=== PATIENT | female | born 1985 | race Caucasian/White ===

== ENCOUNTER 2021-06-07 08:01 | Emergency (ER) | payer OTHER, SELFPAY ==
[2021-06-07 08:07] VITALS: BP 126/89; PULSE 88; RESP 19; TEMP 36.6; O2SAT 97; BMI 28.1
--- NOTE | 2021-06-07 08:24 | ED.GENADULT ---
HPI - General Adult General Chief complaint: Upper Respiratory Symptoms Stated complaint: flu like symptoms Time Seen by Provider: 06/07/21 08:24 Source: patient Mode of arrival: ambulatory Limitations: no limitations History of Present Illness HPI narrative: 36-year-old female is here today for complaints of body aches and upper respiratory symptoms for the last 2 days. Patient reports that the symptoms started 2 days ago with body aches chills and subjective fever. Yesterday patient started coughing, complains of headache, no nausea, no vomiting, no diarrhea. Patient denies any abdominal discomfort or cramps. Mild sore throat and postnasal drip. Patient has not been vaccinated for COVID and denies any ill contacts. Nobody else is sick in the house. Patient reports that the headache it in her frontal area and the right cheek area. Denies any sinus infections in the past. Denies any earaches. Onset (ago): day(s) Location: head Radiation: non-radiation Severity: mild Quality: aching Pain Consistency: intermittent Relieving factors: none Related Data Previous Rx's Medication Instructions Recorded promethazine 25 mg tablet 25 mg PO TID PRN #14 tab 05/04/21 cetirizine 10 mg tablet (All Day 10 mg PO DAILY PRN #20 tab 06/07/21 Allergy (cetirizine)) fluticasone propionate 50 1 spray INTRANASAL BID #16 g 06/07/21 mcg/actuation nasal spray,suspension (Flonase Allergy Relief) ibuprofen 600 mg tablet 600 mg PO Q8H PRN #20 tab 06/07/21 Allergies Allergy/AdvReac Type Severity Reaction Status Date / Time No Known Allergies Allergy Unverified 02/15/21 12:43 Review of Systems Review of Systems: Constitutional : No Weight loss, Fever, Chills, No Night Sweats, No Fatigue, No Malaise ENT/Mouth : No Hearing loss, No Ear Pain, No Nasal Congestion, Sinus Pain, No Hoarseness, Nosore throat, No Rhinorrhea, No Swallowing Difficulty Eyes: No Eye Pain, No Swelling, No Redness, No Foreign Body, No Discharge, No Vision Changes Cardiovascular : No Chest Pain, No SOB, No Dyspnea on Exertion, No Orthopnea, No Edema, No Palpitations Respiratory : Cough, No Sputum, No Wheezing, No Smoke Exposure, No Dyspnea Gastrointestinal : No Nausea, No Vomiting, No Diarrhea, No Constipation, No abdominal Pain, No Hematochezia, No Melena Genitourinary : no irregular bleeding, No Dysuria, No Urinary Frequency, No Hematuria, No Urinary Incontinence, No Urgency, No Flank Pain, No Urinary Flow Changes, No Hesitancy Musculoskeletal : No joint pain, No Myalgias, No Joint Swelling Skin : No Skin Lesions, No rash Neuro : No Weakness, No Numbness, No Paresthesias, No Loss of Consciousness, No Dizziness, No Headache Psych : No Anxiety/Panic, No Depression, No SI/HI/AH/VH, No Social Issues, Yes all other systems are reviewed and are negative PMFSH Social History Social History Advance Directives: No Patient : No Physical Exam Vital Signs: Vital Signs: Last Vital Signs Temp 99.9 F 06/07/21 09:23 Pulse 107 H 06/07/21 09:23 Resp 15 06/07/21 09:23 BP 117/74 06/07/21 09:23 Pulse Ox 97 06/07/21 09:23 Body Mass Index 28.1 Const: General: healthy appearing, no acute distress and well developed Nutritional Appearance: well nourished Orientation/consciousness: patient oriented x3 HENMT: Head: Yes normal to inspection, Yes normocephalic and Yes atraumatic General nose exam: Normal external nose present and Normal nares present Face and sinus: Yes normal facial exam Mouth: Normal oral and palatal mucosa present and lip normal Throat: Yes tonsils normal, Yes uvula midline and Yes postnasal drainage Eyes: General: appearance normal, both eyes and all related structures Neck: Neck: Yes normal visual inspection, Yes full ROM and Yes trachea midline Thyroid: other (Goiter) Carotids: normal carotid upstroke Lymphatic: no lymphadenopathy noted Resp: Effort & Inspection: normal respiratory effort and able to speak in complete sentences Auscultation: clear to auscultation bilaterally Cardio: Rate: regular rate Rhythm: regular rhythm Heart sounds: S1 normal heart sound present and S2 normal heart sound present GI: Inspection: Yes normal to inspection and No distended Palpation (GI): No hepatosplenomegaly present Auscultation: normal bowel sounds Skin: General skin exam: elasticity normal, turgor normal and dry skin Neuro: General: patient oriented x3 Course Course Course Narrative: 36-year-old female is here today for body aches, headache, cough, congestion in the last two days. Patient reports that yesterday she felt like she had a fever had body aches chills. Nobody else in the house have been sick. Patient has not been vaccinated against COVID or flu. She denies any ill contacts. Patient reports that she took Mucinex this morning for cough. Patient reports she has a dry cough and does not bring anything up. Some congestion and postnasal drip. Patient denies any shortness of breath, abdominal pain, discomfort, nausea, vomiting, diarrhea. Will order COVID/flu/RSV test, will give her Claritin and ibuprofen. Will hold off on getting an x-ray. Patient has no cough, no shortness of breath her lung sounds are clear. Reevaluation(s) Reevaluation #1: Swab came back negative for flu and RSV and positive for COVID. Patient will go home. She does not have any comorbidities. I will send her home on Tessalon Perles, Zyrtec, Flonase. Patient will quarantine for 10 days herself and her children. Watch for any worsening symptoms. She was encouraged to come back if her symptoms will get worse or if she will experience any additional concerning symptoms. Medical Decision Making Lab Data Labs: Lab Results 06/07/21 Range/Units 09:20 Coronavirus (PCR) POSITIVE A (Negative) Influenza Type A (PCR) NEGATIVE (Negative) Influenza Type B (PCR) NEGATIVE (Negative) RSV RNA Qual (PCR) NEGATIVE (Negative) Discharge Plan Discharge Clinical Impression: COVID-19 Patient Disposition: Home, Self-Care Instructions: COVID-19 (Coronavirus Disease 2019) (ED) Additional Instructions: You were seen here today for upper respiratory symptoms. Your swab showed that you have no flu or RSV, however came back positive for COVID-19. Please make sure that you drink plenty fluids and rest. Make sure you quarantine yourself any or children for the next 10 days. You may treat her symptoms with medication given to you. You may take Tessalon Perles for cough as ordered, Zyrtec for congestion and Flonase for congestion. Please return to emergency department if your symptoms will get worse or if you experience any additional concerning symptoms. Prescriptions: New cetirizine [All Day Allergy (cetirizine)] 10 mg tablet 10 mg PO DAILY PRN (Reason: allergy symptoms) Qty: 20 RF: 0 ibuprofen 600 mg tablet 600 mg PO Q8H PRN (Reason: pain) Qty: 20 RF: 0 fluticasone propionate [Flonase Allergy Relief] 50 mcg/actuation spray,suspension 1 spray intranasal BID Qty: 16 RF: 0 No Action promethazine 25 mg tablet 25 mg PO TID PRN (Reason: nausea and vomiting) Qty: 14 RF: 0 Referrals: Po,Gabriela Ibarra MD [Primary Care Provider] - 2 weeks Stand Alone Forms: Work/School Release Interventions: ED Discharge Assessment Last Done: 06/07/21 11:27 Discharge Date/Time: 06/07/21 11:27
[2021-06-07] MEDS: Ibuprofen 600 MG TABLET PO (09:06)
[2021-06-07] MEDS: Loratadine 10 MG TABLET PO (09:06)
[2021-06-07 09:23] VITALS: BP 117/74; PULSE 107; RESP 15; TEMP 37.7; O2SAT 97
[2021-06-07 10:16] LABS: Influenza A PCR NEGATIVE (Negative); Influenza B PCR NEGATIVE (Negative); Resp Syncy Virus RNA Qual PCR NEGATIVE (Negative); SARS COV2 PCR INHOUSE POSITIVE (Negative)
== END 2021-06-07 11:27 | disposition home or self-care (01) ==
PROVIDERS: Nurse Practitioner Family; Emergency Provider Emergency Medicine; PCP Internal Medicine
DX: U07.1 COVID-19 (principal)
CPT/HCPCS: 0241U; 36415; 99283; 99284

== ENCOUNTER 2021-06-09 02:29 | Emergency (ER) | payer OTHER, SELFPAY ==
[2021-06-09 02:47] VITALS: BP 104/74; PULSE 100; RESP 16; TEMP 36.3; O2SAT 97; BMI 37.2
[2021-06-09 04:12] LABS: IDNOW Serial# 9DD0AD1C; Strep A Nucleic Acid Negative (Negative)
[2021-06-09 05:42] VITALS: BP 107/68; PULSE 116; RESP 18; TEMP 37.9; O2SAT 100
--- NOTE | 2021-06-09 05:59 | ED.URI ---
HPI - URI/Sore Throat General Chief Complaint: Upper Respiratory Symptoms Stated Complaint: COVID +, possible strep as well Time Seen by Provider: 06/09/21 03:38 Source: patient Mode of arrival: ambulatory History of Present Illness HPI Narrative: 36-year-old female with known COVID-19 positivity states that her throat feels like it is on fire but denies any noted pus on the tonsils and denies any cough but states that she has left ear pain as well. Related Data Previous Rx's Medication Instructions Recorded promethazine 25 mg tablet 25 mg PO TID PRN #14 tab 05/04/21 cetirizine 10 mg tablet (All Day 10 mg PO DAILY PRN #20 tab 06/07/21 Allergy (cetirizine)) fluticasone propionate 50 1 spray INTRANASAL BID #16 g 06/07/21 mcg/actuation nasal spray,suspension (Flonase Allergy Relief) ibuprofen 600 mg tablet 600 mg PO Q8H PRN #20 tab 06/07/21 benzonatate 100 mg capsule 100 mg PO TID PRN #20 cap 06/08/21 (Tessalon Azam) Allergies Allergy/AdvReac Type Severity Reaction Status Date / Time No Known Allergies Allergy Verified 06/09/21 02:46 Review of Systems Review of Systems: Pertinent positives and negatives as stated in HPI 10 point review of systems is otherwise negative. PMFSH Past Medical History Source: nursing notes reviewed Social History Social History Alcohol intake: never Patient Tobacco Use Status: Never used Tobacco Use of substances other than those prescribed or required for medical reasons: No Advance Directives: No Advance Directives Information Provided: Yes Patient : No Physical Exam Vital Signs: Vital Signs: Last Vital Signs Temp 100.2 F 06/09/21 05:42 Pulse 116 H 06/09/21 05:42 Resp 18 06/09/21 05:42 BP 107/68 06/09/21 05:42 Pulse Ox 100 06/09/21 05:42 Body Mass Index 37.2 VITAL SIGNS: Reviewed. GENERAL: Well developed, well nourished, in no acute distress. HEAD: Normocephalic/atraumatic EYES: PERRLA, EOMI EARS: Ext canals without abnormality, TMs non-bulging and non-erythematous NOSE: Nares patent bilateral OROPHARYNX: no oral lesions noted, posterior pharynx clear with erythema but without noted tonsillar enlargement/erythema/exudates, there is midline uvula with symmetry NECK: Supple, no adenopathy LUNGS: Normal breath sounds. No adventitious sounds or accessory muscle use. SpO2<100> CARDIOVASCULAR: Regular rate and rhythm without noted murmurs ABDOMEN: Soft, non-tender, non-distended with bowel sounds. NEUROLOGIC: Alert and oriented x 4. Course Course Course Narrative: 36-year-old female with history and clinical presentation consistent with pharyngitis and review strep results negative for bacterial infection. Patient was informed of all results and otherwise discharged home in stable condition. She was provided with combination analgesics as well as Cepacol prior to discharge. MDM - URI/Sore Throat Lab Data Labs: Lab Results 06/09/21 Range/Units 03:57 S. pyogenes GrpA XENIA Negative (Negative) Discharge Plan Discharge Clinical Impression: COVID-19, Pharyngitis Patient Disposition: Home, Self-Care Instructions: COVID-19 (Coronavirus Disease 2019) (ED), Pharyngitis (ED) Additional Instructions: 1. You must continue to self quarantine as per Federal and State guidelines. 2. Recommend saline gargles (mix warm tap water with table salt) for 5-10 minutes, 3 to 4 times a day. 3. Continue to use [id number] Tylenol/ibuprofen as needed for temperature control, body aches, throat pain. 4. Recommend [id number] Cepacol/Sudafed for throat relief. May consider using ice to unexposed skin for additional symptom relief. 5. Schedule telemedicine follow-up appointment with your primary care provider on Friday for re-evaluation. Return to the ER for acute worsening of symptoms. Prescriptions: No Action promethazine 25 mg tablet 25 mg PO TID PRN (Reason: nausea and vomiting) Qty: 14 RF: 0 cetirizine [All Day Allergy (cetirizine)] 10 mg tablet 10 mg PO DAILY PRN (Reason: allergy symptoms) Qty: 20 RF: 0 ibuprofen 600 mg tablet 600 mg PO Q8H PRN (Reason: pain) Qty: 20 RF: 0 fluticasone propionate [Flonase Allergy Relief] 50 mcg/actuation spray,suspension 1 spray intranasal BID Qty: 16 RF: 0 benzonatate [Tessalon Perles] 100 mg capsule 100 mg PO TID PRN (Reason: cough) Qty: 20 RF: 0 Referrals: Po,Gabriela Ibarra MD [Primary Care Provider] - 2 days
[2021-06-09] MEDS: Ketorolac Tromethamine 15 MG/ML VIAL IM (06:18)
[2021-06-09] MEDS: Throat Lozenge, Medicated LOZENGE 1 LOZENGE MUCOUS MEM (06:19)
[2021-06-09] MEDS: Acetaminophen 325 MG TABLET 975 MG PO (06:19)
== END 2021-06-09 06:24 | disposition home or self-care (01) ==
PROVIDERS: Emergency Provider Student in an Organized Health Care Education/Training Program; PCP Internal Medicine
DX: U07.1 COVID-19 (principal); J02.9 Acute pharyngitis, unspecified; Z79.899 Other long term (current) drug therapy
CPT/HCPCS: 36415; 87651; 96372; 99284; J1885

== ENCOUNTER 2021-06-15 15:52 | Inpatient (IN) | payer OTHER, SELFPAY ==
--- NOTE | ~2021-06-15 | XR_ITS ---
EXAMINATION: XR CHEST CLINICAL INFORMATION: Dyspnea. Covid positive. COMPARISON: 06/24/2019 TECHNIQUE: Frontal view of the chest was obtained. FINDINGS: The lungs are well expanded. No consolidation. Mild bronchial wall thickening. No edema or effusion. No pneumothorax. The cardiomediastinal silhouette is within normal limits. XR/XR chest 1V IMPRESSION: No consolidation. Bronchial wall thickening can be seen with a small airways process such as asthma or atypical/viral infection.
[2021-06-15 16:05] VITALS: BP 99/61; PULSE 82; RESP 20; TEMP 36.6; O2SAT 84; O2SAT 99; BMI 36.6
--- NOTE | 2021-06-15 16:16 | ECG_ITS ---
Test Reason : SOB Blood Pressure : / mmHG Vent. Rate : 089 BPM Atrial Rate : 089 BPM P-R Int : 132 ms QRS Dur : 086 ms QT Int : 348 ms P-R-T Axes : 038 030 002 degrees QTc Int : 423 ms Normal sinus rhythm Nonspecific T wave abnormality Abnormal ECG T wave amplitude has decreased in Anterolateral leads Inferior leads Referred By: Generic ED Physician Electronically Signed By:AMARJIT MARTE MD
--- NOTE | 2021-06-15 16:38 | ED_ITS ---
HPI - General Adult General Chief complaint: Dyspnea Stated complaint: covid +, sob Time Seen by Provider: 06/15/21 16:37 Source: patient and EMS Mode of arrival: EMS Limitations: no limitations History of Present Illness HPI narrative: 36-year-old female came in for evaluation of shortness of breath. Patient recently diagnosed with COVID infection, patient been having shortness of breath and wheezing, patient is known asthmatic and known history of smoker. Patient was seen at 2 other different hospital last week for shortness of breath, patient was given albuterol was sent home. There is recent exposure to sick contacts with COVID 19. Related Data Previous Rx's Medication Instructions Recorded promethazine 25 mg tablet 25 mg PO TID PRN #14 tab 05/04/21 cetirizine 10 mg tablet (All Day 10 mg PO DAILY PRN #20 tab 06/07/21 Allergy (cetirizine)) fluticasone propionate 50 1 spray INTRANASAL BID #16 g 06/07/21 mcg/actuation nasal spray,suspension (Flonase Allergy Relief) ibuprofen 600 mg tablet 600 mg PO Q8H PRN #20 tab 06/07/21 benzonatate 100 mg capsule 100 mg PO TID PRN #20 cap 06/08/21 (Tessalon Perles) Allergies Allergy/AdvReac Type Severity Reaction Status Date / Time No Known Allergies Allergy Verified 06/15/21 16:12 Review of Systems Review of Systems: All other systems are reviewed and are negative Constitutional: Reports as per HPI and Reports no additional constitutional complaints Eyes: Reports as per HPI and Reports no additional eye complaints Reports system reviewed and no additional complaints, except as documented Cardiovascular: Reports as per HPI and Reports no additional cardiovascular complaints Respiratory: Reports as per HPI and Reports no additional respiratory complaints Gastrointestinal: Reports as per HPI and Reports no additional gastrointestinal complaints Genitourinary: Reports no additional female genitourinary complaints Musculoskeletal: Reports no additional musculoskeletal complaints Skin/Breast: Reports system reviewed and no additional complaints, except as docu Psychiatric: Reports no additional psychiatric complaints Endocrine: Reports no additional endocrine complaints Hematologic/Lymphatic: Reports no additional hematologic/lymphatic complaints Allergic/Immunologic: Reports no additional allergic/immunologic complaints Reports system reviewed and no additional complaints, except as documented and Reports Abnormal speech present [facility] Past Medical History Medical History Asthma COVID-19 Migraine Social History Social History Alcohol intake: never Patient Tobacco Use Status: Never used Tobacco Advance Directives: No Advance Directives Information Provided: No Patient : No Physical Exam Vital Signs: Vital Signs: Last Vital Signs Temp 98 F 06/15/21 16:05 Pulse 87 06/15/21 18:16 Resp 20 06/15/21 16:05 BP 99/61 06/15/21 16:05 Pulse Ox 99 06/15/21 16:05 Oxygen Flow Rate 2 06/15/21 16:05 Body Mass Index 36.6 Vital signs have been reviewed as appeared to be correct. Blood pressure normal. Heart rate normal. Respiration rate normal. Temperature normal. Oxygen saturation normal. Appearance: Alert. Oriented X3. No acute distress. Head: Normal external exam. Normocephalic. Atraumatic. No Whitaker signs noted. No raccoon eyes noted Eyes: PERRLA. EOMI. Conjunctiva and sclera normal. Eyelids normal. ENT: TM's Normal. Pharynx normal. Uvula midline. Moist mucous membranes. No trismus noted. No drooling noted. No muffled voice noted. Neck: Normal inspection. Neck supple. FROM. No adenopathy. Thyroid Normal. No meningeal signs. No neck mass noted. CVS: Normal heart rate and rhythm. Heart sound normal. No murmurs noted. Pulses normal throughout. Respiratory: No respiratory distress. Painless inspiration. Breath sounds normal. Diffuse mild expiratory wheezing with prolonged expiration. Chest nontender. No accessory muscle usage noted or decreased air movement noted. Abdomen: Soft and nontender. Bowel sounds normal in all 4 quadrants. No distention noted. No organomegaly noted. No visible injury noted. Back: No CVA tenderness. Full range of motion noted. Skin: Skin warm and dry. Normal skin color. Normal skin turgor. No rashes/lesions/lacerations noted. Extremities: No lower extremity edema. Extremities exhibit normal range of motion. Extremities nontender. Neuro: Oriented X 3. Cranial nerve exam: II-XII are grossly intact No motor deficit. No sensory deficit. Reflexes normal. Course Course Course Narrative: Assessment and plan. 36-year-old female recently diagnosed with COVID-19 a, patient had multiple ED visits for difficulty breathing, patient is known to history of asthma. Is reportedly patient had hypoxia of 84% on the room air. Will admit the patient for supplemental oxygen if needed and continue with the bronchodilator. Medical Decision Making Lab Data Lab results reviewed: Yes I reviewed the patient's lab results. Result diagrams: 06/15/21 17:04 06/15/21 17:04 Labs: Lab Results 06/15/21 06/15/21 06/15/21 Range/Units 17:04 17:04 17:04 WBC 3.8 L (4.8-10.8) X10*3/uL RBC 4.25 (4.20-5.50) X10*6/uL Hgb 11.9 L (12.0-16.0) g/dl Hct 36.1 L (37.0-47.0) % MCV 84.9 (80.0-98.0) fL MCH 28.0 (27.0-33.0) pg MCHC 33.0 (31.0-35.0) g/dl RDW 12.9 (11.0-16.0) % Plt Count 159 L (160-400) X10*3/uL MPV 11.0 (9.4-12.3) fL Immature Gran % (Auto) 0.0 (0.0-0.4) % Neut % (Auto) 50.2 (45-73) % Lymph % (Auto) 37.5 (20-40) % [place] % (Auto) 12.0 H (2-11) % Eos % (Auto) 0.0 (0-4) % Baso % (Auto) 0.3 (0-2) % Lymph # (Auto) 1.4 (1.2-4.9) X10*3/uL [place] # (Auto) 0.5 (0.1-1.2) X10*3/uL Eos # (Auto) 0.0 (0.0-0.4) X10*3/uL Baso # (Auto) 0.0 (0.0-0.2) X10*3/uL Abs Immat Gran (auto) 0.00 (0.00-0.03) X10*3/uL Absolute Neuts (auto) 1.9 L (2.0-8.3) x10*3/uL Absolute Nucleated RBC 0.000 (0.0-0.012) X10*3/uL Nucleated RBC % (auto) 0.0 (0.0-0.2) /100WBC Sodium 141 (135-145) mmol/L Potassium 3.6 (3.3-5.1) mmol/L Chloride 106 (96-108) mmol/L Carbon Dioxide 28 (22-29) mmol/L Anion Gap 11 L (12-20) BUN 13 (9-16) mg/dL Creatinine 0.77 (0.5-1.4) mg/dL Estim Creat Clear Calc 124.2 Estimated GFR > 60 Random Glucose 88 (60-115) mg/dL Calcium 8.1 L (8.4-10.2) mg/dL Troponin I High Sens < 3.5 (<3.5-17.0) ng/L B-Natriuretic Peptide < 10 (<100) pg/mL Imaging Data Chest x-ray: Radiologist's impression: No consolidation. Bronchial wall thickening can be seen with a small airways process such as asthma or atypical/viral infection. ? Discharge Plan Discharge Patient Disposition: Admitted As Inpatient Prescriptions: No Action promethazine 25 mg tablet 25 mg PO TID PRN (Reason: nausea and vomiting) Qty: 14 RF: 0 cetirizine [All Day Allergy (cetirizine)] 10 mg tablet 10 mg PO DAILY PRN (Reason: allergy symptoms) Qty: 20 RF: 0 ibuprofen 600 mg tablet 600 mg PO Q8H PRN (Reason: pain) Qty: 20 RF: 0 fluticasone propionate [Flonase Allergy Relief] 50 mcg/actuation spray,suspension 1 spray intranasal BID Qty: 16 RF: 0 benzonatate [Tessalon Perles] 100 mg capsule 100 mg PO TID PRN (Reason: cough) Qty: 20 RF: 0
[2021-06-15 17:09] LABS: MANUAL DIFF FLAG NO
[2021-06-15 17:16] LABS: Basophils Percent Auto 0.3 % (0-2); Hematocrit 36.1 % (37.0-47.0); Hemoglobin 11.9 g/dl (12.0-16.0); Lymphocytes Absolute Auto 1.4 X10*3/uL (1.2-4.9); Lymphocytes Percent Auto 37.5 % (20-40); Mean Corpuscular Volume 84.9 fL (80.0-98.0); Monocytes Absolute Auto 0.5 X10*3/uL (0.1-1.2); Neutrophils Absolute Auto 1.9 x10*3/uL (2.0-8.3); Neutrophils Percent Auto 50.2 % (45-73); Platelet Count 159 X10*3/uL (160-400); Red Blood Count 4.25 X10*6/uL (4.20-5.50); Red Cell Distribution Width 12.9 % (11.0-16.0); White Blood Count 3.8 X10*3/uL (4.8-10.8)
[2021-06-15 17:24] LABS: Anion Gap 11 (12-20); Blood Urea Nitrogen 13 mg/dL (9-16); Calcium 8.1 mg/dL (8.4-10.2); Carbon Dioxide 28 mmol/L (22-29); Chloride 106 mmol/L (96-108); Creatinine Clr Calc Pharmacy 124.2; Estimated Glomerular Filt Rate > 60; Glucose Random 88 mg/dL (60-115); Potassium 3.6 mmol/L (3.3-5.1); Sodium 141 mmol/L (135-145)
[2021-06-15 17:31] LABS: B Type Natriuretic Peptide < 10 pg/mL (<100); Troponin-I High Sensitivity < 3.5 ng/L (<3.5-17.0)
[2021-06-15] MEDS: Albuterol/Iprat 2.5/0.5MG 3 ML AMPUL.NEB INHALE (18:14)
[2021-06-15] MEDS: Albuterol Sulfate (0.083%) 2.5 MG/3 ML VIAL.NEB 5 MG INHALE (18:14)
[2021-06-15 18:16] VITALS: PULSE 87; O2SAT 96
--- NOTE | 2021-06-15 18:21 | P.HPHOSP_ITS ---
History of Present Illness Date of Service: 06/15/21 36-year-old female recently swab positive for COVID 8 days ago presents with worsening shortness of breath over the last several days. Was seen at local hospital last week but was not admitted; she states over the course of last several days she has spike fevers to 106 and her breathing is not responding to her usual inhalers. Currently she is lying lateral recumbent satting 96% 2 L of O2. She will be admitted for the further treatment of same Review of Systems Review of Systems: Denies chest pain Admits to shortness of breath at rest worse with exertion Denies nausea vomiting diarrhea PMFSH Medical History Asthma COVID-19 Migraine Social History Alcohol intake: never Patient Tobacco Use Status: Never used Tobacco Advance Directives: No Advance Directives Information Provided: No Patient : No Meds Allergies Allergy/AdvReac Type Severity Reaction Status Date / Time No Known Allergies Allergy Verified 06/15/21 16:12 Active Medications: Current Medications Acetaminophen (Acetaminophen 325 Mg Tablet) 650 mg PO Q6H MANAN Dexamethasone Sodium Phosphate (Dexamethasone Sod Phosphate 4 Mg/Ml Vial) 6 mg IVPUSH BID@1000,2200 MANAN Enoxaparin Sodium (Enoxaparin Sodium 40 Mg/0.4 Ml Syringe) 40 mg SUBCUT Q24H MANAN Famotidine (Famotidine/Pf 20 Mg/2 Ml Vial) 20 mg IVPUSH BID@1000,2200 MANAN Sodium Chloride (Ns) 1,000 mls @ 100 mls/hr IVCONT .Q10H MANAN Ondansetron HCl (Ondansetron Hcl 4 Mg/2 Ml Vial) 4 mg IVPUSH RQ6H PRN PRN Reason: Nausea and Vomiting Sodium Chloride (0.9 % Sodium Chloride Flush 3 Ml Syringe) 3 ml IVFLUSH QSHIFT MANAN Physical Exam Vital Signs and Narrative: Vital Signs: Last Vital Signs Temp 98 F 06/15/21 16:05 Pulse 87 06/15/21 18:16 Resp 20 06/15/21 16:05 BP 99/61 06/15/21 16:05 Pulse Ox 99 06/15/21 16:05 Oxygen Flow Rate 2 06/15/21 16:05 Body Mass Index 36.6 Const: Other: Somnolent but arousable; able to speak in full sentences lying 30 degrees lateral recumbent position HENMT: Other: Mucous membranes dry oropharynx clear Resp: Other: Diminished at bases with scant crackles bilaterally; there is diffuse mild expiratory wheezes Cardio: Other: No S4; positive S1-S2; no S3s murmurs rubs or gallops GI: Other: Soft nontender nondistended. Normoactive bowel sounds. No appreciable hepatosplenomegaly Neuro: Other: Cranial nerves 2-12 grossly intact as tested. Motor 5/5 all extremities sensation intact Extrem: Other: No edema bilaterally Results Labs CBC and Chem 7: 06/15/21 17:04 06/15/21 17:04 Labs: Laboratory Results - last 24 hr 06/15/21 06/15/21 06/15/21 17:04 17:04 17:04 MCV 84.9 MCH 28.0 MCHC 33.0 RDW 12.9 Plt Count 159 L MPV 11.0 Immature Gran % (Auto) 0.0 Neut % (Auto) 50.2 Lymph % (Auto) 37.5 [place] % (Auto) 12.0 H Eos % (Auto) 0.0 Baso % (Auto) 0.3 Lymph # (Auto) 1.4 [place] # (Auto) 0.5 Eos # (Auto) 0.0 Baso # (Auto) 0.0 Abs Immat Gran (auto) 0.00 Absolute Neuts (auto) 1.9 L Absolute Nucleated RBC 0.000 Nucleated RBC % (auto) 0.0 Anion Gap 11 L Estim Creat Clear Calc 124.2 Estimated GFR > 60 Random Glucose 88 Calcium 8.1 L Troponin I High Sens < 3.5 B-Natriuretic Peptide < 10 Imaging Radiologist's Impressions: Impressions Chest X-Ray 06/15/21 16:16 IMPRESSION: No consolidation. Bronchial wall thickening can be seen with a small airways process such as asthma or atypical/viral infection. Assessment and Plan (1) COVID-19: Status: Acute A 36-year-old female with a history of asthma presents 8 days after diagnosis with COVID-19 virus with shortness of breath and fever. She is unvaccinated. States her inhalers were not working; she was seen earlier in the week at a local ER and discharge. 1. COVID-19 Cover with IV antibiotics as patient is asthmatic and is making sputum; x- ray consistent with bronchial wall thickening question patchy infiltrates Will give dexamethasone 6 mg IV q.12 hours for the next several days along with Pepcid IV Q 12 Supplemental oxygen to maintain saturations greater thanor equal to 92% Will order DuoNebs q.6 hours with albuterol Q 4 p.r.n. Admitted to isolation unit/telemetry 2. DVT: Lovenox Full code Quality Stroke Does the patient have a stroke diagnosis?: No VTE Prior VTE?: No VTE Risk Level:: Medical - moderate - high VTE Device Contraindication: Treatment Not Indicated VTE Drug Contraindication: N/A - Med Ordered
--- NOTE | 2021-06-15 19:04 | PHA.MEDREC ---
Pharmacy Consult ? Medication Reconciliation Pharmacy has completed the medication reconciliation. Patient had difficult speaking was able to answer yes or no. Radha Khan, KaylaD
[2021-06-15 19:28] VITALS: BP 117/70; PULSE 136; RESP 21; TEMP 36.8; O2SAT 97
--- NOTE | 2021-06-15 19:44 | PC.NURSE ---
Blood Cultures x2 being drawn prior to antibiotic administration.
[2021-06-15] MEDS: 0.9 % Sodium Chloride 1,000 ML 100 ML IVCONT (20:30)
[2021-06-15] MEDS: Acetaminophen 325 MG TABLET 650 MG PO (20:31)
[2021-06-15] MEDS: cefTRIAXone sodium 1 GM in 0.9 % Sodium Chloride 50 ML IV (20:32)
[2021-06-15] MEDS: Enoxaparin Sodium 40 MG/0.4 ML SYRINGE SUBCUT (20:32)
[2021-06-15] MEDS: Azithromycin 500 MG in 0.9 % Sodium Chloride 250 ML 125 MG IV (22:43)
[2021-06-15] MEDS: Ketorolac Tromethamine 15 MG/ML VIAL 30 MG IVPUSH (22:43)
[2021-06-15] MEDS: dexAMETHasone sod phosphate 4 MG/ML VIAL 6 MG IVPUSH (22:43)
[2021-06-15] MEDS: Famotidine/PF 20 MG/2 ML VIAL IVPUSH (22:43)
--- NOTE | 2021-06-15 23:04 | PC.NURSE ---
ATTEMPTED TO CALL AND GIVE REPORT TO RN ON IMC. STATING SHE WAS NOT AWARE SHE WAS GETTING A PATIENT. INFORMED THAT ANOTHER NURSE WILL BE CALLING ME BACK IN ORDER TO GIVE REPORT.
[2021-06-16] VITALS (8 sets, daily range): BP systolic 105–121; BP diastolic 56–77; PULSE 75–93; RESP 18–25; TEMP 36.1–37; O2SAT 93–97; BMI 36.6
[2021-06-16] MEDS: 0.9 % Sodium Chloride Flush 3 ML SYRINGE IVFLUSH ×3 (00:13→20:13)
[2021-06-16] MEDS: Acetaminophen 325 MG TABLET 650 MG PO ×4 (00:23→18:12)
[2021-06-16] MEDS: 0.9 % Sodium Chloride 1,000 ML 100 ML IVCONT ×2 (01:37→10:50)
[2021-06-16 06:29] LABS: Hematocrit 35.1 % (37.0-47.0); Hemoglobin 11.5 g/dl (12.0-16.0); Imm Gran Abs Auto 0.01 X10*3/uL (0.00-0.03); Imm Gran Pct Auto 0.5 % (0.0-0.4); Lymphocytes Absolute Auto 0.6 X10*3/uL (1.2-4.9); Lymphocytes Percent Auto 26.7 % (20-40); MANUAL DIFF FLAG SCAN; Mean Corpuscular HGB Conc 32.8 g/dl (31.0-35.0); Mean Corpuscular Hemoglobin 27.9 pg (27.0-33.0); Mean Corpuscular Volume 85.2 fL (80.0-98.0); Mean Platelet Volume 10.3 fL (9.4-12.3); Monocytes Absolute Auto 0.1 X10*3/uL (0.1-1.2); Neutrophils Absolute Auto 1.5 x10*3/uL (2.0-8.3); Neutrophils Percent Auto 67.8 % (45-73); Platelet Count 167 X10*3/uL (160-400); Red Blood Count 4.12 X10*6/uL (4.20-5.50); Red Cell Distribution Width 12.8 % (11.0-16.0); SCAN SMEAR FLAG 1
[2021-06-16 06:32] LABS: White Blood Count 2.2 X10*3/uL (4.8-10.8)
[2021-06-16 06:54] LABS: Alanine Aminotransferase 45 U/L (0-31); Albumin Level 3.9 g/dL (3.5-5.0); Alkaline Phosphatase 83 U/L (39-117); Anion Gap 13 (12-20); Aspartate Amino Transferase 36 U/L (5-31); Bilirubin Total 0.6 mg/dL (0.0-1.0); Blood Urea Nitrogen 11 mg/dL (9-16); Carbon Dioxide 21 mmol/L (22-29); Chloride 110 mmol/L (96-108); Creatinine Clr Calc Pharmacy 138.4; Estimated Glomerular Filt Rate > 60; Glucose Fasting 143 mg/dL (60-99); Potassium 4.2 mmol/L (3.3-5.1); Sodium 140 mmol/L (135-145); Total Protein 6.8 g/dL (6.5-8.0)
[2021-06-16 06:57] LABS: SLIDE REVIEW VERIFIED
[2021-06-16] MEDS: dexAMETHasone sod phosphate 4 MG/ML VIAL 6 MG IVPUSH ×2 (09:18→21:38)
[2021-06-16] MEDS: Famotidine/PF 20 MG/2 ML VIAL IVPUSH ×2 (09:18→20:13)
--- NOTE | 2021-06-16 11:16 | MHC.CM.PN ---
CM ATTEMPTED TO CONTACT PT USING THE CELL NUMBER LISTED ([phone]). A VM MESSAGE WAS LEFT WITH CM CONTACT INFORMATION. 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 PER EMR: PT LIVES WITH FAMILY, IS INDEPENDENT WITH CARE AND EMPLOYED. PT HAS NO HOME SERVICES. PCP IS PACO MCGARRY AND PT HAS NO HCP ON FILE. CURRENT DC PLAN IS HOME WITH NO SERVICES PT TO SELF ARRANGE TRANSPORT
--- NOTE | 2021-06-16 14:55 | P.PNIM_ITS ---
Subjective Subjective Date of Service: 06/16/21 Interval History: Breathing better since admission however cough remains the main issue. Sats fluctuate Review of Systems Denies chest pain Denies shortness of breath Denies nausea vomiting diarrhea Physical Exam Vital Signs: Vital Signs: Last Vital Signs Temp 98.3 F 06/16/21 12:00 Pulse 82 06/16/21 12:00 Resp 18 06/16/21 12:00 BP 110/63 06/16/21 12:00 Pulse Ox 93 06/16/21 12:00 Oxygen Flow Rate 2 06/15/21 16:05 Body Mass Index 36.6 Const: Other: No acute distress other than continuous cough HENMT: Other: Membranes moist Resp: Other: Diminished at bases with scattered expiratory wheezes throughout Cardio: Other: No S4; positive S1-S2; no S3 murmurs or gallops GI: Other: Soft nontender nondistended with normoactive bowel sounds. Neuro: Other: Cranial nerves 2-12 grossly intact as tested. Motor is 5/5 all extremities. Sensation is intact. Cognition is appropriate Extrem: Other: No edema bilaterally Objective Data Active Medications Acetaminophen (Acetaminophen 325 Mg Tablet) 650 mg PO Q6H [facility] Last Admin: 06/16/21 12:23 Dose: 650 mg Documented by: JOHANNY Albuterol/Ipratropium (Albuterol/Iprat 2.5/0.5mg 3 Ml Ampul.Neb) 3 ml INHALE RQ4H WHILE AWAKE [facility] Last Admin: 06/16/21 11:34 Dose: Not Given Documented by: OFELIA Non-Admin Reason: covid pos Dexamethasone Sodium Phosphate (Dexamethasone Sod Phosphate 4 Mg/Ml Vial) 6 mg IVPUSH BID@1000,2200 [facility] Last Admin: 06/16/21 09:18 Dose: 6 mg Documented by: JOHANNY Enoxaparin Sodium (Enoxaparin Sodium 40 Mg/0.4 Ml Syringe) 40 mg SUBCUT Q24H [facility] Last Admin: 06/15/21 20:32 Dose: 40 mg Documented by: PHILLIP Famotidine (Famotidine/Pf 20 Mg/2 Ml Vial) 20 mg IVPUSH BID@1000,2200 [facility] Last Admin: 06/16/21 09:18 Dose: 20 mg Documented by: JOHANNY Sodium Chloride (Ns) 1,000 mls @ 100 mls/hr IVCONT .Q10H [facility] Last Admin: 06/16/21 10:50 Dose: 100 mls/hr Documented by: JOHANNY Ceftriaxone Sodium 1 gm/ (Sodium Chloride) 50 mls @ 100 mls/hr IV Q24H [facility] Last Infusion: 06/15/21 21:20 Dose: 0 mls/hr Documented by: PHILLIP Azithromycin 500 mg/ Sodium (Chloride) 250 mls @ 125 mls/hr IV Q24H [facility] Last Infusion: 06/16/21 00:43 Dose: 0 mls/hr Documented by: FABIENNE Ondansetron HCl (Ondansetron Hcl 4 Mg/2 Ml Vial) 4 mg IVPUSH RQ6H PRN PRN Reason: Nausea and Vomiting Pharmacy Consult (Consult Rx Perform Med Rec) 1 each MISCELLANE ONCE PRN PRN Reason: Consult order Sodium Chloride (0.9 % Sodium Chloride Flush 3 Ml Syringe) 3 ml IVFLUSH QSHIFT [facility] Last Admin: 06/16/21 09:18 Dose: 3 ml Documented by: JOHANNY Labs CBC & Chem 7: 06/16/21 06:16 06/16/21 06:16 Labs: Laboratory Results - last 24 hr 06/15/21 06/15/21 06/15/21 17:04 17:04 17:04 MCV 84.9 MCH 28.0 MCHC 33.0 RDW 12.9 Plt Count 159 L MPV 11.0 Immature Gran % (Auto) 0.0 Neut % (Auto) 50.2 Lymph % (Auto) 37.5 [place] % (Auto) 12.0 H Eos % (Auto) 0.0 Baso % (Auto) 0.3 Lymph # (Auto) 1.4 [place] # (Auto) 0.5 Eos # (Auto) 0.0 Baso # (Auto) 0.0 Abs Immat Gran (auto) 0.00 Absolute Neuts (auto) 1.9 L Absolute Nucleated RBC 0.000 Nucleated RBC % (auto) 0.0 Smear Tech's Comments Anion Gap 11 L Estim Creat Clear Calc 124.2 Estimated GFR > 60 Random Glucose 88 Fasting Glucose Calcium 8.1 L Total Bilirubin AST ALT Alkaline Phosphatase Troponin I High Sens < 3.5 B-Natriuretic Peptide < 10 Total Protein Albumin 06/16/21 06/16/21 06:16 06:16 MCV 85.2 MCH 27.9 MCHC 32.8 RDW 12.8 Plt Count 167 MPV 10.3 Immature Gran % (Auto) 0.5 H Neut % (Auto) 67.8 Lymph % (Auto) 26.7 [place] % (Auto) 5.0 Eos % (Auto) 0.0 Baso % (Auto) 0.0 Lymph # (Auto) 0.6 L [place] # (Auto) 0.1 Eos # (Auto) 0.0 Baso # (Auto) 0.0 Abs Immat Gran (auto) 0.01 Absolute Neuts (auto) 1.5 L Absolute Nucleated RBC 0.000 Nucleated RBC % (auto) 0.0 Smear Tech's Comments VERIFIED Anion Gap 13 Estim Creat Clear Calc 138.4 Estimated GFR > 60 Random Glucose Fasting Glucose 143 H Calcium 8.0 L Total Bilirubin 0.6 AST 36 H ALT 45 H Alkaline Phosphatase 83 Troponin I High Sens B-Natriuretic Peptide Total Protein 6.8 Albumin 3.9 Assessment and Plan (1) COVID-19: Status: Acute Assessment and Plan: A 36-year-old female with a history of asthma presents 8 days after diagnosis with COVID-19 virus with shortness of breath and fever. She is unvaccinated. States her inhalers were not working; she was seen earlier in the week at a local ER and discharge. 1. COVID-19 Cover with IV antibiotics as patient is asthmatic and is making sputum; x- ray consistent with bronchial wall thickening question patchy infiltrates Will give dexamethasone 6 mg IV q.12 hours for the next several days along with Pepcid IV Q 12 Supplemental oxygen to maintain saturations greater thanor equal to 92% Will order DuoNebs q.6 hours with albuterol Q 4 p.r.n. Cough bothersome... Will order Robitussin with codeine. If sats remain well controlled the next 24 hours for possible discharge home on oral therapies 2. DVT: Lovenox Full code Quality Stroke Does the patient have a stroke diagnosis?: No VTE Prior VTE?: No VTE Risk Level:: Medical - moderate - high VTE Device Contraindication: Treatment Not Indicated VTE Drug Contraindication: N/A - Med Ordered
--- NOTE | 2021-06-16 17:10 | PC.NURSE ---
Patient ambulated to bathroom and back without oxygen; no distress. Upon returning to bed, O2 94%. Patient remained off of oxygen for rest of shift. Patient denies shortness of breath; patient instructed to call nurse if this changes. Patient verbalizes understanding. Patient refuses to sit in recliner. No complications, no complaints.
[2021-06-16] MEDS: Enoxaparin Sodium 40 MG/0.4 ML SYRINGE SUBCUT (18:12)
[2021-06-16] MEDS: cefTRIAXone sodium 1 GM in 0.9 % Sodium Chloride 50 ML IV (18:12)
[2021-06-16] MEDS: Azithromycin 500 MG in 0.9 % Sodium Chloride 250 ML 125 MG IV (20:12)
[2021-06-16] MEDS: Albuterol/Iprat 2.5/0.5MG 3 ML AMPUL.NEB INHALE (20:16)
[2021-06-17] MEDS: guaiFEN/Codeine SF 200/20/10ML 10 ML LIQUID PO (00:12)
[2021-06-17 03:10] VITALS: BP 120/56; PULSE 74; RESP 20; TEMP 37; O2SAT 95
[2021-06-17 06:54] LABS: Hematocrit 33.9 % (37.0-47.0); Hemoglobin 11.4 g/dl (12.0-16.0); Imm Gran Abs Auto 0.01 X10*3/uL (0.00-0.03); Imm Gran Pct Auto 0.2 % (0.0-0.4); Lymphocytes Absolute Auto 0.9 X10*3/uL (1.2-4.9); Lymphocytes Percent Auto 15.5 % (20-40); MANUAL DIFF FLAG NO; Mean Corpuscular HGB Conc 33.6 g/dl (31.0-35.0); Mean Corpuscular Hemoglobin 28.1 pg (27.0-33.0); Mean Corpuscular Volume 83.7 fL (80.0-98.0); Mean Platelet Volume 10.3 fL (9.4-12.3); Monocytes Absolute Auto 0.5 X10*3/uL (0.1-1.2); Neutrophils Absolute Auto 4.3 x10*3/uL (2.0-8.3); Neutrophils Percent Auto 76.3 % (45-73); Platelet Count 191 X10*3/uL (160-400); Red Blood Count 4.05 X10*6/uL (4.20-5.50); Red Cell Distribution Width 12.6 % (11.0-16.0); White Blood Count 5.6 X10*3/uL (4.8-10.8)
[2021-06-17 07:20] LABS: Alanine Aminotransferase 34 U/L (0-31); Albumin Level 3.9 g/dL (3.5-5.0); Alkaline Phosphatase 76 U/L (39-117); Anion Gap 14 (12-20); Aspartate Amino Transferase 17 U/L (5-31); Bilirubin Total 0.6 mg/dL (0.0-1.0); Blood Urea Nitrogen 9 mg/dL (9-16); Calcium 8.7 mg/dL (8.4-10.2); Carbon Dioxide 23 mmol/L (22-29); Chloride 109 mmol/L (96-108); Creatinine Clr Calc Pharmacy 146.9; Estimated Glomerular Filt Rate > 60; Glucose Fasting 133 mg/dL (60-99); Potassium 3.9 mmol/L (3.3-5.1); Sodium 142 mmol/L (135-145); Total Protein 6.7 g/dL (6.5-8.0)
[2021-06-17 08:00] VITALS: BP 114/63; PULSE 88; RESP 20; TEMP 36.8; O2SAT 96
[2021-06-17] MEDS: Albuterol/Iprat 2.5/0.5MG 3 ML AMPUL.NEB INHALE ×2 (08:10→11:32)
[2021-06-17 08:20] VITALS: PULSE 64; O2SAT 93
[2021-06-17] MEDS: Famotidine/PF 20 MG/2 ML VIAL IVPUSH (09:09)
[2021-06-17] MEDS: dexAMETHasone sod phosphate 4 MG/ML VIAL 6 MG IVPUSH (09:09)
[2021-06-17] MEDS: 0.9 % Sodium Chloride Flush 3 ML SYRINGE IVFLUSH (09:09)
--- NOTE | 2021-06-17 10:24 | P.DS_ITS ---
DS: Providers Provider Date of Service: 06/17/21 Date of admission: 06/15/21 18:14 Date of discharge: 06/17/21 Primary care physician: Gabriela Arce MD DS: Diagnosis Discharge Diagnosis (1) COVID-19: Status: Acute DS: Summary Hospital Course Hospital Course: 36-year-old female recently swab positive for COVID 8 days ago presents with worsening shortness of breath over the last several days.? Was seen at local hospital last week but was not admitted; she states over the course of last several days she has spike fevers to 106 and her breathing is not responding to her usual inhalers.? Currently she is lying lateral recumbent satting 96% 2 L of O2.? She will be admitted for the further treatment of same Hospital course Patient admitted to the isolation unit, given Decadron 6 mg q.12 hours IV along with Pepcid 20 mg q.12 IV. Over the course the next 24 hours patient was able to titrate to room air is feeling better. Her cough remains a big issue during her hospitalization but responded to Robitussin with codeine . At this point ti me she will be discharged to home on a Decadron taper and complete a 5 day course of oral azithromycin. She is encouraged to take turmeric for her cough and utilize Robitussin with codeine Time Spent with Patient Time attestation: Total time spent providing and/or coordinating discharge services: Discharge coordination time: Greater than 30 minutes Quality: Stroke Does the patient have a stroke diagnosis?: No Physical Exam Vital Signs: Vital Signs: Last Vital Signs Temp 98.2 F 06/17/21 08:00 Pulse 64 06/17/21 08:20 Resp 20 06/17/21 08:00 BP 114/63 06/17/21 08:00 Pulse Ox 96 06/17/21 08:00 Oxygen Flow Rate 2 06/15/21 16:05 Body Mass Index 36.6 Const: Other: No acute distress other than continuous cough HENMT: Other: Membranes moist Resp: Other: Good aeration to bases. Scant expiratory wheezes improved since admission Cardio: Other: No S4; positive S1-S2; no S3 murmurs or gallops GI: Other: Soft nontender nondistended with normoactive bowel sounds. Neuro: Other: Cranial nerves 2-12 grossly intact as tested. Motor is 5/5 all extremities. Sensation is intact. Cognition is appropriate Extrem: Other: No edema bilaterally DS: Data Data Completed and Pending Labs on day of discharge: Laboratory Results - last 24 hr 06/17/21 06/17/21 06:41 06:41 WBC 5.6 RBC 4.05 L Hgb 11.4 L Hct 33.9 L MCV 83.7 MCH 28.1 MCHC 33.6 RDW 12.6 Plt Count 191 MPV 10.3 Immature Gran % (Auto) 0.2 Neut % (Auto) 76.3 H Lymph % (Auto) 15.5 L [place] % (Auto) 8.0 Eos % (Auto) 0.0 Baso % (Auto) 0.0 Lymph # (Auto) 0.9 L [place] # (Auto) 0.5 Eos # (Auto) 0.0 Baso # (Auto) 0.0 Abs Immat Gran (auto) 0.01 Absolute Neuts (auto) 4.3 Absolute Nucleated RBC 0.000 Nucleated RBC % (auto) 0.0 Sodium 142 Potassium 3.9 Chloride 109 H Carbon Dioxide 23 Anion Gap 14 BUN 9 Creatinine 0.65 Estim Creat Clear Calc 146.9 Estimated GFR > 60 Fasting Glucose 133 H Calcium 8.7 D Total Bilirubin 0.6 AST 17 D ALT 34 H Alkaline Phosphatase 76 Total Protein 6.7 Albumin 3.9 Preliminary micro results at discharge 06/15/21 20:04 Blood Culture - Preliminary Blood - Venous No growth after 24 hours. 06/15/21 19:43 Blood Culture - Preliminary Blood - Venous No growth after 24 hours. Discharge Plan Discharge Patient Disposition: Home, Self-Care Discharge Diagnosis: covid-19 Referrals: Po,Gabriela Ibarra MD [Primary Care Provider] - 1 Week Discharge Medications: New codeine-guaifenesin 10-100 mg/5 mL Liquid 10 ml PO Q4H PRN (Reason: Cough) Qty: 237 RF: 0 albuterol sulfate [ProAir HFA] 90 mcg/actuation HFA aerosol inhaler 2 puff inhalation QID PRN (Reason: shortness of breath or wheezing) Qty: 8.5 RF: 1 dexamethasone [Decadron] 4 mg tablet See Rx Instructions .Route .COMPLEX Qty: 18 RF: 0 azithromycin 500 mg tablet 500 mg PO DAILY 5 Days Qty: 5 RF: 0 Continued multivitamin Tablet 1 tab PO DAILY RF: 0 acetaminophen 325 mg Tablet 650 mg PO Q6H PRN (Reason: Pain) RF: 0 benzonatate 100 mg capsule 100 mg PO TID PRN (Reason: Cough) RF: 0 cetirizine [All Day Allergy (cetirizine)] 10 mg tablet 10 mg PO DAILY PRN (Reason: allergy symptoms) Qty: 20 RF: 0 ibuprofen 600 mg tablet 600 mg PO Q8H PRN (Reason: pain) Qty: 20 RF: 0 fluticasone propionate [Flonase Allergy Relief] 50 mcg/actuation spray,suspension 1 spray intranasal BID Qty: 16 RF: 0 Discharge Orders: Discharge Order (Routine); Ordered 06/17/21 Ordered By: Dimas Almonte Diet: advance to usual diet Activity on Discharge: As tolerated Care Plan Goals: Complete antibiotic and prednisone taper Health Concerns: Follow with PCP 1 week Plan of Treatment: Oral Decadron taper; azithromycin p.o. x4 days next number Ventolin inhaler as needed; add turmeric for cough Assessment: Improved
--- NOTE | 2021-06-17 10:47 | MHC.CM.PN ---
order for home, self care. CM acknowledge.
[2021-06-17 11:33] VITALS: PULSE 65; O2SAT 94
[2021-06-17 12:00] VITALS: BP 114/62; PULSE 84; RESP 20; TEMP 36.6; O2SAT 95
[2021-06-17] MEDS: Acetaminophen 325 MG TABLET 650 MG PO (12:12)
[2021-06-27 10:17] LABS: Dexamethasone <20 ng/dL
== END 2021-06-17 13:47 | disposition home or self-care (01) | DRG 137 ==
LOC: HO.ED 16:33 → HO.EDOVER 18:22 → HO.IMC 21:45
PROVIDERS: Admitting Provider Hospitalist; Emergency Provider Emergency Medicine; PCP Internal Medicine; Visit Provider Hospitalist
DX: U07.1 COVID-19 (principal); Z79.1 Long term (current) use of non-steroidal anti-inflammatories (NSAID); Z79.51 Long term (current) use of inhaled steroids; Z79.899 Other long term (current) drug therapy
CPT/HCPCS: 36415; 71045; 80048; 80053; 80299; 83880; 84484; 85025; 87040; 93005; 94640; 94644; 96374; 99285; J0456; J0696; J1100; J1650; J1885

== ENCOUNTER 2021-08-08 10:17 | Outpatient (REF) | payer OTHER, SELFPAY ==
[2021-08-08 12:15] LABS: Alanine Aminotransferase 24 U/L (0-31); Albumin Level 4.4 g/dL (3.5-5.0); Alkaline Phosphatase 79 U/L (39-117); Anion Gap 9 (12-20); Aspartate Amino Transferase 21 U/L (5-31); Bilirubin Total 0.9 mg/dL (0.0-1.0); Blood Urea Nitrogen 9 mg/dL (9-16); Calcium 9.4 mg/dL (8.4-10.2); Carbon Dioxide 26 mmol/L (22-29); Chloride 106 mmol/L (96-108); Cholesterol 219 mg/dL; Estimated Glomerular Filt Rate > 60; Glucose Fasting 90 mg/dL (60-99); HDL Cholesterol 54 mg/dL; LDL Cholesterol Calculated 131 mg/dl; Potassium 3.9 mmol/L (3.3-5.1); Sodium 137 mmol/L (135-145); Total Protein 7.5 g/dL (6.5-8.0); Triglycerides 172 mg/dL
[2021-08-08 12:28] LABS: Thyroid Stimulating Hormone 0.99 uIU/mL (0.32-4.0)
== END 2021-08-08 10:18 | disposition home or self-care (01) ==
LOC: HO.HMGCLDS 10:17
PROVIDERS: PCP Internal Medicine; Visit Provider Nurse Practitioner Family
DX: Z13.29 Encounter for screening for other suspected endocrine disorder (principal); Z13.220 Encounter for screening for lipoid disorders
CPT/HCPCS: 36415; 80053; 80061; 84443

== ENCOUNTER 2021-09-12 07:56 | Outpatient (REF) | payer OTHER, SELFPAY ==
--- NOTE | ~2021-09-12 | US_ITS ---
EXAMINATION: US THYROID CLINICAL INFORMATION: Nontoxic single thyroid nodule. COMPARISON: None. TECHNIQUE: Linear transducer grayscale and color Doppler examination with attention to the region of the thyroid. FINDINGS: SIZE: Measurements of the thyroid lobes and nodules are given in sagittal, anteroposterior and transverse dimensions respectively. Right Thyroid Lobe: 5.8 x 2.0 x 2.0 cm, volume 12.2 mL. Previously measured 5.3 x 2.4 x 2.2 cm and volume 14.6 mL Parenchyma: The gland echotexture is homogeneous. Thyroid vascularity is normal. Left Thyroid Lobe: 5.8 x 1.6 x 2.1 cm, volume 10.2 mL. Parenchyma: The gland echotexture is homogeneous. Thyroid vascularity is normal. Isthmus: 0.2 cm in maximum AP dimension. Previously measured 0.3 cm Estimated total number of nodules greater than or equal to 1 cm: 0. Stoker Erector nodules are described as follows: 1. Location: Right Lower pole. Size: 0.4 x 0.3 x 0.4 cm, volume 0.03 mL. Previously measured 0.2 x 0.2 x 0.2 cm and volume 0.004 mL Nodule characteristics: Composition: Cystic(0). Echogenicity: Anechoic (0). Shape: Wider Margins: Smooth (0). Echogenic Foci: None ACR TI-RADS total points: 0 ACR TI-RADS category: 1 2. Location: Midpole. Size: 0.4 x 0.2 x 0.2 cm, volume 0.01 mL. Nodule characteristics: Composition: Cystic(0). Echogenicity: None Shape: Wider Margins: Smooth (0). Echogenic Foci: None (0). ACR TI-RADS total points: 0 ACR TI-RADS category: 1 3. Location: Medial mid to left lower pole. Size: 0.4 x 0.4 x 0.8 cm, volume 0.10 mL. Previously measured 0.4 x 0.2 x 0.4 cm and volume 0.02 mL. Nodule characteristics: Composition: Cystic(0). Echogenicity: None Shape: Wider Margins: Smooth (0). Echogenic Foci: None (0) ACR TI-RADS total points: 0 ACR TI-RADS category: 1 4. Location: Lower pole. Size: 0.3 x 0.2 x 0.3 cm, volume 0.01 mL. Nodule characteristics: Composition: Cystic(0). Echogenicity: Anechoic (0). Shape: Wider Margins: Smooth (0). Echogenic Foci: None (0). ACR TI-RADS total points: 0 ACR TI-RADS category: 1 NODES: No lymphadenopathy is seen in the tissue surrounding the thyroid gland. US/US thyroid IMPRESSION: Subcentimeter bilateral thyroid nodules, nonsuspicious. Enlarged left thyroid lobe. Recommend continued ultrasound follow-up. ACR TI-RADS RECOMMENDATION REFERENCE: Ultrasound-guided fine-needle aspiration, followup ultrasound, no further follow up. * TR1 (0 point) and TR 2 (2 points): No FNA or follow up * TR3 (3 points): FNA if more than or equal to 2.5 cm in maximum dimension, followup ultrasound in 1, 3 and 5 years if 1.5 to 2.4 cm in maximum dimension. * TR4 (4-6 points): FNA if more than or equal to 1.5 cm in maximum dimension, followup ultrasound in 1, 2, 3 and 5 years if 1 to 1.4 cm in maximum dimension. * TR5 (more than or equal to 7 points): FNA if more than or equal to 1 cm in maximum dimension, followup ultrasound every year for 5 years if 0.5 to 0.9 cm in maximum dimension. * TR3, TR4 or TR5 nodules that are below the size threshold for follow up receive no follow up.
== END 2021-09-12 07:57 | disposition home or self-care (01) ==
LOC: HO.US 07:56
PROVIDERS: PCP Internal Medicine; Visit Provider Internal Medicine
DX: E04.1 Nontoxic single thyroid nodule (principal)
CPT/HCPCS: 76536

== ENCOUNTER → 2021-10-10 09:47 | Outpatient (BNVA) | payer OTHER, SELFPAY | PROVIDERS: PCP Internal Medicine; Referring Provider Internal Medicine; Visit Provider Surgery | DX: K64.5 Perianal venous thrombosis (principal) | CPT/HCPCS: 46600; 99212 ==

== ENCOUNTER 2021-11-20 09:26 | Outpatient (REF) | payer OTHER, SELFPAY ==
[2021-11-20 11:25] LABS: MANUAL DIFF FLAG NO
[2021-11-20 11:35] LABS: Basophils Percent Auto 0.5 % (0-2); Eosinophils Absolute Auto 0.1 X10*3/uL (0.0-0.4); Eosinophils Percent Auto 1.5 % (0-4); Hematocrit 39.9 % (37.0-47.0); Imm Gran Abs Auto 0.01 X10*3/uL (0.00-0.03); Imm Gran Pct Auto 0.2 % (0.0-0.4); Immature Retic Fraction 5.6 % (3.0-15.9); Lymphocytes Absolute Auto 1.4 X10*3/uL (1.2-4.9); Lymphocytes Percent Auto 33.9 % (20-40); Mean Corpuscular HGB Conc 32.6 g/dl (31.0-35.0); Mean Corpuscular Hemoglobin 27.5 pg (27.0-33.0); Mean Corpuscular Volume 84.4 fL (80.0-98.0); Mean Platelet Volume 11.4 fL (9.4-12.3); Monocytes Absolute Auto 0.3 X10*3/uL (0.1-1.2); Monocytes Percent Auto 7.1 % (2-11); Neutrophils Absolute Auto 2.3 x10*3/uL (2.0-8.3); Neutrophils Percent Auto 56.8 % (45-73); Platelet Count 176 X10*3/uL (160-400); Red Blood Count 4.73 X10*6/uL (4.20-5.50); Retic HGB Equivalent 30.7 pg (30.0-35.0); Reticulocyte Percent 0.9 % (0.5-1.8); Reticulocytes Absolute 0.042 X10*6/uL (0.026-0.095); White Blood Count 4.1 X10*3/uL (4.8-10.8)
[2021-11-20 11:42] LABS: Estimated Average Glucose 111 mg/dL; Hemoglobin A1c % 5.5 %
[2021-11-20 11:54] LABS: Alanine Aminotransferase 21 U/L (0-31); Albumin Level 4.5 g/dL (3.5-5.0); Alkaline Phosphatase 86 U/L (39-117); Anion Gap 12 (12-20); Aspartate Amino Transferase 16 U/L (5-31); Bilirubin Total 0.7 mg/dL (0.0-1.0); Blood Urea Nitrogen 12 mg/dL (9-16); Calcium 9.3 mg/dL (8.4-10.2); Carbon Dioxide 24 mmol/L (22-29); Chloride 107 mmol/L (96-108); Cholesterol 192 mg/dL; Estimated Glomerular Filt Rate > 60; Glucose Random 95 mg/dL (60-115); HDL Cholesterol 48 mg/dL; Iron 72 mcg/dL (30-160); LDL Cholesterol Calculated 114 mg/dl; Percent Iron Saturation 18 % (15-50); Potassium 4.3 mmol/L (3.3-5.1); Sodium 139 mmol/L (135-145); Total Iron Binding Capacity 395 mcg/dL (228-428); Total Protein 7.7 g/dL (6.5-8.0); Triglycerides 151 mg/dL; Unsaturated Iron Binding 323 ug/dL
[2021-11-20 12:18] LABS: Ferritin 46 ng/mL (10-122); Folate 14.1 ng/mL (> or = 4.0); Free T4 (Free Thyroxine) 1.11 ng/dL (0.71-1.85); Vitamin B12 494 pg/mL (200-900)
== END 2021-11-20 09:27 | disposition home or self-care (01) ==
LOC: HO.HMGCLDS 09:26
PROVIDERS: PCP Internal Medicine; Visit Provider Internal Medicine
DX: D64.9 Anemia, unspecified (principal); E04.1 Nontoxic single thyroid nodule; E78.00 Pure hypercholesterolemia, unspecified
CPT/HCPCS: 36415; 80053; 80061; 82607; 82728; 82746; 83036; 83540; 84439; 84443; 84550; 85025; 85045

== ENCOUNTER 2021-12-11 09:47 | Outpatient (REF) | payer OTHER, SELFPAY ==
--- NOTE | ~2021-12-11 | US_ITS ---
EXAMINATION: US PELVIS CLINICAL INFORMATION: Excessive and frequent menstruation. COMPARISON: None TECHNIQUE: Ultrasound of the pelvis is performed using both transabdominal and transvaginal transducers along with Doppler. Transvaginal imaging is performed due to inadequate visualization transabdominally. FINDINGS: Uterus: The uterus is anteverted and measures 10.7 x 7.8 x 9.0 cm The double wall endometrial thickness is 1.54 cm. The uterus is smooth in contour and has normal myometrial echogenicity. There is a large heterogeneous lesion in the right body of uterus extending to the fundus measuring 6.2 x 5.2 x 5.7 cm with no additional lesions seen. Adnexa: Both ovaries are visualized. There is normal color flow to the adnexa. There is no ovarian torsion. There is no pelvic ascites or fluid collection. Right ovary is not visualized. Previously right ovary measured 3.2 x 2.7 x 2.7 cm. Left ovary measures 3.7 x 1.9 x 2.3 cm and volume 8.3 mL. Previously left ovary measured 2.7 x 2.6 x 2.5 cm. There is no free fluid in cul-de-sac. US/US pelvic and transvaginal IMPRESSION: Large uterine fibroid measuring 6.2 cm. Left ovary is unremarkable. Right ovary is not seen.
== END 2021-12-11 09:48 | disposition home or self-care (01) ==
LOC: HO.HMGCX 09:47
PROVIDERS: Visit Provider Internal Medicine
DX: N92.0 Excessive and frequent menstruation with regular cycle (principal)
CPT/HCPCS: 76830; 76856

== ENCOUNTER → 2021-12-20 09:48 | Outpatient (REF) | payer OTHER, SELFPAY | LOC: HO.SL 09:48 | PROVIDERS: PCP Internal Medicine; Visit Provider Internal Medicine | DX: G47.10 Hypersomnia, unspecified (principal); R06.83 Snoring; R40.0 Somnolence | CPT/HCPCS: 95806 ==

== ENCOUNTER 2022-02-02 09:55 | Emergency (ER) | payer OTHER, SELFPAY ==
--- NOTE | ~2022-02-02 | US_ITS ---
EXAMINATION: US ABDOMEN LIMITED CLINICAL INFORMATION: Right upper quadrant abdominal pain and vomiting.. COMPARISON: HIDA scan done on 06/02/2019. TECHNIQUE: Real-time imaging of the right upper quadrant abdominal viscera. FINDINGS: PANCREAS: Normal. LIVER: The liver is normal in size. The liver contour is normal. There is diffuse increased liver parenchymal echogenicity, consistent with hepatic steatosis or hepatocellular disease or combination thereof. No focal hepatic lesion. There is no intrahepatic biliary duct dilatation seen. GALLBLADDER: Normal. The gallbladder is physiologically distended without evidence of stones, sludge, polyps, wall thickening or pericholecystic fluid. COMMON BILE DUCT: Normal in caliber measuring 0.3 cm in diameter. RIGHT KIDNEY: Normal. No hydronephrosis. No renal calculi or focal parenchymal lesions. The kidney measures 11.5 cm in maximum dimension. FREE FLUID: None. US/US abdomen limited IMPRESSION: 1. The liver shows mild diffuse increased echotexture consistent with diffuse liver disease likely secondary to hepatic steatosis or hepatocellular disease or combination thereof. 2. Otherwise unremarkable sonographic appearance of the right upper quadrant of the abdomen. Specifically, no sonographic evidence of any cholelithiasis, acute cholecystitis or biliary obstruction is seen.
--- NOTE | ~2022-02-02 | CT_ITS ---
EXAMINATION: CT ABDOMEN AND PELVIS WITHOUT CONTRAST CLINICAL INFORMATION: Right-sided abdominal pain. COMPARISON: None TECHNIQUE: Multidetector volumetric imaging was performed from the superior aspect of the liver through the pubic symphysis. Sagittal and coronal reformatted images were obtained on the technologist's workstation. This CT examination was performed using dose optimization techniques as appropriate, variously including the following: *Automated exposure control *Adjustment of mA and/or kV according to patient size (this includes techniques or standardized protocols for targeted exams where dose is matched to indication/reason for exam; i.e. extremities or head) *Use of iterative reconstruction technique DLP: 882.0 mGy-cm FINDINGS: LUNG BASES: The visualized lung bases are unremarkable. LIVER, GALLBLADDER, AND BILIARY TREE: The liver is normal in size, shape, and attenuation. No focal hepatic lesion or biliary ductal dilatation is present. The gallbladder is unremarkable with no evidence of radiopaque gallstones, gallbladder wall thickening, or obvious pericholecystic inflammatory changes. PANCREAS: Unremarkable. SPLEEN: Unremarkable. Possible accessory splenic tissue along the anterior inferior aspect of the splenic bed (158:4). ADRENAL GLANDS: Unremarkable. KIDNEYS AND URETERS: The kidneys are normal in size, shape, and attenuation. No hydronephrosis, hydroureter, or calculi seen. No perinephric stranding. BLADDER: Unremarkable. GASTROINTESTINAL TRACT: The small and large bowel are unremarkable. The appendix is unremarkable (39:7 and 475:4). ABDOMINAL WALL: No significant hernia is appreciated. LYMPH NODES: Normal. VASCULAR: Unremarkable. PELVIC VISCERA: Unremarkable. OSSEOUS STRUCTURES: Unremarkable. CT/CT abdomen pelvis wo con IMPRESSION: No significant abnormality.
[2022-02-02 09:59] VITALS: BP 111/78; PULSE 89; RESP 18; TEMP 37.1; O2SAT 95; BMI 37.5
[2022-02-02 10:12] LABS: MANUAL DIFF FLAG NO
[2022-02-02 10:13] LABS: Basophils Percent Auto 0.4 % (0-2); Eosinophils Absolute Auto 0.1 X10*3/uL (0.0-0.4); Eosinophils Percent Auto 1.7 % (0-4); Hematocrit 37.4 % (37.0-47.0); Hemoglobin 12.3 g/dl (12.0-16.0); Imm Gran Abs Auto 0.01 X10*3/uL (0.00-0.03); Imm Gran Pct Auto 0.2 % (0.0-0.4); Lymphocytes Absolute Auto 1.3 X10*3/uL (1.2-4.9); Lymphocytes Percent Auto 23.7 % (20-40); Mean Corpuscular HGB Conc 32.9 g/dl (31.0-35.0); Mean Corpuscular Hemoglobin 27.7 pg (27.0-33.0); Mean Corpuscular Volume 84.2 fL (80.0-98.0); Mean Platelet Volume 10.6 fL (9.4-12.3); Monocytes Absolute Auto 0.7 X10*3/uL (0.1-1.2); Monocytes Percent Auto 12.3 % (2-11); Neutrophils Absolute Auto 3.3 x10*3/uL (2.0-8.3); Neutrophils Percent Auto 61.7 % (45-73); Platelet Count 176 X10*3/uL (160-400); Red Blood Count 4.44 X10*6/uL (4.20-5.50); Red Cell Distribution Width 13.4 % (11.0-16.0); White Blood Count 5.4 X10*3/uL (4.8-10.8)
[2022-02-02 10:31] LABS: Anion Gap 13 (12-20); Blood Urea Nitrogen 14 mg/dL (9-16); Calcium 9.3 mg/dL (8.4-10.2); Carbon Dioxide 24 mmol/L (22-29); Chloride 107 mmol/L (96-108); Creatinine Clr Calc Pharmacy 122.7; Estimated Glomerular Filt Rate > 60; Glucose Random 94 mg/dL (60-115); Potassium 4.5 mmol/L (3.3-5.1); Sodium 139 mmol/L (135-145)
--- NOTE | 2022-02-02 10:31 | ED.ABDPAIN ---
HPI - Abdominal Pain General Chief Complaint: Abdominal Pain Stated Complaint: RUQ pain/Vomiting Time Seen by Provider: 02/02/22 10:14 Source: patient Mode of arrival: ambulatory Limitations: no limitations History of Present Illness HPI narrative: 36-year-old female here with reports of right upper quadrant abdominal pain with vomiting after eating some fried chicken last night. Patient denies any diarrhea, constipation, urinary symptoms. She has had URI symptoms of sore throat and cough since Friday. She has had negative strep and COVID testing. She did complete a course of azithromycin today. Related Data Home Medications Medication Instructions Recorded Confirmed acetaminophen 325 mg tablet 650 mg PO Q6H PRN Pain 06/15/21 11/22/21 multivitamin 1 tab PO DAILY 06/15/21 11/22/21 topiramate 50 mg tablet 50 mg PO BEDTIME 01/24/22 Previous Rx's Medication Instructions Recorded cetirizine 10 mg tablet (All Day 10 mg PO DAILY PRN allergy 06/07/21 Allergy (cetirizine)) symptoms #20 tabs ibuprofen 600 mg tablet 600 mg PO Q8H PRN pain #20 tabs 06/07/21 albuterol sulfate 90 mcg/actuation 2 puff inhalation QID PRN 06/17/21 aerosol inhaler (ProAir HFA) shortness of breath or wheezing #8.5 grams sennosides 8.6 mg-docusate sodium 2 tab-cap PO BEDTIME PRN 08/15/21 50 mg capsule (Senna Plus) constipation #60 caps docusate sodium 100 mg capsule 100 mg PO BID #60 caps 10/10/21 (Colace) amoxicillin 875 mg tablet 875 mg PO BID #14 tabs 11/22/21 azithromycin 250 mg tablet See Rx Instructions PO .COMPLEX #6 01/28/22 tabs omeprazole 40 mg capsule,delayed 40 mg PO DAILY #30 caps 02/02/22 release ondansetron 4 mg disintegrating 4 mg PO Q6H PRN nausea and 02/02/22 tablet vomiting #14 tabs prednisone 20 mg tablet 40 mg PO DAILY #10 tabs 02/02/22 Allergies Allergy/AdvReac Type Severity Reaction Status Date / Time No Known Allergies Allergy Verified 01/28/22 08:49 Review of Systems Review of Systems Yes all other systems are reviewed and are negative Constitutional: Reports no additional constitutional complaints, Denies body ache(s), Denies chills, Denies fever(s), Denies headache(s) and Denies weakness Eyes: Reports no additional eye complaints and Denies change in vision Reports system reviewed and no additional complaints, except as documented, Denies dizziness, Denies headache(s), Denies nasal congestion, Denies nasal discharge, Denies neck pain and Reports sore throat Cardiovascular: Reports no additional cardiovascular complaints, Denies chest pain, Denies leg edema and Denies dyspnea Respiratory: Reports no additional respiratory complaints, Reports cough and Denies dyspnea Gastrointestinal: Reports no additional gastrointestinal complaints, Reports abdominal pain, Denies diarrhea, Reports nausea and Reports vomiting Genitourinary: Reports no additional female genitourinary complaints and Denies urinary incontinence Musculoskeletal: Reports no additional musculoskeletal complaints, Denies back pain, Denies arthralgias, Denies joint swelling, Denies neck pain, Denies numbness and Denies tingling Skin/Breast: Reports system reviewed and no additional complaints, except as docu and Denies rash Reports system reviewed and no additional complaints, except as documented, Denies dizziness, Denies headache(s), Denies numbness, Denies tingling and Denies weakness PMFSH Past Medical History Medical History Allergic rhinitis Asthma COVID-19 Migraine Nephrolithiasis Vitamin D deficiency Surgical History H/O LEEP History of 2 sections Family History Family History Maternal Grandmother Myocardial infarct Social History Social History Household Members: Family Housing: Apartment Do you presently have visiting nurse or other home services: No Alcohol intake: current Patient Tobacco Use Status: Never used Tobacco e-Cigarette/Vaping Use: Never Used Second Hand Smoke Exposure: No Advance Directives: No Advance Directives Information Provided: No service: No Current occupational status: employed Cognitive needs: No Hearing needs: No Vision needs: Yes (Glasses) Physical Exam ED Vital Signs: Vital Signs - 24 hr 02/02/22 09:59 02/02/22 13:44 02/02/22 15:37 Temperature 98.8 F 97.8 F Pulse Rate 89 77 84 Respiratory Rate 18 16 16 Blood Pressure 111/78 105/65 115/81 Pulse Oximetry 95 100 97 Oxygen Delivery Method Room Air Room Air Room Air BMI result Body Mass Index 37.5 Const General: cooperative, healthy appearing and comfortable Orientation/consciousness: patient oriented x3 Limitations: no limitations HENMT Head: Yes normal to inspection Ears: hearing grossly normal bilaterally and TM's normal bilaterally Throat: Yes posterior oropharynx normal, Yes tonsils normal and Yes uvula midline Eyes General: appearance normal, both eyes and all related structures Pupils: Equal, round and reactive pupils present Neck Neck: Yes normal visual inspection, Yes full ROM and Yes no lymphadenopathy Chest Chest palpation & inspection: normal inspection of the chest Resp Effort & Inspection: normal respiratory effort Auscultation: clear to auscultation bilaterally Cardio Rate: regular rate Rhythm: regular rhythm Peripheral pulses: Peripheral pulses 2+ throughout GI Inspection: Yes normal to inspection Palpation (GI): Soft to palpation and Tenderness to palpation present (GI) (Right upper quadrant with guarding and rebound) General: Yes no CVA tenderness Back/Spine/Pelvis Back: no CVA tenderness Thoracic/Lumbar Spine: thoracic and lumbar spine normal to inspection Skin General skin exam: no rashes or lesions noted Neuro General: patient oriented x3 and moves all extremities Cranial nerves: Yes Equal, round and reactive pupils present Cognition (Neuro): normal cognition Extrem General: Yes normal to inspection Course Course Course Narrative: Ultrasound shows normal gallbladder. Labs show no acute finding. UA is negative. Patient reports continued pain. Will check CT Reevaluation(s) Reevaluation #1: 1500-CT shows no acute finding. ? Esophagitis versus gastritis secondary to recent antibiotic use. Will give GI cocktail and reassess. Patient overall nontoxic appearing Reevaluation #2: 1530-patient feels improved. Her pain is resolved. She is tolerating p.o.. Will discharge home with PPI, sublingual Zofran. Patient also having some asthma symptoms of wheezing and cough. Will give low-dose of prednisone for home for a few days. Reviewed worrisome signs and symptoms of when to return to the emergency department. Comfortable discharge home. MDM - Abdominal Pain MDM Narrative Medical decision making narrative: 36-year-old female with URI symptoms for 5 days now with vomiting and right upper quadrant abdominal pain after eating some fried chicken last night. On exam has tenderness there in for quadrant with some rebound or guarding. Will need labs, UA, ultrasound. Consider acute cholecystitis Medical Records Attestation: I reviewed the patient's medical records. Lab Data Attestation: I reviewed the patient's lab results. Result diagrams: 02/02/22 10:07 02/02/22 10:07 Labs: Lab Results 02/02/22 02/02/22 02/02/22 Range/Units 10:07 10:07 12:07 WBC 5.4 (4.8-10.8) X10*3/uL RBC 4.44 (4.20-5.50) X10*6/uL Hgb 12.3 (12.0-16.0) g/dl Hct 37.4 (37.0-47.0) % MCV 84.2 (80.0-98.0) fL MCH 27.7 (27.0-33.0) pg MCHC 32.9 (31.0-35.0) g/dl RDW 13.4 (11.0-16.0) % Plt Count 176 (160-400) X10*3/uL MPV 10.6 (9.4-12.3) fL Immature Gran % (Auto) 0.2 (0.0-0.4) % Neut % (Auto) 61.7 (45-73) % Lymph % (Auto) 23.7 (20-40) % [place] % (Auto) 12.3 H (2-11) % Eos % (Auto) 1.7 (0-4) % Baso % (Auto) 0.4 (0-2) % Lymph # (Auto) 1.3 (1.2-4.9) X10*3/uL [place] # (Auto) 0.7 (0.1-1.2) X10*3/uL Eos # (Auto) 0.1 (0.0-0.4) X10*3/uL Baso # (Auto) 0.0 (0.0-0.2) X10*3/uL Abs Immat Gran (auto) 0.01 (0.00-0.03) X10*3/uL Absolute Neuts (auto) 3.3 (2.0-8.3) x10*3/uL Absolute Nucleated RBC 0.000 (0.0-0.012) X10*3/uL Nucleated RBC % (auto) 0.0 (0.0-0.2) /100WBC Sodium 139 (135-145) mmol/L Potassium 4.5 (3.3-5.1) mmol/L Chloride 107 (96-108) mmol/L Carbon Dioxide 24 (22-29) mmol/L Anion Gap 13 (12-20) BUN 14 (9-16) mg/dL Creatinine 0.79 (0.5-1.4) mg/dL Estim Creat Clear Calc 122.7 Estimated GFR > 60 Random Glucose 94 (60-115) mg/dL Calcium 9.3 (8.4-10.2) mg/dL Total Bilirubin 0.7 (0.0-1.0) mg/dL Direct Bilirubin 0.2 (0.0-0.5) mg/dL AST 18 (5-31) U/L ALT 16 (0-31) U/L Alkaline Phosphatase 84 (39-117) U/L Total Protein 7.4 (6.5-8.0) g/dL Albumin 4.4 (3.5-5.0) g/dL Urine Color YELLOW Urine Appearance CLEAR Urine pH 6.5 (5.0-8.0) Ur Specific [place] 1.010 (1.005-1.025) Urine Protein NEG (NEG-TRACE) MG/DL Urine Glucose (UA) NEG (NEG) MG/DL Urine Ketones NEG (NEG) MG/DL Urine Blood NEG (NEG) Urine Nitrite NEG (NEG) Ur Leukocyte Esterase NEG (NEG) Urine Test (NEGATIVE) 02/02/22 Range/Units 12:07 WBC (4.8-10.8) X10*3/uL RBC (4.20-5.50) X10*6/uL Hgb (12.0-16.0) g/dl Hct (37.0-47.0) % MCV (80.0-98.0) fL MCH (27.0-33.0) pg MCHC (31.0-35.0) g/dl RDW (11.0-16.0) % Plt Count (160-400) X10*3/uL MPV (9.4-12.3) fL Immature Gran % (Auto) (0.0-0.4) % Neut % (Auto) (45-73) % Lymph % (Auto) (20-40) % [place] % (Auto) (2-11) % Eos % (Auto) (0-4) % Baso % (Auto) (0-2) % Lymph # (Auto) (1.2-4.9) X10*3/uL [place] # (Auto) (0.1-1.2) X10*3/uL Eos # (Auto) (0.0-0.4) X10*3/uL Baso # (Auto) (0.0-0.2) X10*3/uL Abs Immat Gran (auto) (0.00-0.03) X10*3/uL Absolute Neuts (auto) (2.0-8.3) x10*3/uL Absolute Nucleated RBC (0.0-0.012) X10*3/uL Nucleated RBC % (auto) (0.0-0.2) /100WBC Sodium (135-145) mmol/L Potassium (3.3-5.1) mmol/L Chloride (96-108) mmol/L Carbon Dioxide (22-29) mmol/L Anion Gap (12-20) BUN (9-16) mg/dL Creatinine (0.5-1.4) mg/dL Estim Creat Clear Calc Estimated GFR Random Glucose (60-115) mg/dL Calcium (8.4-10.2) mg/dL Total Bilirubin (0.0-1.0) mg/dL Direct Bilirubin (0.0-0.5) mg/dL AST (5-31) U/L ALT (0-31) U/L Alkaline Phosphatase (39-117) U/L Total Protein (6.5-8.0) g/dL Albumin (3.5-5.0) g/dL Urine Color Urine Appearance Urine pH (5.0-8.0) Ur Specific [place] (1.005-1.025) Urine Protein (NEG-TRACE) MG/DL Urine Glucose (UA) (NEG) MG/DL Urine Ketones (NEG) MG/DL Urine Blood (NEG) Urine Nitrite (NEG) Ur Leukocyte Esterase (NEG) Urine Test NEGATIVE (NEGATIVE) Imaging Data US - abdomen: Attestation: I personally reviewed and interpreted this imaging study as follows: Radiologist's impression: [address] [address] Ultrasound Report Signed Patient: Marylu Bauer MR#: [id number] : 1985 Acct:[id number] Age/Sex: 36 / F ADM Date: 02/02/22 Loc: HO.ED Attending Dr: Ordering Physician: Stephanie Solorzano NP Date of Service: 02/02/22 Procedure(s): US abdomen limited Accession Number(s): [id number] cc: Stephanie Solorzano NP~ EXAMINATION: US ABDOMEN LIMITED CLINICAL INFORMATION: Right upper quadrant abdominal pain and vomiting.. COMPARISON: HIDA scan done on 06/02/2019. TECHNIQUE: Real-time imaging of the right upper quadrant abdominal viscera. FINDINGS: PANCREAS: Normal. LIVER: The liver is normal in size. The liver contour is normal. There is diffuse increased liver parenchymal echogenicity, consistent with hepatic steatosis or hepatocellular disease or combination thereof.? No focal hepatic lesion. There is no intrahepatic biliary duct dilatation seen. GALLBLADDER: Normal. The gallbladder is physiologically distended without evidence of stones, sludge, polyps, wall thickening or pericholecystic fluid. COMMON BILE DUCT: Normal in caliber measuring 0.3 cm in diameter. RIGHT KIDNEY: Normal. No hydronephrosis. No renal calculi or focal parenchymal lesions. The kidney measures 11.5 cm in maximum dimension. FREE FLUID: None. US/US abdomen limited IMPRESSION: ? 1. The liver shows mild diffuse increased echotexture consistent with diffuse liver disease likely secondary to hepatic steatosis or hepatocellular disease or combination thereof. 2. Otherwise unremarkable sonographic appearance of the right upper quadrant of the abdomen. Specifically, no sonographic evidence of any cholelithiasis, acute cholecystitis or biliary obstruction is seen. CT scan - abdomen: Attestation: I personally reviewed and interpreted this imaging study as follows: Radiologist's impression: FINDINGS: LUNG BASES: The visualized lung bases are unremarkable.? LIVER, GALLBLADDER, AND BILIARY TREE: The liver is normal in size, shape, and attenuation. No focal hepatic lesion or biliary ductal dilatation is present. The gallbladder is unremarkable with no evidence of radiopaque gallstones, gallbladder wall thickening, or obvious pericholecystic inflammatory changes.? PANCREAS: Unremarkable.? SPLEEN: Unremarkable. Possible accessory splenic tissue along the anterior inferior aspect of the splenic bed (158:4). ADRENAL GLANDS: Unremarkable.? KIDNEYS AND URETERS: The kidneys are normal in size, shape, and attenuation. No hydronephrosis, hydroureter, or calculi seen. No perinephric stranding. ? BLADDER: Unremarkable.? GASTROINTESTINAL TRACT: The small and large bowel are unremarkable. The appendix is unremarkable (39:7 and 475:4).? ABDOMINAL WALL: No significant hernia is appreciated.? LYMPH NODES: Normal. VASCULAR: Unremarkable. PELVIC VISCERA: Unremarkable.? OSSEOUS STRUCTURES: Unremarkable.? CT/CT abdomen pelvis wo con IMPRESSION: No significant abnormality.? ? Discharge Plan Discharge Clinical Impression: Abdominal pain, URI (upper respiratory infection), Asthma exacerbation Patient Disposition: Home, Self-Care Instructions: Asthma (ED), Upper Respiratory Infection (ED), Abdominal Pain (ED) Additional Instructions: Images, lab work and urine testing are all reassuring Eat a very bland diet Take the prednisone with food Prescriptions: New omeprazole 40 mg capsule,delayed release(DR/EC) 40 mg PO DAILY Qty: 30 0RF ondansetron 4 mg tablet,disintegrating 4 mg PO Q6H PRN (Reason: nausea and vomiting) Qty: 14 0RF prednisone 20 mg tablet 40 mg PO DAILY Qty: 10 0RF No Action multivitamin Tablet 1 tab PO DAILY acetaminophen 325 mg Tablet 650 mg PO Q6H PRN (Reason: Pain) albuterol sulfate [ProAir HFA] 90 mcg/actuation HFA aerosol inhaler 2 puff inhalation QID PRN (Reason: shortness of breath or wheezing) Qty: 8.5 1RF cetirizine [All Day Allergy (cetirizine)] 10 mg tablet 10 mg PO DAILY PRN (Reason: allergy symptoms) Qty: 20 0RF ibuprofen 600 mg tablet 600 mg PO Q8H PRN (Reason: pain) Qty: 20 0RF Senna Plus 8.6-50 mg capsule 2 tab-cap PO BEDTIME PRN (Reason: constipation) Qty: 60 3RF amoxicillin 875 mg tablet 875 mg PO BID Qty: 14 0RF azithromycin 250 mg tablet See Rx Instructions PO .COMPLEX Qty: 6 0RF Rx Instructions: take 500 mg today (day 1), then 250 mg for 4 days (days 2-5) PO docusate sodium [Colace] 100 mg capsule 100 mg PO BID Qty: 60 3RF topiramate 50 mg tablet 50 mg PO BEDTIME Referrals: Po,Gabriela Ibarra MD [Primary Care Provider] - Interventions: ED Discharge Assessment Last Done: 02/02/22 15:47 Discharge Date/Time: 02/02/22 15:47
[2022-02-02 11:14] LABS: Alanine Aminotransferase 16 U/L (0-31); Albumin Level 4.4 g/dL (3.5-5.0); Alkaline Phosphatase 84 U/L (39-117); Aspartate Amino Transferase 18 U/L (5-31); Bilirubin Direct 0.2 mg/dL (0.0-0.5); Bilirubin Total 0.7 mg/dL (0.0-1.0); Total Protein 7.4 g/dL (6.5-8.0)
[2022-02-02] MEDS: Ketorolac Tromethamine 30 MG/ML VIAL IVPUSH (11:33)
[2022-02-02] MEDS: ondansetron HCL 4 MG/2 ML VIAL IVPUSH (11:33)
[2022-02-02 12:16] LABS: Appearance Urine CLEAR; Color Urine YELLOW; Glucose Urine UA NEG (NEG); Leukocyte Esterase Urine NEG (NEG); Nitrite Urine NEG (NEG); PH 6.5 (5.0-8.0); Urine Blood NEG (NEG); Urine Ketones NEG (NEG); Urine Protein NEG (NEG-TRACE)
[2022-02-02 12:18] LABS: UPreg QC Valid YES; Urine Pregnancy NEGATIVE (NEGATIVE)
[2022-02-02] MEDS: Famotidine/PF 20 MG/2 ML VIAL IVPUSH (13:20)
[2022-02-02 13:44] VITALS: BP 105/65; PULSE 77; RESP 16; O2SAT 100
[2022-02-02] MEDS: Magnesium Hydrox/Alum Hydrox 30 ML ORAL.SUSP PO (15:05)
[2022-02-02] MEDS: Lidocaine HCl Viscous 2 % 15 ML SOLUTION MUCOUS MEM (15:05)
[2022-02-02 15:37] VITALS: BP 115/81; PULSE 84; RESP 16; TEMP 36.6; O2SAT 97
== END 2022-02-02 15:47 | disposition home or self-care (01) ==
PROVIDERS: Nurse Practitioner Family; Emergency Provider Emergency Medicine Emergency Medical Services; PCP Internal Medicine
DX: R10.11 Right upper quadrant pain (principal); J06.9 Acute upper respiratory infection, unspecified; J45.901 Unspecified asthma with (acute) exacerbation; R11.10 Vomiting, unspecified; Z79.899 Other long term (current) drug therapy
CPT/HCPCS: 36415; 74176; 76705; 80048; 80076; 81003; 81025; 85025; 96374; 96375; 99283; 99284; J1885; J2405

== ENCOUNTER 2022-03-22 12:17 | Outpatient (REF) | payer OTHER, SELFPAY ==
--- NOTE | ~2022-03-22 | XR_ITS ---
EXAMINATION: XR KNEE, RIGHT CLINICAL INFORMATION: Pain right knee for 2 months COMPARISON: None TECHNIQUE: Three views of the right knee. FINDINGS: There is loss of patellofemoral compartment joint space without bony erosive changes. There are no loose bodies. No acute fracture or dislocation. No abnormal joint effusion. XR/XR knee RT 3V IMPRESSION: Mild degenerative changes patellofemoral compartment with superior patellar spurring. No visible acute fracture or dislocation.
--- NOTE | 2022-03-22 12:22 | ECG_ITS ---
Test Reason : chest pain Blood Pressure : / mmHG Vent. Rate : 075 BPM Atrial Rate : 075 BPM P-R Int : 130 ms QRS Dur : 082 ms QT Int : 354 ms P-R-T Axes : 022 055 004 degrees QTc Int : 395 ms Normal sinus rhythm Normal ECG When compared with ECG of 15-JUN-2021 16:32, Nonspecific T wave abnormality no longer evident in Anterolateral leads Referred By: Anastasia Gonzalez Electronically Signed By:DENNY LINK
== END 2022-03-22 12:18 | disposition home or self-care (01) ==
LOC: HO.XRAY 12:17
PROVIDERS: PCP Internal Medicine; Visit Provider Nurse Practitioner Family
DX: R07.9 Chest pain, unspecified (principal); M25.561 Pain in right knee
CPT/HCPCS: 73562; 93005

== ENCOUNTER → 2022-04-01 10:30 | Outpatient (REF) | payer OTHER, SELFPAY ==
--- NOTE | 2022-04-01 10:32 | CA_ITS ---
Acquisition Time: 2022-04-01 10:51:07 Total Exercise Time: 00:06:00 Test Indications: RO7.9 CHEST PAIN Medications: SEE H Protocol: PAUL Max HR: 166 BPM 91% of Pred: 181 BPM Max BP: 122/070 mmHG Max Work Load: 7.0 METS Exercise stress test with exercise 6 min of Paul protocol, with 3/10 left upper chest tightness at baseline which increased to 7/10 with exercise, with moderate sob, without arrythmia, with normotensive response to exercise, with EKG findings that are equivocal for ischemia. In recovery her chest tightness returned to 3/10 and breathing normalized. Test reviewed with Dr Oakes. Message sent to ordering provider with results and recommendation for nuclear stress test for further evaluation. Referred By: Anastasia Gonzalez Overread By: JESSE BERRY
== END ==
LOC: HO.CARD 10:30
PROVIDERS: Visit Provider Nurse Practitioner Family
DX: R07.9 Chest pain, unspecified (principal)
CPT/HCPCS: 93017

== ENCOUNTER → 2022-05-29 13:43 | Outpatient (BNVA) | payer OTHER, SELFPAY | PROVIDERS: PCP Internal Medicine; Visit Provider Physician Assistant | DX: M17.11 Unilateral primary osteoarthritis, right knee (principal); M54.50 Low back pain, unspecified | CPT/HCPCS: 99202 ==

== ENCOUNTER → 2022-06-27 11:10 | Outpatient (BNVA) | payer BC, OTHER, SELFPAY | PROVIDERS: PCP Internal Medicine; Visit Provider Surgery | DX: K64.8 Other hemorrhoids (principal) | CPT/HCPCS: 46600; 99212 ==

== ENCOUNTER 2022-07-16 08:57 | Outpatient (REF) | payer BC, OTHER, SELFPAY ==
--- NOTE | ~2022-07-16 | MR_ITS ---
EXAMINATION: MR KNEE WITHOUT CONTRAST, RIGHT CLINICAL INFORMATION: Right knee pain and swelling. Osteoarthritis. COMPARISON: Right knee radiographs dated 03/22/2022. TECHNIQUE: MRI of the knee without contrast was performed using routine sequences on a high-field scanner. FINDINGS: MENISCI: Medial Meniscus: Intact Lateral Meniscus: Intact LIGAMENTS: Cruciate: Intact Collateral: Intact EXTENSOR MECHANISM: Intact quadriceps and patellar tendons. Normal patellofemoral alignment. ARTICULAR CARTILAGE/BONE: Patellofemoral Compartment: Patellar median ridge and medial patellar facet articular cartilage thinning with near full-thickness loss measuring up to 1.0 cm in ML dimension. Tiny marginal osteophytes. Medial Compartment: Weightbearing articular cartilage signal heterogeneity and surface irregularity with tiny marginal osteophytes. Lateral Compartment: Intact articular cartilage. JOINT FLUID AND BURSAE: Trace joint effusion and trace Kowalski's cyst. Synovial recess versus ganglion cyst adjacent to the semimembranosus tendon measuring up to 1.9 cm in craniocaudal dimension. MR/MR knee RT wo con IMPRESSION: 1. No acute meniscal or ligamentous injury. 2. Mild patellofemoral and medial compartment osteoarthritis. Trace joint effusion and trace Kowalski's cyst. Synovial recess versus ganglion cyst adjacent to the semimembranosus tendon measuring up to 1.9 cm.
== END 2022-07-16 08:58 | disposition home or self-care (01) ==
LOC: HO.MRI 08:57
PROVIDERS: Visit Provider Physician Assistant
DX: M17.11 Unilateral primary osteoarthritis, right knee (principal)
CPT/HCPCS: 73721

== ENCOUNTER → 2022-07-23 08:41 | Outpatient (REF) | payer BC, OTHER, SELFPAY ==
--- NOTE | ~2022-07-23 | NM_ITS ---
Myocardial perfusion study Indication: Chest pain to evaluate for myocardial ischemia Technique: The patient was brought in for a Lexiscan perfusion study on 07/23/2022. Patient performed low-level exercise and was injected 0.4 mg of Lexiscan intravenously. Within a minute of injection, 28 mCi of sestamibi was given intravenously. Images were obtained using the SPECT gamma camera interlaced with the gating device. Images were obtained in supine position. Resting perfusion study was performed on 07/24/2022. Patient was administered 28 mCi of sestamibi intravenously at rest. Images were then obtained in supine position. Images obtained with and without CT attenuation. Total DLP 115 mGy-cm. Images were processed with the software and compared side to side in short axis, horizontal long axis and vertical long axis views. Findings: Both stress and rest images are suboptimal due to intense subdiaphragmatic uptake interfering with inferior wall uptake The stress perfusion study showed non attenuated images show diffusely reduced uptake in septum, anterior, lateral wall of the LV myocardium. Inferior wall uptake cannot be determined performed due to A. fib. Attenuation corrected images also shows diffuse reduced uptake in all segments of LV myocardium. The gated study shows reduced LV systolic function with calculated LVEF of 42%. LV cavity is mildly dilated size. The gated study shows normal wall thickening and contraction of segments. Resting study shows no change in perfusion pattern compared to stress perfusion study. Gating at rest reveals normal systolic wall motion with ejection fraction at 45%. The findings are consistent with nondiagnostic study due to subdiaphragmatic uptake. NM/NM cardiolite stress test Impression: 1. Myocardial perfusion imaging study shows nondiagnostic study, consider alternative imaging modalities 2. Gated LVEF is 42% 3. Transient ischemic dilatation not present but LV cavity is dilated EKG Nondiagnostic for ischemia
--- NOTE | 2022-07-23 08:43 | CA_ITS ---
Acquisition Time: 2022-07-23 08:49:15 Total Exercise Time: 00:02:00 Test Indications: CP Medications: Protocol: LEXISCAN Max HR: 155 BPM 85% of Pred: 181 BPM Max BP: 110/070 mmHG Max Work Load: 1.6 METS Pharmacological stress test with Lexiscan injection, while walking slow on treadmill, with moderate shortness of breath, and report severe chest tightness, without arrythmia, with normotensive response to injection, with nondiagnostic EKG for ischemia. In recovery she was treated with Aminophylline 75mg IVP to reverse Lexiscan with gradual resolution of symptoms. Nuclear images pending. Test reviewed with Dr Oakes Referred By: Anastasia Gonzalez Overread By: JESSE BERRY
== END ==
LOC: HO.CARD 08:41
PROVIDERS: Visit Provider Nurse Practitioner Family
DX: R07.9 Chest pain, unspecified (principal)
CPT/HCPCS: 78452; 93017; A9500; J0280; J2785

== ENCOUNTER → 2022-07-30 13:57 | Outpatient (BNVA) | payer BC, OTHER, SELFPAY | PROVIDERS: PCP Internal Medicine; Referring Provider Internal Medicine; Visit Provider Internal Medicine | DX: R07.9 Chest pain, unspecified (principal); R06.02 Shortness of breath; R94.39 Abnormal result of other cardiovascular function study | CPT/HCPCS: 99202 ==

== ENCOUNTER → 2022-07-31 15:25 | Outpatient (BNVA) | payer OTHER, SELFPAY | PROVIDERS: PCP Internal Medicine; Visit Provider Physician Assistant | DX: Z13.89 Encounter for screening for other disorder (principal) ==

== ENCOUNTER → 2022-08-01 08:37 | Outpatient (BNVA) | payer BC, OTHER, SELFPAY | PROVIDERS: PCP Internal Medicine; Visit Provider Physician Assistant | DX: M17.11 Unilateral primary osteoarthritis, right knee (principal) | CPT/HCPCS: 20610; 99212; J1040 ==

== ENCOUNTER → 2022-08-06 14:57 | Outpatient (REF) | payer BC, OTHER, SELFPAY ==
--- NOTE | 2022-08-06 15:00 | CA_ITS ---
Transthoracic Echocardiogram Patient (Last, First, Middle): Marylu Bauer L Gender: Female Date of : 1985 Age: 37 Procedure Date: 08/06/2022 Procedure Type: Transthoracic Echocardiogram Location: OP Height: 170.18 cm Weight: 92.08 kg BSA: 2.03 m2 Heart Rate: bpm BP: 98 / 65 mmHg Roving Carrier: TO Referring MD: Damaso Oakes MD Judicial Assistant: Shane Byers MD Symptoms: R06.02 - Shortness of breath Study Quality: Adequate ECG Rhythm: Sinus Conclusions: - 1. Low normal LV systolic function with LVEF of 50-55% 2. Normal cardiac valvular Doppler 3. Normal RV systolic pressure 4. No pericardial effusion Findings Left Ventricle Normal left ventricular cavity size. There is normal left ventricular wall thickness. The left ventricular systolic function is low normal. The visually estimated ejection fraction is between 50-55%. Spectral Doppler is indicative of a normal filling pattern. Peak GLS is -17.6%, which is within normal limits. Right Ventricle Normal right ventricular cavity size and systolic function. Atria The left atrium is normal in size. Interatrial shunt cannot be excluded. The right atrium is normal in size. Aortic Valve Normal aortic valve structure and function. There is no aortic valve stenosis. There is no aortic valve regurgitation. Mitral Valve Normal mitral valve structure and function. There is trace mitral valve regurgitation. There is no mitral valve stenosis. Pulmonic Valve The pulmonic valve was not well visualized. Tricuspid Valve Likely normal tricuspid valve structure and function. There is trace tricuspid valve regurgitation. The right ventricular systolic pressure is normal. The right ventricular systolic pressure is 25 mmHg. Normal right atrial pressure. There is no evidence of pulmonary hypertension. Great Vessels All visible segments of the aorta are normal in size. The pulmonary artery was not well visualized. Venous The inferior vena cava is normal in size and collapses greater than 50% with inspiration. Pericardium/Pleural There is no evidence of pericardial effusion. Prior Study Comparison No prior study available for comparison. Measurements 2D Linear Measurements IVSd: 0.85 0.6-0.9/0.6-1.0 cm LVIDd: 5.05 3.9-5.3/4.2-5.9 cm LVIDd Index: 2.49 2.4-3.2/2.2-3.1 cm/m2 LVIDs: 3.49 2.0-3.6 cm LVPWd: 0.85 0.7-1.1 cm LA Diam: 3.30 2.7-3.8/3.0-4.0 cm LAIDs Index: 1.63 1.5-2.3 cm/m2 LV Mass: 186.76 67-162/88-224 g LV Mass Index: 92.00 43-95/49-115 g/m2 LVOT Diam: 2.20 3.0+(-)1.3 cm 2D Systolic Function EF 4C: 53.50 >55% EF 2C: 53.40 >55% EF BiP: 52.60 >55% Mitral Valve MV Pk E: 0.50 MV PK A: 0.46 MV Decel Time: 264.00 E/A: 1.10 E'Lateral: 12.00 E'Medial: 8.49 E/E' Med: 5.90 E/E' Lat: 4.10 PHT: 77.00 MVA PHT: 2.86 Decel [place]: 1.88 Aortic Valve AoV Pk Gurwinder: 1.38 AoV Mn Gurwinder: 0.86 AoV VTI: 0.22 AoV Pk Grad: 8.00 Aov Mn Grad: 3.00 SEAN Cont.VTI: 2.50 LVOT LVOT Pk Gurwinder: 0.76 LVOT Mn Gurwinder: 0.54 LVOT VTI: 0.14 LVOT Pk Grad: 2.00 LVOT Mn Grad: 1.00 LVOT Diam: 2.20 LVOT Area: 3.80 Diastolic Function MV Pk E: 0.50 MV Pk A: 0.46 E/A: 1.10 E'Medial: 8.49 E/E' Med: 5.90 E' Laterial: 12.00 E/E' Lat: 4.10 Right Ventricle TAPSE (mm): 17.80 TVS' Gurwinder: 11.60 Tricuspid Valve TR Pk Gurwinder: 2.32 TR Pk Grad: 22.00 RA Press: 3.00 RVSP: 25.00 Great Vessels Aorta Sinus of Valsalva: 3.19 2.0-3.5 cm Ao Asc: 3.10 2.1-3.4 cm Updated in Other Vendor System with Status of Final Shane Byers MD electronically signed on 08/07/2022 3:38:49 PM with status of Final
== END ==
LOC: HO.CARD 14:57
PROVIDERS: PCP Internal Medicine; Visit Provider Internal Medicine
DX: R06.02 Shortness of breath (principal)
CPT/HCPCS: 93306; 93356

== ENCOUNTER 2022-08-16 07:16 | Emergency (ER) | payer BC, OTHER, SELFPAY ==
--- NOTE | ~2022-08-16 | CT_ITS ---
EXAMINATION: CT ABDOMEN AND PELVIS WITH CONTRAST CLINICAL INFORMATION: RLQ Pain. COMPARISON: 02/02/22 TECHNIQUE: Multidetector volumetric images were obtained from the superior aspect of the liver through the pubic symphysis following administration 85 mL of Omnipaque 350 intravenous contrast. Sagittal and coronal reformatted images were obtained on the technologist's workstation. Oral contrast: No This CT examination was performed using dose optimization techniques as appropriate, variously including the following: *Automated exposure control *Adjustment of mA and/or kV according to patient size (this includes techniques or standardized protocols for targeted exams where dose is matched to indication/reason for exam; i.e. extremities or head) *Use of iterative reconstruction technique DLP: 723 mGy-cm FINDINGS: LUNG BASES: The visualized lung bases are unremarkable. LIVER, GALLBLADDER, AND BILIARY TREE: The liver is normal in size, shape, and attenuation. No focal hepatic lesion or biliary ductal dilatation is present. The gallbladder is unremarkable with no evidence of radiopaque gallstones, gallbladder wall thickening, or obvious pericholecystic inflammatory changes. PANCREAS: Unremarkable. SPLEEN: Unremarkable. ADRENAL GLANDS: Unremarkable. KIDNEYS AND URETERS: The kidneys are normal in size, shape, and attenuation. No hydronephrosis, hydroureter, or calculi seen. No perinephric stranding. BLADDER: Unremarkable. GASTROINTESTINAL TRACT: The stomach is unremarkable. Normal caliber of the small bowel. There is no obstruction. Normal appendix. No colonic wall thickening or acute inflammatory change. No free air or free fluid. ABDOMINAL WALL: No significant hernia is appreciated. LYMPH NODES: Normal. VASCULAR: Unremarkable. PELVIC VISCERA: Anteverted uterus. There is a right uterine body anterior myometrial fibroid measuring 6.4 x 6.1 x 6.5 cm. This distorts the endometrium. This corresponds to the appearance on prior imaging. No adnexal mass. OSSEOUS STRUCTURES: No acute or suspicious osseous abnormality. CT/CT abdomen pelvis w IV con IMPRESSION: 1. No acute findings in the abdomen or pelvis. Normal appendix. 2. Prominent uterine fibroid, as seen on previous imaging. Fleischner guidelines were followed.
[2022-08-16 07:20] VITALS: BP 99/65; PULSE 97; RESP 20; TEMP 36.4; O2SAT 99; BMI 31.0
--- NOTE | 2022-08-16 07:48 | ED_ITS ---
HPI - Abdominal Pain General Chief Complaint: Abdominal Pain Stated Complaint: pain in r side, V/D Time Seen by Provider: 08/16/22 07:42 Source: patient Mode of arrival: ambulatory Limitations: no limitations History of Present Illness HPI narrative: This is a 37 years old of female presented to the emergency department with chief complaint of nausea vomiting diarrhea x3 days she is also complaining of right-sided abdominal pain. Denies any fever chills. She is overall healthy prior surgery at 2 only MD elicited complaint: abdominal pain Onset (ago): day(s) (3) Pain Consistency: constant Location: RLQ Severity: mild Quality: cramping Radiation: none Exacerbating factors: vomiting Related Data Home Medications Medication Instructions Recorded Confirmed acetaminophen 325 mg tablet 650 mg PO Q6H PRN Pain 06/15/21 07/30/22 tirzepatide 10 mg/0.5 mL 10 mg subcut QWEEK 07/29/22 07/30/22 subcutaneous pen injector (Mounjaro) Previous Rx's Medication Instructions Recorded cetirizine 10 mg tablet (All Day 10 mg PO DAILY PRN allergy 06/07/21 Allergy (cetirizine)) symptoms #20 tabs albuterol sulfate 90 mcg/actuation 2 puff inhalation QID PRN 06/17/21 aerosol inhaler (ProAir HFA) shortness of breath or wheezing #8.5 grams docusate sodium 100 mg capsule 100 mg PO BID #60 caps 10/10/21 (Colace) fluticasone propionate 50 2 spray intranasal DAILY #16 grams 04/22/22 mcg/actuation nasal spray,suspension (Flonase Allergy Relief) Allergies Allergy/AdvReac Type Severity Reaction Status Date / Time No Known Allergies Allergy Verified 08/01/22 08:51 Review of Systems Constitutional: Reports no additional constitutional complaints Reports system reviewed and no additional complaints, except as documented Gastrointestinal: Reports diarrhea and Reports vomiting PMFSH Past Medical History Medical History Allergic rhinitis Asthma COVID-19 Generalized anxiety disorder GERD (gastroesophageal reflux disease) Hearing difficulty of right ear Migraine Nephrolithiasis Obesity (BMI 30-39.9) Prolapsed hemorrhoids Thrombosed external hemorrhoid Thyroid nodule Vitamin D deficiency Surgical History H/O LEEP History of 2 sections Family History Family History Maternal Grandmother Myocardial infarct Social History Social History Household Members: Family Housing: Apartment Do you presently have visiting nurse or other home services: No Alcohol intake: current Alcohol intake frequency: holidays/special occasions only Patient Tobacco Use Status: Never used Tobacco e-Cigarette/Vaping Use: Never Used Second Hand Smoke Exposure: No Advance Directives: No service: No Current occupational status: employed 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 Cognitive needs: No Hearing needs: No Vision needs: Yes (Glasses) Physical Exam ED Vital Signs: Vital Signs - 24 hr 08/16/22 07:20 08/16/22 07:52 08/16/22 10:19 Temperature 97.5 F 97.6 F 97.6 F Pulse Rate 97 81 77 Respiratory Rate 20 14 14 Blood Pressure 99/65 99/58 L 97/65 Pulse Oximetry 99 99 99 Oxygen Delivery Method Room Air Room Air Room Air BMI result Body Mass Index 31.0 She looks well she has no toxic-appearing afebrile Const General: cooperative, comfortable, no acute distress, well developed, alert and awake Nutritional Appearance: well nourished Orientation/consciousness: patient oriented x3 Limitations: no limitations HENMT Head: Yes normal to inspection General nose exam: Normal external nose present Face and sinus: Yes normal facial exam Mouth: Normal oral and palatal mucosa present Neck Neck: Yes normal visual inspection and Yes full ROM Chest Chest palpation & inspection: normal inspection of the chest Resp Effort & Inspection: normal respiratory effort Auscultation: clear to auscultation bilaterally Cardio Jugular venous distension: no JVD Rate: regular rate Rhythm: regular rhythm GI Inspection: Yes normal to inspection Palpation (GI): Soft to palpation, not firm, nontender, no guarding and not rigid Skin General skin exam: no rashes or lesions noted, elasticity normal and turgor normal Lesions: no lesions Rashes: no rashes Neuro General: patient oriented x3 Course Reevaluation(s) Reevaluation #1: still c/o pain will get ct scan abdomen and pelvis.refused narcotic meds for pain Reevaluation #2: feeling better ct scan abdomen and pelvis OK will d./c home Medical Decision Making Differential Diagnosis Patient presented with nausea vomiting and diarrhea for about 3 days she has some abdominal pain in the right lower quadrant however no tenderness and no guarding on physical examination. Will get basic labs will hydrate with fluids antiemetic will reassess, I will consider CT scan if elevated white count though persistent right lower quadrant abdominal pain. Lab Data MDM Lab Attestation statement: I reviewed the patient's lab results. 08/16/22 07:47 08/16/22 07:46 Labs: Lab Results 08/16/22 08/16/22 08/16/22 Range/Units 07:46 07:47 07:47 WBC 5.1 (4.8-10.8) X10*3/uL RBC 4.08 L (4.20-5.50) X10*6/uL Hgb 11.7 L (12.0-16.0) g/dl Hct 34.5 L (37.0-47.0) % MCV 84.6 (80.0-98.0) fL MCH 28.7 (27.0-33.0) pg MCHC 33.9 (31.0-35.0) g/dl RDW 12.9 (11.0-16.0) % Plt Count 152 L (160-400) X10*3/uL MPV 11.6 (9.4-12.3) fL Immature Gran % (Auto) 0.2 (0.0-0.4) % Neut % (Auto) 63.8 (45-73) % Lymph % (Auto) 25.9 (20-40) % [place] % (Auto) 8.9 (2-11) % Eos % (Auto) 0.6 (0-4) % Baso % (Auto) 0.6 (0-2) % Lymph # (Auto) 1.3 (1.2-4.9) X10*3/uL [place] # (Auto) 0.5 (0.1-1.2) X10*3/uL Eos # (Auto) 0.0 (0.0-0.4) X10*3/uL Baso # (Auto) 0.0 (0.0-0.2) X10*3/uL Abs Immat Gran (auto) 0.01 (0.00-0.03) X10*3/uL Absolute Neuts (auto) 3.2 (2.0-8.3) x10*3/uL Absolute Nucleated RBC 0.000 (0.0-0.012) X10*3/uL Nucleated RBC % (auto) 0.0 (0.0-0.2) /100WBC Sodium 141 (135-145) mmol/L Potassium 3.8 (3.3-5.1) mmol/L Chloride 110 H (96-108) mmol/L Carbon Dioxide 22 (22-29) mmol/L Anion Gap 13 (12-20) BUN 9 (9-16) mg/dL Creatinine 0.73 (0.5-1.4) mg/dL Estim Creat Clear Calc 119.0 Estimated GFR > 60 Random Glucose 91 (60-115) mg/dL Calcium 9.0 (8.4-10.2) mg/dL Total Bilirubin (0.0-1.0) mg/dL Direct Bilirubin (0.0-0.5) mg/dL AST (5-31) U/L ALT (0-31) U/L Alkaline Phosphatase (39-117) U/L Total Protein (6.5-8.0) g/dL Albumin (3.5-5.0) g/dL Lipase (8-78) U/L Beta HCG, Quant mIU/mL COVID-19 (TIFFANIE) (Negative) COVID-19 Clin Com Influenza Type A ([place]) Negative (Negative) Influenza Type B ([place]) Negative (Negative) Influenza A & B Note See Note 08/16/22 08/16/22 Range/Units 07:47 08:14 WBC (4.8-10.8) X10*3/uL RBC (4.20-5.50) X10*6/uL Hgb (12.0-16.0) g/dl Hct (37.0-47.0) % MCV (80.0-98.0) fL MCH (27.0-33.0) pg MCHC (31.0-35.0) g/dl RDW (11.0-16.0) % Plt Count (160-400) X10*3/uL MPV (9.4-12.3) fL Immature Gran % (Auto) (0.0-0.4) % Neut % (Auto) (45-73) % Lymph % (Auto) (20-40) % [place] % (Auto) (2-11) % Eos % (Auto) (0-4) % Baso % (Auto) (0-2) % Lymph # (Auto) (1.2-4.9) X10*3/uL [place] # (Auto) (0.1-1.2) X10*3/uL Eos # (Auto) (0.0-0.4) X10*3/uL Baso # (Auto) (0.0-0.2) X10*3/uL Abs Immat Gran (auto) (0.00-0.03) X10*3/uL Absolute Neuts (auto) (2.0-8.3) x10*3/uL Absolute Nucleated RBC (0.0-0.012) X10*3/uL Nucleated RBC % (auto) (0.0-0.2) /100WBC Sodium (135-145) mmol/L Potassium (3.3-5.1) mmol/L Chloride (96-108) mmol/L Carbon Dioxide (22-29) mmol/L Anion Gap (12-20) BUN (9-16) mg/dL Creatinine (0.5-1.4) mg/dL Estim Creat Clear Calc Estimated GFR Random Glucose (60-115) mg/dL Calcium (8.4-10.2) mg/dL Total Bilirubin 1.0 (0.0-1.0) mg/dL Direct Bilirubin 0.3 (0.0-0.5) mg/dL AST 13 (5-31) U/L ALT 10 (0-31) U/L Alkaline Phosphatase 67 (39-117) U/L Total Protein 6.3 L (6.5-8.0) g/dL Albumin 4.1 (3.5-5.0) g/dL Lipase 20 (8-78) U/L Beta HCG, Quant < 2 mIU/mL COVID-19 (TIFFANIE) Negative (Negative) COVID-19 Clin Com See Note Influenza Type A ([place]) (Negative) Influenza Type B ([place]) (Negative) Influenza A & B Note Radiology Impression Radiologist Impression: KIDNEYS AND URETERS: The kidneys are normal in size, shape, and attenuation. No hydronephrosis, hydroureter, or calculi seen. No perinephric stranding. ? BLADDER: Unremarkable.? GASTROINTESTINAL TRACT: The stomach is unremarkable. Normal caliber of the small bowel. There is no obstruction. Normal appendix. No colonic wall thickening or acute inflammatory change. No free air or free fluid.? ABDOMINAL WALL: No significant hernia is appreciated.? LYMPH NODES: Normal. VASCULAR: Unremarkable. PELVIC VISCERA: Anteverted uterus. There is a right uterine body anterior myometrial fibroid measuring 6.4 x 6.1 x 6.5 cm. This distorts the endometrium. This corresponds to the appearance on prior imaging. No adnexal mass. OSSEOUS STRUCTURES: No acute or suspicious osseous abnormality.? CT/CT abdomen pelvis w IV con IMPRESSION: 1.? No acute findings in the abdomen or pelvis. Normal appendix. 2.? Prominent uterine fibroid, as seen on previous imaging. ? Fleischner guidelines were followed. Medications Administered Generic Name Dose Route Start Last Admin Trade Name Freq PRN Reason Stop Dose Admin Sodium Chloride 1,000 mls @ 999 mls/hr 08/16/22 10:00 08/16/22 09:54 Ns IVCONT 08/16/22 11:00 999 mls/hr .Q1H1M MANAN Administration Discontinued Medications Generic Name Dose Route Start Last Admin Trade Name Freq PRN Reason Stop Dose Admin Sodium Chloride 1,000 mls @ 999 mls/hr 08/16/22 08:00 08/16/22 09:00 Ns IVCONT 08/16/22 09:00 Infused .Q1H1M MANAN Infusion Acetaminophen 1,000 mg in 100 mls @ 400 mls/hr 08/16/22 09:46 08/16/22 10:14 Ofirmev IV 08/16/22 10:00 Infused ONCE ONE Infusion Iohexol 85 ml 08/16/22 09:07 08/16/22 09:07 Iohexol 350 Mg/Ml 100 Ml Infus..Btl IV 08/16/22 09:08 85 ml ONCE ONE Administration Ketorolac Tromethamine 15 mg 08/16/22 07:47 08/16/22 07:59 Ketorolac Tromethamine 15 Mg/Ml Vial IVPUSH 08/16/22 07:48 15 mg ONCE ONE Administration Ondansetron HCl 4 mg 08/16/22 07:47 08/16/22 07:59 Ondansetron Hcl 4 Mg/2 Ml Vial IVPUSH 08/16/22 07:48 4 mg ONCE ONE Administration Discharge Plan Discharge Clinical Impression: Abdominal pain Prescriptions: No Action fluticasone propionate [Flonase Allergy Relief] 50 mcg/actuation spray,megan pension 2 spray intranasal DAILY Qty: 16 0RF Rx Instructions: administer into each nostril acetaminophen 325 mg Tablet 650 mg PO Q6H PRN (Reason: Pain) albuterol sulfate [ProAir HFA] 90 mcg/actuation HFA aerosol inhaler 2 puff inhalation QID PRN (Reason: shortness of breath or wheezing) Qty: 8.5 1RF cetirizine [All Day Allergy (cetirizine)] 10 mg tablet 10 mg PO DAILY PRN (Reason: allergy symptoms) Qty: 20 0RF Mounjaro 10 mg/0.5 mL pen injector 10 mg subcut QWEEK docusate sodium [Colace] 100 mg capsule 100 mg PO BID Qty: 60 3RF
[2022-08-16 07:52] VITALS: BP 99/58; PULSE 81; RESP 14; TEMP 36.4; O2SAT 99
[2022-08-16 07:52] LABS: MANUAL DIFF FLAG NO
[2022-08-16 07:53] LABS: Basophils Percent Auto 0.6 % (0-2); Eosinophils Percent Auto 0.6 % (0-4); Hematocrit 34.5 % (37.0-47.0); Hemoglobin 11.7 g/dl (12.0-16.0); Imm Gran Abs Auto 0.01 X10*3/uL (0.00-0.03); Imm Gran Pct Auto 0.2 % (0.0-0.4); Lymphocytes Absolute Auto 1.3 X10*3/uL (1.2-4.9); Lymphocytes Percent Auto 25.9 % (20-40); Mean Corpuscular HGB Conc 33.9 g/dl (31.0-35.0); Mean Corpuscular Hemoglobin 28.7 pg (27.0-33.0); Mean Corpuscular Volume 84.6 fL (80.0-98.0); Mean Platelet Volume 11.6 fL (9.4-12.3); Monocytes Absolute Auto 0.5 X10*3/uL (0.1-1.2); Monocytes Percent Auto 8.9 % (2-11); Neutrophils Absolute Auto 3.2 x10*3/uL (2.0-8.3); Neutrophils Percent Auto 63.8 % (45-73); Platelet Count 152 X10*3/uL (160-400); Red Blood Count 4.08 X10*6/uL (4.20-5.50); Red Cell Distribution Width 12.9 % (11.0-16.0); White Blood Count 5.1 X10*3/uL (4.8-10.8)
[2022-08-16] MEDS: ondansetron HCL 4 MG/2 ML VIAL IVPUSH (07:59)
[2022-08-16] MEDS: 0.9 % Sodium Chloride 1,000 ML 999 ML IVCONT ×2 (07:59→09:54)
[2022-08-16] MEDS: Ketorolac Tromethamine 15 MG/ML VIAL IVPUSH (07:59)
[2022-08-16 08:07] LABS: Anion Gap 13 (12-20); Blood Urea Nitrogen 9 mg/dL (9-16); Carbon Dioxide 22 mmol/L (22-29); Chloride 110 mmol/L (96-108); Estimated Glomerular Filt Rate > 60; Glucose Random 91 mg/dL (60-115); Potassium 3.8 mmol/L (3.3-5.1); Sodium 141 mmol/L (135-145)
[2022-08-16 08:15] LABS: COVID-19 Test Negative (Negative); IDNOW Serial# 16C4AD1C
[2022-08-16 08:16] LABS: IDNOW Serial# BCCEAD1C; Influenza A Negative (Negative); Influenza B2 Negative (Negative)
[2022-08-16 08:47] LABS: Alanine Aminotransferase 10 U/L (0-31); Albumin Level 4.1 g/dL (3.5-5.0); Alkaline Phosphatase 67 U/L (39-117); Aspartate Amino Transferase 13 U/L (5-31); Bilirubin Direct 0.3 mg/dL (0.0-0.5); Lipase 20 U/L (8-78); Total Protein 6.3 g/dL (6.5-8.0)
[2022-08-16 08:50] LABS: HCG Quantitative < 2 mIU/mL
[2022-08-16] MEDS: iohexoL 350 MG/ML 100 ML INFUS..BTL 85 ML IV (09:07)
[2022-08-16] MEDS: Acetaminophen 1,000 MG/100 ML PIGGYBACK 400 MG IV (09:54)
[2022-08-16 10:19] VITALS: BP 97/65; PULSE 77; RESP 14; TEMP 36.4; O2SAT 99
[2022-08-16 10:56] VITALS: BP 94/55; PULSE 85; RESP 16; TEMP 36.5; O2SAT 100
== END 2022-08-16 11:03 | disposition home or self-care (01) ==
PROVIDERS: Emergency Provider Emergency Medicine; PCP Internal Medicine
DX: R10.31 Right lower quadrant pain (principal); Z20.822 Contact with and (suspected) exposure to COVID-19; Z79.899 Other long term (current) drug therapy
CPT/HCPCS: 36415; 74177; 80048; 80076; 83690; 84702; 85025; 87502; 87635; 96361; 96365; 96375; 99284; J0131; J1885; J2405; Q9967

== ENCOUNTER 2022-10-07 11:51 | Outpatient (REF) | payer MEDICARE, BC, MEDICAID, SELFPAY ==
[2022-10-07 12:42] LABS: Influenza A PCR NEGATIVE (Negative); Influenza B PCR NEGATIVE (Negative); Resp Syncy Virus RNA Qual PCR NEGATIVE (Negative); SARS COV2 PCR INHOUSE NEGATIVE (Negative)
== END 2022-10-07 11:52 | disposition home or self-care (01) ==
LOC: HO.LNP 11:51
PROVIDERS: Visit Provider Nurse Practitioner Family
DX: Z20.822 Contact with and (suspected) exposure to COVID-19 (principal); R09.89 Other specified symptoms and signs involving the circulatory and respiratory systems
CPT/HCPCS: 0241U

== ENCOUNTER 2022-10-08 12:07 | Outpatient (REF) | payer MEDICARE, MEDICAID, SELFPAY | END 2022-10-08 12:08 | disposition home or self-care (01) | LOC: HO.SH 12:07 | PROVIDERS: Visit Provider Nurse Practitioner Family | DX: Z01.118 Encounter for examination of ears and hearing with other abnormal findings (principal); H93.293 Other abnormal auditory perceptions, bilateral | CPT/HCPCS: 92557; 92567 ==

== ENCOUNTER 2022-11-22 07:57 | Day surgery (SDC) | payer MEDICARE, BC, MEDICAID, SELFPAY ==
[2022-11-19 15:05] VITALS: BMI 30.8
--- NOTE | 2022-11-21 11:48 | HO.ANESPROP2 ---
Documented by User: Christine Gooden NP 11/21/22 11:51 HPI - Anesthesia Eval Consult details Narrative: 37yo F for EUA,Hemorrhoidectomy Cardiac cleared PMFSH Active Problems Active Problems: All Active Problems (Updated 11/19/22 @ 14:54 by Jennifer Maloney, RN) Confusion (Acute) COVID-19 (Acute) Annual physical exam (Acute) Constipation (Acute) Anemia (Acute) Hypercholesterolemia (Acute) Hemorrhoid (Acute) Breast cancer screening by mammogram (Acute) Breast asymmetry (Acute) Hypersomnia (Acute) Menorrhagia (Acute) Infected abrasion (Acute) Fibroid (Acute) Upper respiratory tract infection (Acute) Hoarseness (Acute) RUQ abdominal pain (Acute) Intermittent chest pain (Acute) Right knee pain (Acute) Osteoarthritis of right knee (Acute) Low back pain (Acute) Ejection fraction < 50% (Acute) SOB (shortness of breath) (Acute) Abnormal stress test (Acute) Patellofemoral arthritis of right knee (Acute) Annual physical exam (Acute) Frequency of micturition (Acute) Abdominal pain (Acute) Hearing difficulty of right ear (Acute) Prolapsed hemorrhoids (Acute) GERD (gastroesophageal reflux disease) (Acute) Generalized anxiety disorder (Acute) Obesity (BMI 30-39.9) (Acute) Thyroid nodule (Acute) Thrombosed external hemorrhoid (Acute) Past Medical History Medical History (Updated 11/19/22 @ 14:54 by Jennifer Maloney, KATLYN) Allergic rhinitis Asthma COVID-19 Generalized anxiety disorder GERD (gastroesophageal reflux disease) Hearing difficulty of right ear Hx of chest pain Migraine Nephrolithiasis Obesity (BMI 30-39.9) Prolapsed hemorrhoids Thrombosed external hemorrhoid Thyroid nodule Vitamin D deficiency Family History Family History Maternal Grandmother Myocardial infarct Surgical History Surgical History (Updated 11/22/22 @ 08:07 by Flavia Guillermo) H/O LEEP History of 2 sections History of colonoscopy Social History Social History Household Members: Family Housing: Apartment Are you a primary occasional caregiver to a significant other at home: No Do you presently have visiting nurse or other home services: No Alcohol intake: never Patient Tobacco Use Status: Never used Tobacco e-Cigarette/Vaping Use: Never Used Second Hand Smoke Exposure: No Use of substances other than those prescribed or required for medical reasons: No Have you been hit, kicked, punched, or otherwise hurt by someone within the past year? If so, by whom?: No Are you DNR?: No Advance Directives: No Advance Directives Information Provided: Yes Advance Directives on File: No Recently lost weight without trying: No Nutrition Risks: No Nutritional Risk service: No Current occupational status: employed Current occupation: [employer] Cognitive needs: No Hearing needs: No Vision needs: Yes (Glasses) Meds Allergies Allergy/AdvReac Type Severity Reaction Status Date / Time No Known Allergies Allergy Verified 11/22/22 08:07 Home Medications Medication Instructions Recorded Confirmed Last Taken Type acetaminophen 325 mg tablet 650 mg PO Q6H PRN Pain 06/15/21 11/22/22 Unknown History tirzepatide 10 mg/0.5 mL 10 mg subcut QWEEK 07/29/22 11/22/22 Unknown History subcutaneous pen injector (Mounjaro) thyroid (pork) 15 mg tablet (THERAPIST PHYSICAL 15 mg PO QAM 11/19/22 11/22/22 Unknown History Thyroid) cefuroxime axetil 500 mg tablet 500 mg PO BID 11/22/22 11/22/22 Unknown History tinidazole 500 mg tablet mg PO 11/22/22 Unknown History Exam Exam Date and Time: November 21, 2022 1148 Height,Weight and Vital Signs: Height 5 ft 7 in Weight 89.358 kg Pertinent Lab Results Pertinent Lab Results: Laboratory Tests 08/16/22 08/16/22 07:46 07:47 WBC 5.1 Hgb 11.7 L Hct 34.5 L Plt Count 152 L Sodium 141 Potassium 3.8 Chloride 110 H Carbon Dioxide 22 BUN 9 Creatinine 0.73 Narrative Narrative: ECHO 07/2022 Conclusions: - 1. Low normal LV systolic function with LVEF of 50-55% ? 2. Normal cardiac valvular Doppler ? 3. Normal RV systolic pressure ? 4. No pericardial effusion ? ?? NM cardiolite stress test 07/2022 Impression: ? 1.? Myocardial perfusion imaging study shows nondiagnostic study, consider alternative imaging modalities 2.? Gated LVEF is 42% 3. Transient ischemic dilatation not present but LV cavity is dilated ? ?EKG Nondiagnostic for ischemia Coronary CTA 07/2022 with normal coronaries EKG 03/2022 Vent. Rate : 075 BPM ? ? Atrial Rate : 075 BPM ?? P-R Int : 130 ms? QRS Dur : 082 ms ? ? QT Int : 354 ms ? ? ? P-R-T Axes : 022 055 004 degrees ?? QTc Int : 395 ms ? Normal sinus rhythm Normal ECG When compared with ECG of 15-JUN-2021 16:32, Nonspecific T wave abnormality no longer evident in Anterolateral leads Documented by User: Arun Valentine MD 11/22/22 10:11 [facility] Past Medical History Medical History (Updated 11/19/22 @ 14:54 by Jennifer Maloney RN) Allergic rhinitis Asthma COVID-19 Generalized anxiety disorder GERD (gastroesophageal reflux disease) Hearing difficulty of right ear Hx of chest pain Migraine Nephrolithiasis Obesity (BMI 30-39.9) Prolapsed hemorrhoids Thrombosed external hemorrhoid Thyroid nodule Vitamin D deficiency Family History Family History Maternal Grandmother Myocardial infarct Family history of problems with anesthesia: No Surgical History Surgical History (Updated 11/22/22 @ 08:07 by Flavia Guillermo) H/O LEEP History of 2 sections History of colonoscopy History of Problems with Anesthesia: No Social History Social History Household Members: Family Housing: Apartment Are you a primary occasional caregiver to a significant other at home: No Do you presently have visiting nurse or other home services: No Alcohol intake: never Patient Tobacco Use Status: Never used Tobacco e-Cigarette/Vaping Use: Never Used Second Hand Smoke Exposure: No Use of substances other than those prescribed or required for medical reasons: No Have you been hit, kicked, punched, or otherwise hurt by someone within the past year? 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: No Hearing needs: No Vision needs: Yes (Glasses) Meds Allergies Allergy/AdvReac Type Severity Reaction Status Date / Time No Known Allergies Allergy Verified 11/22/22 08:07 Home Medications Medication Instructions Recorded Confirmed Last Taken Type acetaminophen 325 mg tablet 650 mg PO Q6H PRN Pain 06/15/21 11/22/22 Unknown History tirzepatide 10 mg/0.5 mL 10 mg subcut QWEEK 07/29/22 11/22/22 Unknown History subcutaneous pen injector (Mounjaro) thyroid (pork) 15 mg tablet (THERAPIST PHYSICAL 15 mg PO QAM 11/19/22 11/22/22 Unknown History Thyroid) cefuroxime axetil 500 mg tablet 500 mg PO BID 11/22/22 11/22/22 Unknown History tinidazole 500 mg tablet mg PO 11/22/22 Unknown History Exam Airway Mallampati Class: II TM Dist: >3cm Neck ROM: Full Heart: rrre Lungs: cta Assessment and Plan Assessment Anesthesia Assessment: Anesthesia Plan Discussed and Chart Reviewed Final Anesthetic Review Family History of Problems with Anesthesia: No History of Problems with Anesthesia: No NPO: Yes ASA Class: II Final Preanesthetic Review: No Changes in Pt Med Stat, Meds/Allgs Chart Reviewed, Consent Obtained/Reviewed and Anes Risks/Benef Reviewed Patient Risk: Low Procedure Risk: Intermediate Anesthetic Plan Anesthetic Plan: GA Disposition: Standard PACU
[2022-11-22] VITALS (22 sets, daily range): BP systolic 96–126; BP diastolic 44–74; PULSE 68–95; RESP 16–20; TEMP 36.1–36.6; O2SAT 100; BMI 26.9
[2022-11-22 08:25] LABS: UPreg QC Valid YES; Urine Pregnancy NEGATIVE (NEGATIVE)
[2022-11-22] MEDS: Lactated Ringers 1,000 ML 100 ML IVCONT (08:38)
--- NOTE | 2022-11-22 10:25 | W.PM.OPN ---
Operative Note Operative Note Date of Service: 11/22/22 Narrative: Preop diagnosis: Prolapsing hemorrhoids Postop diagnosis: The same Procedure: Exam under anesthesia, hemorrhoidectomy x2 columns Surgeon: Huy Shields MD The patient is a 37 year female who has had a long history of discomfort mostly as prolapse of her hemorrhoids. She wanted to proceed with hemorrhoidectomy. She understood the technique of the planned procedure and was aware of the risks, benefits, and alternatives. She was brought to the operating room. She was placed in prone luis angel-knife position under general anesthesia via endotracheal tube. The buttocks were retracted with wide tape laterally. The perianal area was prepped and draped in the usual sterile fashion. Surgical time-out was done. The patient received Cefotan 2 g IV preoperatively Examination of the anal orifice revealed external hemorrhoids which were actually non bulky. This appeared to be on the right posterior and left anterolateral. I applied lidocaine 1% to the perianal area.I inserted the Evelyne Vaca retractor and examined the anal canal circumferentially. Again, these hemorrhoidal columns were noted above. These were mostly external although there appeared to be some mix of internal component I applied a Brunner grasper at the hemorrhoidal column on the left anterior to retract this. I made a [id number] stitch at the pedicle the dentate line. This was made using a chromic 3-0 stitch. I made an incision around this hemorrhoidal column to the perianal skin using blade 15. I excised this hemorrhoidal column above the plane of sphincters using Metzenbaum scissors. I then closed this incision with a running chromic 3-0 stitch with additional hemostatic sutures being placed The same procedure was duplicated on the hemorrhoidal column on the right posterior. Again this was retracted using a Brunner clamp. I applied a Figure of 8 stitch proximal to this hemorrhoidal column with a chromic 3-0. I made an incision around this hemorrhoidal column to the perianal skin using a blade 15. I excised this hemorrhoidal column above the plane of sphincters using scissors. I closed this incision with a running chromic 3-0 stitch. Additional hemostatic sutures were placed . Once hemostasis was confirmed, I infiltrated the perianal area with Marcaine 0.5% for postop analgesia. The procedure was then completed. The patient tolerated procedure well. There were no immediate complications. Initial and final counts of sponges and instruments were correct. Estimated blood loss was about 10 cc. The patient was extubated without difficulty and transferred to the recovery room with stable vital signs.
[2022-11-22] MEDS: fentaNYL citrate/PF 100 MCG/2 ML VIAL 25 MCG IVPUSH ×8 (10:55→12:40)
[2022-11-22] MEDS: oxyCODONE HCl Immed Release 5 MG TABLET PO (11:10)
== END 2022-11-22 13:40 | disposition home or self-care (01) ==
PROVIDERS: Nurse Practitioner; PCP Internal Medicine; Visit Provider Surgery
PROC: (CPT 46250; principal; 2022-11-22 09:30)
DX: K64.8 Other hemorrhoids (principal); K64.5 Perianal venous thrombosis; J45.909 Unspecified asthma, uncomplicated; E66.9 Obesity, unspecified; Z68.33 Body mass index [BMI] 33.0-33.9, adult; Z79.899 Other long term (current) drug therapy; Z79.51 Long term (current) use of inhaled steroids
CPT/HCPCS: 46250; 81025; 88304; J0131; J1100; J1885; J2405; J3010

== ENCOUNTER 2022-11-26 14:58 | Emergency (ER) | payer MEDICARE, BC, MEDICAID, SELFPAY ==
--- NOTE | ~2022-11-26 | CT_ITS ---
EXAMINATION: CT ABDOMEN AND PELVIS WITHOUT CONTRAST CLINICAL INFORMATION: Left flank pain. COMPARISON: Previous CT most recent August 2022 and pelvic ultrasound December 2021 TECHNIQUE: Multidetector volumetric imaging was performed from the superior aspect of the liver through the pubic symphysis. Sagittal and coronal reformatted images were obtained on the technologist's workstation. This CT examination was performed using dose optimization techniques as appropriate, variously including the following: *Automated exposure control *Adjustment of mA and/or kV according to patient size (this includes techniques or standardized protocols for targeted exams where dose is matched to indication/reason for exam; i.e. extremities or head) *Use of iterative reconstruction technique DLP: 613 mGy-cm FINDINGS: LUNG BASES: The visualized lung bases are unremarkable. LIVER, GALLBLADDER, AND BILIARY TREE: The liver is normal in size, shape, and attenuation. No focal hepatic lesion or biliary ductal dilatation is present. The gallbladder is unremarkable with no evidence of radiopaque gallstones, gallbladder wall thickening, or obvious pericholecystic inflammatory changes. PANCREAS: Unremarkable. SPLEEN: Unremarkable. ADRENAL GLANDS: Unremarkable. KIDNEYS AND URETERS: The kidneys are normal in size, shape, and attenuation. No hydronephrosis, hydroureter, or calculi seen. No perinephric stranding. BLADDER: Unremarkable. GASTROINTESTINAL TRACT: There is stool throughout the colon suggestive of constipation. The small and large bowel are otherwise unremarkable. The appendix is unremarkable. The stomach is filled with food. ABDOMINAL WALL: No significant hernia is appreciated. LYMPH NODES: Normal. VASCULAR: Unremarkable. PELVIC VISCERA: Large uterine fibroid. Uterus and adnexa are otherwise unremarkable. OSSEOUS STRUCTURES: Unremarkable. CT/CT abdomen pelvis wo IV con IMPRESSION: Normal kidneys. No cause of left flank pain seen. Constipation. The stomach is also filled with food. Largest uterine fibroid similar to previous exams. Fleischner guidelines were followed.
--- NOTE | 2022-11-26 15:30 | ED_ITS ---
HPI - General Adult General Chief complaint: Abdominal Pain <ANGIE Ibrahim - Last Filed: 11/26/22 15:33> Stated complaint: L sided spasm post op <ANGIE Ibrahim - Last Filed: 11/26/22 15:33> Time Seen by Provider: 11/26/22 18:46 <ANGIE Ibrahim - Last Filed: 11/26/22 15:33> Source: patient, RN notes reviewed and old records reviewed <Casper Heard - Last Filed: 11/26/22 21:26> Mode of arrival: ambulatory <Casper Heard - Last Filed: 11/26/22 21:26> Limitations: no limitations <Casper Heard - Last Filed: 11/26/22 21:26> History of Present Illness HPI narrative: 37-year-old female with recent hemorrhoidectomy surgery on 11/22/2022 presents for evaluation of left flank pain. Patient had a hemorrhoidectomy under general anesthesia with Dr. Shields She complains of mild rectal discomfort which she was told to expect. She felt constipated for the 1st 2 days but has been taking her laxative and has been having bowel movements over the last 2 days Denies any blood in the stool She reports some difficulty urinating as she feels that she has to push to be able to go Denies any fevers, chills She reports intermittent stabbing, severe pains to the left flank that do not seem to radiate At worst the pain is 10/10 She has associated nausea without vomiting <Casper Heard - Last Filed: 11/26/22 21:26> Related Data Home medications: Home Medications Medication Instructions Recorded Confirmed acetaminophen 325 mg tablet 650 mg PO Q6H PRN Pain 06/15/21 11/22/22 tirzepatide 10 mg/0.5 mL 10 mg subcut QWEEK 07/29/22 11/22/22 subcutaneous pen injector (Magdy) thyroid (pork) 15 mg tablet (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 11/19/22 11/22/22 Thyroid) cefuroxime axetil 500 mg tablet 500 mg PO BID 11/22/22 11/22/22 tinidazole 500 mg tablet mg PO 11/22/22 Previous Rx's Medication Instructions Recorded cetirizine 10 mg tablet (All Day 10 mg PO DAILY PRN allergy 06/07/21 Allergy (cetirizine)) symptoms #20 tabs albuterol sulfate 90 mcg/actuation 2 puff inhalation QID PRN 06/17/21 aerosol inhaler (ProAir HFA) shortness of breath or wheezing #8.5 grams ondansetron 4 mg disintegrating 4 mg PO Q8H 4 days #12 tabs 08/16/22 tablet docusate sodium 100 mg capsule 100 mg PO BID #60 caps 11/22/22 (Colace) ibuprofen 600 mg tablet 600 mg PO Q6H PRN pain #30 tabs 11/22/22 oxycodone 5 mg tablet 5 mg PO Q4H PRN pain #30 tabs 11/22/22 <ANGIE Ibrahim - Last Filed: 11/26/22 15:33> Allergies/adverse reactions: Allergies Allergy/AdvReac Type Severity Reaction Status Date / Time No Known Allergies Allergy Verified 11/26/22 15:32 <ANGIE Ibrahim - Last Filed: 11/26/22 15:33> Review of Systems Constitutional: Constitutional: Reports as per HPI, Denies chills, Denies fatigue, Denies fever(s) and Denies headache(s) <Casper Heard - Last Filed: 11/26/22 21:26> ENT: Denies headache(s) <Casper Heard - Last Filed: 11/26/22 21:26> Cardiovascular: Cardiovascular: Denies chest pain and Denies dyspnea <Casper Heard - Last Filed: 11/26/22 21:26> Respiratory: Respiratory: Denies cough and Denies dyspnea <Casper Heard - Last Filed: 11/26/22 21:26> Gastrointestinal: Gastrointestinal: Denies abdominal pain, Denies constipation and Denies vomiting <Casper Heard - Last Filed: 11/26/22 21:26> Genitourinary: Genitourinary: Reports urinary frequency and Denies dysuria <Casper Heard - Last Filed: 11/26/22 21:26> Neurologic: Denies headache(s) and Denies focal weakness <Casper Heard - Last Filed: 11/26/22 21:26> Endocrine: Endocrine: Denies fatigue <Casper Heard - Last Filed: 11/26/22 21:26> [facility] Past Medical History Medical History: Medical History (Updated 11/26/22 @ 21:26 by Casper Heard) Allergic rhinitis Asthma COVID-19 Generalized anxiety disorder GERD (gastroesophageal reflux disease) Hearing difficulty of right ear Hx of chest pain Migraine Nephrolithiasis Obesity (BMI 30-39.9) Prolapsed hemorrhoids Thrombosed external hemorrhoid Thyroid nodule Vitamin D deficiency <ANGIE Ibrahim - Last Filed: 11/26/22 15:33> Surgical History: Surgical History (Updated 11/22/22 @ 08:07 by Flavia Guillermo) H/O LEEP History of 2 sections History of colonoscopy <ANGIE Ibrahim - Last Filed: 11/26/22 15:33> Family History Family History: Family History Maternal Grandmother Myocardial infarct <ANGIE Ibrahim - Last Filed: 11/26/22 15:33> Social History Social History: Social History Household Members: Family Housing: Apartment Are you a primary chiropractic care to a significant other at home: No Do you presently have visiting nurse or other home services: No Alcohol intake: never Patient Tobacco Use Status: Never used Tobacco e-Cigarette/Vaping Use: Never Used Second Hand Smoke Exposure: No Advance Directives: No Advance Directives Information Provided: No service: No Current occupational status: employed Current occupation: [employer] Cognitive needs: No Hearing needs: No Vision needs: Yes (Glasses) <ANGIE Ibrahim - Last Filed: 11/26/22 15:33> Physical Exam ED Vital Signs: Vital Signs - 24 hr 11/26/22 15:32 11/26/22 17:36 Temperature 97.4 F 98.3 F Pulse Rate 99 82 Respiratory Rate 18 18 Blood Pressure 94/69 109/88 Pulse Oximetry 100 100 Oxygen Delivery Method Room Air Room Air BMI result Body Mass Index 29.8 <ANGIE Ibrahim Last Filed: 11/26/22 15:33> Vital Signs - 24 hr 11/26/22 15:32 11/26/22 17:36 Temperature 97.4 F 98.3 F Pulse Rate 99 82 Respiratory Rate 18 18 Blood Pressure 94/69 109/88 Pulse Oximetry 100 100 Oxygen Delivery Method Room Air Room Air BMI result Body Mass Index 29.8 <Casper Jason - Last Filed: 11/26/22 21:26> Const General: healthy appearing, comfortable, no acute distress, alert and awake <Casper - Last Filed: 11/26/22 21:26> Nutritional Appearance: well nourished <Casper - Last Filed: 11/26/22 21:26> Orientation/consciousness: patient oriented x3 <Casper - Last Filed: 11/26/22 21:26> HENMT Head: Yes normocephalic and Yes atraumatic <Casper - Last Filed: 11/26/22 21:26> Throat: Yes posterior oropharynx normal <Casper Last Filed: 11/26/22 21:26> Eyes Eyelids: Yes eyelids normal < - Last Filed: 11/26/22 21:26> Conjunctivae: conjunctivae normal < - Last Filed: 11/26/22 21:26> Sclerae: sclerae normal < - Last Filed: 11/26/22 21:26> Corneas: corneas normal < - Last Filed: 11/26/22 21:26> Pupils: Equal, round and reactive pupils present <Casper Last Filed: 11/26/22 21:26> EOM: EOMs intact bilaterally < Last Filed: 11/26/22 21:26> Neck Neck: Yes full ROM < Last Filed: 11/26/22 21:26> Resp Effort & Inspection: normal respiratory effort, able to speak in complete sentences, no audible wheezes and not labored < Last Filed: 11/26/22 21:26> Auscultation: clear to auscultation bilaterally <Casper Heard - Last Filed: 11/26/22 21:26> Cardio Rate: regular rate <Caspermoira Heard - Last Filed: 11/26/22 21:26> Rhythm: regular rhythm <Casper Heard - Last Filed: 11/26/22 21:26> GI Inspection: No distended <Casper Heard - Last Filed: 11/26/22 21:26> Palpation (GI): Soft to palpation, not firm, nontender, no guarding and not rigid <Casper Heard - Last Filed: 11/26/22 21:26> Auscultation: normoactive bowel sounds <Casper Heard - Last Filed: 11/26/22 21:26> Skin General skin exam: no rashes or lesions noted and elasticity normal <Casper Heard - Last Filed: 11/26/22 21:26> Neuro General: patient oriented x3 <Casper Heard - Last Filed: 11/26/22 21:26> Cranial nerves: Yes CN's II-XII intact bilaterally, Yes Equal, round and reactive pupils present and Yes Bilaterally intact EOM present <Casper Heard - Last Filed: 11/26/22 21:26> Cognition (Neuro): normal cognition <Casper Heard - Last Filed: 11/26/22 21:26> Extrem Other: Moving all extremities well without any obvious deformities <Casper Heard - Last Filed: 11/26/22 21:26> Course Course Course Narrative: This is an RME: Additional HPI, ROS, PE not included below will be deferred to primary provider. 37-year-old female history of recurrent hemorrhoids status post hemorrhoidectomy under anesthesia on 11/22/2022 presenting the emergency department for evaluation of left-sided flank pain described as a shooting pain since yesterday pain is severe in nature. Patient has had a bowel movement, last bowel movement was yesterday. Reports severe pain. Physical exam patient uncomfortable with ambulation. 100% on room air 91 beats per minute pulse. Patient nontoxic appearing Plan- basic labs UA <ANGIE Ibrahim - Last Filed: 11/26/22 15:33> Reevaluation(s) Reevaluation #1: CT scan shows significant constipation which is likely cause of the patient's pain. This was discussed with her and she will continue her outpatient regimen. She will follow-up with Dr. Shields <Casper Heard - Last Filed: 11/26/22 21:26> Time: 21:25 <Casper Heard - Last Filed: 11/26/22 21:26> Medications Administered Discontinued Medications Generic Name Dose Route Start Last Admin Trade Name Freq PRN Reason Stop Dose Admin Sodium Chloride 1,000 mls @ 999 mls/hr 11/26/22 19:15 11/26/22 20:24 Ns IV 11/26/22 20:15 Infused .Q1H1M MANAN Infusion Morphine Sulfate 4 mg 11/26/22 19:04 11/26/22 19:25 Morphine Sulfate 4 Mg/Ml Cartridge IVPUSH 11/26/22 19:05 4 mg ONCE ONE Administration Protocol Ondansetron HCl 4 mg 11/26/22 19:04 11/26/22 19:26 Ondansetron Hcl 4 Mg/2 Ml Vial IVPUSH 11/26/22 19:05 4 mg ONCE ONE Administration <ANGIE Ibrhaim - Last Filed: 11/26/22 15:33> Medications Administered Discontinued Medications Generic Name Dose Route Start Last Admin Trade Name Freq PRN Reason Stop Dose Admin Sodium Chloride 1,000 mls @ 999 mls/hr 11/26/22 19:15 11/26/22 20:24 Ns IV 11/26/22 20:15 Infused .Q1H1M MANAN Infusion Morphine Sulfate 4 mg 11/26/22 19:04 11/26/22 19:25 Morphine Sulfate 4 Mg/Ml Cartridge IVPUSH 11/26/22 19:05 4 mg ONCE ONE Administration Protocol Ondansetron HCl 4 mg 11/26/22 19:04 11/26/22 19:26 Ondansetron Hcl 4 Mg/2 Ml Vial IVPUSH 11/26/22 19:05 4 mg ONCE ONE Administration <Casper Heard - Last Filed: 11/26/22 21:26> Medical Decision Making Medical Decision Making MDM Narrative: 37-year-old female with a recent hemorrhoidectomy surgery presenting for evaluation of left flank pain. Most likely diagnosis times constipation versus obstructive uropathy. Patient's labs are without significant abnormalities. UA does not have any blood. She reports that she is having bowel movements but could be backed up from her recent surgery. We did a CT scan of the abdomen pelvis without contrast to better evaluate. Patient medicated fluids, morphine, Zofran. Vital signs are stable <Casper Heard - Last Filed: 11/26/22 21:26> Differential Diagnosis Constipation Obstructive uropathy Pyelonephritis Cystitis Abdominal pain <Casper Heard - Last Filed: 11/26/22 21:26> Lab Data Result Diagrams: 11/26/22 16:43 11/26/22 16:44 <ANGIE Ibrahim - Last Filed: 11/26/22 15:33> Labs: Lab Results 11/26/22 11/26/22 11/26/22 Range/Units 16:43 16:44 16:44 WBC 7.3 (4.8-10.8) X10*3/uL RBC 4.28 (4.20-5.50) X10*6/uL Hgb 12.2 (12.0-16.0) g/dl Hct 37.5 (37.0-47.0) % MCV 87.6 (80.0-98.0) fL MCH 28.5 (27.0-33.0) pg MCHC 32.5 (31.0-35.0) g/dl RDW 13.0 (11.0-16.0) % Plt Count 183 (160-400) X10*3/uL MPV 10.9 (9.4-12.3) fL Immature Gran % (Auto) 0.1 (0.0-0.4) % Neut % (Auto) 76.4 H (45-73) % Lymph % (Auto) 16.8 L (20-40) % [place] % (Auto) 5.3 (2-11) % Eos % (Auto) 1.1 (0-4) % Baso % (Auto) 0.3 (0-2) % Lymph # (Auto) 1.2 (1.2-4.9) X10*3/uL [place] # (Auto) 0.4 (0.1-1.2) X10*3/uL Eos # (Auto) 0.1 (0.0-0.4) X10*3/uL Baso # (Auto) 0.0 (0.0-0.2) X10*3/uL Abs Immat Gran (auto) 0.01 (0.00-0.03) X10*3/uL Absolute Neuts (auto) 5.6 (2.0-8.3) x10*3/uL Absolute Nucleated RBC 0.000 (0.0-0.012) X10*3/uL Nucleated RBC % (auto) 0.0 (0.0-0.2) /100WBC Sodium 142 (135-145) mmol/L Potassium 4.8 D (3.3-5.1) mmol/L Chloride 107 (96-108) mmol/L Carbon Dioxide 30 H (22-29) mmol/L Anion Gap 10 L (12-20) BUN 9 (9-16) mg/dL Creatinine 0.69 (0.5-1.4) mg/dL Estim Creat Clear Calc 123.6 Estimated GFR > 60 Random Glucose 96 (60-115) mg/dL Calcium 9.2 (8.4-10.2) mg/dL Magnesium 1.9 (1.6-2.6) mg/dL Total Bilirubin 0.4 (0.0-1.0) mg/dL AST 12 (5-31) U/L ALT 10 (0-31) U/L Alkaline Phosphatase 73 (39-117) U/L Total Protein 6.4 L (6.5-8.0) g/dL Albumin 4.0 (3.5-5.0) g/dL Lipase 17 (8-78) U/L Beta HCG, Quant < 2 mIU/mL Urine Color Yellow Urine Appearance Clear Urine pH 7.5 (5.0-9.0) Ur Specific [place] 1.020 (1.005-1.025) Urine Protein Negative (Neg-Trace) mg/dL Urine Glucose (UA) Negative (Negative) mg/dL Urine Ketones Negative (Negative) mg/dL Urine Blood Negative (Negative) Urine Nitrite Negative (Negative) Ur Leukocyte Esterase Negative (Negative) <ANGIE Ibrahim - Last Filed: 11/26/22 15:33> Lab Results 11/26/22 11/26/22 11/26/22 Range/Units 16:43 16:44 16:44 WBC 7.3 (4.8-10.8) X10*3/uL RBC 4.28 (4.20-5.50) X10*6/uL Hgb 12.2 (12.0-16.0) g/dl Hct 37.5 (37.0-47.0) % MCV 87.6 (80.0-98.0) fL MCH 28.5 (27.0-33.0) pg MCHC 32.5 (31.0-35.0) g/dl RDW 13.0 (11.0-16.0) % Plt Count 183 (160-400) X10*3/uL MPV 10.9 (9.4-12.3) fL Immature Gran % (Auto) 0.1 (0.0-0.4) % Neut % (Auto) 76.4 H (45-73) % Lymph % (Auto) 16.8 L (20-40) % [place] % (Auto) 5.3 (2-11) % Eos % (Auto) 1.1 (0-4) % Baso % (Auto) 0.3 (0-2) % Lymph # (Auto) 1.2 (1.2-4.9) X10*3/uL [place] # (Auto) 0.4 (0.1-1.2) X10*3/uL Eos # (Auto) 0.1 (0.0-0.4) X10*3/uL Baso # (Auto) 0.0 (0.0-0.2) X10*3/uL Abs Immat Gran (auto) 0.01 (0.00-0.03) X10*3/uL Absolute Neuts (auto) 5.6 (2.0-8.3) x10*3/uL Absolute Nucleated RBC 0.000 (0.0-0.012) X10*3/uL Nucleated RBC % (auto) 0.0 (0.0-0.2) /100WBC Sodium 142 (135-145) mmol/L Potassium 4.8 D (3.3-5.1) mmol/L Chloride 107 (96-108) mmol/L Carbon Dioxide 30 H (22-29) mmol/L Anion Gap 10 L (12-20) BUN 9 (9-16) mg/dL Creatinine 0.69 (0.5-1.4) mg/dL Estim Creat Clear Calc 123.6 Estimated GFR > 60 Random Glucose 96 (60-115) mg/dL Calcium 9.2 (8.4-10.2) mg/dL Magnesium 1.9 (1.6-2.6) mg/dL Total Bilirubin 0.4 (0.0-1.0) mg/dL AST 12 (5-31) U/L ALT 10 (0-31) U/L Alkaline Phosphatase 73 (39-117) U/L Total Protein 6.4 L (6.5-8.0) g/dL Albumin 4.0 (3.5-5.0) g/dL Lipase 17 (8-78) U/L Beta HCG, Quant < 2 mIU/mL Urine Color Yellow Urine Appearance Clear Urine pH 7.5 (5.0-9.0) Ur Specific [place] 1.020 (1.005-1.025) Urine Protein Negative (Neg-Trace) mg/dL Urine Glucose (UA) Negative (Negative) mg/dL Urine Ketones Negative (Negative) mg/dL Urine Blood Negative (Negative) Urine Nitrite Negative (Negative) Ur Leukocyte Esterase Negative (Negative) <Casper Heard - Last Filed: 11/26/22 21:26> Discharge Plan Discharge Clinical Impression: Constipation <ANGIE Ibrahim - Last Filed: 11/26/22 15:33> Patient Disposition: Home, Self-Care <ANGIE Ibrahim - Last Filed: 11/26/22 15:33> Instructions: Constipation (ED) <ANGIE Ibrahim - Last Filed: 11/26/22 15:33> Additional Instructions: Your blood work and urine sample were reassuring. Your CT scan showed significant constipation. Continue with the docusate as well as the Ex-Lax at home Increase fluid intake as well as fiber intake in your diet Follow-up with your surgeon, Dr. 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 docusate sodium [Colace] 100 mg capsule 100 mg PO BID Qty: 60 2RF Mounjaro 10 mg/0.5 mL pen injector 10 mg subcut QWEEK <ANGIE Ibrahim - Last Filed: 11/26/22 15:33>
[2022-11-26 15:32] VITALS: BP 94/69; PULSE 99; RESP 18; TEMP 36.3; O2SAT 100; BMI 29.8
[2022-11-26 16:50] LABS: MANUAL DIFF FLAG NO
[2022-11-26 16:51] LABS: Basophils Percent Auto 0.3 % (0-2); Eosinophils Absolute Auto 0.1 X10*3/uL (0.0-0.4); Eosinophils Percent Auto 1.1 % (0-4); Hematocrit 37.5 % (37.0-47.0); Hemoglobin 12.2 g/dl (12.0-16.0); Imm Gran Abs Auto 0.01 X10*3/uL (0.00-0.03); Imm Gran Pct Auto 0.1 % (0.0-0.4); Lymphocytes Absolute Auto 1.2 X10*3/uL (1.2-4.9); Lymphocytes Percent Auto 16.8 % (20-40); Mean Corpuscular HGB Conc 32.5 g/dl (31.0-35.0); Mean Corpuscular Hemoglobin 28.5 pg (27.0-33.0); Mean Corpuscular Volume 87.6 fL (80.0-98.0); Mean Platelet Volume 10.9 fL (9.4-12.3); Monocytes Absolute Auto 0.4 X10*3/uL (0.1-1.2); Monocytes Percent Auto 5.3 % (2-11); Neutrophils Absolute Auto 5.6 x10*3/uL (2.0-8.3); Neutrophils Percent Auto 76.4 % (45-73); Platelet Count 183 X10*3/uL (160-400); Red Blood Count 4.28 X10*6/uL (4.20-5.50); White Blood Count 7.3 X10*3/uL (4.8-10.8)
[2022-11-26 16:53] LABS: Appearance Urine Clear; Color Urine Yellow; Glucose Urine UA Negative (Negative); Leukocyte Esterase Urine Negative (Negative); Nitrite Urine Negative (Negative); PH 7.5 (5.0-9.0); Urine Blood Negative (Negative); Urine Ketones Negative (Negative); Urine Protein Negative (Neg-Trace)
[2022-11-26 17:09] LABS: Alanine Aminotransferase 10 U/L (0-31); Alkaline Phosphatase 73 U/L (39-117); Anion Gap 10 (12-20); Aspartate Amino Transferase 12 U/L (5-31); Bilirubin Total 0.4 mg/dL (0.0-1.0); Blood Urea Nitrogen 9 mg/dL (9-16); Calcium 9.2 mg/dL (8.4-10.2); Carbon Dioxide 30 mmol/L (22-29); Chloride 107 mmol/L (96-108); Creatinine Clr Calc Pharmacy 123.6; Estimated Glomerular Filt Rate > 60; Glucose Random 96 mg/dL (60-115); Lipase 17 U/L (8-78); Magnesium 1.9 mg/dL (1.6-2.6); Potassium 4.8 mmol/L (3.3-5.1); Sodium 142 mmol/L (135-145); Total Protein 6.4 g/dL (6.5-8.0)
[2022-11-26 17:36] VITALS: BP 109/88; PULSE 82; RESP 18; TEMP 36.8; O2SAT 100
[2022-11-26] MEDS: 0.9 % Sodium Chloride 1,000 ML 999 ML IV (19:25)
[2022-11-26] MEDS: Morphine Sulfate 4 MG/ML CARTRIDGE IVPUSH (19:25)
[2022-11-26] MEDS: ondansetron HCL 4 MG/2 ML VIAL IVPUSH (19:26)
[2022-11-26 19:52] LABS: HCG Quantitative < 2 mIU/mL
== END 2022-11-26 21:41 | disposition home or self-care (01) ==
PROVIDERS: Physician Assistant; Emergency Provider Emergency Medicine; PCP Internal Medicine
DX: K59.00 Constipation, unspecified (principal); R10.9 Unspecified abdominal pain; E78.00 Pure hypercholesterolemia, unspecified; Z79.899 Other long term (current) drug therapy
CPT/HCPCS: 36415; 74176; 80053; 81003; 83690; 83735; 84702; 85025; 96361; 96374; 96375; 99283; 99284; J2270; J2405

== ENCOUNTER 2022-12-04 08:45 | Emergency (ER) | payer MEDICARE, BC, MEDICAID, SELFPAY ==
[2022-12-04 09:07] VITALS: BP 106/67; PULSE 90; RESP 18; TEMP 36.5; O2SAT 90; BMI 29.4
[2022-12-04 09:31] LABS: Baso%MD 0.5 %; Eos%MD 1.4 %; Hematocrit 36.9 % (37.0-47.0); Hemoglobin 11.8 g/dl (12.0-16.0); IG%MD 0.3 %; Lymph%MD 22.5 %; Mean Corpuscular Hemoglobin 28.2 pg (27.0-33.0); Mean Corpuscular Volume 88.3 fL (80.0-98.0); Mono%MD 8.7 %; Neut%MD 66.6 %; Platelet Count 234 X10*3/uL (160-400); Red Blood Count 4.18 X10*6/uL (4.20-5.50); White Blood Count 5.7 X10*3/uL (4.8-10.8)
[2022-12-04 09:50] LABS: Appearance Urine Clear; Color Urine Yellow; Glucose Urine UA Negative (Negative); Leukocyte Esterase Urine Negative (Negative); Nitrite Urine Negative (Negative); PH 5.5 (5.0-9.0); Urine Blood Negative (Negative); Urine Ketones Negative (Negative); Urine Protein Negative (Neg-Trace)
[2022-12-04 09:50] LABS: Alanine Aminotransferase 10 U/L (0-31); Albumin Level 4.1 g/dL (3.5-5.0); Alkaline Phosphatase 79 U/L (39-117); Anion Gap 11 (12-20); Aspartate Amino Transferase 10 U/L (5-31); Bilirubin Direct 0.1 mg/dL (0.0-0.5); Bilirubin Total 0.3 mg/dL (0.0-1.0); Blood Urea Nitrogen 11 mg/dL (9-16); Carbon Dioxide 26 mmol/L (22-29); Chloride 109 mmol/L (96-108); Creatinine Clr Calc Pharmacy 122.7; Estimated Glomerular Filt Rate > 60; Glucose Random 94 mg/dL (60-115); Lipase 24 U/L (8-78); Potassium 4.8 mmol/L (3.3-5.1); Sodium 141 mmol/L (135-145); Total Protein 6.9 g/dL (6.5-8.0)
[2022-12-04 09:54] LABS: UPreg QC Valid YES; Urine Pregnancy NEGATIVE (NEGATIVE)
[2022-12-04 10:54] LABS: Band Neutrophils Percent 0 % (3-5); Eosinophils Absolute Manual 0.1 X10*3/uL (0.0-0.4); Eosinophils Percent Manual 1 % (0-4); Lymphocytes Absolute Manual 1.3 X10*3/uL (1.2-4.9); Lymphocytes Percent Manual 22 % (20-40); Monocytes Absolute Manual 0.5 X10*3/uL (0.1-1.2); Monocytes Percent Manual 9 % (2-11); Neutrophils Absolute Manual 3.9 X10*3/uL (2.0-8.3); Neutrophils Percent Manual 68 % (45-73)
[2022-12-04 10:56] LABS: Platelet Estimate NORMAL (NORMAL); Platelet Morphology Comment NORMAL; RBC Morphology NORMAL
--- NOTE | 2022-12-04 11:00 | ED_ITS ---
HPI - Female Genitourinary General Chief complaint: Vaginal Bleeding Stated complaint: vaginal pain and bleeding Time Seen by Provider: 12/04/22 10:59 Source: patient Mode of arrival: ambulatory Limitations: no limitations History of Present Illness HPI Narrative: 37 yo female with history of constipation, uterine fibroids, anemia, HLD, anxiety, history of recent hemorrhoidectomy under general anesthesia by Dr. James bassett who presents to the ER for evaluation of vaginal bleeding that started yesterday. Patient reports her LMP was on 11/21 she is not due for another 10 days. She states after her surgery she developed a small, tender bump in her right inguinal area. She saw her [facility] 2 days ago and had an external soft tissue U/S but does not have the results yet. She states she usually does not have vaginal bleeding between periods. She has some central cramping. Denies chance of , had a vasectomy. She states the blood is mostly brown and mucusy, no clots and it is spotty. MD elicited complaint: vaginal bleeding Onset (ago): day(s) (1) Location of symptoms: vaginal Severity: mild Female Urogenital Radiation: Non-Radiating Quality of pain: cramping Consistency: intermittent Vaginal discharge: none Vaginal bleeding: scant and dark red Exacerbating factors: none Relieving factors: none Associated symptoms: lump(s) Treatment prior to arrival: none Sexual activity: No Patient : No Related Data Home Medications Medication Instructions Recorded Confirmed acetaminophen 325 mg tablet 650 mg PO Q6H PRN Pain 06/15/21 11/22/22 tirzepatide 10 mg/0.5 mL 10 mg subcut QWEEK 07/29/22 11/22/22 subcutaneous pen injector (Mounjaro) thyroid (pork) 15 mg tablet (FLIGHT SURVEYOR 15 mg PO QAM 11/19/22 11/22/22 Thyroid) cefuroxime axetil 500 mg tablet 500 mg PO BID 11/22/22 11/22/22 tinidazole 500 mg tablet mg PO 11/22/22 Previous Rx's Medication Instructions Recorded cetirizine 10 mg tablet (All Day 10 mg PO DAILY PRN allergy 06/07/21 Allergy (cetirizine)) symptoms #20 tabs albuterol sulfate 90 mcg/actuation 2 puff inhalation QID PRN 06/17/21 aerosol inhaler (ProAir HFA) shortness of breath or wheezing #8.5 grams ondansetron 4 mg disintegrating 4 mg PO Q8H 4 days #12 tabs 08/16/22 tablet docusate sodium 100 mg capsule 100 mg PO BID #60 caps 11/22/22 (Colace) ibuprofen 600 mg tablet 600 mg PO Q6H PRN pain #30 tabs 11/22/22 oxycodone 5 mg tablet 5 mg PO Q4H PRN pain #30 tabs 11/22/22 ibuprofen 600 mg tablet 600 mg PO Q8H PRN pain #20 tabs 12/04/22 Allergies Allergy/AdvReac Type Severity Reaction Status Date / Time No Known Allergies Allergy Verified 12/04/22 09:12 Review of Systems Review of Systems: Yes all other systems are reviewed and are negative [facility] Past Medical History Medical History (Updated 12/04/22 @ 12:39 by ANGIE German) Allergic rhinitis Asthma COVID-19 Generalized anxiety disorder GERD (gastroesophageal reflux disease) Hearing difficulty of right ear Hx of chest pain Migraine Nephrolithiasis Obesity (BMI 30-39.9) Prolapsed hemorrhoids Thrombosed external hemorrhoid Thyroid nodule Vitamin D deficiency Surgical History H/O LEEP History of 2 sections History of colonoscopy History of hemorrhoidectomy Family History Family History Maternal Grandmother Myocardial infarct Social History Social History Household Members: Family Housing: Apartment Are you a primary child care center administrator to a significant other at home: No Do you presently have visiting nurse or other home services: No Alcohol intake: never Patient Tobacco Use Status: Never used Tobacco Smoked in Last 30 Days: No e-Cigarette/Vaping Use: Never Used Second Hand Smoke Exposure: No Use of substances other than those prescribed or required for medical reasons: No Advance Directives: No service: No Current occupational status: employed 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 Oriented X3. No acute distress. Head: normocephalic, atraumatic. Eyes: Pupils equal, round and reactive to light. ENT: Pharynx normal. No tonsillar swelling or exudate. Neck: Normal inspection. Neck supple. CVS: Normal heart rate and rhythm. Pulses normal. Respiratory: No respiratory distress. Breath sounds normal. Abdomen: Soft and nontender. +BS x4. right inguinal area with 1cm tender mass, mobile, no overlying skin changes. Pelvic: inspection of rectum appears normal. normal external genitalia, vaginal vault with some scant brown blood, os closed, no active bleeding, no lesions Skin: Skin warm and dry. Normal skin color. Normal skin turgor. No rashes. Extremities: No lower extremity edema. No joint swelling. Neuro/psych: Oriented X 3. No motor deficit. No sensory deficit. CN II-XII intact. Normal speech and cognition. Medical Decision Making Medical Decision Making MDM Narrative: 37 yo female with recent hemorrhoidectomy presenting with abnormal vaginal ble eding 10 days before her expected menstrual cycle. Exam is showing small amount of brown/old blood, no active bleeding. H/H stable. Right inguinal bump most likely a reactive lymph node, no overlying cellulitic changes. Patient was concerned there was a connection between the bump and her bleeding, explained that this is unlikely. She is stable for d/c home. continue bowel regimen. she will f/u with her [facility], should get results of U/S soon. She has appointment with Dr. Shields tomorrow. Differential Diagnosis Differential Diagnoses: The differential diagnosis associated with the presentation includes dysfunctional uterine bleeding, early menses, UTI, rectal bleeding Lab Data [facility] Lab Attestation statement: I reviewed the patient's lab results. stable anemia 12/04/22 09:24 12/04/22 09:24 Labs: Lab Results 12/04/22 12/04/22 12/04/22 Range/Units 09:24 09:24 09:31 WBC 5.7 (4.8-10.8) X10*3/uL RBC 4.18 L (4.20-5.50) X10*6/uL Hgb 11.8 L (12.0-16.0) g/dl Hct 36.9 L (37.0-47.0) % MCV 88.3 (80.0-98.0) fL MCH 28.2 (27.0-33.0) pg MCHC 32.0 (31.0-35.0) g/dl RDW 13.0 (11.0-16.0) % Plt Count 234 D (160-400) X10*3/uL MPV 10.0 (9.4-12.3) fL Absolute Nucleated RBC 0.000 (0.0-0.012) X10*3/uL Nucleated RBC % (auto) 0.0 (0.0-0.2) /100WBC Neutrophils % (Manual) 68 (45-73) % Band Neutrophils % 0 L (3-5) % Lymphocytes % (Manual) 22 (20-40) % Monocytes % (Manual) 9 (2-11) % Eosinophils % (Manual) 1 (0-4) % Abs Neuts (Manual) 3.9 (2.0-8.3) X10*3/uL Lymphocytes # (Manual) 1.3 (1.2-4.9) X10*3/uL Monocytes # (Manual) 0.5 (0.1-1.2) X10*3/uL Eosinophils # (Manual) 0.1 (0.0-0.4) X10*3/uL Platelet Estimate NORMAL (NORMAL) Plt Morphology Comment NORMAL RBC Morphology NORMAL Sodium 141 (135-145) mmol/L Potassium 4.8 (3.3-5.1) mmol/L Chloride 109 H (96-108) mmol/L Carbon Dioxide 26 (22-29) mmol/L Anion Gap 11 L (12-20) BUN 11 (9-16) mg/dL Creatinine 0.69 (0.5-1.4) mg/dL Estim Creat Clear Calc 122.7 Estimated GFR > 60 Random Glucose 94 (60-115) mg/dL Calcium 9.0 (8.4-10.2) mg/dL Total Bilirubin 0.3 (0.0-1.0) mg/dL Direct Bilirubin 0.1 (0.0-0.5) mg/dL AST 10 (5-31) U/L ALT 10 (0-31) U/L Alkaline Phosphatase 79 (39-117) U/L Total Protein 6.9 (6.5-8.0) g/dL Albumin 4.1 (3.5-5.0) g/dL Lipase 24 (8-78) U/L Urine Color Yellow Urine Appearance Clear Urine pH 5.5 (5.0-9.0) Ur Specific [place] 1.020 (1.005-1.025) Urine Protein Negative (Neg-Trace) mg/dL Urine Glucose (UA) Negative (Negative) mg/dL Urine Ketones Negative (Negative) mg/dL Urine Blood Negative (Negative) Urine Nitrite Negative (Negative) Ur Leukocyte Esterase Negative (Negative) Urine Test (NEGATIVE) 12/04/22 Range/Units 09:31 WBC (4.8-10.8) X10*3/uL RBC (4.20-5.50) X10*6/uL Hgb (12.0-16.0) g/dl Hct (37.0-47.0) % MCV (80.0-98.0) fL MCH (27.0-33.0) pg MCHC (31.0-35.0) g/dl RDW (11.0-16.0) % Plt Count (160-400) X10*3/uL MPV (9.4-12.3) fL Absolute Nucleated RBC (0.0-0.012) X10*3/uL Nucleated RBC % (auto) (0.0-0.2) /100WBC Neutrophils % (Manual) (45-73) % Band Neutrophils % (3-5) % Lymphocytes % (Manual) (20-40) % Monocytes % (Manual) (2-11) % Eosinophils % (Manual) (0-4) % Abs Neuts (Manual) (2.0-8.3) X10*3/uL Lymphocytes # (Manual) (1.2-4.9) X10*3/uL Monocytes # (Manual) (0.1-1.2) X10*3/uL Eosinophils # (Manual) (0.0-0.4) X10*3/uL Platelet Estimate (NORMAL) Plt Morphology Comment RBC Morphology Sodium (135-145) mmol/L Potassium (3.3-5.1) mmol/L Chloride (96-108) mmol/L Carbon Dioxide (22-29) mmol/L Anion Gap (12-20) BUN (9-16) mg/dL Creatinine (0.5-1.4) mg/dL Estim Creat Clear Calc Estimated GFR Random Glucose (60-115) mg/dL Calcium (8.4-10.2) mg/dL Total Bilirubin (0.0-1.0) mg/dL Direct Bilirubin (0.0-0.5) mg/dL AST (5-31) U/L ALT (0-31) U/L Alkaline Phosphatase (39-117) U/L Total Protein (6.5-8.0) g/dL Albumin (3.5-5.0) g/dL Lipase (8-78) U/L Urine Color Urine Appearance Urine pH (5.0-9.0) Ur Specific Mah[place] (1.005-1.025) Urine Protein (Neg-Trace) mg/dL Urine Glucose (UA) (Negative) mg/dL Urine Ketones (Negative) mg/dL Urine Blood (Negative) Urine Nitrite (Negative) Ur Leukocyte Esterase (Negative) Urine Test NEGATIVE (NEGATIVE) External Record Review External record reviewed: Office record, Outpatient record, Prior outpatient labs and Prior outpatient radiology Prescription Management I considered prescription management with: Pain Medication Chronic Conditions Patient?s care impacted by: Other (anxiety) Critical Care Time Critical Care Time Critical Care Time: No Discharge Plan Discharge Clinical Impression: Dysfunctional uterine bleeding Patient Disposition: Home, Self-Care Instructions: Dysfunctional Uterine Bleeding (ED) Additional Instructions: Your lab workup today was unremarkable. Your exam was not concerning. The tender lump in your groin is most likely an inflamed lymph node It is not related to your vaginal bleeding Recommend following up with your [facility] Recommend taking the prescribed ibuprofen as directed Drink plenty of water Take Miralax every day to keep your stool soft and prevent constipation Follow up with Dr. Shields tomorrow as scheduled Prescriptions: New ibuprofen 600 mg tablet 600 mg PO Q8H PRN (Reason: pain) Qty: 20 0RF No Action acetaminophen 325 mg Tablet 650 mg PO Q6H PRN (Reason: Pain) albuterol sulfate [ProAir HFA] 90 mcg/actuation HFA aerosol inhaler 2 puff inhalation QID PRN (Reason: shortness of breath or wheezing) Qty: 8.5 1RF cetirizine [All Day Allergy (cetirizine)] 10 mg tablet 10 mg PO DAILY PRN (Reason: allergy symptoms) Qty: 20 0RF ondansetron 4 mg tablet,disintegrating 4 mg PO Q8H 4 Days Qty: 12 0RF FLIGHT SURVEYOR Thyroid 15 mg tablet 15 mg PO QAM cefuroxime axetil 500 mg tablet 500 mg PO BID tinidazole 500 mg tablet PO ibuprofen 600 mg tablet 600 mg PO Q6H PRN (Reason: pain) Qty: 30 0RF oxycodone 5 mg tablet 5 mg PO Q4H PRN (Reason: pain) Qty: 30 0RF Rx Instructions: Partial Fill upon patient request. docusate sodium [Colace] 100 mg capsule 100 mg PO BID Qty: 60 2RF Mounjaro 10 mg/0.5 mL pen injector 10 mg subcut QWEEK Referrals: [facility] [Provider Group] Po,Gabriela Ibarra MD [Primary Care Provider] - Interventions: ED Discharge Assessment Last Done: 12/04/22 12:55 Discharge Date/Time: 12/04/22 12:55
[2022-12-04 12:00] VITALS: BP 96/60; PULSE 81; RESP 18; TEMP 36.5; O2SAT 99
--- NOTE | 2022-12-04 12:05 | PC.NURSE ---
pt alert/oriented, presenting to ER with intermittent vaginal bleeding of red blood primarily when wiping after urinating since yesterday. Pt noticed while in the ED that the blood has saturated one liner/pad. Pt reports pain in right groin area and a lump that is very tender on palpation. pt noticed lump about a week ago, and had an US on Friday. Pt pressure soft most recently 96/60
== END 2022-12-04 12:55 | disposition home or self-care (01) ==
PROVIDERS: Emergency Provider Emergency Medicine; PCP Internal Medicine
DX: N93.8 Other specified abnormal uterine and vaginal bleeding (principal); Z79.899 Other long term (current) drug therapy
CPT/HCPCS: 36415; 80048; 80076; 81003; 81025; 83690; 85007; 85027; 99283; 99284

== ENCOUNTER → 2022-12-05 11:04 | Outpatient (BNVA) | payer BC, MEDICARE, MEDICAID, SELFPAY | PROVIDERS: PCP Internal Medicine; Visit Provider Surgery | DX: Z48.815 Encounter for surgical aftercare following surgery on the digestive system (principal); Z87.19 Personal history of other diseases of the digestive system | CPT/HCPCS: 99212 ==

== ENCOUNTER → 2023-01-15 16:05 | Outpatient (BNVA) | payer BC, MEDICARE, MEDICAID, SELFPAY | PROVIDERS: PCP Internal Medicine; Visit Provider Surgery | DX: Z48.815 Encounter for surgical aftercare following surgery on the digestive system (principal); Z87.19 Personal history of other diseases of the digestive system | CPT/HCPCS: 99212 ==

== ENCOUNTER 2023-08-21 08:35 | Outpatient (AMB) | payer MEDICARE, MEDICAID, SELFPAY ==
[2023-08-21 08:39] VITALS: BP 111/58; PULSE 85; BMI 31.0
--- NOTE | 2023-08-21 08:39 | A.OFFVIS_ITS ---
Intake Vital Signs 08/21/23 08:39 Height 5 ft 7 in Weight 198 lb BMI 31.0 BP 111/58 L Blood Pressure Location Rt brachial Position Sitting Pulse 85 Intake Visit Reasons: constipation Intake Note: This patient presents for an assessment for chronic constipation. Patient c/o; reports has tried several laxative and stool softeners and has not been able to have a bowel movement, reports occasional rectal bleeding when straining, reports unable to eat due to feeling a fullness, reports lump ? skin tag. 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 Accompanied by: Child Allergies No Known Allergies Allergy (Verified 08/21/23 08:52) Medication List - Last Reconciled 08/21/23 by Huy Shields MD acetaminophen 650 mg PO Q6H PRN albuterol sulfate 90 mcg/actuation (ProAir HFA) 2 puffs inhalation QID PRN azithromycin take 500 mg today (day 1), then 250 mg for 4 days (days 2-5) PO cetirizine (All Day Allergy (cetirizine)) 10 mg PO DAILY PRN docusate sodium (Colace) 100 mg PO BID docusate sodium (Colace) 100 mg PO BID ibuprofen 600 mg PO Q6H PRN ibuprofen 600 mg PO Q8H PRN menthol-zinc oxide 0.44-20.6 % (Calmoseptine) 1 appl topical BID-TID PRN ondansetron 4 mg PO Q8H 4 days oxycodone 5 mg PO Q4H PRN psyllium seed (sugar) (Metamucil (sugar) oral powder) 1 tbsp PO BID thyroid (pork) (PAPER LATCHER Thyroid) 15 mg PO QAM tinidazole mg PO tirzepatide (Mounjaro) 10 mg subcut QWEEK HPI constipation HPI Details She is known to me for a history of hemorrhoids. She had hemorrhoidectomy in 2022. She says she has had chronic constipation now. She says that past 4 or 5 months, she would often not have a good bowel movement for several days. She says she has started taking MiraLax occasionally but this helps only to a certain extent She says that her constipation causes her to be bloated. She says she has never seen a cad technician before. She denies any blood per rectum. [facility] Medical History Chronic constipation Hx of chest pain Hearing difficulty of right ear Prolapsed hemorrhoids Thrombosed external hemorrhoid Nephrolithiasis Allergic rhinitis Thyroid nodule Obesity (BMI 30-39.9) Vitamin D deficiency Generalized anxiety disorder GERD (gastroesophageal reflux disease) Migraine Asthma COVID-19 Surgical History History of hemorrhoidectomy History of colonoscopy H/O LEEP History of 2 sections Family History Maternal Grandmother Myocardial infarct Social History Household Members: Family Housing: Apartment Are you a primary youth care professional to a significant other at home: No Do you presently have visiting nurse or other home services: No Alcohol intake: never Patient Tobacco Use Status: Never used Tobacco e-Cigarette/Vaping Use: Never Used Second Hand Smoke Exposure: No service: No Current occupational status: employed 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 Cognitive needs: No Hearing needs: No Vision needs: Yes (Glasses) Review of Systems Const Denies chills and Denies fever(s) Card Denies chest pain, Denies dyspnea and Denies dyspnea on exertion Resp Denies cough, Denies dyspnea and Denies dyspnea on exertion GI Details: Rectal exam - external hemorrhoids anteriorly, no lesions, good sphincter tone, no anal canal lesions, no palpable masses, rectal vault empty Denies hematochezia and Denies change in bowel habits Denies hematuria Musc Denies back pain and Denies limited range of motion Neuro Denies focal weakness and Denies convulsions Psych Denies depression and Denies mood swings Physical Exam Vital Signs: Last Vital Signs Pulse 85 08/21/23 08:39 BP 111/58 L 08/21/23 08:39 BMI result Body Mass Index 31.0 Assessment & Plan Assessment & Plan (1) Chronic constipation: Code(s): K59.09 - Other constipation Plan: She describes having bowel movements only every few days and feels bloated because of this. She states that this has been going on for about 4 or 5 months We will start her on Colace and Metamucil. She is interested in seeing cad technician so we will make a referral for this She can otherwise follow up with me on a p.r.n. basis. Orders: Referrals Gastroenterology Referral K59.09 - Other constipation Medications: New psyllium seed (sugar) (Metamucil (sugar) oral powder) 1 tbsp PO BID 1,254 grams 0RF docusate sodium (Colace) 100 mg PO BID 60 caps 3RF Coding Level of Care Code Est Pt Level 3 (30378) Diagnoses Chronic constipation K59.09
== END 2023-08-21 08:57 | disposition home or self-care (01) ==
PROVIDERS: PCP Internal Medicine; Visit Provider Surgery
DX: K59.09 Other constipation (principal)
CPT/HCPCS: 99213

== ENCOUNTER → 2023-08-21 08:35 | Outpatient (BNVA) | payer MEDICARE, MEDICAID, SELFPAY | PROVIDERS: PCP Internal Medicine; Visit Provider Surgery | DX: K59.09 Other constipation (principal) | CPT/HCPCS: 99212 ==

== ENCOUNTER → 2023-09-30 08:07 | Outpatient (BNVA) | payer MEDICARE, MEDICAID, SELFPAY | PROVIDERS: PCP Internal Medicine; Referring Provider Surgery; Visit Provider Nurse Practitioner Family ==

== ENCOUNTER 2023-10-15 10:01 | Outpatient (AMB) | payer MEDICARE, MEDICAID, SELFPAY ==
[2023-10-15 10:08] VITALS: BP 130/68; PULSE 83; O2SAT 98; BMI 32.6
--- NOTE | 2023-10-15 10:08 | MHC.PC.OV ---
Vital Signs 10/15/23 10:08 Height 5 ft 7 in Weight 208 lb BMI 32.6 BP 130/68 Blood Pressure Location Lt brachial Position Sitting Pulse 83 Pulse Source Pulse Oximeter Pulse Oximetry (%) 98 Oxygen Delivery Method Room Air Intake Visit Reasons: uri symptoms Allergies No Known Allergies Allergy (Verified 10/15/23 10:08) Medication List - Last Reconciled 10/15/23 by Gabriela Arce MD acetaminophen 650 mg PO Q6H PRN albuterol sulfate 90 mcg/actuation (ProAir HFA) 2 puffs inhalation QID PRN cetirizine (All Day Allergy (cetirizine)) 10 mg PO DAILY PRN docusate sodium (Colace) 100 mg PO BID ibuprofen 600 mg PO Q8H PRN lactulose 20 grams (30 mL) PO DAILY menthol-zinc oxide 0.44-20.6 % (Calmoseptine) 1 appl topical BID-TID PRN psyllium seed (sugar) (Metamucil (sugar) oral powder) 1 tbsp PO BID thyroid (pork) (SOCIOLOGY INSTRUCTOR Thyroid) 15 mg PO QAM Tobacco use date assessed: 10/15/23 Dental Screening Dental Screen Date: 10/15/23 Did you have a dental visit in the last 12 months?: Yes Did you have a dental problem in the last 6 months where you did not have access to dental care?: No Was dental information given to patient?: Patient has dentist HPI uri symptoms HPI Details 38-year-old obese female with generalized anxiety disorder and thyroid nodule last seen in August 2022 coming in for follow-up. Review of the notes has gone to the surgeon in August 2023 for constipation. Patient has had hemorrhoidectomy November 2022 patient was started on Colace and Metamucil and was referred to Gastroenterology. Review of the notes also in January went to the [facility]gent [facility] for upper respiratory tract infection treated with Zithromax. November ER visit for dysfunctional uterine bleeding advised to follow-up with gynecology. Patient has also seen the endocrinology in September 2022 nontoxic multinodular goiter as well as for obesity based on Mariero. Patient also has had CT coronaries in August 2022 normal echocardiogram July 2022 low normal left ventricular systolic function of 50-55% normal cardiac valvular Doppler normal RV systolic pressure no pericardial effusion. August 01 had right knee injection for patellofemoral arthritis. Stopped Mounjaro 2months. sore throat 5 days, myalgia, no fevers, cold sweats, coughing, congested , mild shortness of breath. With this problem prompted for consultation. Patient receives thyroid medication from the [facility] and discussed with the patient that this is not main stream and does not how know how to regulate your thyroid. Patient does see Endocrinology also [facility] Medical History Chronic constipation Hx of chest pain Hearing difficulty of right ear Prolapsed hemorrhoids Thrombosed external hemorrhoid Nephrolithiasis Allergic rhinitis Thyroid nodule Obesity (BMI 30-39.9) Vitamin D deficiency Generalized anxiety disorder GERD (gastroesophageal reflux disease) Migraine Asthma COVID-19 Surgical History History of hemorrhoidectomy History of colonoscopy H/O LEEP History of 2 sections Family History Maternal Grandmother Myocardial infarct Social History Household Members: Family Housing: Apartment Are you a primary customer care specialist to a significant other at home: No Do you presently have visiting nurse or other home services: No Alcohol intake: never Patient Tobacco Use Status: Never used Tobacco e-Cigarette/Vaping Use: Never Used Second Hand Smoke Exposure: No service: No Current occupational status: employed 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 1. Little interest or pleasure in doing things: several days 2. Feeling down, depressed, or hopeless: several days 3. Trouble falling or staying asleep, or sleeping too much: nearly every day 4. Feeling tired or having little energy: nearly every day 5. Poor appetite or overeating: not at all 6. Feeling bad about yourself - or that you are a failure or have let yourself or your family down: several days 7. Trouble concentrating on things, such as reading the newspaper or watching television: nearly every day 8. Moving or speaking so slowly that other people could have noticed. Or the opposite - being so fidgety or restless that you have been moving around a lot more than usual: several days 9. Thoughts that you would be better off or of hurting yourself in some way: not at all Total score: 13 Depression Screening Interpretation: Positive Depression Screening Follow-up: Declines treatment Depression Screening Done: Yes Source: Developed by Drs. Bon Hernandez, Gilma Alvarado, Daren Thakur and colleagues, with an educational alfredo from [employer]. Thrive Questionnaire Date Thrive assessed: 10/15/23 I am a: Patient What is your living situation today?: I have a steady place to live Within the past 12 months, did the food you bought not last and you didn't have the money to get more?: Never true Within the past 12 months, did you worry whether your food would run out before you got money to buy more?: Never true Do you have trouble paying for medicines?: No Do you have trouble getting transportation to medical appointments?: No Do you have trouble paying your heating and electricity bill?: No Do you have trouble taking care of your child, family member or friend?: No Do you have trouble with day-to-day activities such as bathing, preparing meals, shopping, managing finances, etc.?: No Are you currently unemployed and looking for a job?: No Are you interested in more education?: No Currently or been in a relationship where the following occur: no concerns reported THRIVE Score: 0 AUDIT C Alcohol Use Questionnaire (AUDIT-C) 1. How often do you have a drink containing alcohol?: Never 3. How often do you have six or more drinks on one occasion?: Never Total Score: 0 Score Reviewed/Action Taken: No POLLO-7 AMB Questionnaire POLLO-7 Date POLLO - 7 assessed: 10/15/23 Feeling nervous, anxious, or on edge: 0 = Not at all Not being able to stop or control worryin = Not at all Worrying too much about different things: 0 = Not at all Trouble relaxin = Not at all Being so restless that it is hard to sit still: 0 = Not at all Becoming easily annoyed or irritable: 0 = Not at all Feeling afraid as if something awful might happen: 0 = Not at all Total POLLO-7 score (0-4 normal; 5-9 mild; 10-14 moderate; 15-21 severe): 0 Source: Developed by Drs. Bon Hernandez, Gilma Alvarado, Daren Thakur and colleagues, with an educational alfredo from [employer]. Physical exam (Primary Care) Vital Signs: Last Vital Signs Pulse 83 10/15/23 10:08 BP 130/68 10/15/23 10:08 Pulse Ox 98 10/15/23 10:08 Oxygen Delivery Method Room Air 10/15/23 10:08 BMI result Body Mass Index 32.6 Tobacco/Smoking Status: Tobacco use Status Tobacco use date assessed 10/15/23 10/15/23 10:11 Patient Tobacco Use Status Never used Tobacco 10/15/23 10:11 e-Cigarette/Vaping Use Never Used 10/15/23 10:11 PHQ-9: PHQ-9 Score PHQ-9: Total score 13 10/15/23 10:45 Depression Screening Interpretation: Positive Depression Screening Follow-up: Declines treatment Thrive Assessment: Date of Thrive Assessment Date Thrive assessed 10/15/23 10/15/23 10:11 Currently or been in a relationship where the following occur: no concerns reported Const General: alert; No acute distress Eyes Conjunctivae: conjunctivae normal Resp Auscultation: clear to auscultation bilaterally Cardio Rate: regular rate Rhythm: regular rhythm GI Inspection: Yes normal to inspection Extrem General: Yes normal to inspection and No edema Assessment and Plan Assessment & Plan (1) Chronic constipation: Code(s): K59.09 - Other constipation Plan: Three rules for constipation 1. Diet need to have a high fiber diet less of meat 2. Increase oral fluids 3. Exercise (2) Anemia: Code(s): D64.9 - Anemia, unspecified Plan: Will need follow-up blood work (3) Hypercholesterolemia: Code(s): E78.00 - Pure hypercholesterolemia, unspecified Plan: Avoid fried foods, chicken skin, eggs, butter margarine, pastries and meat. Be it pork or beef they have a lot of cholesterol LDL goal of less than 130 and triglyceride of less than 150 (4) Patellofemoral arthritis of right knee: Code(s): M17.11 - Unilateral primary osteoarthritis, right knee Plan: Patient has met with Orthopedics and has had injections of the knee (5) Obesity (BMI 30-39.9): Code(s): E66.9 - Obesity, unspecified Plan: Diet and exercise, has seen endocrinology and has been placed on Mounjaro (6) GERD (gastroesophageal reflux disease): Code(s): K21.9 - Gastro-esophageal reflux disease without esophagitis Plan: Avoid the foods that causes that usually spicy foods, tomato products, juices, coffee, soda and foods that your sensitive to. After eating do not lie down, allow 3-4 hours before in lie down. And keep the head of bed above 30 degrees to avoid the acid from going up. (7) Generalized anxiety disorder: Code(s): F41.1 - Generalized anxiety disorder Plan: Advised counseling. (8) Dysuria: Code(s): R30.0 - Dysuria (9) Nasal congestion: Code(s): R09.81 - Nasal congestion Plan: nasal spray to continue and snt in Antibiotic Orders: Orders Free T4 (Free Thyroxine) Today E04.1 - Nontoxic single thyroid nodule Reticulocyte Count Today E04.1 - Nontoxic single thyroid nodule IRON PROFILE Today E04.1 - Nontoxic single thyroid nodule Vitamin B12 and Folate Today E04.1 - Nontoxic single thyroid nodule Complete Blood Count Auto Diff Today E04.1 - Nontoxic single thyroid nodule Comprehensive Met. Panel Today E04.1 - Nontoxic single thyroid nodule Ferritin Today E04.1 - Nontoxic single thyroid nodule Lipid Panel Today E04.1 - Nontoxic single thyroid nodule, E78.00 - Pure hypercholesterolemia, unspecified Thyroid Stimulating Hormone Today E04.1 - Nontoxic single thyroid nodule Vitamin D 25-OH Total Today E04.1 - Nontoxic single thyroid nodule Medications: New azithromycin (Zithromax) For 250 mg dose pack: take 500 mg today (day 1), then 250 mg for 4 days (days 2-5) PO 6 tabs 0RF R09.81 - Nasal congestion lactulose 20 grams (30 mL) PO DAILY 3,000 mL 0RF K59.00 - Constipation, unspecified Discontinued ondansetron Discontinued Reason: Change Referral Type 4 mg PO Q8H 4 days 12 tabs 0RF oxycodone Partial Fill upon patient request. Discontinued Reason: Ancillary Entered New Order 5 mg PO Q4H PRN 30 tabs 0RF pain Coding Level of Care Code Est Pt Level 4 (85253) Diagnoses Chronic constipation K59.09 Anemia D64.9 Hypercholesterolemia E78.00 Patellofemoral arthritis of right knee M17.11 Obesity (BMI 30-39.9) E66.9 GERD (gastroesophageal reflux disease) K21.9 Generalized anxiety disorder F41.1 Dysuria R30.0 Nasal congestion R09.81 Additional Codes PHQ-9 - 43897 - PHQ-9 Billing: ([id number])
== END 2023-10-15 11:07 | disposition home or self-care (01) ==
PROVIDERS: PCP Internal Medicine; Visit Provider Internal Medicine
DX: K59.09 Other constipation (principal); E66.9 Obesity, unspecified; Z68.32 Body mass index [BMI] 32.0-32.9, adult; D64.9 Anemia, unspecified; E78.00 Pure hypercholesterolemia, unspecified; M17.11 Unilateral primary osteoarthritis, right knee; K21.9 Gastro-esophageal reflux disease without esophagitis; F41.1 Generalized anxiety disorder; R30.0 Dysuria; R09.81 Nasal congestion
CPT/HCPCS: 99214

== ENCOUNTER 2023-10-15 11:36 | Outpatient (REF) | payer MEDICARE, MEDICAID, SELFPAY ==
[2023-10-15 14:32] LABS: MANUAL DIFF FLAG NO
[2023-10-15 14:45] LABS: Basophils Percent Auto 0.7 % (0-2); Eosinophils Percent Auto 0.4 % (0-4); Hematocrit 37.4 % (37.0-47.0); Imm Gran Abs Auto 0.01 X10*3/uL (0.00-0.03); Imm Gran Pct Auto 0.2 % (0.0-0.4); Immature Retic Fraction 11.3 % (3.0-15.9); Mean Corpuscular HGB Conc 32.1 g/dl (31.0-35.0); Mean Corpuscular Hemoglobin 28.2 pg (27.0-33.0); Mean Platelet Volume 11.5 fL (9.4-12.3); Monocytes Absolute Auto 0.5 X10*3/uL (0.1-1.2); Monocytes Percent Auto 11.9 % (2-11); Neutrophils Absolute Auto 2.9 x10*3/uL (2.0-8.3); Neutrophils Percent Auto 63.8 % (45-73); Platelet Count 189 X10*3/uL (160-400); Red Blood Count 4.25 X10*6/uL (4.20-5.50); Red Cell Distribution Width 13.5 % (11.0-16.0); Retic HGB Equivalent 31.4 pg (30.0-35.0); Reticulocyte Percent 1.4 % (0.5-1.8); Reticulocytes Absolute 0.059 X10*6/uL (0.026-0.095); White Blood Count 4.5 X10*3/uL (4.8-10.8)
[2023-10-15 15:40] LABS: Alanine Aminotransferase 14 U/L (0-31); Albumin Level 4.2 g/dL (3.5-5.0); Alkaline Phosphatase 67 U/L (39-117); Anion Gap 10 (12-20); Aspartate Amino Transferase 16 U/L (5-31); Bilirubin Total 0.6 mg/dL (0.0-1.0); Blood Urea Nitrogen 7 mg/dL (9-16); Calcium 9.8 mg/dL (8.4-10.2); Carbon Dioxide 29 mmol/L (22-29); Chloride 105 mmol/L (96-108); Cholesterol 209 mg/dL (<200); Estimated Glomerular Filt Rate > 60; Glucose Random 71 mg/dL (60-115); HDL Cholesterol 69 mg/dL (>40); Iron 43 mcg/dL (30-160); LDL Cholesterol Calculated 119 mg/dL (<100); Percent Iron Saturation 12 % (15-50); Potassium 4.3 mmol/L (3.3-5.1); Sodium 140 mmol/L (135-145); Total Iron Binding Capacity 355 mcg/dL (228-428); Total Protein 7.4 g/dL (6.5-8.0); Triglycerides 105 mg/dL (<150); Unsaturated Iron Binding 312 ug/dL
[2023-10-15 16:01] LABS: Ferritin 12 ng/mL (10-250); Free T4 (Free Thyroxine) 0.97 ng/dL (0.71-1.85); Thyroid Stimulating Hormone 0.94 uIU/mL (0.32-4.0); Vitamin D 25-OH Total 8.8 ng/mL (>30)
[2023-10-15 16:07] LABS: Folate 6.7 ng/mL (> or = 4.0); Vitamin B12 415 pg/mL (200-900)
== END 2023-10-15 11:37 | disposition home or self-care (01) ==
LOC: HO.CHCLDS 11:36
PROVIDERS: Visit Provider Internal Medicine
DX: E04.1 Nontoxic single thyroid nodule (principal); E78.00 Pure hypercholesterolemia, unspecified
CPT/HCPCS: 36415; 80053; 80061; 82306; 82607; 82728; 82746; 83540; 84439; 84443; 85025; 85045

== ENCOUNTER 2023-12-05 14:56 | Outpatient (AMB) | payer MEDICARE, MEDICAID, SELFPAY ==
[2023-12-05 15:06] VITALS: BP 105/59; PULSE 84; BMI 33.4
--- NOTE | 2023-12-05 15:06 | MHC.OFFVIS ---
Vital Signs 12/05/23 15:06 Height 5 ft 7 in Weight 213 lb 6.519 oz BMI 33.4 BP 105/59 L Blood Pressure Location Lt brachial Position Sitting Pulse 84 Intake Visit Reasons: Abdominal discomfort Intake Note: Marylu presents to in office today as a new patient for abdominal pain and rectal bleeding. CC: Patient c/o rectal bleeding and lower abdominal pain for 2 weeks. She reports occasional bleeding in the past but never constant rectal bleeding with BMs. Per patient last colonoscopy/EGD was done in [place] in 2019 and she does not recall beeing told there was something abnormal. She is s/o hemorrhoidectomy w/Dr. Shields in November last year. Allergies No Known Allergies Allergy (Verified 12/05/23 15:16) HPI HPI Abdominal discomfort: Details: 38-year-old female with past medical history of asthma, chronic constipation, anemia, hypercholesteremia, history of hemorrhoids and status post hemorrhoidectomy in November 2022, osteoarthritis, abdominal pain, GERD, thyroid nodule is here today for initial consultation. Patient was referred to our practice by general surgeon who sense patient here for treatment of constipation. Patient has been suffering with constipation for allowing time. History of hemorrhoids and hemorrhoidectomy in 2022. Patient reports that she was moving her bowels well, however lately patient states that she is having trouble moving her bowels. Occasional blood in his stool when she wipes specially in the last 2 weeks. More blood visible in the toilet with almost every bowel movement. Patient admits to be constipated, however reports that today she had a normal bowel movement. Patient denies melena. Last colonoscopy and upper endoscopy was done in [place] in 2019. Patient does not remember if she was told if she had a polyp. No follow-up or and recommendations were made. Patient was given script for lactulose by PCP, however she was unable to take it. Labs done in October that showed normal H&H, very low vitamin-D level. Patient is not on any replacement at this time. Otherwise normal labs. Patient denies any dyspepsia, dysphagia or odynophagia. Occasional cramping when no bowel movement. Patient reports occasional abdominal bloating [facility] Medical History Chronic constipation Hx of chest pain Hearing difficulty of right ear Prolapsed hemorrhoids Thrombosed external hemorrhoid Nephrolithiasis Allergic rhinitis Thyroid nodule Obesity (BMI 30-39.9) Vitamin D deficiency Generalized anxiety disorder GERD (gastroesophageal reflux disease) Migraine Asthma COVID-19 Surgical History History of esophagogastroduodenoscopy (EGD) History of hemorrhoidectomy History of colonoscopy H/O LEEP History of 2 sections Family History Maternal Grandmother Myocardial infarct Social History Household Members: Family Housing: Apartment Are you a primary healthcare consulting manager to a significant other at home: No Do you presently have visiting nurse or other home services: No Alcohol intake: never Patient Tobacco Use Status: Never used Tobacco e-Cigarette/Vaping Use: Never Used Second Hand Smoke Exposure: No service: No Current occupational status: employed 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 Cognitive needs: No Hearing needs: No Vision needs: Yes (Glasses) Review of Systems Const Denies weight gain and Denies weight loss ENT Reports no additional complaints, Denies dysphagia and Denies odynophagia Card Reports no additional complaints Resp Reports no additional complaints GI Reports abdominal pain (Epigastric pain postprandially), Denies belching, Denies melena, Denies bloating, Reports hematochezia (After bowel movement in the last 2 weeks), Denies change in bowel habits, Reports constipation, Denies dysphagia, Denies excessive flatus, Denies dyspepsia, Reports heartburn (Occasional), Denies diarrhea, Denies loose stools, Denies nausea, Denies odynophagia and Denies vomiting Reports no additional complaints Musc Reports no additional complaints Neuro Reports no additional complaints Psych Reports no additional complaints Endo Reports no additional complaints Physical Exam Vital Signs: Last Vital Signs Pulse 84 12/05/23 15:06 BP 105/59 L 12/05/23 15:06 BMI result Body Mass Index 33.4 Const General: healthy appearing and no acute distress Nutritional Appearance: obese Orientation/consciousness: patient oriented x3 Resp Effort & Inspection: normal respiratory effort, able to speak in complete sentences, no tracheal deviation and symmetric chest movement Auscultation: clear to auscultation bilaterally Cardio Rate: regular rate GI Inspection: Yes normal to inspection, No distended and Yes obesity Palpation (GI): Soft to palpation, not firm, nontender and No hepatosplenomegaly present Auscultation: normal bowel sounds Rectal Exam - Female: normal sphincter tone and No fecal impaction (Hard stool noted in the rectum, patient had a bowel movement this morning) General: Yes no CVA tenderness Back/Spine/Pelvis Back: no CVA tenderness Skin General skin exam: elasticity normal, turgor normal and dry skin Neuro General: patient oriented x3 Psych Appearance: grossly normal Mental Status: mental status grossly normal Results Reviewed Results Reviewed: Laboratory Tests 10/15/23 11:39 RBC 4.25 Hgb 12.0 Hct 37.4 MCV 88.0 Plt Count 189 Vitamin B12 415 25-OH Vitamin D Total 8.8 L TSH 0.94 Free T4 0.97 Assessment & Plan Assessment & Plan (1) Chronic constipation: Code(s): K59.09 - Other constipation Category: Medical (2) Hemorrhoid: Comment: Terry Shields November 2022 Code(s): K64.9 - Unspecified hemorrhoids Category: Medical Qualifiers: Hemorrhoid type: unspecified Qualified Code(s): K64.9 - Unspecified hemorrhoids (3) Rectal bleed: Code(s): K62.5 - Hemorrhage of anus and rectum (4) Postprandial epigastric pain: Code(s): R10.13 - Epigastric pain Plan Will check transglutaminase and CBC. Patient had normal H&H in the beginning of October of 2022. In the past weeks patient does reports to have blood in her stool. Rectal exam done, no blood visible, no hemorrhoid palpable on digital exam. Hard stool noted in her rectum will send a script for Colace. Patient was recommended to take it daily 1-2 tablets. Proctosol sent to pharmacy. Patient was encouraged to do Sitz baths with Epsom salts. Patient reports occasional postprandial done gastric pain. Discussed with patient avoiding certain food. Patient states that she cooks a lot with garlic and onions. Patient was encouraged to stay away from food or decrease the amount that she uses. Low FODMAP diet discussed with patient. List of food recommended as well as list of food to avoid given to patient. I will see patient in 5 weeks, sooner on as needed basis. Patient is agreeable to this plan and verbalizes understanding of instructions. She was given the opportunity to ask questions and all questions answered. Thank you for allowing me to participate in her care Orders: Orders Transglutaminase IgA Today R10.9 - Unspecified abdominal pain Complete Blood Count no Diff Today K21.9 - Gastro-esophageal reflux disease without esophagitis Transglutaminase Ab IgG Today R10.9 - Unspecified abdominal pain Medications: New docusate sodium 100 mg PO DAILY 30 caps 3RF K59.00 - Constipation, unspecified hydrocortisone 2.5% (Proctosol HC) 1 appl [place] BID-QID PRN 30 grams 2RF hemorrhoids K64.9 - Unspecified hemorrhoids cholecalciferol (vitamin D3) 1,250 mcg PO QWEEK 13 caps 0RF Discontinued lactulose Discontinued Reason: Doctor's Order 20 grams (30 mL) PO DAILY 3,000 mL 0RF K59.00 - Constipation, unspecified Coding Level of Care Code New Pt Level 4 (52103) Diagnoses Chronic constipation K59.09 Hemorrhoids, unspecified hemorrhoid type K64.9 Hemorrhoid type: unspecified Rectal bleed K62.5 Postprandial epigastric pain R10.13 Time Spent (min) 45 Comment 30 minutes spent with patient and additional 15 minutes spent reviewing her records
== END 2023-12-05 16:00 | disposition home or self-care (01) ==
PROVIDERS: PCP Internal Medicine; Visit Provider Nurse Practitioner Family
DX: K59.09 Other constipation (principal); K64.9 Unspecified hemorrhoids; K62.5 Hemorrhage of anus and rectum; R10.13 Epigastric pain
CPT/HCPCS: 99204

== ENCOUNTER → 2023-12-05 14:56 | Outpatient (BNVA) | payer MEDICARE, MEDICAID, SELFPAY | PROVIDERS: PCP Internal Medicine; Visit Provider Nurse Practitioner Family | DX: K59.09 Other constipation (principal); K64.9 Unspecified hemorrhoids; K62.5 Hemorrhage of anus and rectum; R10.13 Epigastric pain | CPT/HCPCS: 99202 ==

== ENCOUNTER 2023-12-08 09:09 | Outpatient (REF) | payer MEDICARE, MEDICAID, SELFPAY ==
[2023-12-08 19:03] LABS: Hematocrit 37.1 % (37.0-47.0); Hemoglobin 12.3 g/dl (12.0-16.0); Mean Corpuscular HGB Conc 33.2 g/dl (31.0-35.0); Mean Corpuscular Hemoglobin 28.4 pg (27.0-33.0); Mean Corpuscular Volume 85.7 fL (80.0-98.0); Mean Platelet Volume 11.7 fL (9.4-12.3); Platelet Count 196 X10*3/uL (160-400); Red Blood Count 4.33 X10*6/uL (4.20-5.50); White Blood Count 5.2 X10*3/uL (4.8-10.8)
[2023-12-09 22:15] LABS: Transglutaminase Ab IgG <1.0 U/mL; Transglutaminase IgA <1.0 U/mL
== END 2023-12-08 09:10 | disposition home or self-care (01) ==
LOC: HO.CHCLDS 09:09
PROVIDERS: Visit Provider Nurse Practitioner Family
DX: R10.9 Unspecified abdominal pain (principal); K21.9 Gastro-esophageal reflux disease without esophagitis
CPT/HCPCS: 36415; 85027; 86364

== ENCOUNTER 2024-02-06 11:03 | Outpatient (AMB) | payer BC, MEDICARE, MEDICAID, SELFPAY ==
--- NOTE | 2024-02-06 11:04 | MHC.PC.OV ---
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 Allergies No Known Allergies Allergy (Verified 02/06/24 11:05) Medication List - Last Reconciled 02/06/24 by Gabriela Arce MD albuterol sulfate 90 mcg/actuation (ProAir HFA) 2 puffs inhalation QID PRN betamethasone dipropionate 0.05% (Sernivo) 1 appl topical BID cetirizine (All Day Allergy (cetirizine)) 10 mg PO DAILY PRN cholecalciferol (vitamin D3) 1,250 mcg PO QWEEK docusate sodium 100 mg PO DAILY fluconazole (Diflucan) 200 mg PO DAILY hydrocortisone 2.5% (Proctosol HC) 1 appl SD BID-QID PRN minoxidil 2.5 mg PO DAILY Tobacco use date assessed: 02/06/24 Dental Screening Dental Screen Date: 10/15/23 HPI PHYSICAL HPI Details 38-year-old obese female with hypercholesterolemia GERD generalized anxiety disorder coming in for follow-up. Last seen in 10/29/2023 having constipation problem review of the notes has seen Dermatology tinea Manuum placed on Diflucan and ketoconazole has traction alopecia was given Sir sernivo and minoxidil . Patient has seen gastroenterology in November for abdominal pain diagnosis chronic constipation. As for migraines follows up with Neurology seen in November treated with Topamax 50 mg once a day patient is here for physical exam. PAtient cannot take topamax due to nausea. occ dizzy [facility] Medical History (Updated 02/06/24 @ 12:30 by Gabriela Arce MD) Frequency of micturition Chronic constipation Hx of chest pain Hearing difficulty of right ear Prolapsed hemorrhoids Thrombosed external hemorrhoid Nephrolithiasis Allergic rhinitis Thyroid nodule Obesity (BMI 30-39.9) Vitamin D deficiency Generalized anxiety disorder GERD (gastroesophageal reflux disease) Migraine Asthma COVID-19 Surgical History History of esophagogastroduodenoscopy (EGD) History of hemorrhoidectomy History of colonoscopy H/O LEEP History of 2 sections Family History (Updated 02/06/24 @ 12:10 by Gabriela Arce MD) Maternal Grandmother Myocardial infarct Father Kidney carcinoma Social History (Updated 02/06/24 @ 12:11 by Gabriela Arce MD) Household Members: Family Housing: Apartment Are you a primary specialist wound care to a significant other at home: No Do you presently have visiting nurse or other home services: No Alcohol intake: current Comment: once a month Patient Tobacco Use Status: Never used Tobacco e-Cigarette/Vaping Use: Never Used Second Hand Smoke Exposure: No service: No Current occupational status: employed 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 Cognitive needs: No Hearing needs: No Vision needs: Yes (Glasses) Questionnaire Thrive Questionnaire Date Thrive assessed: 02/06/24 I am a: Patient What is your living situation today?: I have a steady place to live Within the past 12 months, did the food you bought not last and you didn't have the money to get more?: Never true Within the past 12 months, did you worry whether your food would run out before you got money to buy more?: Never true Do you have trouble paying for medicines?: No Do you have trouble getting transportation to medical appointments?: No Do you have trouble paying your heating and electricity bill?: No Do you have trouble taking care of your child, family member or friend?: No Do you have trouble with day-to-day activities such as bathing, preparing meals, shopping, managing finances, etc.?: No Are you currently unemployed and looking for a job?: No Are you interested in more education?: No THRIVE Score: 0 AUDIT C Alcohol Use Questionnaire (AUDIT-C) 1. How often do you have a drink containing alcohol?: Never 3. How often do you have six or more drinks on one occasion?: Never Total Score: 0 Score Reviewed/Action Taken: No POLLO-7 AMB Questionnaire POLLO-7 Date POLLO - 7 assessed: 10/15/23 Feeling nervous, anxious, or on edge: 0 = Not at all Not being able to stop or control worryin = Not at all Worrying too much about different things: 0 = Not at all Trouble relaxin = Not at all Being so restless that it is hard to sit still: 0 = Not at all Becoming easily annoyed or irritable: 0 = Not at all Feeling afraid as if something awful might happen: 0 = Not at all Total POLLO-7 score (0-4 normal; 5-9 mild; 10-14 moderate; 15-21 severe): 0 Source: Developed by Drs. Bon Hernandez, Gilma Alvarado, Daren Thakur and colleagues, with an educational alfredo from [employer]. Review of Systems Const Denies poor appetite and Denies weakness Eyes Denies no additional complaints ENT Reports Normal hearing present, Denies dizziness, Denies nasal congestion, Denies tinnitus and Denies sore throat Card Denies chest pain, Denies syncope, Denies rapid heart rate and Denies dyspnea Resp Denies cough and Denies dyspnea GI Denies change in stool character, Reports constipation, Denies diarrhea, Denies nausea and Denies vomiting Denies urinary frequency, Denies difficulty voiding and Denies dysuria Neuro Reports Normal hearing present, Denies confusion, Denies dizziness, Denies syncope and Denies weakness Psych Denies confusion Physical exam (Primary Care) Vital Signs: Last Vital Signs Pulse 72 02/06/24 11:05 BP 102/60 02/06/24 11:05 Pulse Ox 98 02/06/24 11:05 Oxygen Delivery Method Room Air 02/06/24 11:05 BMI result Body Mass Index 34.8 Tobacco/Smoking Status: Tobacco use Status Tobacco use date assessed 02/06/24 02/06/24 11:05 Patient Tobacco Use Status Never used Tobacco 02/06/24 12:11 e-Cigarette/Vaping Use Never Used 02/06/24 12:11 Thrive Assessment: Date of Thrive Assessment Date Thrive assessed 02/06/24 02/06/24 11:05 Const General: No confusion Orientation/consciousness: No confusion HENMT Head: Yes normocephalic Ears: external ears normal and TM's normal bilaterally Face and sinus: Yes normal facial exam Mouth: moist mucous membranes Throat: Yes tonsils normal Eyes Conjunctivae: conjunctivae normal Pupils: Equal, round and reactive pupils present and Pupil accommodation reflex normal Direct Ophthalmoscopy: normal light reflex Neck Neck: No lymphadenopathy Thyroid: Thyroid normal Chest Chest palpation & inspection: normal inspection of the chest Resp Effort & Inspection: normal respiratory effort and no audible wheezes Auscultation: clear to auscultation bilaterally, no crackles, no wheezes and lung sounds not diminished Cardio Rate: regular rate Rhythm: regular rhythm Peripheral pulses: radial pulses present and dorsalis pedis present GI Palpation (GI): no masses Auscultation: normal bowel sounds and normoactive bowel sounds Rectal Exam - Female: deferred Skin General skin exam: no rashes or lesions noted Rashes: no rashes Neuro General: No confusion Cranial nerves: Yes Equal, round and reactive pupils present and Yes Normal hearing present Cognition (Neuro): normal cognition Gait exam (Neuro): Normal gait present Motor exam (neuro): 5/5 motor strength present throughout Deep tendon reflexes (DTR's): Right brachioradialis reflex intensity grade: 2+, Left brachioradialis reflex intensity grade: 2+, Right patellar reflex intensity grade: 2+ and Left patellar reflex intensity grade: 2+ Extrem General: No edema Immunizations tetanus-diphtheria toxoids-Td 2 Lf unit-2 Lf unit/0.5 mL IM suspension Performing Provider: Gabriela Arce MD [facility] Administered by: NESTOR Trammell on 02/06/24 13:08 Dose Route Admin Location Dispensed Lot Number Expiration Date [employer] 0.5 mL IM Left Deltoid 0.5 mL [id number] 09/20/24 [address]-9 [employer] VIS Given Date VIS Provided VIS Publication Date 02/06/24 Single Vaccine 21 Eligibility Eligibility Date Funding Source Not C Eligible 02/06/24 State funds Assessment and Plan Assessment & Plan (1) Annual physical exam: Code(s): Z00.00 - Encounter for general adult medical examination without abnormal findings Plan: Patient is advised to eat healthy, keep well hydrated, keep active and have adequate sleep. (2) Constipation: Code(s): K59.00 - Constipation, unspecified Plan: Patient has seen gastroenterology dietary recommendations and on docusate sodium (3) Hypercholesterolemia: Code(s): E78.00 - Pure hypercholesterolemia, unspecified Plan: Avoid fried foods, chicken skin, eggs, butter margarine, pastries and meat. Be it pork or beef they have a lot of cholesterol (4) Obesity (BMI 30-39.9): Code(s): E66.9 - Obesity, unspecified Plan: Diet and exercise (5) GERD (gastroesophageal reflux disease): Code(s): K21.9 - Gastro-esophageal reflux disease without esophagitis Plan: Avoid the foods that causes that usually spicy foods, tomato products, juices, coffee, soda and foods that your sensitive to. After eating do not lie down, allow 3-4 hours before in lie down. And keep the head of bed above 30 degrees to avoid the acid from going up. (6) Generalized anxiety disorder: Code(s): F41.1 - Generalized anxiety disorder (7) Migraine: Code(s): G43.909 - Migraine, unspecified, not intractable, without status migrainosus Plan: Stable patient has seen Neurology and has been placed on Topamax (8) Asthma: Code(s): J45.909 - Unspecified asthma, uncomplicated Plan: Continue with the inhaler as needed (9) Dysphagia: Code(s): R13.10 - Dysphagia, unspecified Plan: ba swallow advised (10) Frequency of micturition: Code(s): R35.0 - Frequency of micturition Plan: urinalysis advised (11) Thyroid nodule: Comment: April02/2022 Code(s): E04.1 - Nontoxic single thyroid nodule Plan: follow up with Dr. Brandon (12) Bunion: Code(s): M21.619 - Bunion of unspecified foot Orders: Orders [place] barium swallow Today R13.10 - Dysphagia, unspecified [place] upper GI series Today R13.10 - Dysphagia, unspecified UA CC w/rflx Micro + Cult Today R30.0 - Dysuria, R35.0 - Frequency of micturition Td State Immunization Today Z23 - Encounter for immunization Referrals Neurology Referral G43.909 - Migraine, unspecified, not intractable, without status migrainosus Podiatry Referral M21.619 - Bunion of unspecified foot Medications: New tetanus-diphtheria toxoids-Td 0.5 mL IM ONCE 0.5 mL 0RF Z23 - Encounter for immunization Coding Level of Care Code Est Pt Prev Care 40-64y(43355) Diagnoses Annual physical exam Z00.00 Constipation K59.00 Hypercholesterolemia E78.00 Obesity (BMI 30-39.9) E66.9 GERD (gastroesophageal reflux disease) K21.9 Generalized anxiety disorder F41.1 Migraine G43.909 Asthma J45.909 Dysphagia R13.10 Frequency of micturition R35.0 Thyroid nodule E04.1 Bunion M21.619 Additional Codes PHQ-9 - [id number] - PHQ-9 Billing: ([id number])
[2024-02-06 11:05] VITALS: BP 102/60; PULSE 72; O2SAT 98; BMI 34.8
== END 2024-02-06 12:42 | disposition home or self-care (01) ==
PROVIDERS: PCP Internal Medicine; Visit Provider Internal Medicine
DX: Z00.00 Encounter for general adult medical examination without abnormal findings (principal); E66.9 Obesity, unspecified; Z68.34 Body mass index [BMI] 34.0-34.9, adult; Z23 Encounter for immunization; K59.00 Constipation, unspecified; E78.00 Pure hypercholesterolemia, unspecified; K21.9 Gastro-esophageal reflux disease without esophagitis; F41.1 Generalized anxiety disorder; G43.909 Migraine, unspecified, not intractable, without status migrainosus; J45.909 Unspecified asthma, uncomplicated; R13.10 Dysphagia, unspecified; R35.0 Frequency of micturition; E04.1 Nontoxic single thyroid nodule
CPT/HCPCS: 90471; 90714; 99396

== ENCOUNTER 2024-03-10 15:16 | Outpatient (AMB) | payer BC, MEDICARE, MEDICAID, SELFPAY ==
[2024-03-10 15:24] VITALS: BP 108/64; PULSE 105; O2SAT 98; BMI 36.2
--- NOTE | 2024-03-10 15:24 | A.OFFPC_ITS ---
Vital Signs 03/10/24 15:24 Height 5 ft 7 in Weight 231 lb 0.8 oz BMI 36.2 BP 108/64 Blood Pressure Location Lt brachial Position Sitting Pulse 105 H Pulse Source Pulse Oximeter Pulse Oximetry (%) 98 Oxygen Delivery Method Room Air Intake Visit Reasons: Fatigue, abdomen pain, dark urine Account Officer Required: No Allergies No Known Allergies Allergy (Verified 03/10/24 15:24) Medication List - Last Reconciled 03/10/24 by Jazmin De Anda PA-C albuterol sulfate 90 mcg/actuation (ProAir HFA) 2 puffs inhalation QID PRN betamethasone dipropionate 0.05% (Sernivo) 1 appl topical BID cetirizine (All Day Allergy (cetirizine)) 10 mg PO DAILY PRN cholecalciferol (vitamin D3) 1,250 mcg PO QWEEK docusate sodium 100 mg PO DAILY fluconazole (Diflucan) 200 mg PO DAILY hydrocortisone 2.5% (Proctosol HC) 1 appl [place] BID-QID PRN minoxidil 2.5 mg PO DAILY Tobacco use date assessed: 02/06/24 Dental Screening Dental Screen Date: 10/15/23 HPI Fatigue, abdomen pain, dark urine HPI Details 39-year-old female with past medical his tory of hypercholesterolemia, generalized anxiety disorder, GERD, hypercholesterolemia, and asthma last seen by Dr. Arce 01/2024 coming in for acute problem. Patient is complaining of intermittent dizziness with mild neck pain and occasional fatigue. She also mentioned she has been having low back pain prior to urination that resolved with urination. She mentioned she if she has to hold her urine she has a much more pain. These concerns have been ongoing for the past few months and have been worsening. She has a history of a right shoulder injury back in September and was seen at urgent care x-rays were negative and was given a sling for comfort. Her shoulder pain has been worsening over the last few months and now has difficulty lifting the arm. [facility] Medical History Frequency of micturition Chronic constipation Hx of chest pain Hearing difficulty of right ear Prolapsed hemorrhoids Thrombosed external hemorrhoid Nephrolithiasis Allergic rhinitis Thyroid nodule Obesity (BMI 30-39.9) Vitamin D deficiency Generalized anxiety disorder GERD (gastroesophageal reflux disease) Migraine Asthma COVID-19 Surgical History History of esophagogastroduodenoscopy (EGD) History of hemorrhoidectomy History of colonoscopy H/O LEEP History of 2 sections Family History Maternal Grandmother Myocardial infarct Father Kidney carcinoma Social History Household Members: Family Housing: Apartment Are you a primary patient care manager to a significant other at home: No Do you presently have visiting nurse or other home services: No Alcohol intake: current Comment: once a month Patient Tobacco Use Status: Never used Tobacco e-Cigarette/Vaping Use: Never Used Second Hand Smoke Exposure: No service: No Current occupational status: employed 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 How often do you have a drink containing alcohol?: Never 3. How often do you have six or more drinks on one occasion?: Never Total Score: 0 Score Reviewed/Action Taken: No POLLO-7 AMB Questionnaire POLLO-7 Date POLLO - 7 assessed: 10/15/23 Source: Developed by Drs. Bon Hernandez, Gilma Alvarado, Daren Thakur and colleagues, with an educational alfredo from [employer]. Review of Systems Const Denies body aches, Denies chills, Denies fever(s), Denies headache(s) and Denies poor appetite Eyes Reports no additional complaints ENT Denies dysphagia, Denies dizziness, Denies headache(s) and Denies odynophagia Card Denies chest pain, Denies syncope, Denies edema, Denies irregular heart rhythm, Reports lightheadedness and Denies dyspnea Resp Denies cough and Denies dyspnea GI Denies abdominal pain, Denies constipation, Denies dysphagia, Denies diarrhea, Reports nausea, Denies odynophagia and Denies vomiting Reports as per HPI Musc Reports as per HPI and Denies abnormal gait Skin/Breast Reports system reviewed and no additional complaints, except as documented Neuro Denies abnormal gait, Denies dizziness, Denies syncope and Denies headache(s) Psych Reports no additional complaints Physical exam (Primary Care) Vital Signs: Last Vital Signs Pulse 105 H 03/10/24 15:24 BP 108/64 03/10/24 15:24 Pulse Ox 98 03/10/24 15:24 Oxygen Delivery Method Room Air 03/10/24 15:24 BMI result Body Mass Index 36.2 Tobacco/Smoking Status: Tobacco use Status Tobacco use date assessed 02/06/24 03/10/24 15:25 Patient Tobacco Use Status Never used Tobacco 03/10/24 15:25 e-Cigarette/Vaping Use Never Used 03/10/24 15:25 Thrive Assessment: Date of Thrive Assessment Date Thrive assessed 02/06/24 03/10/24 15:25 Const General: cooperative, healthy appearing, comfortable and no acute distress Orientation/consciousness: patient oriented x3 HENMT Head: Yes normocephalic Ears: hearing grossly normal bilaterally General nose exam: Normal external nose present Eyes General: appearance normal, both eyes and all related structures Conjunctivae: conjunctivae normal Neck Neck: Yes full ROM and Yes no lymphadenopathy Resp Effort & Inspection: normal respiratory effort Auscultation: clear to auscultation bilaterally, no crackles, no rales, no rhonchi and no wheezes Cardio Rate: regular rate Rhythm: regular rhythm GI Inspection: Yes normal to inspection and No distended Palpation (GI): Soft to palpation, Tenderness to palpation present (GI) in the RUQ; not in the LLQ, not in the RLQ and not in the LUQ, no guarding, not rigid and No Rebound tenderness present Auscultation: normal bowel sounds General: Yes no CVA tenderness Back/Spine/Pelvis Other: No tenderness over spine, paraspinous muscles or pelvis Back: no CVA tenderness Skin General skin exam: no rashes or lesions noted Neuro General: patient oriented x3 Gait exam (Neuro): Normal gait present Extrem Other: Right shoulder pain with active range of motion no tenderness to palpation. Pulses and sensation intact in bilateral upper extremities General: Yes normal to inspection, Yes full ROM and No edema Psych Affect: normal affect Attitude: cooperative Insight: Good insight present (Psych) Judgement: Good judgement present (Psych) Results AMB Urinalysis, Automated UA Leukoctes 0 Christian/uL Last Edit by Valentine Martinezbrianna Miranda on 03/10/24 15:43 UA Nitrite Negative Last Edit by Valentine Contehjuani Miranda on 03/10/24 15:43 UA Urobilinogen 0.2 mg/dL Last Edit by Valentine [facility] on 03/10/24 15:43 UA Protein 0 mg/dL Last Edit by Valentine [facility] on 03/10/24 15:43 UA pH 6.0 Last Edit by Valentine [facility] on 03/10/24 15:43 UA Blood 0 Daniel/uL Last Edit by Valentine [facility] on 03/10/24 15:43 UA Specific [place] 1.005 Last Edit by Valentine [facility] on 03/10/24 15:43 UA Ketone Negative Last Edit by Valentine [facility] on 03/10/24 15:43 UA Bilirubin 0 mg/dL Last Edit by Valentine [facility] on 03/10/24 15:43 UA Glucose 0 mg/dL Last Edit by Valentine [facility] on 03/10/24 15:43 Assessment and Plan Assessment & Plan (1) RUQ abdominal pain: Code(s): R10.11 - Right upper quadrant pain Plan: Patient has a history of gallbladder disease and was at one point a candidate for cholecystectomy however symptoms resolved. Patient has tenderness to palpation of right upper quadrant today without fever or jaundice. We will order for abdominal ultrasound. If pain becomes consistent or you develop fever or yellowing of the skin go to ER immediately. We will follow up in 2 months after ultrasound. (2) Low back pain: Code(s): M54.50 - Low back pain, unspecified Plan: Low back pain while having to urinate which resolves with urination. Urinalysis clear today we will order for culture in the lab. Abdominal ultrasound ordered. (3) Right shoulder pain: Code(s): M25.511 - Pain in right shoulder Plan: Patient has been having persistent right shoulder pain since her initial injury back in September. Reordered x-rays and sent prescription for cyclobenzaprine to be taken at night and meloxicam during the day for pain as needed. Do not take meloxicam with other NSAIDs and do not drive while taking cyclobenzaprine. If pain continues can consider referral to Orthopedics. Plan This note was constructed using voice recognition software. While every effort has been made to ensure accuracy and air force pilot, still areas may have been included sometimes these areas may affect the content or meeting of the given symptoms. Total time spent caring for the patient today was 35 minutes. This includes time spent before the visit reviewing the chart, time spent during the visit, and time spent after the visit and documentation. Orders: Orders Vitamin D 25-OH (D2 and D3) Today Z00.00 - Encounter for general adult medical examination without abnormal findings Ur Preg Test Today M54.50 - Low back pain, unspecified XR shoulder RT min 2V Today M25.511 - Pain in right shoulder AMB Urinalysis Automated Today Z13.9 - Encounter for screening, unspecified TSH reflex Free T4 Today Z00.00 - Encounter for general adult medical examination without abnormal findings Free T4 (Free Thyroxine) Today Z00.00 - Encounter for general adult medical examination without abnormal findings Complete Blood Count Auto Diff Today Z00.00 - Encounter for general adult medical examination without abnormal findings Comprehensive Met. Panel Today Z00.00 - Encounter for general adult medical examination without abnormal findings US abdomen complete Today R10.11 - Right upper quadrant pain UA CC w/rflx Micro + Cult Today M54.50 - Low back pain, unspecified Medications: New meloxicam 15 mg PO DAILY 30 tabs 1RF cyclobenzaprine 5 mg PO BEDTIME PRN 14 tabs 1RF muscle spasm Coding Level of Care Code Est Pt Level 4 (97499) Diagnoses RUQ abdominal pain R10.11 Low back pain M54.50 Right shoulder pain M25.511
== END 2024-03-10 16:30 | disposition home or self-care (01) ==
PROVIDERS: PCP Internal Medicine
DX: R10.11 Right upper quadrant pain (principal); M54.50 Low back pain, unspecified; M25.511 Pain in right shoulder
CPT/HCPCS: 81003; 99214

== ENCOUNTER 2024-03-11 09:12 | Outpatient (REF) | payer BC, MEDICARE, MEDICAID, SELFPAY ==
[2024-03-11 14:47] LABS: MANUAL DIFF FLAG NO
[2024-03-11 14:58] LABS: Appearance Urine Cloudy; Color Urine Yellow; Glucose Urine UA Negative (Negative); Leukocyte Esterase Urine Trace (Negative); Nitrite Urine Negative (Negative); UMIC TRIGGER UACC YES; Urine Blood Trace (Negative); Urine Ketones Negative (Negative); Urine Protein 100 (2+) mg/dL (Neg-Trace)
[2024-03-11 15:00] LABS: UPreg QC Valid YES; Urine Pregnancy NEGATIVE (NEGATIVE)
[2024-03-11 15:01] LABS: Bacteria Urine 1+ (None Seen); Hyaline Casts Urine 0-2 /LPF (0-2); Squamous Epithelial Cell Urine >20 /HPF (0-2); UACC Culture Trigger YES
[2024-03-11 15:10] LABS: Basophils Percent Auto 0.8 % (0-2); Hematocrit 37.5 % (37.0-47.0); Hemoglobin 12.1 g/dl (12.0-16.0); Imm Gran Abs Auto 0.01 X10*3/uL (0.00-0.03); Imm Gran Pct Auto 0.3 % (0.0-0.4); Lymphocytes Absolute Auto 1.1 X10*3/uL (1.2-4.9); Lymphocytes Percent Auto 28.7 % (20-40); Mean Corpuscular HGB Conc 32.3 g/dl (31.0-35.0); Mean Corpuscular Hemoglobin 27.7 pg (27.0-33.0); Mean Corpuscular Volume 85.8 fL (80.0-98.0); Mean Platelet Volume 11.8 fL (9.4-12.3); Monocytes Absolute Auto 0.4 X10*3/uL (0.1-1.2); Monocytes Percent Auto 10.7 % (2-11); Neutrophils Absolute Auto 2.2 x10*3/uL (2.0-8.3); Neutrophils Percent Auto 58.5 % (45-73); Platelet Count 194 X10*3/uL (160-400); Red Blood Count 4.37 X10*6/uL (4.20-5.50); White Blood Count 3.8 X10*3/uL (4.8-10.8)
[2024-03-11 15:38] LABS: Alanine Aminotransferase 13 U/L (0-31); Albumin Level 4.4 g/dL (3.5-5.0); Alkaline Phosphatase 63 U/L (39-117); Anion Gap 11 (12-20); Aspartate Amino Transferase 15 U/L (5-31); Bilirubin Total 0.7 mg/dL (0.0-1.0); Blood Urea Nitrogen 10 mg/dL (9-16); Calcium 9.3 mg/dL (8.4-10.2); Carbon Dioxide 25 mmol/L (22-29); Chloride 108 mmol/L (96-108); Estimated Glomerular Filt Rate > 60; Glucose Random 84 mg/dL (60-115); Potassium 4.2 mmol/L (3.3-5.1); Sodium 140 mmol/L (135-145); Total Protein 7.5 g/dL (6.5-8.0)
[2024-03-11 16:00] LABS: Free T4 (Free Thyroxine) 0.97 ng/dL (0.71-1.85); TSH reflex Free T4 1.37 uIU/mL (0.32-4.0)
[2024-03-17 14:53] LABS: Vitamin D 25-OH, D2 <4 ng/mL; Vitamin D 25-OH, D3 28 ng/mL; Vitamin D 25-OH, Total 28 ng/mL (30-100)
== END 2024-03-11 09:13 | disposition home or self-care (01) ==
LOC: HO.CHCLDS 09:12
DX: Z00.00 Encounter for general adult medical examination without abnormal findings (principal); M54.50 Low back pain, unspecified; R30.0 Dysuria
CPT/HCPCS: 36415; 80053; 81001; 81025; 82306; 84439; 84443; 85025; 87086

== ENCOUNTER 2024-03-30 10:29 | Outpatient (REF) | payer BC, MEDICARE, MEDICAID, SELFPAY ==
--- NOTE | ~2024-03-30 | US_ITS ---
EXAMINATION: US ABDOMEN COMPLETE CLINICAL INFORMATION: Right upper quadrant pain. COMPARISON: CT abdomen and pelvis 11/26/2022. Ultrasound abdomen limited 02/02/2022. Ultrasound abdomen complete 03/22/2019. TECHNIQUE: Real-time imaging of the abdominal viscera. FINDINGS: PANCREAS: Normal. ABDOMINAL AORTA: The proximal, mid, and distal segments are normal in caliber. INFERIOR VENA CAVA: Visualized portions are normal. LIVER: Normal. The liver is normal in size. The liver contour is normal. Parenchymal echogenicity is normal. No focal hepatic lesion. There is no intrahepatic biliary duct dilatation seen. GALLBLADDER: Normal. The gallbladder is physiologically distended without evidence of stones, sludge, polyps, wall thickening or pericholecystic fluid. COMMON BILE DUCT: Normal in caliber measuring 0.3 cm in diameter. RIGHT KIDNEY: Normal. No hydronephrosis. No renal calculi or focal parenchymal lesions. The kidney measures 10.0 cm in maximum dimension. LEFT KIDNEY: Normal. No hydronephrosis. No renal calculi or focal parenchymal lesions. The kidney measures 11.1 cm in maximum dimension. SPLEEN: Normal. The spleen measures 11.5 cm in maximum dimension. FREE FLUID: None. US/US abdomen complete IMPRESSION: Unremarkable abdominal ultrasound. Electronically signed by: Lars Sanchez MD 04/10/2024 12:49 PM EDT
--- NOTE | ~2024-03-30 | US_ITS ---
EXAMINATION: US PELVIS LIMITED (BLADDER) CLINICAL INFORMATION: Proteinuria. COMPARISON: 11/26/2022 CT TECHNIQUE: Real-time imaging of the bladder. FINDINGS: BLADDER: Well distended and normal. Bilateral ureteral jets are demonstrated. Prevoid bladder volume is 143 mL. Postvoid bladder volume is 10.7 mL. US/US bladder IMPRESSION: No urinary bladder pathology recognized. Electronically signed by: Lovely Matthews MD 04/06/2024 12:00 PM EDT
== END 2024-03-30 10:30 | disposition home or self-care (01) ==
LOC: HO.US 10:29
PROVIDERS: PCP Internal Medicine
DX: R80.9 Proteinuria, unspecified (principal)
CPT/HCPCS: 76700; 76857

== ENCOUNTER 2024-04-06 15:17 | Outpatient (REF) | payer BC, MEDICARE, MEDICAID, SELFPAY ==
[2024-04-06 17:48] LABS: Appearance Urine Clear; Color Urine Yellow; Glucose Urine UA Negative (Negative); Leukocyte Esterase Urine Negative (Negative); Nitrite Urine Negative (Negative); PH 5.5 (5.0-9.0); Urine Blood Negative (Negative); Urine Ketones Negative (Negative); Urine Protein Negative (Neg-Trace)
[2024-04-07 15:59] LABS: Triiodothyronine T3 Free 3.6 pg/mL (2.3-4.2)
[2024-04-13 13:19] LABS: Triiodothyronine T3 Reverse 26 ng/dL (8-25)
== END 2024-04-06 15:18 | disposition home or self-care (01) ==
LOC: HO.CHCLDS 15:17
PROVIDERS: PCP Internal Medicine; Visit Provider Internal Medicine
DX: Z00.00 Encounter for general adult medical examination without abnormal findings (principal); M54.50 Low back pain, unspecified
CPT/HCPCS: 36415; 81003; 84481; 84482

== ENCOUNTER 2024-06-10 12:53 | Outpatient (AMB) | payer BC, MEDICARE, MEDICAID, SELFPAY ==
--- NOTE | 2024-06-10 13:02 | A.OFFPC_ITS ---
Vital Signs 06/10/24 13:03 Height 5 ft 7 in Weight 228 lb 2 oz BMI 35.7 BP 92/62 Blood Pressure Location Lt brachial Position Sitting Pulse 75 Pulse Source Pulse Oximeter Pulse Oximetry (%) 93 Oxygen Delivery Method Room Air Intake Visit Reasons: RT leg pain Intake Note: Patient is here to follow up on R leg pain with tinging, numbness with shocks. Pt decline flu shot today. Unbundler Required: No Outpatient Program Coordinator: Present Accompanied by: Daughter Allergies No Known Allergies Allergy (Verified 06/10/24 13:03) Medication List - Last Reconciled 06/10/24 by Gabriela Arce MD albuterol sulfate 90 mcg/actuation (ProAir HFA) 2 puffs inhalation QID PRN amitriptyline 5 mg (1/2 x 10 mg) PO BEDTIME betamethasone dipropionate 0.05% (Sernivo) 1 appl topical BID cetirizine (All Day Allergy (cetirizine)) 10 mg PO DAILY PRN cholecalciferol (vitamin D3) 1,250 mcg PO QWEEK cyclobenzaprine 5 mg PO BEDTIME PRN docusate sodium 100 mg PO DAILY fluconazole (Diflucan) 200 mg PO DAILY hydrocortisone 2.5% (Proctosol HC) 1 appl HI BID-QID PRN meloxicam 15 mg PO DAILY minoxidil 2.5 mg PO DAILY Tobacco use date assessed: 06/10/24 Dental Screening Dental Screen Date: 10/15/23 HPI RT leg pain HPI Details 39-year-old obese female with generalize d anxiety disorder GERD hypercholesterolemia asthma migraines coming in for an acute problem last seen in 03/10/2024 with an right upper quadrant pain has a history of gallbladder disease. Patient also has low back and right shoulder pain. Review of the notes had ultrasound of the abdomen done showing negative results . Patient also was seen by Neurology for the chronic headaches diagnosis combination of both tension and migraine treated with amitriptyline [facility] Medical History Frequency of micturition Chronic constipation Hx of chest pain Hearing difficulty of right ear Prolapsed hemorrhoids Thrombosed external hemorrhoid Nephrolithiasis Allergic rhinitis Thyroid nodule Obesity (BMI 30-39.9) Vitamin D deficiency Generalized anxiety disorder GERD (gastroesophageal reflux disease) Migraine Asthma COVID-19 Surgical History History of esophagogastroduodenoscopy (EGD) History of hemorrhoidectomy History of colonoscopy H/O LEEP History of 2 sections Family History Maternal Grandmother Myocardial infarct Father Kidney carcinoma Social History Household Members: Family Housing: Apartment Are you a primary health care manager to a significant other at home: No Do you presently have visiting nurse or other home services: No Alcohol intake: current Comment: once a month Patient Tobacco Use Status: Never used Tobacco e-Cigarette/Vaping Use: Never Used Second Hand Smoke Exposure: No service: No Current occupational status: employed 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 Bon Hernandez, Gilma Alvarado, Daren Thakur and colleagues, with an educational alfredo from [employer]. Physical exam (Primary Care) Vital Signs: Last Vital Signs Pulse 75 06/10/24 13:03 BP 92/62 06/10/24 13:03 Pulse Ox 93 06/10/24 13:03 Oxygen Delivery Method Room Air 06/10/24 13:03 BMI result Body Mass Index 35.7 Tobacco/Smoking Status: Tobacco use Status Tobacco use date assessed 06/10/24 06/10/24 13:05 Patient Tobacco Use Status Never used Tobacco 06/10/24 13:05 e-Cigarette/Vaping Use Never Used 06/10/24 13:05 Thrive Assessment: Date of Thrive Assessment Date Thrive assessed 02/06/24 06/10/24 13:05 Const General: alert; No acute distress Eyes Conjunctivae: conjunctivae normal Resp Auscultation: clear to auscultation bilaterally Cardio Rate: regular rate Rhythm: regular rhythm GI Inspection: Yes normal to inspection Extrem General: Yes normal to inspection and No edema Coding Level of Care Code Est Pt Level 4 (76429) Diagnoses Suprapubic pain R10.2 Obesity (BMI 30-39.9) E66.9 Generalized anxiety disorder F41.1 Gastroesophageal reflux disease without esophagitis K21.9 Esophagitis presence: without esophagitis Hypercholesterolemia E78.00 Tension headache G44.209 Right leg pain M79.604 Assessment & Plan Assessment & Plan (1) Suprapubic pain: Code(s): R10.2 - Pelvic and perineal pain Category: Medical Plan: Ultrasound of the bladder is negative (2) Obesity (BMI 30-39.9): Code(s): E66.9 - Obesity, unspecified Category: Medical Plan: Diet and exercise (3) Generalized anxiety disorder: Code(s): F41.1 - Generalized anxiety disorder Category: Medical Plan: Discussed about counseling (4) GERD (gastroesophageal reflux disease): Code(s): K21.9 - Gastro-esophageal reflux disease without esophagitis Category: Medical Qualifiers: Esophagitis presence: without esophagitis Qualified Code(s): K21.9 - Gastro-esophageal reflux disease without esophagitis Plan: Avoid the foods that causes that usually spicy foods, tomato products, juices, coffee, soda and foods that your sensitive to. After eating do not lie down, allow 3-4 hours before in lie down. And keep the head of bed above 30 degrees to avoid the acid from going up. (5) Hypercholesterolemia: Code(s): E78.00 - Pure hypercholesterolemia, unspecified Category: Medical Plan: Avoid fried foods, chicken skin, eggs, butter margarine, pastries and meat. Be it pork or beef they have a lot of cholesterol (6) Tension headache: Code(s): G44.209 - Tension-type headache, unspecified, not intractable Category: Medical Plan: Patient was started on amitriptyline under neurology (7) Right leg pain: Code(s): M79.604 - Pain in right leg Category: Medical Plan: will do xray of the lumbar spine Orders: Orders XR lumbar spine 2-3V Today M79.604 - Pain in right leg Medications: New amitriptyline 5 mg (1/2 x 10 mg) PO BEDTIME 30 tabs 0RF Refilled cholecalciferol (vitamin D3) 1,250 mcg PO QWEEK 13 caps 0RF M79.604 - Pain in right leg
[2024-06-10 13:03] VITALS: BP 92/62; PULSE 75; O2SAT 93; BMI 35.7
== END 2024-06-10 13:56 | disposition home or self-care (01) ==
LOC: HO.HMCH 12:53
PROVIDERS: PCP Internal Medicine; Visit Provider Internal Medicine
DX: R10.2 Pelvic and perineal pain (principal); E66.9 Obesity, unspecified; Z68.35 Body mass index [BMI] 35.0-35.9, adult; F41.1 Generalized anxiety disorder; K21.9 Gastro-esophageal reflux disease without esophagitis; E78.00 Pure hypercholesterolemia, unspecified; G44.209 Tension-type headache, unspecified, not intractable; M79.604 Pain in right leg

== ENCOUNTER → 2024-06-10 12:53 | Outpatient (BNVA) | payer BC, MEDICARE, MEDICAID, SELFPAY | PROVIDERS: PCP Internal Medicine; Visit Provider Internal Medicine ==

== ENCOUNTER 2024-08-17 09:11 | Outpatient (REF) | payer MEDICARE, MEDICAID, SELFPAY | END 2024-08-17 09:12 | disposition home or self-care (01) | LOC: HO.LAB 09:11 | PROVIDERS: PCP Internal Medicine; Visit Provider Physician Assistant | DX: Z13.89 Encounter for screening for other disorder (principal) | CPT/HCPCS: 87880; 99212 ==

== ENCOUNTER 2024-08-17 09:11 | Outpatient (AMB) | payer MEDICARE, MEDICAID, SELFPAY ==
[2024-08-17 09:42] VITALS: BP 98/62; PULSE 83; TEMP 36.7; O2SAT 99; BMI 37.0
--- NOTE | 2024-08-17 09:42 | MHC.OFFWIV ---
Intake Vital Signs 08/17/24 09:42 Height 5 ft 7 in Weight 236 lb BMI 37.0 BP 98/62 Blood Pressure Location Lt brachial Position Sitting Pulse 83 Pulse Source Pulse Oximeter Temp 98.1 F Temp Source Oral Pulse Oximetry (%) 99 Oxygen Delivery Method Room Air Intake Visit Reasons: EP-sour throat, rt side belly pain, cough Intake Note: Pt is here today c/o s/t.Rt side belly pain and cough Patient Tobacco Use Status: Never used Tobacco Allergies No Known Allergies Allergy (Verified 08/17/24 09:43) HPI HPI Comments History of Present Illness Details History of Present Illness - The patient is a 39-year-old female presenting with acute right upper quadrant abdominal pain and respiratory symptoms. - The abdominal pain onset one day prior and severely impacts mobility, radiating from ruq downward. Temporary relief was sought with ibuprofen and naproxen. There's a notable history of gallbladder issues with gallstones, once necessitating surgery, which was later postponed. Black stools have been noted for several days. - Associated symptoms include nausea with quick satiety and no vomiting. She denies fevers. - Upper respiratory symptoms began with a sore throat this morning, accompanied by sinus pressure and mild ear discomfort, but no fever. The patient's asthma history is relevant, triggered previously by COVID-19, though currently not requiring inhaler use. Son with similar symptoms at home. Physical Exam General: Cooperative, healthy appearing, comfortable, no acute distress and well developed Orientation: Patient oriented x3 Limitations: No limitations Head: Normal to inspection, pressure in head noted Ears: Hearing grossly normal bilaterally, TMs normal bilaterally, small amt of fluid bilat Nose: Normal external nose present, sinus pressure noted Face and sinus: Normal facial exam, sinus pressure noted Eyes: Appearance normal, both eyes and all related structures Neck: Normal visual inspection and Yes full ROM Respiratory: Normal respiratory effort and able to speak in complete sentences. Clear to auscultation bilaterally, no shortness of breath or wheezing, slight discomfort when breathing in Cardiovascular: Regular rate and rhythm. Normal S1 and S2 GI: normal bs, TTP RUQ and periumbilical, +Rod's Skin: No rashes or lesions noted Neuro: Patient oriented x3 Extremities: Normal to inspection [facility] Medical History Frequency of micturition Chronic constipation Hx of chest pain Hearing difficulty of right ear Prolapsed hemorrhoids Thrombosed external hemorrhoid Nephrolithiasis Allergic rhinitis Thyroid nodule Obesity (BMI 30-39.9) Vitamin D deficiency Generalized anxiety disorder GERD (gastroesophageal reflux disease) Migraine Asthma COVID-19 Surgical History History of esophagogastroduodenoscopy (EGD) History of hemorrhoidectomy History of colonoscopy H/O LEEP History of 2 sections Family History Maternal Grandmother Myocardial infarct Father Kidney carcinoma Social History Household Members: Family Housing: Apartment Are you a primary customer care voice consultant to a significant other at home: No Do you presently have visiting nurse or other home services: No Alcohol intake: current Comment: once a month Patient Tobacco Use Status: Never used Tobacco e-Cigarette/Vaping Use: Never Used Second Hand Smoke Exposure: No service: No Current occupational status: employed 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 Cognitive needs: No Hearing needs: No Vision needs: Yes (Glasses) Review of Systems Const All systems reviewed & are unremarkable except as noted in HPI and below Physical Exam Vital Signs: Last Vital Signs Temp 98.1 F 08/17/24 09:42 Pulse 83 08/17/24 09:42 BP 98/62 08/17/24 09:42 Pulse Ox 99 08/17/24 09:42 Oxygen Delivery Method Room Air 08/17/24 09:42 BMI result Body Mass Index 37.0 Results AMB Rapid Strep AMB Rapid Strep Negative Last Edit by Anastasia Ventura CMA on 08/17/24 09:57 Results Reviewed Results Reviewed: Laboratory Last Values Strep Scn Rapid Clinic Negative 08/17/24 09:56 Assessment & Plan Assessment & Plan (1) URI, acute: Code(s): J06.9 - Acute upper respiratory infection, unspecified Plan: VSS, pt well appearing, PE + [place] and periumbilical pain. The patient's presentation is indicative of acute gallbladder-related concerns vs appendicitis, potentially worsened by documented gallstone history and recent black stool episodes, warranting urgent imaging and laboratory evaluations facilitated through the emergency department. The emergent nature of the symptoms and risk for appendiceal or gallbladder complications necessitates this approach. Immediate referral to emergency services is advised to preempt and manage possible further complications. [place] [facility] [place] Upper respiratory symptoms concluded to be viral in origin are under investigation with concurrent testing. Rapid strep in office is negative. Fluids, rest, and possible use of saline irrigation or corticosteroid nasal spray may provide relief. Stable asthma condition noted does not necessitate immediate action but remains a relevant part of the health assessment. Patient was informed and verbally consented to the use of an ambient scribe for clinic note documentation during this visit. (2) RUQ abdominal pain: Code(s): R10.11 - Right upper quadrant pain Plan: as above (3) Melena: Code(s): K92.1 - Melena Plan as above Orders: Orders AMB Rapid Strep Screen Today Z13.9 - Encounter for screening, unspecified Coding Level of Care Code Est Pt Level 5 (46631) Diagnoses URI, acute J06.9 RUQ abdominal pain R10.11 Melena K92.1
== END 2024-08-17 10:19 | disposition home or self-care (01) ==
PROVIDERS: PCP Internal Medicine; Visit Provider Physician Assistant
DX: J06.9 Acute upper respiratory infection, unspecified (principal); R10.11 Right upper quadrant pain; K92.1 Melena; J02.9 Acute pharyngitis, unspecified

== ENCOUNTER 2024-08-17 10:27 | Emergency (ER) | payer MEDICARE, MEDICAID, SELFPAY ==
--- NOTE | ~2024-08-17 | US_ITS ---
EXAMINATION: US ABDOMEN LIMITED CLINICAL INFORMATION: Right upper quadrant pain. COMPARISON: Ultrasound abdomen 03/30/2024 TECHNIQUE: Real-time imaging of the right upper quadrant abdominal viscera. FINDINGS: PANCREAS: Visualized portions are unremarkable. LIVER: The liver is normal in size. The liver contour is normal. Parenchymal echogenicity is normal. No focal hepatic lesion. There is no intrahepatic biliary duct dilatation seen. GALLBLADDER: The gallbladder is physiologically distended without evidence of stones, sludge, polyps, wall thickening or pericholecystic fluid. COMMON BILE DUCT: Normal in caliber measuring 0.3 cm in diameter. RIGHT KIDNEY: No hydronephrosis. No renal calculi or focal parenchymal lesions. The kidney measures 10.9 cm in maximum dimension. FREE FLUID: None. US/US abdomen limited IMPRESSION: Unremarkable limited right upper quadrant ultrasound. Electronically signed by: Anuel Delgado MD 08/17/2024 04:23 PM [facility] [place]
[2024-08-17 11:06] VITALS: PULSE 77; RESP 18; TEMP 36.4; O2SAT 100; BMI 36.8
--- NOTE | 2024-08-17 11:12 | ED.GENADULT ---
HPI - General Adult General Chief complaint: Abdominal Pain Stated complaint: Abd pain, sent by urgent care Time Seen by Provider: 08/17/24 15:18 Source: patient Mode of arrival: ambulatory Limitations: no limitations History of Present Illness ED Provider: Mejia Kim PA-C HPI narrative: 39 yo female with history of anxiety, GERD, hemorrhoids, anemia, constipation, asthma, migraines, history of gallstones in the past who presents to the ER for evaluation of RUQ pain that started yesterday when she woke up. It is associated with nausea. Pain is worse with any movement and whenever she eats. She has had 2 episodes of formed black stools in the last 3 days as well. No diarrhea, fevers, chills, chest pain, SOB. She denies dysuria or hematuria but has had increased urinary frequency. She reports hx gallstones in the past and was going to get her GB removed w/ Dr. Shields but she passed the stone. She reports no history of black BMs in the past, denies hx GIB. She is not on anticoagulation. She takes NSAIDS frequently. MD complaint: RUQ pain, black stool x2 Onset (ago): day(s) (2) Location: abdomen Radiation: non-radiation Severity: moderate Severity scale (1-10): 7 Quality: stabbing Pain Consistency: constant Relieving factors: immobilization Exacerbating factors: eating and movement Associated symptoms: denies other symptoms Treatments prior to arrival: NSAID Related Data Previous Rx's ?Medication ?Instructions ?Recorded cetirizine 10 mg tablet (All Day 10 mg PO DAILY PRN allergy 06/07/21 Allergy (cetirizine)) symptoms #20 tabs albuterol sulfate 90 mcg/actuation 2 puff inhalation QID PRN 11/11/23 aerosol inhaler (ProAir HFA) shortness of breath or wheezing #8.5 grams docusate sodium 100 mg capsule 100 mg PO DAILY #30 caps 12/05/23 cyclobenzaprine 5 mg tablet 5 mg PO BEDTIME PRN muscle spasm 03/10/24 #14 tabs amitriptyline 10 mg tablet 5 mg (1/2 x 10 mg) PO BEDTIME #30 06/10/24 tabs Allergies Allergy/AdvReac Type Severity Reaction Status Date / Time No Known Allergies Allergy Verified 08/17/24 14:09 Review of Systems Review of Systems: Yes all other systems are reviewed and are negative [facility] Past Medical History Medical History Frequency of micturition Chronic constipation Hx of chest pain Hearing difficulty of right ear Prolapsed hemorrhoids Thrombosed external hemorrhoid Nephrolithiasis Allergic rhinitis Thyroid nodule Obesity (BMI 30-39.9) Vitamin D deficiency Generalized anxiety disorder GERD (gastroesophageal reflux disease) Migraine Asthma COVID-19 Surgical History History of esophagogastroduodenoscopy (EGD) History of hemorrhoidectomy History of colonoscopy H/O LEEP History of 2 sections Family History Family History Maternal Grandmother Myocardial infarct Father Kidney carcinoma Social History Social History Household Members: Family Housing: Apartment Are you a primary personal care worker to a significant other at home: No Do you presently have visiting nurse or other home services: No Alcohol intake: current Comment: once a month Patient Tobacco Use Status: Never used Tobacco e-Cigarette/Vaping Use: Never Used Second Hand Smoke Exposure: No service: No Current occupational status: employed 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 Oriented X3. Appears uncomfortable. Head: normocephalic, atraumatic. Eyes: Pupils equal, round and reactive to light. ENT: Pharynx normal. No tonsillar swelling or exudate. Neck: Normal inspection. Neck supple. CVS: Normal heart rate and rhythm. Pulses normal. Respiratory: No respiratory distress. Breath sounds normal. Abdomen: Soft with RUQ tenderness w/ guarding, no rebound. no CVA tenderness. no RLQ tenderness. normal active bowel sounds. Skin: Skin warm and dry. Normal skin color. Normal skin turgor. No rashes. Extremities: No lower extremity edema. No joint swelling. Neuro/psych: Oriented X 3. No motor deficit. No sensory deficit. CN II-XII intact. Normal speech and cognition. Course Course Course Narrative: RME: 39 yold female presents to the ED right sided abdominal pain with dark stool for the past two days. patient denies recent trauma or peptobismol. labs ordered. Reevaluation(s) Reevaluation #1: I received sign-out on this patient from previous provider. Only thing pending was a OBS. OBS negative. Patient feeling better per nursing staff. Plan is discharge home. Educated patient on diagnosis and treatment plan, answered all question, patient verbalizes understanding. At this time patient will be discharged home, advised to return with new or worsening symptoms. Educated on worrisome signs and symptoms and when to return. At this time I feel comfortable discharge home. Time: 17:25 Medications Administered Discontinued Medications Generic Name Dose Route Start Last Admin Trade Name Barbara PRN Reason Stop Dose Admin Morphine Sulfate 4 mg 08/17/24 15:39 08/17/24 16:20 Morphine Sulfate 4 Mg/Ml Cartridge IVPUSH 08/17/24 15:40 4 mg ONCE ONE Administration Protocol Ondansetron HCl 4 mg 08/17/24 15:39 08/17/24 16:09 Ondansetron Hcl 4 Mg/2 Ml Vial IVPUSH 08/17/24 15:40 4 mg ONCE ONE Administration Medical Decision Making Medical Decision Making MDM Narrative: 39-year-old female presenting to the ER for evaluation of right upper quadrant pain that started yesterday. Pain is worse with any movement or oral intake. She has right upper quadrant tenderness on examination and appears uncomfortable. She also reports 2 episodes of black, formed bowel movements. She has been taking NSAIDs, denies taking any iron or Pepto-Bismol. FRANCA with formed, yellow colored stool, sent for guaiac testing. Right upper quadrant ultrasound was ordered given her right upper quadrant tenderness and history of gallstones. Right upper quadrant ultrasound was normal. Patient feeling better after medications. Patient most likely experiencing biliary colic after eating goat cheese. We discussed dietary modifications and importance of following up with GI, surgery, PCP. She was given strict return precautions and is stable for discharge home with outpatient follow-up. Patient agrees with plan all questions were answered Differential Diagnosis Differential Diagnoses: The differential diagnosis associated with the presentation includes biliary colic, choledocholithiasis, cholecystitis, pyelonephritis, colits, pancreatitis, UGIB Admission/Observation Consideration of admission/observation: Escalation of care including admission/observation considered Lab Data MDM Lab Attestation statement: I reviewed the patient's lab results. no anemia or thrombocytopenia, normal LFTs and lipase 08/17/24 11:20 08/17/24 12:27 Labs: Lab Results 08/17/24 08/17/24 08/17/24 Range/Units 09:11 11:20 12:27 WBC 8.1 (4.8-10.8) X10*3/uL RBC 4.52 (4.20-5.50) X10*6/uL Hgb 12.5 (12.0-16.0) g/dl Hct 38.2 (37.0-47.0) % MCV 84.5 (80.0-98.0) fL MCH 27.7 (27.0-33.0) pg MCHC 32.7 (31.0-35.0) g/dl RDW 13.2 (11.0-16.0) % Plt Count 178 (160-400) X10*3/uL MPV 11.3 (9.4-12.3) fL Immature Gran % (Auto) 0.4 (0.0-0.4) % Neut % (Auto) 78.7 H (45-73) % Lymph % (Auto) 13.6 L (20-40) % [place] % (Auto) 6.5 (2-11) % Eos % (Auto) 0.4 (0-4) % Baso % (Auto) 0.4 (0-2) % Lymph # (Auto) 1.1 L (1.2-4.9) X10*3/uL [place] # (Auto) 0.5 (0.1-1.2) X10*3/uL Eos # (Auto) 0.0 (0.0-0.4) X10*3/uL Baso # (Auto) 0.0 (0.0-0.2) X10*3/uL Abs Immat Gran (auto) 0.03 (0.00-0.03) X10*3/uL Absolute Neuts (auto) 6.4 (2.0-8.3) x10*3/uL Absolute Nucleated RBC 0.000 (0.0-0.012) X10*3/uL Nucleated RBC % (auto) 0.0 (0.0-0.2) /100WBC PT 10.6 L (10.9-12.4) SEC INR 0.9 (0.9-1.1) APTT 21.3 L (26.0-36.8) SEC Sodium 140 (135-145) mmol/L Potassium 4.2 (3.3-5.1) mmol/L Chloride 110 H (96-108) mmol/L Carbon Dioxide 26 (22-29) mmol/L Anion Gap 8 L (12-20) BUN 12 (9-16) mg/dL Creatinine 0.68 (0.5-1.4) mg/dL Estim Creat Clear Calc 136.8 Estimated GFR > 60 Random Glucose 86 (60-115) mg/dL Calcium 8.9 (8.4-10.2) mg/dL Total Bilirubin 0.5 (0.0-1.0) mg/dL AST 20 (5-31) U/L ALT 21 (0-31) U/L Alkaline Phosphatase 66 (39-117) U/L Total Protein 7.6 (6.5-8.0) g/dL Albumin 4.3 (3.5-5.0) g/dL Lipase 21 (8-78) U/L Beta HCG, Quant < 2 mIU/mL Urine Color Urine Appearance Urine pH (5.0-9.0) Ur Specific [place] (1.005-1.025) Urine Protein (Neg-Trace) mg/dL Urine Glucose (UA) (Negative) mg/dL Urine Ketones (Negative) mg/dL Urine Blood (Negative) Urine Nitrite (Negative) Ur Leukocyte Esterase (Negative) Stool Occult Blood (NEGATIVE) Influenza Type A (PCR) NEGATIVE NEGATIVE (Negative) Influenza Type B (PCR) NEGATIVE NEGATIVE (Negative) RSV RNA Qual (PCR) NEGATIVE NEGATIVE (Negative) SARS-CoV-2 RNA (RT-PCR) NEGATIVE NEGATIVE (Negative) 08/17/24 08/17/24 Range/Units 12:36 16:29 WBC (4.8-10.8) X10*3/uL RBC (4.20-5.50) X10*6/uL Hgb (12.0-16.0) g/dl Hct (37.0-47.0) % MCV (80.0-98.0) fL MCH (27.0-33.0) pg MCHC (31.0-35.0) g/dl RDW (11.0-16.0) % Plt Count (160-400) X10*3/uL MPV (9.4-12.3) fL Immature Gran % (Auto) (0.0-0.4) % Neut % (Auto) (45-73) % Lymph % (Auto) (20-40) % [place] % (Auto) (2-11) % Eos % (Auto) (0-4) % Baso % (Auto) (0-2) % Lymph # (Auto) (1.2-4.9) X10*3/uL [place] # (Auto) (0.1-1.2) X10*3/uL Eos # (Auto) (0.0-0.4) X10*3/uL Baso # (Auto) (0.0-0.2) X10*3/uL Abs Immat Gran (auto) (0.00-0.03) X10*3/uL Absolute Neuts (auto) (2.0-8.3) x10*3/uL Absolute Nucleated RBC (0.0-0.012) X10*3/uL Nucleated RBC % (auto) (0.0-0.2) /100WBC PT (10.9-12.4) SEC INR (0.9-1.1) APTT (26.0-36.8) SEC Sodium (135-145) mmol/L Potassium (3.3-5.1) mmol/L Chloride (96-108) mmol/L Carbon Dioxide (22-29) mmol/L Anion Gap (12-20) BUN (9-16) mg/dL Creatinine (0.5-1.4) mg/dL Estim Creat Clear Calc Estimated GFR Random Glucose (60-115) mg/dL Calcium (8.4-10.2) mg/dL Total Bilirubin (0.0-1.0) mg/dL AST (5-31) U/L ALT (0-31) U/L Alkaline Phosphatase (39-117) U/L Total Protein (6.5-8.0) g/dL Albumin (3.5-5.0) g/dL Lipase (8-78) U/L Beta HCG, Quant mIU/mL Urine Color Yellow Urine Appearance Clear Urine pH 7.0 (5.0-9.0) Ur Specific [place] >= 1.030 H (1.005-1.025) Urine Protein Negative (Neg-Trace) mg/dL Urine Glucose (UA) Negative (Negative) mg/dL Urine Ketones Negative (Negative) mg/dL Urine Blood Negative (Negative) Urine Nitrite Negative (Negative) Ur Leukocyte Esterase Negative (Negative) Stool Occult Blood NEGATIVE (NEGATIVE) Influenza Type A (PCR) (Negative) Influenza Type B (PCR) (Negative) RSV RNA Qual (PCR) (Negative) SARS-CoV-2 RNA (RT-PCR) (Negative) Independent Interpretation I performed an independent interpretation of an: Ultrasound Interpretation: No visible gallstones, agrees radiology read Radiology Impression Discussion of test interpretation with radiology: I have reviewed the radiologist's reading. External Record Review External record reviewed: Office record, Outpatient record, Prior outpatient labs and Prior outpatient radiology Tests considered The following testing was considered but not selected: CT abd/pelvis considered, low suspicion for acute GIB Prescription Management I considered prescription management with: Pain Medication and Antibiotic Critical Care Time Critical Care Time Critical Care Time: Yes Total Critical Care Time: 32 Attestation: I have personally provided critical care time exclusive of time spent on separately billable procedures. Time includes review of lab data, radiology results, discussion with consultants, and re-evaluation after administration of IV narcotics, monitoring for potential decompensation. Intervention performed as documented. Discharge Plan Discharge Clinical Impression: Abdominal pain, RUQ, Biliary colic Patient Disposition: Home, Self-Care Instructions: Biliary Colic (ED) Additional Instructions: Your lab workup today was reassuring Your ultrasound was normal You are likely experiencing biliary colic Recommend dietary modifications - no dairy, fatty foods, greasy foods Follow up with GI and Surgery If you develop new or worsening symptoms call 911 or come back to the ER for further evaluation. Prescriptions: No Action albuterol sulfate [ProAir HFA] 90 mcg/actuation HFA aerosol inhaler 2 puff inhalation QID PRN (Reason: shortness of breath or wheezing) Qty: 8.5 1RF cetirizine [All Day Allergy (cetirizine)] 10 mg tablet 10 mg PO DAILY PRN (Reason: allergy symptoms) Qty: 20 0RF cyclobenzaprine 5 mg tablet 5 mg PO BEDTIME PRN (Reason: muscle spasm) Qty: 14 1RF docusate sodium 100 mg capsule 100 mg PO DAILY Qty: 30 3RF amitriptyline 10 mg tablet 5 mg PO BEDTIME Qty: 30 0RF Referrals: Huy Shields MD [Physician] - Po,Gabriela Ibarra MD [Primary Care Provider] - Print Language: Senegalese
[2024-08-17 11:27] LABS: MANUAL DIFF FLAG NO
[2024-08-17 11:29] LABS: Basophils Percent Auto 0.4 % (0-2); Eosinophils Percent Auto 0.4 % (0-4); Hematocrit 38.2 % (37.0-47.0); Hemoglobin 12.5 g/dl (12.0-16.0); Imm Gran Abs Auto 0.03 X10*3/uL (0.00-0.03); Imm Gran Pct Auto 0.4 % (0.0-0.4); Lymphocytes Absolute Auto 1.1 X10*3/uL (1.2-4.9); Lymphocytes Percent Auto 13.6 % (20-40); Mean Corpuscular HGB Conc 32.7 g/dl (31.0-35.0); Mean Corpuscular Hemoglobin 27.7 pg (27.0-33.0); Mean Corpuscular Volume 84.5 fL (80.0-98.0); Mean Platelet Volume 11.3 fL (9.4-12.3); Monocytes Absolute Auto 0.5 X10*3/uL (0.1-1.2); Monocytes Percent Auto 6.5 % (2-11); Neutrophils Absolute Auto 6.4 x10*3/uL (2.0-8.3); Neutrophils Percent Auto 78.7 % (45-73); Platelet Count 178 X10*3/uL (160-400); Red Blood Count 4.52 X10*6/uL (4.20-5.50); Red Cell Distribution Width 13.2 % (11.0-16.0); White Blood Count 8.1 X10*3/uL (4.8-10.8)
[2024-08-17 11:48] LABS: INTERNATIONAL NORM RATIO 0.9 (0.9-1.1); Prothrombin Time 10.6 SEC (10.9-12.4)
[2024-08-17 11:51] LABS: Partial Thromboplastin Time 21.3 SEC (26.0-36.8)
[2024-08-17 12:06] LABS: Influenza A PCR NEGATIVE (Negative); Influenza B PCR NEGATIVE (Negative); Resp Syncy Virus RNA Qual PCR NEGATIVE (Negative); SARS COV2 PCR INHOUSE NEGATIVE (Negative)
[2024-08-17 12:49] LABS: Appearance Urine Clear; Color Urine Yellow; Glucose Urine UA Negative (Negative); Leukocyte Esterase Urine Negative (Negative); Nitrite Urine Negative (Negative); Specific Gravity - Urine >= 1.030 (1.005-1.025); Urine Blood Negative (Negative); Urine Ketones Negative (Negative); Urine Protein Negative (Neg-Trace)
[2024-08-17 13:20] LABS: HCG Quantitative < 2 mIU/mL
[2024-08-17 13:54] LABS: Alanine Aminotransferase 21 U/L (0-31); Albumin Level 4.3 g/dL (3.5-5.0); Alkaline Phosphatase 66 U/L (39-117); Anion Gap 8 (12-20); Aspartate Amino Transferase 20 U/L (5-31); Bilirubin Total 0.5 mg/dL (0.0-1.0); Blood Urea Nitrogen 12 mg/dL (9-16); Calcium 8.9 mg/dL (8.4-10.2); Carbon Dioxide 26 mmol/L (22-29); Chloride 110 mmol/L (96-108); Creatinine Clr Calc Pharmacy 136.8; Estimated Glomerular Filt Rate > 60; Glucose Random 86 mg/dL (60-115); Lipase 21 U/L (8-78); Potassium 4.2 mmol/L (3.3-5.1); Sodium 140 mmol/L (135-145); Total Protein 7.6 g/dL (6.5-8.0)
[2024-08-17 14:23] LABS: Influenza A PCR NEGATIVE (Negative); Influenza B PCR NEGATIVE (Negative); Resp Syncy Virus RNA Qual PCR NEGATIVE (Negative); SARS COV2 PCR INHOUSE NEGATIVE (Negative)
[2024-08-17] MEDS: ondansetron HCL 4 MG/2 ML VIAL IVPUSH (16:09)
[2024-08-17] MEDS: Morphine Sulfate 4 MG/ML CARTRIDGE IVPUSH (16:20)
[2024-08-17 17:13] LABS: OBS Int Ctl Valid YES; OBS1 NEGATIVE (NEGATIVE)
[2024-08-17 17:28] VITALS: BP 00/00; PULSE 77; RESP 18; TEMP 36.4; O2SAT 100
[2024-08-17 17:53] VITALS: BP 110/58; PULSE 70; RESP 18; TEMP 36.7; O2SAT 98
== END 2024-08-17 18:21 | disposition home or self-care (01) ==
PROVIDERS: Physician Assistant; Emergency Provider Emergency Medicine; PCP Internal Medicine
DX: K80.50 Calculus of bile duct without cholangitis or cholecystitis without obstruction (principal); R10.11 Right upper quadrant pain; R10.2 Pelvic and perineal pain; R35.0 Frequency of micturition; R11.0 Nausea; Z79.899 Other long term (current) drug therapy; Z03.818 Encounter for observation for suspected exposure to other biological agents ruled out
CPT/HCPCS: 0241U; 76705; 80053; 81003; 82272; 83690; 84702; 85025; 85610; 85730; 87880; 96374; 96375; 99212; 99284; J2270; J2405

== ENCOUNTER → 2024-08-17 15:39 | Outpatient (BNV) | payer MEDICARE, MEDICAID, SELFPAY | PROVIDERS: Emergency Provider Emergency Medicine; PCP Internal Medicine; Visit Provider Radiology Diagnostic Radiology | DX: R10.11 Right upper quadrant pain (principal) | CPT/HCPCS: 76705 ==

== ENCOUNTER 2024-08-18 10:01 | Outpatient (AMB) | payer MEDICARE, MEDICAID, SELFPAY ==
--- NOTE | 2024-08-18 10:04 | A.OFFVIS_ITS ---
Vital Signs 08/18/24 10:06 Height 5 ft 7 in Weight 233 lb BMI 36.5 BP 110/63 Blood Pressure Location Lt brachial Position Sitting Pulse 85 Intake Visit Reasons: gallbladder pain Intake Note: Patient referred after ED visit for RUQ pain. Patient c/o: pain started 2d ago. Noticed black stool yesterday. Abd U/U: 08-17-2024 [employer] Required: No Accompanied by: spouse Alan Allergies No Known Allergies Allergy (Verified 08/18/24 10:06) Medication List - Last Reconciled 08/18/24 by Danial Lozoya MD albuterol sulfate 90 mcg/actuation (ProAir HFA) 2 puffs inhalation QID PRN amitriptyline 5 mg (1/2 x 10 mg) PO BEDTIME cetirizine (All Day Allergy (cetirizine)) 10 mg PO DAILY PRN cyclobenzaprine 5 mg PO BEDTIME PRN docusate sodium 100 mg PO DAILY HPI Comments Details: Patient presents status post ER visit yesterday for right upper quadrant pain radiating around to her back. Patient was had these type of symptoms for many years time. She is had several ultrasounds all of which have been negative. She is also had several CT scans of the abdomen with job and negative as well. Patient also has history of chronic constipation as well as hemorrhoids. section x2. Patient says she moves her bowels maybe once a week with a regimen of purgatives. She is never been jaundiced before. Not sure if she is fatty food intolerance or not. Patient presents here with her for office visit. Patient has been seen for a variety of GI issues by Gastroenterology at [place] as well Chart was reviewed and patient evaluated [facility] Medical History Frequency of micturition Chronic constipation Hx of chest pain Hearing difficulty of right ear Prolapsed hemorrhoids Thrombosed external hemorrhoid Nephrolithiasis Allergic rhinitis Thyroid nodule Obesity (BMI 30-39.9) Vitamin D deficiency Generalized anxiety disorder GERD (gastroesophageal reflux disease) Migraine Asthma COVID-19 Surgical History History of esophagogastroduodenoscopy (EGD) History of hemorrhoidectomy History of colonoscopy H/O LEEP History of 2 sections Family History Maternal Grandmother Myocardial infarct Father Kidney carcinoma Social History Household Members: Family Housing: Apartment Are you a primary wound care nurse to a significant other at home: No Do you presently have visiting nurse or other home services: No Alcohol intake: current Comment: once a month Patient Tobacco Use Status: Never used Tobacco e-Cigarette/Vaping Use: Never Used Second Hand Smoke Exposure: No service: No Current occupational status: employed 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 Moderately corpulent abdomen. Soft, benign. Assessment & Plan Assessment & Plan (1) Right upper quadrant abdominal pain: Code(s): R10.11 - Right upper quadrant pain Category: Surgical Plan Although the patient describes biliary symptoms, ultrasound of the right upper quadrant has been nondiagnostic. Current plan is to arrange for HIDA scan with stimulation to evaluate for possible biliary dyskinesia as the etiology of the patient's right upper quadrant symptoms. Arrangements were made for this. Patient was see me after the study. All questions answered. Orders: Orders NM hepatobiliary w pharm Today K82.8 - Other specified diseases of gallbladder Coding Level of Care Code New Pt Level 4 (42523) Diagnoses Right upper quadrant abdominal pain R10.11
[2024-08-18 10:06] VITALS: BP 110/63; PULSE 85; BMI 36.5
== END 2024-08-18 10:13 | disposition home or self-care (01) ==
LOC: HO.HGS 10:01
PROVIDERS: PCP Internal Medicine; Visit Provider Surgery
DX: R10.11 Right upper quadrant pain (principal)
CPT/HCPCS: 99204

== ENCOUNTER → 2024-08-18 10:01 | Outpatient (BNVA) | payer MEDICARE, MEDICAID, SELFPAY | PROVIDERS: PCP Internal Medicine; Visit Provider Surgery | DX: R10.11 Right upper quadrant pain (principal) | CPT/HCPCS: 99202 ==

== ENCOUNTER 2024-09-02 13:25 | Outpatient (AMB) | payer MEDICARE, MEDICAID, SELFPAY ==
--- NOTE | 2024-09-02 13:37 | MHC.PC.OV ---
Vital Signs 09/02/24 13:38 Height 5 ft 7 in Weight 240 lb 2 oz BMI 37.6 BP 112/80 Blood Pressure Location Lt brachial Position Sitting Pulse 86 Pulse Source Pulse Oximeter Pulse Oximetry (%) 97 Oxygen Delivery Method Room Air Intake Visit Reasons: gallbladder discomfort/ bumps all over body Spreader Operator Automatic Required: No Accompanied by: Self / Same As Patient Allergies No Known Allergies Allergy (Verified 09/02/24 13:50) Medication List - Last Reconciled 09/02/24 by KAITLIN Babb albuterol sulfate 90 mcg/actuation (ProAir HFA) 2 puffs inhalation QID PRN amitriptyline 5 mg (1/2 x 10 mg) PO BEDTIME cetirizine (All Day Allergy (cetirizine)) 10 mg PO DAILY PRN cyclobenzaprine 5 mg PO BEDTIME PRN docusate sodium 100 mg PO DAILY Tobacco use date assessed: 09/02/24 Dental Screening Dental Screen Date: 09/02/24 Did you have a dental visit in the last 12 months?: No Did you have a dental problem in the last 6 months where you did not have access to dental care?: No Was dental information given to patient?: Patient has dentist HPI gallbladder discomfort/ bumps all over body HPI Details The patient is a 39-year-old female with significant past medical history of migraines, asthma, chronic constipation, hypercholesteremia, hemorrhoid, hypersomnia, menorrhagia, fibroid in intermittent chest pain The patient is presenting today with complaints of: chest pain: 2 days, was laying down tightness started posterior chest radiates to the front sob due the episode sharp, random, continuously tx tylenol with some relief and tums without any effect tx asprin-taken with concern for heart attack unaware of any triggers ekg done in office was sinus rhythm with any ectopy Scattered erythematous, small raised areas: the patient is concerned if these could be insect bites going on for couple weeks now she washed clothing in hot water and did a mass cleaning reports that the bites are only on her sleeps in the same bed without any issues the areas appeared out of nowhere they are intermittently itchy sometimes she makes herself bleed with scratching reports that she contact a superintendent laundry and go an appt for 09/06/24 feels like something is crawling on her all the time prednisone tapered was ordered along with triamcinolone 0.5 % to apply to the affected areas. gallbladder: has a hida scan scheduled to r/o possible biliary dyskinesia by general surgery. after going to the ED for RUQ pain. US done with no findings reported that the patient ate goat cheese. Dietary modifications [facility] Medical History Frequency of micturition Chronic constipation Hx of chest pain Hearing difficulty of right ear Prolapsed hemorrhoids Thrombosed external hemorrhoid Nephrolithiasis Allergic rhinitis Thyroid nodule Obesity (BMI 30-39.9) Vitamin D deficiency Generalized anxiety disorder GERD (gastroesophageal reflux disease) Migraine Asthma COVID-19 Surgical History History of esophagogastroduodenoscopy (EGD) History of hemorrhoidectomy History of colonoscopy H/O LEEP History of 2 sections Family History Maternal Grandmother Myocardial infarct Father Kidney carcinoma Social History Household Members: Family Housing: Apartment Are you a primary health care recruiter to a significant other at home: No Do you presently have visiting nurse or other home services: No Alcohol intake: current Comment: once a month Patient Tobacco Use Status: Never used Tobacco e-Cigarette/Vaping Use: Never Used Second Hand Smoke Exposure: No service: No Current occupational status: employed 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 1. Little interest or pleasure in doing things: not at all 2. Feeling down, depressed, or hopeless: not at all 3. Trouble falling or staying asleep, or sleeping too much: not at all 4. Feeling tired or having little energy: not at all 5. Poor appetite or overeating: not at all 6. Feeling bad about yourself - or that you are a failure or have let yourself or your family down: not at all 7. Trouble concentrating on things, such as reading the newspaper or watching television: not at all 8. Moving or speaking so slowly that other people could have noticed. Or the opposite - being so fidgety or restless that you have been moving around a lot more than usual: not at all 9. Thoughts that you would be better off or of hurting yourself in some way: not at all Total score: 0 Depression Screening Interpretation: Negative Depression Screening Done: Yes 73737 - PHQ-9 Billing: Yes Source: Developed by Drs. Bon Hernandez, Gilma Alvarado, Daren Thakur and colleagues, with an educational alfredo from [employer]. Thrive Questionnaire Date Thrive assessed: 09/02/24 I am a: Patient What is your living situation today?: I have a steady place to live Within the past 12 months, did the food you bought not last and you didn't have the money to get more?: Never true Within the past 12 months, did you worry whether your food would run out before you got money to buy more?: Never true Do you have trouble paying for medicines?: No Do you have trouble getting transportation to medical appointments?: No Do you have trouble paying your heating and electricity bill?: No Do you have trouble taking care of your child, family member or friend?: No Do you have trouble with day-to-day activities such as bathing, preparing meals, shopping, managing finances, etc.?: No Are you currently unemployed and looking for a job?: No Are you interested in more education?: No Please select the resources that you would like help with: None Currently or been in a relationship where the following occur: No concerns reported THRIVE Score: 0 AUDIT C Alcohol Use Questionnaire (AUDIT-C) 1. How often do you have a drink containing alcohol?: Never 3. How often do you have six or more drinks on one occasion?: Never Total Score: 0 Score Reviewed/Action Taken: No POLLO-7 AMB Questionnaire POLLO-7 Date POLLO - 7 assessed: 09/02/24 Feeling nervous, anxious, or on edge: 0 = Not at all Not being able to stop or control worryin = Not at all Worrying too much about different things: 0 = Not at all Trouble relaxin = Not at all Being so restless that it is hard to sit still: 0 = Not at all Becoming easily annoyed or irritable: 0 = Not at all Feeling afraid as if something awful might happen: 0 = Not at all Total POLLO-7 score (0-4 normal; 5-9 mild; 10-14 moderate; 15-21 severe): 0 Source: Developed by Drs. Bon Hernandez, Gilma Alvarado, Daren Thakur and colleagues, with an educational alfredo from [employer]. POLLO-7 Assessment Billing POLLO-7 Assessment Tool: POLLO-7 Assessment 11214 Review of Systems Const Details: Denies chills, Denies fatigue, Denies fever(s), + recurrent headache(s) and Denies weakness HEENT Denies change in vision, Denies dizziness, + recurrent headache(s), Denies hearing loss, Denies nasal congestion, Denies sinus pain, Denies sinus pressure and Denies sore throat Card +chest pain, Denies lightheadedness, + intermittently dyspnea and Denies other (palpitations) Resp Denies cough, + intermittently dyspnea and Denies wheezing GI + intermittently abdominal pain, Denies melena, Denies hematochezia, Denies change in bowel habits, Denies dyspepsia and Denies nausea Denies hematuria and Denies dysuria Musc Denies abnormal gait, Denies myalgias, Denies arthralgias, Denies numbness and Denies tingling Skin/Breast Denies rash, Denies unusual bruising and Denies wounds Neuro Denies abnormal gait, Denies dizziness, + recurrent headache(s), Denies memory loss, Denies numbness, Denies Sensory deficit (Neuro), Denies tingling and Denies weakness Psych Denies anxiety, Denies depression and Denies memory loss Endo Denies cold intolerance, Denies fatigue, Denies heat intolerance, Denies polydipsia and Denies polyuria Jin/Lymph Denies easy bleeding and Denies easy bruising Aller/Immun Denies wheezing Physical exam (Primary Care) Vital Signs: Last Vital Signs Pulse 86 09/02/24 13:38 BP 112/80 09/02/24 13:38 Pulse Ox 97 09/02/24 13:38 Oxygen Delivery Method Room Air 09/02/24 13:38 BMI result Body Mass Index 37.6 Tobacco/Smoking Status: Tobacco use Status Tobacco use date assessed 09/02/24 09/02/24 13:46 Patient Tobacco Use Status Never used Tobacco 09/02/24 13:46 e-Cigarette/Vaping Use Never Used 09/02/24 13:46 PHQ-9: PHQ-9 Score PHQ-9: Total score 0 09/02/24 22:56 Depression Screening Interpretation: Negative Thrive Assessment: Date of Thrive Assessment Date Thrive assessed 09/02/24 09/02/24 13:46 Currently or been in a relationship where the following occur: No concerns reported Const Other: General: no acute distress, well developed, alert and awake Nutritional Appearance: well nourished Orientation/consciousness: patient oriented x3 HENMT Head: Yes normocephalic and Yes atraumatic Ears: hearing grossly normal bilaterally and TM's normal bilaterally Eyes Pupils: Equal, round and reactive pupils present and Pupil accommodation reflex normal EOM: EOMs intact bilaterally Neck Neck: Yes normal visual inspection, Yes no lymphadenopathy and Yes trachea midline Thyroid: Thyroid normal Carotids: no bruits Lymphatic: no lymphadenopathy noted Chest Chest palpation & inspection: normal inspection of the chest Resp Effort & Inspection: normal respiratory effort Auscultation: clear to auscultation bilaterally Cardio Rate: regular rate Rhythm: regular rhythm Heart sounds: S1 normal heart sound present, S2 normal heart sound present, no gallops, no murmurs and no rubs GI Palpation (GI): No Abdomen soft to palpation. Mild tenderness in right upper quadrant Auscultation: normal bowel sounds General: Yes no CVA tenderness Back/Spine/Pelvis Back: no CVA tenderness Skin General: warm and dry. Normal skin color. Normal skin turgor Lesions: no lesions Rashes: multiple raised, itchy, erythmatous, papules, widespread, on upper back, bilateral arms Trauma: no lacerations or abrasions Wounds: no wounds Nails: normal Neuro General: patient oriented x3, gait normal Cranial nerves: Yes Equal, round and reactive pupils present Cognition (Neuro): normal cognition Gait exam (Neuro): Normal gait present Extrem General: Yes normal to inspection, No edema and No calf tenderness Psych Appearance: grossly normal Affect: normal affect Attitude: cooperative Thought process: Normal thought process present Office Procedures EKG 14426-[id number], Complete Coding Level of Care Code Est Pt Level 4 (22881) Diagnoses Right upper quadrant abdominal pain R10.11 Gastroesophageal reflux disease without esophagitis K21.9 Esophagitis presence: without esophagitis Chest pain, unspecified type R07.9 Chest pain type: unspecified Bumps on skin L98.9 CPT Codes EKG - CPT: 81479-[id number], Complete ([id number]) Additional Codes POLLO-7 Assessment Billing - POLLO-7 Assessment Tool: POLLO-7 Assessment 40591 ([id number]) PHQ-9 - 87042 - PHQ-9 Billing: Yes ([id number]) Assessment & Plan Assessment & Plan (1) Right upper quadrant abdominal pain: Code(s): R10.11 - Right upper quadrant pain Category: Surgical Plan: The patient was recently seen in the ED for c/o RUQ pain. US completed-showed no acute findings General surgery was consulted and the patient has a pending HIDA scan r/o biliary dyskinesia It was reported that the patient ate goat cheese before having this symptom Dietary modification encouraged (2) GERD (gastroesophageal reflux disease): Code(s): K21.9 - Gastro-esophageal reflux disease without esophagitis Category: Medical Qualifiers: Esophagitis presence: without esophagitis Qualified Code(s): K21.9 - Gastro-esophageal reflux disease without esophagitis Plan: reinforced dietary restrictions pt to avoid eating before going to bed. Allow yourself 3-4 hours before laying down (3) Chest pain: Code(s): R07.9 - Chest pain, unspecified Category: Medical Qualifiers: Chest pain type: unspecified Qualified Code(s): R07.9 - Chest pain, unspecified Plan: The patient has a hx of chest pain. She reports that this chest pain started 2 days ago ekg done in office: NSR. The patient to follow with cardiology (4) Bumps on skin: Code(s): L98.9 - Disorder of the skin and subcutaneous tissue, unspecified Category: Medical Plan: scattered erythematous bumps on multiple body parts, back, bilateral arms/hands Intermittently itchy to the point of scratching herself until the areas bleed. prednisone taper ordered and triamcinolone 0.5% topical ordered Follow with dermatology as scheduled Plan To return as scheduled in 02/27/2025 for her annual physical examination with her PCP Orders: Orders AMB EKG-In Office 09/02/24 Z13.6 - Encounter for screening for cardiovascular disorders Medications: New prednisone see taper instructions 4 tabs x2 days, 3 tabs x2 days, 2 tabs x2 days, 1 tab x 2 days=20 tabs for 8 days 10 mg PO DIRECTED 20 tabs 0RF triamcinolone acetonide 0.5% to affected areas 1 appl topical BID 15 grams 0RF
[2024-09-02 13:38] VITALS: BP 112/80; PULSE 86; O2SAT 97; BMI 37.6
--- OUTSIDE RECORDS SUMMARY | 2024-09-02 15:49 | XMS_ITS | Clinical Summary ---
Author Organization [employer] [facility] it Address [address] [place] [address] Care Team Providers Care Web Operations Manager Name Role Phone Gabriela Arce MD Primary Care Provider [phone] Encounters Date Type Department Care Team Description 06/23/2024 Telephone Orthopedic Surgery - [place] [address] [facility] [address] [place] [address] Keiry Ugalde from Last 3 Months Social History Tobacco Use Types Packs/Day Years Used Date Smoking Tobacco: Never Assessed Sex and Gender Information Value Date Recorded Sex Assigned at Not on file Gender Identity Not on file Sexual Orientation Not on file Plan of Treatment Health Maintenance Due Date Last Done Comments Breast Cancer Screening 1983 Pneumococcal Vaccine: Pediat rics (0 to 5 Years) and At-Risk Patients (6 to 64 Years) (1 of 2 - PCV) 1989 DTaP,Tdap,and Td Vaccines (1 - Tdap) 2002 Hepatitis B Vaccines (1 of 3 - 19+ 3-dose series) 2002 Cervical Cancer Screening: P ap Smear 02/28/2004 COVID-19 Vaccine (2023-2 5 season) 2024 Influenza Vaccine (#1) 2024 Cholesterol Screening (Lipid Panel) 05/24/2024 Depression Screening 05/24/2024 HIV Screening 05/24/2024 Hepatitis C Screening 05/24/2024 Social Influencers of Health Screening 05/24/2024 HIB Vaccines Aged Out No longer eligi ble based on patient's age to complete this topic HPV Vaccines Aged Out No longer eligi ble based on patient's age to complete this topic Hepatitis A Vaccines Aged Out No long er eligible based on patient's age to complete this topic IPV Vaccines Aged Out No longer eligi ble based on patient's age to complete this topic MMR Vaccines Aged Out No longer eligi ble based on patient's age to complete this topic Meningococcal ACWY Vaccine Aged Out N o longer eligible based on patient's age to complete this topic RSV Immunization Patients Un lucita 20 months Aged Out No longer eligible b ased on patient's age to complete this topic Varicella Vaccines Aged Out No longer eligible based on patient's age to complete this topic Procedures Procedure Name Priority Date/Time Associated Diagnosis Comments ORTHO X-RAY FOOT (3 VIEWS) Routine 06/10/2024 9:24 AM EDT Bunion of right foot Bunion of left foot from Last 3 Months Results * ORTHO X-RAY FOOT (3 VIEWS) (06/10/2024 9:24 AM EDT) Anatomical Region Laterality Modality Radiographic Sara ging 06/10/2024 7:16 AM EDT Narrative 06/11/2024 2:33 PM EDT Right foot ??3 views No fracture. No radiopaque foreign Mild bunion deformity slight increase intermetatarsal angulation slight deviation tibial sesamoid with heterotrophic medial eminence ??toes Hammer toes seen in the fourth and fifth adductovarus ??joint spaces normal Foot position rectus Normal talus navicular position normal calcaneal inclination normal symes line talus navicular joint to calcaneal cuboid joint Left foot 3 views No fracture. No radiopaque foreign Mild bunion deformity relatively rectus intermetatarsal angulation appropriate position tibial sesamoid ??heterotrophic medial eminence and dorsal medial eminence ??toes Hammer toes seen in the fourth and fifth adductovarus ??joint spaces normal Foot position rectus Normal talus navicular position normal calcaneal inclination normal symes line talus navicular joint to calcaneal cuboid joint Procedure Note Marcelo Bingham DPM - 07/05/2024 Right foot 3 views No fracture. No radiopaque foreign Mild bunion deformity slight increase intermetatarsal angulation slightdeviation tibial sesamoid with heterotrophic medial eminence toes Hammer toes seen in the fourth and fifth adductovarus joint spaces normal Foot position rectus Normal talus navicular position normal calcanealinclination normal symes line talus navicular joint to calcaneal cuboidjoint Left foot 3 views No fracture. No radiopaque foreign Mild bunion deformity relatively rectus intermetatarsal angulationappropriate position tibial sesamoid heterotrophic medial eminence anddorsal medial eminence toes Hammer toes seen in the fourth and fifth adductovarus joint spaces normal Foot position rectus Normal talus navicular position normal calcanealinclination normal symes line talus navicular joint to calcaneal cuboidjoint Marcelo Bingham DPM IMG XR PROCEDURES from Last 3 Months Care Teams Web Operations Manager Relationship Specialty Start Date End Date Gabriela Arce MD [address] [place] [address] Dr [address] [facility] [place] [address] PCP - General 02/23/24
== END 2024-09-02 14:16 | disposition home or self-care (01) ==
PROVIDERS: PCP Internal Medicine
DX: R10.11 Right upper quadrant pain (principal); K21.9 Gastro-esophageal reflux disease without esophagitis; R07.9 Chest pain, unspecified; L98.9 Disorder of the skin and subcutaneous tissue, unspecified

== ENCOUNTER → 2024-09-02 13:25 | Outpatient (BNVA) | payer MEDICARE, MEDICAID, SELFPAY | PROVIDERS: PCP Internal Medicine | DX: R10.11 Right upper quadrant pain (principal); K21.9 Gastro-esophageal reflux disease without esophagitis; R07.9 Chest pain, unspecified; L98.9 Disorder of the skin and subcutaneous tissue, unspecified | CPT/HCPCS: 93005; 96127; 99212 ==

== ENCOUNTER → 2024-09-13 10:46 | Outpatient (REF) | payer MEDICARE, MEDICAID, SELFPAY ==
--- NOTE | ~2024-09-13 | NM_ITS ---
EXAMINATION: NM BILIARY TRACT CLINICAL INFORMATION: Biliary dyskinesia. Long-standing right upper quadrant pain COMPARISON: None available. TECHNIQUE: Following intravenous administration of 4.5 mCi of technetium 99m mebrofenin, imaging over the right upper quadrant was obtained up to 60 minutes. At 60 minutes 2.18 mcg of CCK was obtained over 30 minutes. FINDINGS: There is normal hepatic uptake without any focal defects. Gallbladder is visualized by 70 minutes. CBD and small bowel is not visualized up to 60 minutes. Post-CCK there is isotope visualized in the small bowel consistent with patent CBD. Post-CCK the gallbladder ejection fraction at 10 minutes is 13%, the gallbladder ejection fraction at 20 minutes is 93%, The gallbladder ejection fraction at 30 minutes is 96%. NM/NM hepatobiliary w pharm IMPRESSION: Patent cystic duct. Patent CBD. Normal hepatic uptake. Normal gallbladder ejection fraction of 96% at 30 minutes post CCK. Electronically signed by: Anuel Delgado MD 09/13/2024 05:53 PM [facility]
--- OUTSIDE RECORDS SUMMARY | 2024-09-13 11:39 | XMS_ITS | Encounter Summary ---
Author Organization [facility] Address [address] [place] [phone] Care Team Providers Care Seismometer Operator Name Role Phone Gabriela Arce MD Primary Care Provider [phone] Encounter Details Date Type Department Care Team (Late st Contact Info) Description 09/09/2024 Telephone Orthopedic Surgery - [place] [address] [facility] [address] [place] [address] Keiry Ugalde Social History Tobacco Use Types Packs/Day Years Used Date Smoking Tobacco: Never Assessed Sex and Gender Information Value Date Recorded Sex Assigned at Not on file Gender Identity Not on file Sexual Orientation Not on file Job Start Date Occupation Industry Not on file Not on file Not on file documented as of this encounter Progress Notes * Keiry Ugalde - 09/09/2024 1:39 PM EST Spoke with the patient this afternoon regarding her previous call to the office. The patient was very upset. She stated that she was told that she was going to be scheduled for surgery on 09/17/[address] Bingham, and was checking the status of her [facility] paperwork. After reviewing the patient's chart, there is not surgical date scheduled for 09/17/2024. The patientwas very upset and I did apologize to her for the miscommunication. The patient stated that she hasalready taken time off of work and coordinated her leave around the assumption that she was going to be having surgery on 09/17/2024. I did explain to the patient that there is a possibility that we can get her scheduled a week lateron 09/24/2024, I would just need to speak with Dr. Bingham about entering the surgical order into her chart and letting me know how long he will need for the case. Dr. Bingham, this was the order that was in the legacy system. If we can talk about trying to get her added on as soon as possible. Assist: NO Pre-op Consult: YES Which hospital?: [facility] Procedure: Jade bunionectomy right CPT: 03752 Length: 30 minutes Anticoagulation: no Hospital Stay: Short stay Special equipment: none Anesthesia: IV Sedation Anesthesia consult: NO Latex Allergy: NO There is no height or weight on file to calculate BMI. Pre-Op Testing: none Post Op Appointment: 2 Weeks Room type? Regular Comments: Insurance: [place] / [place] / Product Type: MEDICARE [id number] documented in this encounter Plan of Treatment Upcoming Encounters Date Type Department Care Team (Late st Contact Info) Description 09/15/2024 8:00 AM EST Consult Orthopedic Surgery - [place] [address] [phone] Marcelo Bingham, DPM [address] [address] documented as of this encounter Visit Diagnoses Not on filedocumented in this encounter Care Teams Seismometer Operator Relationship Specialty Start Date End Date Gabriela Arce MD [address] [place] [address] [address] [facility] [place] [address] PCP - General 02/23/24 documented as of this encounter
--- OUTSIDE RECORDS SUMMARY | 2024-09-13 11:39 | XMS_ITS | Clinical Summary ---
Author Organization [facility] it Address [address] [place] [phone] Care Team Providers Care Home Demonstrator Name Role Phone Gabriela Arce MD Primary Care Provider [phone] Allergies No known active allergies Medications Medication Sig Dispensed Refills Start Date End Date Status albuterol sulfate (ProAir RespiClick) 90 mcg/actuation aerosol powdr breath activated Inhale by mouth. Active betamethasone dipropionate 0.05 % lotion Apply topically 2 (two) times a day. Active cetirizine (ZyrTEC) 10 mg capsule Take 1 capsule (10 mg total) by mouth 1 (one) time each day. Active minoxidiL (LONITEN) 2.5 mg tablet Take 1 tablet (2.5 mg total) by mouth 1 (one) time each day. Active fluconazole (DIFLUCAN) 200 mg tablet Take 1 tablet (200 mg total) by mouth 1 (one) time each day. Active CHOLECALCIFEROL, VITAMIN D3, ORAL Take 1,250 mcg by mouth 1 (one) time each day. Active Active Problems Problem Noted Date Diagnosed Date Allergic rhinitis 06/03/2024 Asthma 06/03/2024 Bunion of unspecified foot 06/03/2024 Chronic constipation 06/03/2024 COVID-19 06/03/2024 Frequency of micturition 06/03/2024 Generalized anxiety disorder 06/03/2024 GERD (gastroesophageal reflux disease) Hearing difficulty of right ear 06/03/2024 Migraine 06/03/2024 Nephrolithiasis 06/03/2024 Obesity (BMI 30-39.9) 06/03/2024 Prolapsed hemorrhoids 06/03/2024 Thrombosed external hemorrhoids 06/03/2024 Thyroid nodule 06/03/2024 Vitamin D deficiency 06/03/2024 Encounters Date Type Department Care Team Description 09/09/2024 Telephone Orthopedic Surgery [facility] [address] [facility] [address] [place] [phone] Keiry Ugalde 06/23/2024 Telephone Orthopedic Surgery [facility] [address] [facility] 160 [place] [phone] Keiry Ugalde from Last 3 Months Social History Tobacco Use Types Packs/Day Years Used Date Smoking Tobacco: Never Assessed Sex and Gender Information Value Date Recorded Sex Assigned at Not on file Gender Identity Not on file Sexual Orientation Not on file Job Start Date Occupation Industry Not on file Not on file Not on file Plan of Treatment Upcoming Encounters Date Type Department Care Team (Late st Contact Info) Description 09/15/2024 8:00 AM EST Consult Orthopedic Surgery [facility] [address] [facility] 250 [place] [phone] Marcelo Bingham, DPM 175 [facility] 250 [place] [address] Health Maintenance Due Date Last Done Comments [...] HIV Screening 05/24/2024 Hepatitis C Screening 05/24/2024 Medicare Annual Wellness Visit 05/24/2024 Social Influencers of Health Screening 05/24/2024 [...] on patient's age to complete this topic Care Teams Home Demonstrator Relationship Specialty Start Date End Date Po, MD Gabriela [address] [place] [address] [address] [facility] [place] [address] PCP - General 02/23/24
== END ==
LOC: HO.NUCMED 10:46
PROVIDERS: PCP Internal Medicine; Visit Provider Surgery
DX: K82.8 Other specified diseases of gallbladder (principal)
CPT/HCPCS: 78227; A9537; J2805

== ENCOUNTER → 2024-09-13 10:47 | Outpatient (BNV) | payer MEDICARE, MEDICAID, SELFPAY | PROVIDERS: PCP Internal Medicine; Visit Provider Radiology Diagnostic Radiology | DX: K83.5 Biliary cyst (principal) | CPT/HCPCS: 78227 ==

== ENCOUNTER 2024-10-12 08:28 | Outpatient (AMB) | payer MEDICARE, MEDICAID, SELFPAY ==
--- NOTE | 2024-10-12 08:32 | MHC.OFFVIS ---
Vital Signs 10/12/24 08:35 Height 5 ft 7 in Weight 246 lb 14.684 oz BMI 38.7 BP 130/80 Blood Pressure Location Rt brachial Position Sitting Pulse 96 Pulse Source Pulse Oximeter Pulse Oximetry (%) 100 Oxygen Delivery Method Room Air Intake Visit Reasons: pain on side. l/s 12/02 Pcp csending new notes Intake Note: ESTABLISHED PATIENT for mgmt of constipation, epigastric pain, rectal bleeding. Labs done as ordered. Chief Complaint; Pt reports her only concern currently is a few dietary questions regarding her intake. Pt denies any sx concerns at this time and states that everything is well controlled. Pt was on the phone for most of the intake process however. Accompanied by: Self / Same As Patient Allergies No Known Allergies Allergy (Verified 10/12/24 08:32) HPI HPI pain on side. l/s 12/02 Pcp csending new notes: Details: LAST VISIT: Chronic constipation Hemorrhoid Rectal bleed Postprandial epigastric pain Plan Will check transglutaminase and CBC. Patient had normal H&H in the beginning of October of 2022. In the past weeks patient does reports to have blood in her stool. Rectal exam done, no blood visible, no hemorrhoid palpable on digital exam. Hard stool noted in her rectum will send a script for Colace. Patient was recommended to take it daily 1-2 tablets. Proctosol sent to pharmacy. Patient was encouraged to do Sitz baths with Epsom salts. Patient reports occasional postprandial done gastric pain. Discussed with patient avoiding certain food. Patient states that she cooks a lot with garlic and onions. Patient was encouraged to stay away from food or decrease the amount that she uses. Low FODMAP diet discussed with patient. List of food recommended as well as list of food to avoid given to patient. I will see patient in 5 weeks, sooner on as needed basis. Patient is agreeable to this plan and verbalizes understanding of instructions. She was given the opportunity to ask questions and all questions answered. ? Thank you for allowing me to participate in her care Orders Orders Transglutaminase IgA Today R10.9 Complete Blood Count no Diff Today K21.9 Transglutaminase Ab IgG Today R10.9 Medications New docusate sodium 100 mg PO DAILY 30 caps 3RF K59.00 hydrocortisone 2.5% (Proctosol HC) 1 appl NM BID-QID PRN 30 grams 2RF hemorrhoids K64.9 cholecalciferol (vitamin D3) 1,250 mcg PO QWEEK 13 caps 0RF Discontinued lactulose Discontinued Reason: Doctor's Order 20 grams (30 mL) PO DAILY 3,000 mL 0RF K59.00 TODAY'S VISIT Patient is here today for follow-up. Patient reports that she has been doing fairly well, moving her bowels without any issues. However she reports that in the past few months she has been having trouble swallowing food. Patient feels tightness in the lower esophagus after eating anything. Patient reports feeling worse with food like bagels, bread. Patient states that she has to chew her food very well and drink fluids with every bite. Patient denies having acid reflux or epigastric pain. Patient denies dyspepsia. Occasional right upper quadrant abdominal pain. Patient seen Dr. Lozoya, HIDA scan done and gallbladder EF is hyperactive at 96%. Patient denies any nausea or vomiting. Reports in general feeling much better. [facility] Medical History Frequency of micturition Chronic constipation Hx of chest pain Hearing difficulty of right ear Prolapsed hemorrhoids Thrombosed external hemorrhoid Nephrolithiasis Allergic rhinitis Thyroid nodule Obesity (BMI 30-39.9) Vitamin D deficiency Generalized anxiety disorder GERD (gastroesophageal reflux disease) Migraine Asthma COVID-19 Surgical History S/P foot surgery, right History of esophagogastroduodenoscopy (EGD) History of hemorrhoidectomy History of colonoscopy H/O LEEP History of 2 sections Family History Maternal Grandmother Myocardial infarct Father Kidney carcinoma Social History Household Members: Family Housing: Apartment Are you a primary child care director to a significant other at home: No Do you presently have visiting nurse or other home services: No Alcohol intake: current Comment: once a month Patient Tobacco Use Status: Never used Tobacco e-Cigarette/Vaping Use: Never Used Second Hand Smoke Exposure: No service: No Current occupational status: employed 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 Cognitive needs: No Hearing needs: No Vision needs: Yes (Glasses) Review of Systems Const Denies weight gain and Denies weight loss ENT Reports no additional complaints, Reports dysphagia and Denies odynophagia Card Reports no additional complaints Resp Reports no additional complaints GI Denies abdominal pain, Denies belching, Denies melena, Denies bloating, Denies hematochezia, Denies change in bowel habits, Denies constipation, Reports dysphagia, Denies excessive flatus, Denies dyspepsia, Denies heartburn, Denies diarrhea, Denies loose stools, Denies nausea, Denies odynophagia and Denies vomiting Reports no additional complaints Musc Reports no additional complaints Neuro Reports no additional complaints Psych Reports no additional complaints Endo Reports no additional complaints Physical Exam Vital Signs: Last Vital Signs Pulse 96 10/12/24 08:35 BP 130/80 10/12/24 08:35 Pulse Ox 100 10/12/24 08:35 Oxygen Delivery Method Room Air 10/12/24 08:35 BMI result Body Mass Index 38.7 Const General: healthy appearing and no acute distress Nutritional Appearance: obese Orientation/consciousness: patient oriented x3 Resp Effort & Inspection: normal respiratory effort, able to speak in complete sentences, no tracheal deviation and symmetric chest movement Auscultation: clear to auscultation bilaterally Cardio Rate: regular rate GI Inspection: Yes normal to inspection, No distended and Yes obesity Palpation (GI): Soft to palpation, not firm, nontender and No hepatosplenomegaly present Auscultation: normal bowel sounds Rectal Exam - Female: normal sphincter tone and No fecal impaction (Hard stool noted in the rectum, patient had a bowel movement this morning) General: Yes no CVA tenderness Back/Spine/Pelvis Back: no CVA tenderness Skin General skin exam: elasticity normal, turgor normal and dry skin Neuro General: patient oriented x3 Psych Appearance: grossly normal Mental Status: mental status grossly normal Assessment & Plan Assessment & Plan (1) Chronic constipation: Code(s): K59.09 - Other constipation Category: Medical (2) Hemorrhoid: Comment: Terry Shields November 2022 Code(s): K64.9 - Unspecified hemorrhoids Category: Medical Qualifiers: Hemorrhoid type: unspecified Qualified Code(s): K64.9 - Unspecified hemorrhoids (3) Dysphagia: Code(s): R13.10 - Dysphagia, unspecified Category: Medical Qualifiers: Dysphagia type: esophageal phase Qualified Code(s): R13.19 - Other dysphagia (4) Postprandial epigastric pain: Code(s): R10.13 - Epigastric pain Plan Will send patient for barium swallow to check for esophageal narrowing, achalasia, stricture, Schatzki ring. Patient will be sent for upper endoscopy as well. Message sent to surgical schedulers. If acid reflux and identified will send script for PPI. For now patient will avoid dietary triggers and weight night snacking. Staying up for minimal 3 hours after meals discussed with patient. Discussed with patient will FODMAP diet. Patient was recommended to follow list that was given to her last visit. Call the office if any more questions. Patient will follow-up in 3 months, sooner on as needed basis. She is agreeable to this plan and verbalizes understanding of instructions. She was given the opportunity to ask questions and all questions answered. Thank you for allowing me to participate in her care Orders: Orders FL barium swallow 10/18/24 R13.10 - Dysphagia, unspecified Coding Level of Care Code Est Pt Level 4 (66437) Complex EM visit Add On G2211 Diagnoses Chronic constipation K59.09 Hemorrhoids, unspecified hemorrhoid type K64.9 Hemorrhoid type: unspecified Esophageal dysphagia R13.19 Dysphagia type: esophageal phase Postprandial epigastric pain R10.13 Time Spent (min) 35 Comment 25 minutes spent with patient and additional 10 minutes spent reviewing her records
[2024-10-12 08:35] VITALS: BP 130/80; PULSE 96; O2SAT 100; BMI 38.7
--- OUTSIDE RECORDS SUMMARY | 2024-10-12 08:51 | XMS_ITS | Encounter Summary ---
Author Organization [employer] Address [address] [place] [address] Care Team Providers Care Beam Machine Operator Name Role Phone Gabriela Arce MD Primary Care Provider [phone] Encounter Details Date Type Department Care Team (Late st Contact Info) Description 09/17/2024 12:14 PM EST Anesthesia Event [facility] Main OR [address] [place] [phone] Casper Holden MD [address] [place] [id number] Iglesia Freitas DO [address] [place] [id number] Anesthesia Record Procedure Summary Procedure Name Responsible Anesthesiologist Anesthesia Start Time Anesthesia Stop Time RIGHT BUNIONECTOMY (Right: First Toe) Casper Holden MD 09/17/24 1214 09/17/24 1309 Events Date Time Event Comment 09/17/2024 1142 1214 An Start 1214 In Room 1214 An Start Data The patient wa s reevaluated immediately before moderate or deep sedation use and before anesthesia induction. 1223 Anesthesia Ready 1225 [facility] ATRAUMATIC 90MM ORAL AIRWAY PLACEMENT 1234 Proc Start 1255 Proc Fin 1302 Out of Room 1302 an stop data 1308 Handoff to RN I completed my handoff to the receiving nurse during which we: 1. Identified the patient 2. Identified the responsible provider 3. Reviewed the pertinent medical history 4. Discussed the surgical course 5. Reviewed intra-op anesthesia management and issues during anesthesia 6. Set expectations for post-procedure period 7. Allowed opportunity for questions and acknowledgement of understanding. 1309 An Stop Meds Name Total fentaNYL 0.05 mg/mL 50 mcg midazolam 1 mg/mL 2 mg ketorolac 30 mg 30 mg propofol (DIPRIVAN) injection 10 mg/mL 1 00 mg propofol (DIPRIVAN) infusion 10 mg/mL 21 3.33 mg lidocaine PF (XYLOCAINE-MPF) local injec tion 2% 100 mg ceFAZolin (ANCEF) 2 g in sterile water 2 0 mL IV syringe 2 g lactated Ringer's infusion 700 mL * Agents Name O2 * Blood No blood administrations on file. Lines, Drains, and Airways Type Details Placement Removal Wound Incision; 09/17/24; 1234; Toe D1, Great; Anterior, Right 09/17/24 1234 by Rosamaria Em RN Peripheral IV Placement Date: 03/04; Placement Time: 113; Catheter Size: 20 G; Orientation: Left, Posterior; Location: Hand; Site Prep: Chlorhexidine; Inserted by: Apryl BACK RN; Insertion Attempts: 1; Patient Tolerance: Tolerated well; Removal Date: 09/17/24; Removal Time: 14109/17/24 1138 by Kindra Back RN 09/17/24 1415 by Solange Mcgill RN documented in this encounter Social History Tobacco Use Types Packs/Day Years Used Date Smoking Tobacco: Never Smokeless Tobacco: Never Comments No Sex and Gender Information Value Date Recorded Sex Assigned at Female 09/17/2024 11:01 AM EST Legal Sex Female 11:38 AM EDT Gender Identity Female 09/17/2024 11:01 AM EST Sexual Orientation Straight 09/17/2024 11 :01 AM EST documented as of this encounter Progress Notes * Cheyenne Kendrick CRNA - 09/17/2024 1:09 PM EST Patient: Marylu Bauer Procedure Summary Date: 09/17/24 Room / Location: [facility] OR [facility] OR Anesthesia Start: 1214 Anesthesia Stop: 1309 Procedure: RIGHT BUNIONECTOMY (Right: First Toe) Diagnosis: Acquired hallux valgus of right foot (HALLUX VALGUS RIGHT FOOT) Surgeons: Marcelo Bingham DPM Responsible Provider: Casper Holden MD Anesthesia Type: MAC ASA Status: 2 Anesthesia Plan: MAC Last Vitals: Vitals Value Taken Time BP 93/64 09/17/24 1309 Temp 96.6 09/17/24 1309 Pulse 68 09/17/24 1309 Resp 16 09/17/24 1309 SpO2 99 09/17/24 1309 No data recorded Anesthesia Post Evaluation Patient location during evaluation: PACU Patient participation: complete - patient participated Level of consciousness: awake Pain management: inadequate Airway patency: patent Anesthetic complications: no Cardiovascular status: acceptable Respiratory status: acceptable Hydration status: acceptable Nausea: No Vomiting: No There were no known notable events for this encounter. * Casper Holden MD - 09/17/2024 11:08 AM EST 39 y.o. female scheduled for Acquired hallux valgus of right foot [RIGHT BUNIONECTOMY (Right: First Toe)] Ht Readings from Last 1 Encounters: 09/16/24 1.702 m (67 ) Wt Readings from Last 1 Encounters: 09/16/24 109 kg (240 lb) Body mass index is 37.59 kg/m??. Past Medical History: Diagnosis Date Asthma Past Surgical History: Procedure Laterality Date CERVICAL BIOPSY W/ LOOP ELECTRODE EXCISION SECTION, LOW TRANSVERSE X 2 HEMORRHOID SURGERY 2022 Denies anesthesia complications No Known Allergies No current facility-administered medications on file prior to encounter. Current Outpatient Medications on File Prior to Encounter Medication Sig Dispense Refill albuterol sulfate (ProAir RespiClick) 90 mcg/actuation aerosol powdr breath activated Inhale by mouth. cetirizine (ZyrTEC) 10 mg capsule Take 1 capsule (10 mg total) by mouth 1 (one) time each day. [DISCONTINUED] betamethasone dipropionate 0.05 % lotion Apply topically 2 (two) times a day. [DISCONTINUED] CHOLECALCIFEROL, VITAMIN D3, ORAL Take 1,250 mcg by mouth 1 (one) time each day. [DISCONTINUED] fluconazole (DIFLUCAN) 200 mg tablet Take 1 tablet (200 mg total) by mouth 1 (one) time each day. [DISCONTINUED] minoxidiL (LONITEN) 2.5 mg tablet Take 1 tablet (2.5 mg total) by mouth 1 (one) timeeach day. Current In-hospital Medications Prior to Admission medications Medication Sig Start Date End Date Taking? Authorizing Provider albuterol sulfate (ProAir RespiClick) 90 mcg/actuation aerosol powdr breath activated Inhale by mouth. Historical Provider, cetirizine (ZyrTEC) 10 mg capsule Take 1 capsule (10 mg total) by mouth 1 (one) time each day. Historical Provider, betamethasone dipropionate 0.05 % lotion Apply topically 2 (two) times a day. 09/16/24 Historical Provider, CHOLECALCIFEROL, VITAMIN D3, ORAL Take 1,250 mcg by mouth 1 (one) time each day. 09/16/24 Historical Provider, fluconazole (DIFLUCAN) 200 mg tablet Take 1 tablet (200 mg total) by mouth 1 (one) time each day. 09/16/24 Historical Provider, minoxidiL (LONITEN) 2.5 mg tablet Take 1 tablet (2.5 mg total) by mouth 1 (one) time each day. 09/16/24 Historical Provider, Is the patient a current smoker (e.g. cigarette, cigar, pip, e-cigarette, or mariajuana)? Yes [] No[] Patient previously instructed to abstain from smoking on the day of procedure? Yes [] No[] Patient smoked on the day of procedure? Yes [] No[] ASPIRE smoking VBR: [] Not interested in quitting [] Interested in quitting- referred to treatment [] Interested in quitting - treatment provided Visit Vitals Ht 1.702 m (67 ) Wt 109 kg (240 lb) BMI 37.59 kg/m?? BSA 2.19 m?? LABS: No results found for: WBC , HGB , HCT , MCV , PLT No results found for: GLUCOSE , CALCIUM , NA , K , CO2 , CL , BUN , CREATININE No results found for: INR , PROTIME No results found for: PTT EKG No results found for this or any previous visit (from the past 4464 hour(s)). ECHO No results found for this or any previous visit. CATH No results found for this or any previous visit. Relevant Problems Cardio (+) Migraine (+) Prolapsed hemorrhoids (+) Thrombosed external hemorrhoids Pulmonary (+) Asthma Neuro/Psych (+) Migraine GI (+) GERD (gastroesophageal reflux disease) Clinical information reviewed: Allergies Meds Anesthesia Plan ASA 2 Anesthesia Plan: MAC Anesthesia Risks Discussed serious complications Induction method: intravenous Anesthetic plan and risks discussed with patient. Anesthesia Evaluation Patient summary reviewed No history of anesthetic complications Airway Mallampati: III Dental - normal exam Pulmonary (-) COPD, asthma, sleep apnea Cardiovascular Exercise tolerance: good (-) hypertension, past PR, dysrhythmias Rhythm: regular Rate: normal Neuro/Psych (-) seizures, CVA GI/Hepatic/Renal (+) GERD well controlled (-) liver disease, renal disease Endo/Other (-) diabetes mellitus Abdominal (+) obese PONV RISK SCORE: 1 Vitals: 09/16/24 0800 Weight: 109 kg (240 lb) Height: 1.702 m (67 ) SpO2 Readings from Last 1 Encounters: No data found for SpO2 No results found for: WBC , RBC , HGB , HCT , PLT , MCV No Known Allergies STOP BANG: No data recorded NPO Status: No data recorded documented in this encounter Plan of Treatment Upcoming Encounters Date Type Department Care Team (Late st Contact Info) Description 10/28/2024 8:45 AM EDT Office Visit Orthopedic Surgery - [place] [address] [phone] Marcelo Bingham, DPM [address] [id number] documented as of this encounter Visit Diagnoses Not on filedocumented in this encounter Administered Medications Inactive Administered Medications - up to 3 most recent administrations Medication Order MAR Action Action Date Dose Rate Site ceFAZolin (ANCEF) 2 g in sterile water 20 mL IV syringe 2 g, intravenous, Administer over 3 Minutes, Once, On Fri09/17/24 at 1200, For 1 dose, Preprocedure, Indication: Prophylaxis-Surgical New Bag 09/17/2024 12:27 PM EST 2 g fentaNYL (PF) (SUBLIMAZE) injection intravenous, As needed, Starting on Fri09/17/24 at 1225, Anesthesia Intraprocedure Given 09/17/2024 12:25 PM EST 25 mcg Given 09/17/2024 12:22 PM EST 25 mcg ketorolac (TORADOL) injection intravenous, As needed, Starting on Fri09/17/24 at 1255, Anesthesia Intraprocedure Given 09/17/2024 12:55 PM EST 30 mg lactated Ringer's infusion 100 mL/hr, intravenous, Continuous, Starting on Fri09/17/24 at 1200, Preprocedure New Bag 09/17/2024 12:15 PM EST 75 mL/hr lidocaine (PF) (XYLOCAINE-MPF) 2 % injection injection, As needed, Starting on Fri09/17/24 at 1222, Anesthesia Intraprocedure Given 09/17/2024 12:22 PM EST 100 mg midazolam (VERSED) injection intravenous, As needed, Starting on Fri09/17/24 at 1212, Anesthesia Intraprocedure Given 09/17/2024 12:12 PM EST 2 mg propofoL (DIPRIVAN) infusion 10 mg/mL intravenous, Continuous PRN, Starting on Fri09/17/24 at 1222, Anesthesia Intraprocedure Rate/Dose Change 09/17/2024 12:42 PM EST 50 mcg/kg/min 24.15 mL/hr New Bag 09/17/2024 12:22 PM EST 100 mcg/kg/min 48.3 mL/ hr propofoL (DIPRIVAN) injection intravenous, As needed, Starting on Fri09/17/24 at 1222, Anesthesia Intraprocedure Given 09/17/2024 12:22 PM EST 5 0 mg Given 09/17/2024 12:22 PM EST 50 mg documented in this encounter Care Teams Beam Machine Operator Relationship Specialty Start Date End Date Gabriela Arce MD [address] [place] [address] [address] [facility] [place] [address] PCP - General 02/23/24 documented as of this encounter
--- OUTSIDE RECORDS SUMMARY | 2024-10-12 08:51 | XMS_ITS | Clinical Summary ---
Author Organization 175 [facility] Address [address] [place] [address] Phone Care Team Providers Care Sales Service Rep Name Role Phone Gabriela Arce MD Primary Care Provider [phone] Allergies No known active allergies Medications albuterol sulfate (ProAir RespiClick) 90 mcg/actuation aerosol powdr breath activated Inhale by mouth. Active cetirizine (ZyrTEC) 10 mg capsule Take 1 capsule (10 mg total) by mouth 1 (one) time each day. Active oxyCODONE (ROXICODONE) 5 mg immediate release tablet Take 1 tablet (5 mg total) by mouth every 4 (four) hours if needed for severe pain. Max Daily Amount: 30 mg 35 tablet 09/17/19 25 Active ibuprofen (ADVIL,MOTRIN) 800 mg tablet Take 1 tablet (800 mg total) by mouth 3 (three) times a day. 90 each 09/17/19 25 025 Active gabapentin (Neurontin) 400 mg capsule Take 1 capsule (400 mg total) by mouth 2 (two) times a day. 60 each 09/30/19 25 025 Active betamethasone dipropionate 0.05 % lotion Apply topically 2 (two) times a day. 025 Discontinued minoxidiL (LONITEN) 2.5 mg tablet Take 1 tablet (2.5 mg total) by mouth 1 (one) time each day. 025 Discontinued fluconazole (DIFLUCAN) 200 mg tablet Take 1 tablet (200 mg total) by mouth 1 (one) time each day. 025 Discontinued CHOLECALCIFEROL, VITAMIN D3, ORAL Take 1,250 mcg by mouth 1 (one) time each day. 025 Discontinued acetaminophen (TYLENOL 8 HOUR) 650 mg 8 hr tablet Take 1 tablet (650 mg total) by mouth every 8 (eight) hours if needed for mild pain for up to 10 days. Do not crush, chew, or split. 30 tablet 09/17/19 25 025 Active Problems Problem Noted Date Diagnosed Date Acquired hallux valgus of right foot 09/15/2024 Allergic rhinitis 06/03/2024 Asthma 06/03/2024 Bunion of unspecified foot 06/03/2024 Chronic constipation 06/03/2024 COVID-19 06/03/2024 Frequency of micturition 06/03/2024 Generalized anxiety disorder 06/03/2024 GERD (gastroesophageal reflux disease) Hearing difficulty of right ear 06/03/2024 Migraine 06/03/2024 Nephrolithiasis 06/03/2024 Obesity (BMI 30-39.9) 06/03/2024 Prolapsed hemorrhoids 06/03/2024 Thrombosed external hemorrhoids 06/03/2024 Thyroid nodule 06/03/2024 Vitamin D deficiency 06/03/2024 Encounters Date Type Department Care Team Description 09/30/2024 8:15 AM EST Office Visit Orthopedic Surgery [address] [phone] Mracelo Bingham DPM Post-operative state (Primary Dx); Acquired hallux valgus of right foot 09/17/2024 1:15 PM EST - 09/17/2024 2:45 PM EST Surgery [facility] OR [address] [place] [phone] Marcelo Bingham DPM RIGHT BUNIONECTOMY [05364 (CPT??)] 09/17/2024 12:14 PM EST Anesthesia Event [facility] OR [address] [place] [phone] Casper Holden MD Korobkov, Vitaliy, DO 09/17/2024 11:04 AM EST - 09/17/2024 2:21 PM EST Hospital Encounter [facility] OR [address] [place] [phone] Marcelo Bingham DPM Discharge Disposition: Home or Self Care 09/15/2024 8:00 AM EST Consult Orthopedic Surgery [facility] [address] [facility] [address] [place] [phone] Marcelo Bingham DPM Acquired hallux valgus of right foot (Primary Dx); Acquired hallux valgus of left foot 09/09/2024 Telephone Orthopedic Surgery [facility] 175 [facility] [address] [place] [address] Keiry Ugalde from Last 3 Months Surgical History Surgery Date Site/Laterality Comments SECTION, LOW TRANSVERSE X 2 CERVICAL BIOPSY W/ LOOP ELEC TRODE EXCISION HEMORRHOID SURGERY 08/11/2022 - 08/10/2023 Medical History Medical History Date Comments Asthma Social History Tobacco Use Types Packs/Day Years Used Date Smoking Tobacco: Never Smokeless Tobacco: Never Tobacco Cessation:Counseling Given: Not Answered Comments No Sex and Gender Information Value Date Recorded Sex Assigned at Female 09/17/2024 11:01 AM EST Legal Sex Female 11:38 AM EDT Gender Identity Female 09/17/2024 11:01 AM EST Sexual Orientation Straight 09/17/2024 11 :01 AM EST Obstetrics History Last Filed Vital Signs Vital Sign Reading Time Taken Comments Blood Pressure 94/54 09/17/2024 1:33 PM EST Pulse 74 09/17/2024 1:33 PM EST Temperature 36.3 ??C (97.4 ??F) 09/17/2024 1:21 PM ES T Respiratory Rate 18 09/17/2024 1:21 PM EST Oxygen Saturation 100% 09/17/2024 1:33 PM EST Inhaled Oxygen Concentration - - Weight 109 kg (240 lb) 09/30/2024 8:07 AM EST Height 170.2 cm (5' 7.01 ) 09/30/2024 8:07 AM ES T Body Mass Index 37.58 09/30/2024 8:07 AM EST Plan of Treatment Upcoming Encounters Date Type Department Care Team ([facility] st Contact Info) Description 10/28/2024 8:45 AM EDT Office Visit Orthopedic Surgery [facility] [address] [phone] Marcelo Bingham, DPM [address] [phone] Health Maintenance Due Date Last Done Comments Breast Cancer Screening 1983 Hepatitis B Vaccines (1 of 3 - 19+ 3-dose series) 2002 Pneumococcal Vaccine: Pediatrics (0 to 5 Years) and At-Risk Patients (6 to 64 Years) (1 of 2 - PCV) 2002 Cervical Cancer Screening: Pap Smear 02/28/2004 COVID-19 Vaccine ( season) 2024 Influenza Vaccine (#1) 2024 05/17/2014, 2011 Cholesterol Screening (Lipid Panel) 05/24/2024 Depression Screening 05/24/2024 HIV Screening 05/24/2024 Hepatitis C Screening 05/24/2024 Medicare Annual Wellness Visit 05/24/2024 Social Influencers of Health Screening 05/24/2024 DTaP,Tdap,and Td Vaccines (5 - Td or Tdap) 02/05/2034 02/06/2024, 08/18/2014, 09/17/2012, Additional history exists HIB Vaccines Aged Out No longer eligi [...] patient's age to complete this topic Meningococcal B Vacine Aged Out No lo nger eligible based on patient's age to complete this topic RSV Immunization Patients Under 20 months Aged Out No longer eligible based on patient's age to complete this topic Varicella Vaccines Aged Out No longer eligible based on patient's age to complete this topic Procedures Procedure Name Priority Date/Time Associated Diagnosis Comments XR FOOT 3+ VIEWS RIGHT Routine 09/17/2024 2:17 PM EST IN CORRECTION HALLUX VALGUS W/RESECTION PROXIMAL PHALANX BASE ANY METHOD 09/17/2024 12:14 PM EST Acquired hallux valgus of right foot from Last 3 Months Results * XR Foot 3+ Views Right (09/17/2024 2:17 PM EST) Anatomical Region Laterality Modality Lower Extremities, Foot Right Radiogra phic Imaging 09/17/2024 2:36 PM EST Impressions 09/17/2024 2:37 PM EST FINDINGS/IMPRESSION: Mild hallux valgus deformity with postsurgical changes of a recent bunionectomy. ??There are expected postsurgical changes in the adjacent soft tissues are evident by soft tissue swelling and small amount of subcutaneous gas. ??Overlying bandage. ?? -------- FINAL REPORT -------- Dictated By: Franc Curry Dictated Date: 09/17/2024 14:36 ET Assigned Physician: Franc Curry Reviewed and Electronically Signed By: Franc Curry Signed Date: 09/17/2024 14:37 ET Workstation ID: [id number] Transcribed By: Self Edit Transcribed Date: 09/17/2024 14:36 ET Narrative 09/17/2024 2:37 PM EST XR FOOT 3+ VIEWS RIGHT INDICATION: post chacko bunionectomy TECHNIQUE: XR FOOT 3+ VIEWS RIGHT COMPARISON: No priors available. Procedure Note Franc Curry MD - 09/17/2024 XR FOOT 3+ VIEWS RIGHT INDICATION: post chacko bunionectomy TECHNIQUE: XR FOOT 3+ VIEWS RIGHT COMPARISON: No priors available. IMPRESSION: FINDINGS/IMPRESSION: Mild hallux valgus deformity with postsurgicalchanges of a recent bunionectomy. There are expected postsurgical changesin the adjacent soft tissues are evident by soft tissue swelling and smallamount of subcutaneous gas. Overlying bandage. -------- FINAL REPORT -------- Dictated By: Franc Curry Dictated Date: 09/17/2024 14:36 ET Assigned Physician: Franc Curry Reviewed and Electronically Signed By: Franc Curry Signed Date: 09/17/2024 14:37 ET Workstation ID: [id number] Transcribed By: Self Edit Transcribed Date: 09/17/2024 14:36 ET Marcelo Bingham DPM IMG XR PROCEDURES Final R esult from Last 3 Months Insurance MEDICAID - [place] MEDICARE Care Teams Sales Service Rep Relationship Specialty Start Date End Date Gabriela Arce MD [address] [place] [address] [address] [facility] [place] [address] PCP - General 02/23/24
--- OUTSIDE RECORDS SUMMARY | 2024-10-12 08:52 | XMS_ITS | Encounter Summary ---
Author Organization [facility] Address [address] [place] [address] Care Team Providers Care Nutritional Chemist Name Role Phone Gabriela Arce MD Primary Care Provider [phone] Encounter Details Date Type Department Care Team (Late st Contact Info) Description 09/17/2024 11:04 AM EST - 09/17/2024 2:21 PM EST Hospital Encounter [facility] Main OR [address] [place] [phone] Marcelo Bingham, DPJames [address] [facility] [address] [place] [address] Discharge Disposition: Home or Self Care Social History Tobacco Use Types Packs/Day Years Used Date Smoking Tobacco: Never Smokeless Tobacco: Never Tobacco Cessation:Counseling Given: Not Answered Comments No Sex and Gender Information Value Date Recorded Sex Assigned at Female 09/17/2024 11:01 AM EST Legal Sex Female 11:38 AM EDT Gender Identity Female 09/17/2024 11:01 AM EST Sexual Orientation Straight 09/17/2024 11 :01 AM EST documented as of this encounter Last Filed Vital Signs Vital Sign Reading Time Taken Comments Blood Pressure 94/54 09/17/2024 1:33 PM EST Pulse 74 09/17/2024 1:33 PM EST Temperature 36.3 ??C (97.4 ??F) 09/17/2024 1:21 PM ES T Respiratory Rate 18 09/17/2024 1:21 PM EST Oxygen Saturation 100% 09/17/2024 1:33 PM EST Inhaled Oxygen Concentration - - Weight 109 kg (240 lb) 09/16/2024 8:00 AM EST Height 170.2 cm (5' 7 ) 09/16/2024 8:00 AM EST Body Mass Index 37.59 09/16/2024 8:00 AM EST documented in this encounter Discharge Instructions * Attachments The following attachments cannot be sent through Care Everywhere. * Bunionectomy: Post-op (Belarusian) * Sedation (Belarusian) documented in this encounter Medications at Time of Discharge albuterol sulfate (ProAir RespiClick) 90 mcg/actuation aerosol powdr breath activated Inhale by mouth. cetirizine (ZyrTEC) 10 mg capsule Take 1 capsule (10 mg total) by mouth 1 (one) time each day. ibuprofen (ADVIL,MOTRIN) 800 mg tablet Take 1 tablet (800 mg total) by mouth 3 (three) times a day. 90 each 09/17/2024 10/17/2024 oxyCODONE (ROXICODONE) 5 mg immediate release tablet Take 1 tablet (5 mg total) by mouth every 4 (four) hours if needed for severe pain. Max Daily Amount: 30 mg 35 tablet 09/17/2024 acetaminophen (TYLENOL 8 HOUR) 650 mg 8 hr tablet Take 1 tablet (650 mg total) by mouth every 8 (eight) hours if needed for mild pain for up to 10 days. Do not crush, chew, or split. 30 tablet 09/17/2024 09/27/2024 documented as of this encounter Ordered Prescriptions Prescription Sig Dispense Quantity Refills Last Filled Start Date End Date ibuprofen (ADVIL,MOTRIN) 800 mg tablet Take 1 tablet (800 mg total) by mouth 3 (three) times a day. 90 each 09/17/2024 10/17/2024 oxyCODONE (ROXICODONE) 5 mg immediate release tablet Take 1 tablet (5 mg total) by mouth every 4 (four) hours if needed for severe pain. Max Daily Amount: 30 mg 35 tablet 09/17/2024 acetaminophen (TYLENOL 8 HOUR) 650 mg 8 hr tablet Take 1 tablet (650 mg total) by mouth every 8 (eight) hours if needed for mild pain for up to 10 days. Do not crush, chew, or split. 30 tablet 09/17/2024 09/27/2024 documented in this encounter Discharge Disposition Disposition Code Departure Means Destination Comment s Home or Self Care Wheelchair documented in this encounter H&P Notes * Marcelo Bingham DPM - 09/17/2024 11:40 AM EST History and Physical Update ( H&P completed within the previous thirty days ) I personally reviewed the History and Physical, interviewed and examined the patient prior to surgery. No changes have occurred in the patient's condition since the History and Physical was completed. Source Note - Marcelo Bingham DPM - 09/15/2024 8:00 AM EST S Presents today as a surgical consultation she has seen outside transportation superintendent who is pursued and failedyears of accommodative shoe gear wider shoe gear bunion toe sleeves steroid injections and anti-inflammatories states that her right foot bunion is still very painful achy throbbing constant note debilitating for her she notes sick every day states that 7 out of 10 she states she has tried years ofconservative treatment is no improvement she is wonder if she can have something more definitive pursued would like for both surgical discussion ROS: GENERAL: Pt denies nausea, fever, vomiting, chills, or shortness of breath. Pt in NAD. CARDIOLOGY: pt denies chest pain, palpitations LUNGS: pt denies shortness of breath MUSCULOSKELETAL: See HPI, otherwise no joint pain or swelling, back pain, or muscle pain. SKIN: see HPI, otherwise no lesions, rash or itching NEURO: No persistent headache, weakness or numbness The remainder of the review of systems is noncontributory PAST MEDICAL HISTORY: Patient Active Problem List Diagnosis Code Bunion of unspecified foot M21.619 Frequency of micturition R35.0 Chronic constipation K59.09 Hearing difficulty of right ear H91.91 Prolapsed hemorrhoids K64.8 Thrombosed external hemorrhoids K64.5 Nephrolithiasis N20.0 Allergic rhinitis J30.9 Thyroid nodule E04.1 Obesity (BMI 30-39.9) E66.9 Vitamin D deficiency E55.9 Generalized anxiety disorder F41.1 GERD (gastroesophageal reflux disease) K21.9 Migraine G43.909 Asthma J45.909 COVID-19 U07.1 SOCIAL HISTORY: Social History Tobacco Use Smoking status: Not on file Smokeless tobacco: Not on file Substance Use Topics Alcohol use: Not on file History Never marked as reviewed. ACTIVE MEDICATIONS: Current Outpatient Medications Medication Sig Dispense Refill Albuterol Sulfate 108 (90 Base) MCG/ACT AEROSOL POWDER,BREATH ACTIVATED Inhale into the lungs. betamethasone dipropionate 0.05 % lotion Apply topically 2 times daily. Cetirizine HCl 10 MG Cap Take 10 mg by mouth daily. minoxidil (LONITEN) 2.5 MG tablet Take 1 Tablet by mouth daily. fluconazole (DIFLUCAN) 200 MG tablet Take 1 Tablet by mouth daily. Cholecalciferol (VITAMIN D3 OR) Take 1,250 mcg by mouth daily. No current facility-administered medications for this visit. ALLERGIES: Patient has no known allergies. PHYSICAL EXAM: There were no vitals taken for this visit. There is no height or weight on file to calculate BMI. BMI PLAN PODIATRIC EXAMINATION: GENERAL: Patient appears well nourished, with NAD. VASCULAR: Dorsalis pedis pulses are 2/4 bilaterally and Posterior tibial pulses are 2/4 bilaterally. Capillary filling time within normal limits the digits. No pallor on elevation or rubor on dependency. Positive hair growth. No varicosities. Denies rest pain or claudication pain. NEUROLOGICAL: Sharp/dull sensation intact, protective sensation intact 10/10 with 5.07 semmes petey bilaterally, vibratory sensation with tuning fork intact to the tibial tuberosity. ORTHOPEDIC: Good muscle strength 5/5 of all flexors and extensors. Dorsi flexion of ankle ,10 degrees, plantar flexion WNL. No muscle atrophy. DERMATOLOGICAL:.No masses or skin lesions noted. Normal skin temperature, normal skin turgor. BIOMECHANICS: STJ ROM wnl, MTJ ROM wnl, 1st MPJ ROM mild bunion deformity bilaterally right worse than left with prominence of medial and dorsal medial eminence. Bursitis and neuritis overlying first metatarsal head IMAGING: Plain radiographs reviewed full read within epic IMPRESSION: 1. Acquired hallux valgus of right foot 2. Acquired hallux valgus of left foot PLAN: Pt was seen and examined, history reviewed. During today???s visit we discussed at great length the etiology, prognosis, and treatment options for the patient???s condition. Risks and benefits of operative and non operative treatment options were discussed. Treatment options for mcbrid bunionectomy righttoe correction were discussed, non-operative treatment would involve tapping, strapping, adjustments in shoe gear, orthotics insoles, rest, bracing and edema control. There is potential for the deformities to stabilize without surgery yet there may still be a need for delayed surgery and joint distructive procedures. There is potential for non- union with surgery and non-operative care would avoid incision problems, fixation complications and anesthesia risks. Surgery has added risks including but not limited to infection, incision pain, neuritis or numbness reoccurance of deformity, scar tissue contracture, worsening of deformity and eventual need for removal of hardware. mcbrid bunionectomy righttoe healing was discussed in relation to operative treatment. Recovery and post operative immobilization was discussed based on the various treatment options. A decision was made to pursue mcbrid bunionectomy righttoe surgery. Patient voices understanding ofthe risks and benefits and would like to proceed with surgery. Weight bearing status: NWB x 2 weeks followed by progressive WB x 10 weeks in a below the knee boot. Work&Activity restrictions: Impact of undergoing surgery to work and daily activity was discussed today Pain management: Postoperative pain regiment were discussed in great detail with the patient. The patient was also encouraged to aggressively elevate and ice postoperatively to help with swelling andpain control. The patient was in agreement with this plan. The patient will be prescribed IbuprofenTylenol Oxycodone for postoperative pain management. VTE Risk assessment: Risk of DVT/ PE were discussed in relation to immobilization, inactivity, injury, surgery, medication and personal risk factors. Signs and symptoms of a blood clot were discussedincluding action plan if the patient experiences these signs or symptoms. Methods of prevention and risk reduction were explained. Mechanical prophylaxis including ROM and mobilization is encouraged as much as possible. The patient???s risk for deep vein thrombosis was also assessed today. In regards to major risk factors they: - Do not have personal history of DVT - Do not have known active cancer - Do not have known clotting disorder - Do not have family history of DVT Pending foot surgery and current level of immobilization are risk factors. Measure taken to decrease their risk of deep vein thrombosis will consist of detailed education, as well as lower extremity range of motion. Chemical prophylaxis is not recommended based on patients history, procedure and postoperative plan. Planned procedure(s): mcbrid bunionectomy right surgery WB status: NWB x 2 weeks followed by progressive WB x 10 weeks in a below the knee boot. Pain medication: Ibuprofen Tylenol Oxycodone Marcelo Bingham DPM documented in this encounter Procedure Notes * Solange Mcgill RN - 09/17/2024 2:21 PM EST All dc instructions reviewed w/pt and . Both verbalized understanding. Pt states is comfortable using crutches * Marcelo Bingham DPM - 09/17/2024 12:34 PM EST RIGHT BUNIONECTOMY (R) OPERATIVE NOTE Date: 09/17/2024 Location: [facility] OR Name: Marylu Bauer, : 1985, Diagnosis Pre-op Diagnosis * Acquired hallux valgus of right foot [M20.11] Post-op Diagnosis * Acquired hallux valgus of right foot [M20.11] Procedures RIGHT BUNIONECTOMY 49502 - [place] CORRECTION HALLUX VALGUS W/RESECTION PROXIMAL PHALANX BASE ANY METHOD Additional Procedures Indications: Marylu Bauer is an 39 y.o. female who is having surgery for HALLUX VALGUS RIGHT FOOT. Chronic painful bunion deformity have failed conservative treatment modalities Surgeon(s) & Enamel Drier(s) * Marcelo Bingham DPM - Primary Anesthesia: Monitor Anesthesia Care ASA: II Estimated Blood Loss: Minimal Tourniquet right ankle 20 minutes Drains: * No LDAs found * Specimen: Procedure Details: Patient was consented marked in preoperative area. All risks and benefits were discussed in detail adequate time was given for patient to ask questions and express concerns which were all appropriately answered. Patient was then appropriately consented by the anesthesia team for all risks and benefits for monitored anesthesia required for this case. Patient was then brought back to the operating room sedated after preoperative protocols were completed in concordance with [facility] protocol. Prophylactic antibiotics administered by anesthesia. Once patient was sedated she was placed in a supine position all bony prominences were appropriately padded and offloaded. Once cleared by anesthesia 20 cc of half percent Marcaine plain were injected into foot midfoot block. Extremity was then scrubbed prepped and draped. The extremity was elevated 60 degrees in the horizontal plane and Esmarch was utilized to exsanguinate all the tissues of the extremity a preplaced well- padded pneumatic ankle tourniquet was then inflated. The extremity was delivered back to the operative table draping procedures were completed. Direct approach was then taken to expose the first metatarsophalangeal joint. Care was taken to identify and mobilize and retract medial and lateral to the incision all vital neurovascular structures. All venous tributaries were appropriately electrocoagulated tied off as necessary. Dissection was then carried laterally the conjoined tendon of the abductor hallucis was identified resected alongside the suspensory fibular sesamoidal ligament correcting the hallux adductovalgus deformity. Saw wasin utilized to resect the hypertrophic medial eminence and dorsal medial eminence. Area was keren irrigated with normal saline and assess for closure . Capsule reconstruction was performed with 2-0 Vicryl skin was reapproximated 3-0 and 4-0 nylon Tourniquet was released to the right ankle 20 minutes 2 50 mmHg pressure. Postoperative bandaging consistent Betadine moistened gauze 4 x 4 gauze ABD pads Glendy cast paddingAce were applied to the lower extremity. Patient was awoken from anesthesia transferred to the PACUall vital signs were stable normal capillary refill time is appreciated to all of the digits of thefoot. Postoperative instructions and medications previously given to patient. Findings: Complications: None; patient tolerated the procedure well. Disposition: PACU - hemodynamically stable. Condition: stable documented in this encounter Plan of Treatment Upcoming Encounters Date Type Department Care Team (Late st Contact Info) Description 10/28/2024 8:45 AM EDT Office Visit Orthopedic Surgery - [place] [address] [phone] Marcelo Bingham DPM [address] [address] Pending Results Name Type Priority Associated Diagnoses Date /Time POC , urine NO CHARGE screening manually resulted Point of Care Testing Routine 09/17/2024 11:15 AM EST Scheduled Orders Name Type Priority Associated Diagnoses Orde r Schedule POC , urine NO CHARGE screening manually resulted Point of Care Testing Routine Once for 1 Occurrences starting 09/17/2024 until 09/17/2024 documented as of this encounter Procedures Procedure Name Priority Date/Time Associated Diagnosis Comments XR FOOT 3+ VIEWS RIGHT Routine 09/17/2024 2:17 PM EST NH CORRECTION HALLUX VALGUS W/RESECTION PROXIMAL PHALANX BASE ANY METHOD 09/17/2024 12:14 PM EST Acquired hallux valgus of right foot documented in this encounter Results * XR Foot 3+ Views Right [...] Signed Date: 09/17/2024 14:37 ET Workstation ID: [id number] Transcribed By: Self Edit Transcribed Date: 09/17/2024 [...] Signed Date: 09/17/2024 14:37 ET Workstation ID: [id number] Transcribed By: Self Edit Transcribed Date: 09/17/2024 14:36 ET us Marcelo Bingham DPM IMG XR PROCEDURES Final R esult documented in this encounter Visit Diagnoses Diagnosis Acquired hallux valgus of right foot- Primary documented in this encounter Admitting Diagnoses Diagnosis Acquired hallux valgus of right foot documented in this encounter Administered Medications Inactive Administered Medications - up to 3 most recent administrations Medication Order MAR Action Action Date Dose Rate Site HYDROmorphone (PF) injection 0.5 mg 0.5 mg, intravenous, Every 5 min PRN, severe pain or when therapies for moderate pain were not effective, Starting on Fri09/17/24 at 1315, For 5 doses, Recovery (only) lactated Ringer's infusion 100 mL/hr, intravenous, Continuous, Starting on Fri09/17/24 at 1345, Recovery (only) lactated Ringer's infusion 100 mL/hr, intravenous, Continuous, Starting on Fri09/17/24 at 1200, Preprocedure New Bag 09/17/2024 12:15 PM EST 7 5 mL/hr ondansetron (PF) (ZOFRAN) injection 4 mg 4 mg, intravenous, Every 8 hours PRN, vomiting, nausea, Starting on Fri09/17/24 at 1315, Recovery (only), -ONLY give IV if patient is unable to take orally. -If inadequate response within 30 minutes, proceed to next-line agent or contact provider if no further options ordered. ondansetron ODT (ZOFRAN-ODT) disintegrating tablet 4 mg 4 mg, oral, Every 8 hours PRN, vomiting, nausea, Starting on Fri09/17/24 at 1315, Recovery (only), -Give IV if patient is unable to take orally. -If inadequate response within 30 minutes, proceed to next-line agent or contact provider if no further options ordered. For ODT tablets: -Do not remove from blister pack until just before administering. -Patient should allow tablet to dissolve on tongue. oxyCODONE (ROXICODONE) immediate release tablet 5 mg 5 mg, oral, Every 4 hours PRN, moderate pain or when therapies for mild pain were not effective, Starting on Fri09/17/24 at 1315, For 2 doses, Recovery (only) sodium chloride 0.9 % flush 10 mL 10 mL, intravenous, 2 times daily, First dose on Fri09/17/24 at 1200, Preprocedure sodium chloride 0.9 % flush 10 mL 10 mL, intravenous, As needed, line care, Starting on Fri09/17/24 at 1142, Preprocedure documented in this encounter Discontinued Medications Medication Sig Discontinue Reason Start Date End Da te betamethasone dipropionate 0.05 % lotion Apply topically 2 (two) times a day. 09/16/2024 CHOLECALCIFEROL, VITAMIN D3, ORAL Take 1,250 mcg by mouth 1 (one) time each day. 09/16/2024 fluconazole (DIFLUCAN) 200 mg tablet Take 1 tablet (200 mg total) by mouth 1 (one) time each day. 09/16/2024 minoxidiL (LONITEN) 2.5 mg tablet Take 1 tablet (2.5 mg total) by mouth 1 (one) time each day. 09/16/2024 documented as of this encounter Active and Recently Administered Medications Times are shown in EST. Scheduled Medication Order 09/15/2024 09/16/2024 09/17/2024 acetaminophen (TYLENOL) tablet 650 mg 650 mg, oral, Once, On Fri09/17/24 at 1345, For 1 dose, Recovery (only), Scheduled medication for mild pain 1345 (Canceled Entry - Provider: Automatic Discharge Provider - Comment: Automatically canceled at discontinue of medication order) ceFAZolin (ANCEF) 2 g in sterile water 20 mL IV syringe (COMPLETED) 2 g, intravenous, Administer over 3 Minutes, Once, On Fri09/17/24 at 1200, For 1 dose, Preprocedure, Indication: Prophylaxis-Surgical 1227 (New Bag - Prov ider: Cheyenne Kendrick CRNA) sodium chloride 0.9 % flush 10 mL(Linked Group 1) 10 mL, intravenous, 2 times daily, First dose on Fri09/17/24 at 1200, Preprocedure 1200 (Canceled Entry - Provider: Automatic Discharge Provider - Comment: Automatically canceled at discontinue of medication order) Continuous Medication Order 09/15/2024 09/16/2024 09/17/2024 lactated Ringer's infusion 100 mL/hr, intravenous, Continuous, Starting on Fri09/17/24 at 1345, Recovery (only) 1345 (Canceled Entry - Provider: Automatic Discharge Provider - Comment: Automatically canceled at discontinue of medication order) lactated Ringer's infusion 100 mL/hr, intravenous, Continuous, Starting on Fri09/17/24 at 1200, Preprocedure 1215 (New Bag - Prov ider: Cheyenne Kendrick CRNA)1301 (Stopped - Provider: Cheyenne Kendrick CRNA) PRN Medication Order 09/15/2024 09/16/2024 09/17/2024 bupivacaine (PF) (MARCAINE) 0.5 % injection (CANCELED) As needed, Starting on Fri09/17/24 at 1242, Intraprocedure 1242 (Given - Provid er: Marcelo Bingham DPM - Comment: 20) HYDROmorphone (PF) injection 0.5 mg 0.5 mg, intravenous, Every 5 min PRN, severe pain or when therapies for moderate pain were not effective, Starting on Fri09/17/24 at 1315, For 5 doses, Recovery (only) ondansetron (PF) (ZOFRAN) injection 4 mg(Linked Group 2) 4 mg, intravenous, Every 8 hours PRN, vomiting, nausea, Starting on Fri09/17/24 at 1315, Recovery (only), -ONLY give IV if patient is unable to take orally. -If inadequate response within 30 minutes, proceed to next-line agent or contact provider if no further options ordered. ondansetron ODT (ZOFRAN-ODT) disintegrating tablet 4 mg(Linked Group 2) 4 mg, oral, Every 8 hours PRN, vomiting, nausea, Starting on Fri09/17/24 at 1315, Recovery (only), -Give IV if patient is unable to take orally. -If inadequate response within 30 minutes, proceed to next-line agent or contact provider if no further options ordered. For ODT tablets: -Do not remove from blister pack until just before administering. -Patient should allow tablet to dissolve on tongue. oxyCODONE (ROXICODONE) immediate release tablet 5 mg 5 mg, oral, Every 4 hours PRN, moderate pain or when therapies for mild pain were not effective, Starting on Fri09/17/24 at 1315, For 2 doses, Recovery (only) sodium chloride 0.9 % flush 10 mL(Linked Group 1) 10 mL, intravenous, As needed, line care, Starting on Fri09/17/24 at 1142, Preprocedure Linked Groups Order Group 1: Insert peripheral IV (CANCELED) STAT, Once, On Fri09/17/24 at 1143, For 1 occurrence, Preprocedure And Maintain IV access (CANCELED) Until discontinued, Starting on Fri09/17/24 at 1143, Until Specified, Preprocedure And Saline lock IV (CANCELED) Routine, Once, On Fri09/17/24 at 1143, For 1 occurrence, Preprocedure And sodium chloride 0.9 % flush 10 mLJump to med 10 mL, intravenous, 2 times daily, First dose on Fri09/17/24 at 1200, Preprocedure And sodium chloride 0.9 % flush 10 mLJump to med 10 mL, intravenous, As needed, line care, Starting on Fri09/17/24 at 1142, Preprocedure Group 2: ondansetron ODT (ZOFRAN-ODT) disintegrating tablet 4 mgJump to med 4 mg, oral, Every 8 hours PRN, vomiting, nausea, Starting on Fri09/17/24 at 1315, Recovery (only), -Give IV if patient is unable to take orally. -If inadequate response within 30 minutes, proceed to next-line agent or contact provider if no further options ordered. For ODT tablets: -Do not remove from blister pack until just before administering. -Patient should allow tablet to dissolve on tongue. Or ondansetron (PF) (ZOFRAN) injection 4 mgJump to med 4 mg, intravenous, Every 8 hours PRN, vomiting, nausea, Starting on Fri09/17/24 at 1315, Recovery (only), -ONLY give IV if patient is unable to take orally. -If inadequate response within 30 minutes, proceed to next-line agent or contact provider if no further options ordered. documented in this encounter Orders Medications Ordered That Amando ht Not Have Been Administered Count Last Ordered Date First Ordered Date acetaminophen (TYLENOL) tablet 650 mg 1 02/2025 bupivacaine (PF) (MARCAINE) 0.5 % injection 1 09/17/2024 ceFAZolin (ANCEF) 2 g in shayna rile water 20 mL IV syringe 1 09/17/2024 HYDROmorphone (PF) injection 0.5 mg 1 09/17 lactated Ringer's infusion 2 09/17/2024 ondansetron (PF) (ZOFRAN) injection 4 mg 1 09/17/2024 ondansetron ODT (ZOFRAN-ODT) disintegrating tablet 4 mg 1 09/17/2024 oxyCODONE (ROXICODONE) immed iate release tablet 5 mg 1 09/17/2024 sodium chloride 0.9 % flush 10 mL 2 025 Discharge Count Last Ordered Date First Orde red Date DISCHARGE PATIENT 1 09/17/2024 documented in this encounter Care Teams Nutritional Chemist Relationship Specialty Start Date End Date Gabriela Arce MD [address] [place] [address] [address] [facility] [place] [address] PCP - General 02/23/24 documented as of this encounter
--- OUTSIDE RECORDS SUMMARY | 2024-10-12 08:52 | XMS_ITS | Encounter Summary ---
Author Organization [employer] Address [address] [place] [address] Care Team Providers Care Veneer Clipper Name Role Phone Gabriela Arce MD Primary Care Provider [phone] Encounter Details Date Type Department Care Team (Late st Contact Info) Description 09/09/2024 Telephone Orthopedic Surgery - [place] [address] [place] [phone] Keiry Uglade Social History Tobacco Use Types Packs/Day Years Used Date Smoking Tobacco: Never Assessed Comments Unknown Sex and Gender Information Value Date Recorded [...] and was checking the status of her [facility] paperwork. After reviewing the patient's chart, there [...] Assist: NO Pre-op Consult: YES Which hospital?: [facility] Procedure: Jade bunionectomy right CPT: 65903 Length: 30 minutes Anticoagulation: no Hospital Stay: Short stay Special equipment: none Anesthesia: IV Sedation Anesthesia consult: NO Latex Allergy: NO There is no height or weight on file to calculate BMI. Pre-Op Testing: none Post Op Appointment: 2 Weeks Room type? Regular Comments: Insurance: [place] / [place] / Product Type: MEDICARE [id number] documented in this encounter Plan of Treatment Upcoming Encounters Date Type Department Care Team (Late st Contact Info) Description 10/28/2024 8:45 AM EDT Office Visit Orthopedic Surgery - [place] [address] [address] Marcelo Bingham, DPM [address] [address] documented as of this encounter Visit Diagnoses Not on filedocumented in this encounter Care Teams Veneer Clipper Relationship Specialty Start Date End Date Gabriela Arce MD [address] [place] [address] [address] [facility] [place] [address] PCP - General 02/23/24 documented as of this encounter
--- OUTSIDE RECORDS SUMMARY | 2024-10-12 08:52 | XMS_ITS | Encounter Summary ---
Author Organization [employer] Address [address] [place] [address] Care Team Providers Care Account Installation Specialist Name Role Phone Gabriela Arce MD Primary Care Provider [phone] Reason for Visit * Reason Comments Pre-op Exam Bunionectomy right f oot Encounter Details Date Type Department Care Team ([facility] st Contact Info) Description 09/15/2024 8:00 AM EST Consult Orthopedic Surgery - [place] [address] [phone] Marcelo Bingham DPM [address] [address] Acquired hallux valgus of right foot (Primary Dx); Acquired hallux valgus of left foot Social History Tobacco Use Types Packs/Day Years [...] Sign Reading Time Taken Comments Blood Pressure - - Pulse - - Temperature - - Respiratory Rate - - Oxygen Saturation - - Inhaled Oxygen Concentration - - Weight 109 kg (240 lb) 09/15/2024 8:16 AM EST Height 170.2 cm (5' 7 ) 09/15/2024 8:16 AM EST Body Mass Index 37.59 09/15/2024 8:16 AM EST documented in this encounter Progress Notes * Marcelo Bingham DPM - 09/15/2024 8:00 AM EST S Presents today as a surgical consultation she has seen outside instrument installer who is pursued and failedyears of accommodative [...] Marcelo Bingham DPM documented in this encounter Plan of Treatment Upcoming Encounters Date Type Department Care Team (Late st Contact Info) Description 10/28/2024 8:45 AM EDT Office Visit Orthopedic Surgery - [address] [address] Marcelo Bingham, DPM 175 [facility] [address] [place] [address] documented as of this encounter Visit Diagnoses Diagnosis Acquired hallux valgus of right foot- Primary Acquired hallux valgus of left foot documented in this encounter Orders Case Request Count Last Ordered Date First Orde red Date CASE REQUEST OPERATING ROOM 1 09/15/2024 documented in this encounter Care Teams Account Installation Specialist Relationship Specialty Start Date End Date Gabriela Arce MD [address] [place] [address] [address] [facility] [place] [address] PCP - General 02/23/24 documented as of this encounter
--- OUTSIDE RECORDS SUMMARY | 2024-10-12 08:52 | XMS_ITS | Encounter Summary ---
Author Organization [employer] Address [address] [place] [address] Care Team Providers Care Vehicle Dismantler Name Role Phone Gabriela Arce MD Primary Care Provider [phone] Reason for Visit * Reason Comments Post-op 1st post op right fo ot bunionectomy Encounter Details Date Type Department Care Team ([facility] st Contact Info) Description 09/30/2024 8:15 AM EST Office Visit Orthopedic Surgery - [place] [address] [phone] Marcelo Bingham, DPM [address] [address] Post-operative state (Primary Dx); Acquired hallux valgus of right foot Social History Tobacco Use Types Packs/Day [...] Mass Index 37.58 09/30/2024 8:07 AM EST documented in this encounter Ordered Prescriptions Prescription Sig Dispense Quantity Refills Last Filled Start Date End Date gabapentin (Neurontin) 400 mg capsule Take 1 capsule (400 mg total) by mouth 2 (two) times a day. 60 each 09/30/2024 documented in this encounter Progress Notes * Marcelo Bingham, DPM - 09/30/2024 8:15 AM EST S Patient is status post surgery on 09/17/2024 right foot Garza bunionectomy she states her pain is well-controlled she does not she gets a lot of nerve pain shooting numbing sensations from her leg down to her feet of all of her toes she states she has a lot of anxiety about her right foot and a general sense denies other pedal complaints ROS: GENERAL: Pt denies nausea, fever, vomiting, [...] degrees, plantar flexion WNL. No muscle atrophy. DERMATOLOGICAL:.Normal scar tissue formation right foot sutures removed with skin well coapted BIOMECHANICS: STJ ROM wnl, MTJ ROM wnl, 1st MPJ ROM reduced deformity of the right great toe noted IMAGING: Plain radiographs reviewed full read within epic IMPRESSION: 1. Post-operative state XR Foot 3+ Views Right 2. Acquired hallux valgus of right foot PLAN: Pt was seen and examined, history reviewed. Sutures removed patient a lot of pain and anxiety with suture removal Gabapentin was prescribed to help with nerve pain and neuritis and irritation Patient states she has enough pain medications currently Patient can transition to normal bathing habits in 3 days Encourage patient to progress to full weightbearing to the right foot no fracture boot fitted and dispensed Discussed with patient that activity will help minimize swelling long-term pain and scar tissue formation Follow-up in 1 month Marcelo Bingham DPM documented in this encounter Plan of Treatment Upcoming Encounters Date Type Department Care Team (Late st Contact Info) Description 10/28/2024 8:45 AM EDT Office Visit Orthopedic Surgery - [place] [address] [address] Marcelo Bingham, DPM [address] [address] Pending Results Name Type Priority Associated Diagnoses Date /Time XR Foot 3+ Views Right Imaging Routine Post-operative state 09/30/2024 8:16 AM EST Scheduled Orders Name Type Priority Associated Diagnoses Orde r Schedule XR Foot 3+ Views Right Imaging Routine Post-operative state Expected: 09/30/2024, Expires: 09/30/2025 documented as of this encounter Visit Diagnoses Diagnosis Post-operative state- Primary Other postprocedural status Acquired hallux valgus of right foot documented in this encounter Care Teams Vehicle Dismantler Relationship Specialty Start Date End Date Gabriela Arce MD [address] [place] [address] [address] [facility] [place] [address] PCP - General 02/23/24 documented as of this encounter
--- OUTSIDE RECORDS SUMMARY | 2024-10-12 08:52 | XMS_ITS | Encounter Summary ---
Author Organization [employer] Address [address] [place] [address] Care Team Providers Care Doughnut Icer Machine Name Role Phone Gabriela Arce MD Primary Care Provider Encounter Details Date Type Department Care Team (Late st Contact Info) Description 09/17/2024 1:15 PM EST - 09/17/2024 2:45 PM EST Surgery [facility] Main OR [address] [place] [phone] Marcelo Bingham DPM 175 [facility] [address] [place] [address] RIGHT BUNIONECTOMY [16381 (CPT??)] Surgery Details Date/Time Status Location OR Service Patient Class Case Cl ass Case Type Trauma Case? 09/17/2024 1:15 PM Posted [facility] - Schedule in 1 hour Panel 1 Procedure LRB Anes Op Region Wound Class Comments RIGHT BUNIONECTOMY Right Monitor Anesthesia Care First T oe Class I/ Clean Surgeon Surgeon Role Service Panel Marcelo Bingham DPM Primary Podiatry 1 documented in this encounter Social History Tobacco [...] sent through Care Everywhere. * Bunionectomy: Post-op (Cymro) * Sedation (Cymro) documented in this encounter Medications at Time [...] a surgical consultation she has seen outside longitudinal float operator who is pursued and failedyears of accommodative [...] of right foot [M20.11] Procedures RIGHT BUNIONECTOMY 20266 - [place] CORRECTION HALLUX VALGUS W/RESECTION PROXIMAL PHALANX BASE ANY METHOD Additional Procedures Indications: Marylu Bauer is an 39 y.o. female who is having surgery for HALLUX VALGUS RIGHT FOOT. Chronic painful bunion deformity have failed conservative treatment modalities Surgeon(s) & Nursing Faculty(s) * Marcelo Bingham DPM - Primary Anesthesia: [...] preoperative protocols were completed in concordance with [facility] protocol. Prophylactic antibiotics administered by [...] AM EDT Office Visit Orthopedic Surgery - [place] [address] [phone] Marcelo Bingham, DPM [address] [address] Pending Results Name Type Priority Associated Diagnoses [...] VIEWS RIGHT Routine 09/17/2024 2:17 PM EST [place] CORRECTION HALLUX VALGUS W/RESECTION PROXIMAL PHALANX BASE ANY METHOD 09/17/2024 12:14 PM EST Acquired hallux valgus of right foot documented in this encounter Results * XR Foot 3+ Views Right (09/17/2024 2:17 PM EST) Anatomical Region Laterality Modality Lower Extremities, Foot Right [facility] 09/17/2024 2:36 PM EST Impressions 09/17/2024 [...] Signed Date: 09/17/2024 14:37 ET Workstation ID: [id number] Transcribed By: Self Edit Transcribed Date: 09/17/2024 [...] Signed Date: 09/17/2024 14:37 ET Workstation ID: [id number] Transcribed By: Self Edit Transcribed Date: 09/17/2024 14:36 ET Marcelo Bingham DPJames IMG XR PROCEDURES Final R esult documented in this encounter Visit Diagnoses Diagnosis Acquired hallux valgus of right foot- Primary Acquired hallux valgus of right foot documented in this encounter Admitting Diagnoses Diagnosis Acquired hallux valgus of right foot documented in this encounter Administered Medications Inactive Administered Medications - up to 3 most recent administrations Medication Order MAR Action Action Date Dose Rate Site bupivacaine (PF) (MARCAINE) 0.5 % injection As needed, Starting on Fri09/17/24 at 1242, Intraprocedure Given 09/17/2024 12:42 PM EST 30 mL Right Foot HYDROmorphone (PF) injection 0.5 mg 0.5 mg, [...] Bag 09/17/2024 12:15 PM EST 75 mL/hr ondansetron (PF) (ZOFRAN) injection 4 mg [...] 1242 (Given - Provid er: Marcelo Bingham DPJames - Comment: 20) HYDROmorphone (PF) injection 0.5 [...] acetaminophen (TYLENOL) tablet 650 mg 1 02/2025 ceFAZolin (ANCEF) 2 g in shayna rile [...] 09/17/2024 documented in this encounter Care Teams Doughnut Icer Machine Relationship Specialty Start Date End Date Gabriela Arce MD [address] [place] [address] [address] [facility] [place] [address] PCP - General 02/23/24 documented as of this encounter
== END 2024-10-12 10:29 | disposition home or self-care (01) ==
PROVIDERS: PCP Internal Medicine; Visit Provider Nurse Practitioner Family
DX: K59.09 Other constipation (principal); K64.9 Unspecified hemorrhoids; R13.19 Other dysphagia; R10.13 Epigastric pain
CPT/HCPCS: 99214; G2211

== ENCOUNTER → 2024-10-12 08:28 | Outpatient (BNVA) | payer MEDICARE, MEDICAID, SELFPAY | PROVIDERS: PCP Internal Medicine; Visit Provider Nurse Practitioner Family | DX: K59.09 Other constipation (principal); K64.9 Unspecified hemorrhoids; R13.19 Other dysphagia; R10.13 Epigastric pain | CPT/HCPCS: 99212 ==

== ENCOUNTER 2024-10-18 08:05 | Outpatient (REF) | payer MEDICARE, MEDICAID, SELFPAY ==
--- NOTE | ~2024-10-18 | FL_ITS ---
EXAMINATION: XR BARIUM SWALLOW CLINICAL INFORMATION: Dysphagia liquids and solids. COMPARISON: None available. TECHNIQUE: Routine barium swallow was performed in upright and lying position with different consistencies of barium. FINDINGS: On oral administration of thick barium and barium coated solids and cracker is in the upright view there is normal propagation bolus from the oral cavity through the pharynx, esophagus into stomach without any evidence of obstruction, narrowing or stricture. The course, caliber and peristalsis is normal. On placing patient prone and oral administration of thin barium there is good distention of esophagus without obstruction, narrowing or stricture. There is no evidence of gastroesophageal reflux in supine, prone position or Valsalva maneuver. No hiatal hernia seen at this time. FLUOROSCOPY TIME: 1 minute 48 seconds DOSE AREA PRODUCT: 46.14 uGy-m2 (microgray-meter squared) FL/FL barium swallow IMPRESSION: Unremarkable upper GI air contrast study. Electronically signed by: Anuel Delgado MD 10/18/2024 09:00 AM EDT
--- OUTSIDE RECORDS SUMMARY | 2024-10-18 08:11 | XMS_ITS | Encounter Summary ---
Author Organization [employer] Address [address] [place] [address] Care Team Providers Care Headmaster/Mistress Name Role Phone Gabriela Arce MD Primary Care Provider [phone] Reason for Visit * Reason Comments Post-op 1st post op right fo ot bunionectomy Encounter Details Date Type Department Care Team ([facility] st Contact Info) Description 09/30/2024 8:15 AM EST Office Visit Orthopedic Surgery - [place] [address] [phone] Marcelo Bingham, DPM [address] [address] Post-operative state (Primary Dx); Acquired hallux valgus [...] AM EDT Office Visit Orthopedic Surgery - [place] [address] [address] Marcelo Bingham, DPM [address] [address] Pending Results Name Type Priority Associated Diagnoses [...] foot documented in this encounter Care Teams Headmaster/Mistress Relationship Specialty Start Date End Date Gabriela Arce MD [address] [place] [address] [address] [facility] [place] [address] PCP - General 02/23/24 documented as of this encounter
--- OUTSIDE RECORDS SUMMARY | 2024-10-18 08:11 | XMS_ITS | Encounter Summary ---
Author Organization [employer] Address [address] [place] [address] Care Team Providers Care Senior Hydrogeologist Name Role Phone Gabriela Arce MD Primary Care Provider [phone] Encounter Details Date Type Department Care Team (Late st Contact Info) Description 09/09/2024 Telephone Orthopedic Surgery - [place] [address] [facility] [address] [place] [phone] Keiry Ugalde Social History Tobacco Use Types [...] and was checking the status of her [facility] paperwork. After reviewing the patient's chart, [...] Assist: NO Pre-op Consult: YES Which hospital?: [facility] Procedure: Jade bunionectomy right CPT: 45970 Length: 30 minutes Anticoagulation: no Hospital Stay: Short stay Special equipment: none Anesthesia: IV Sedation Anesthesia consult: NO Latex Allergy: NO There is no height or weight on file to calculate BMI. Pre-Op Testing: none Post Op Appointment: 2 Weeks Room type? Regular Comments: Insurance: [place] / [place] / Product Type: MEDICARE [id number] documented in this encounter Plan of Treatment Upcoming Encounters Date Type Department Care Team (Late st Contact Info) Description 10/28/2024 8:45 AM EDT Office Visit Orthopedic Surgery - [place] [address] [address] Marcelo Bingham, DPM [address] [address] documented as of this encounter Visit Diagnoses Not on filedocumented in this encounter Care Teams Senior Hydrogeologist Relationship Specialty Start Date End Date Gabriela Arce MD [address] [place] [address] [address] [facility] [place] [address] PCP - General 02/23/24 documented as of this encounter
--- OUTSIDE RECORDS SUMMARY | 2024-10-18 08:11 | XMS_ITS | Clinical Summary ---
Author Organization 175 [facility] Address [address] [place] [address] Phone Care Team Providers Care Mixer Operator Name Role Phone Gabriela Arce MD Primary Care Provider [phone] Allergies No known active allergies Medications albuterol [...] Daily Amount: 30 mg 35 tablet 09/17/2024 Active gabapentin (Neurontin) 400 mg capsule Take 1 capsule (400 mg total) by mouth 2 (two) times a day. 60 each 09/30/2024 10/31/19 25 Active acetaminophen (TYLENOL 8 HOUR) 650 mg 8 hr tablet Take 1 tablet (650 mg total) by mouth every 8 (eight) hours if needed for mild pain for up to 10 days. Do not crush, chew, or split. 30 tablet 09/17/2024 09/27/19 25 ibuprofen (ADVIL,MOTRIN) 800 mg tablet Take 1 tablet (800 mg total) by mouth 3 (three) times a day. 90 each 09/17/2024 10/18/19 25 Active Problems Problem Noted Date Diagnosed Date [...] 8:15 AM EST Office Visit Orthopedic Surgery [address] [phone] Marcelo Bingham DPM Post-operative state (Primary Dx); Acquired hallux valgus of right foot 09/17/2024 1:15 PM EST - 09/17/2024 2:45 PM EST Surgery [facility] OR [address] [place] [phone] Marcelo Bingham, DPM RIGHT BUNIONECTOMY [68708 (CPT??)] 09/17/2024 12:14 PM EST Anesthesia Event [facility] OR [address] [place] [phone] Casper Holden MD Korobkov, Vitaliy, 09/17/2024 11:04 AM EST - 09/17/2024 2:21 PM EST Hospital Encounter [facility] OR [address] [place] [phone] Marcelo Bingham DPM Discharge Disposition: Home or Self Care 09/15/2024 8:00 AM EST Consult Orthopedic [facility] [address] [phone] Marcelo Bingham, DPM Acquired hallux valgus of right foot (Primary Dx); Acquired hallux valgus of left foot 09/09/2024 Telephone Orthopedic [facility] [address] [phone] Keiry Ugalde from Last 3 Months Surgical [...] AM EDT Office Visit Orthopedic Surgery - [place] [address] [phone] Marcelo Bingham, DPM [address] [address] Health Maintenance Due Date Last Done Comments Breast Cancer Screening 1983 Hepatitis B Vaccines (1 of 3 - 19+ 3-dose series) 2002 Pneumococcal Vaccine: Pediatrics (0 to 5 Years) and At-Risk Patients (6 to 64 Years) (1 of 2 - PCV) 2002 Cervical Cancer Screening: Pap Smear 02/28/2004 COVID-19 Vaccine (2023- season) 2024 Influenza Vaccine (#1) 2024 05/17/2014, [...] VIEWS RIGHT Routine 09/17/2024 2:17 PM EST [place] CORRECTION HALLUX VALGUS W/RESECTION PROXIMAL PHALANX BASE [...] Signed Date: 09/17/2024 14:37 ET Workstation ID: [id number] Transcribed By: Self Edit Transcribed Date: 09/17/2024 [...] Signed Date: 09/17/2024 14:37 ET Workstation ID: [id number] Transcribed By: Self Edit Transcribed Date: 09/17/2024 14:36 ET Marcelo Bingham DPM IMG XR PROCEDURES Final R esult from Last 3 Months Insurance [place] - [place] MEDICARE Care Teams Mixer Operator Relationship Specialty Start Date End Date Gabriela Arce MD [address] [place] [address] [address] [facility] [place] [address] PCP - General 02/23/24
== END 2024-10-18 08:06 | disposition home or self-care (01) ==
LOC: HO.XRAY 08:05
PROVIDERS: PCP Internal Medicine; Visit Provider Nurse Practitioner Family
DX: R13.10 Dysphagia, unspecified (principal)
CPT/HCPCS: 74220

== ENCOUNTER → 2024-10-18 08:07 | Outpatient (BNV) | payer MEDICARE, MEDICAID, SELFPAY | PROVIDERS: PCP Internal Medicine; Visit Provider Radiology Diagnostic Radiology | DX: R13.10 Dysphagia, unspecified (principal) | CPT/HCPCS: 74220 ==

== ENCOUNTER 2025-01-07 09:06 | Outpatient (AMB) | payer MEDICARE, MEDICAID, SELFPAY ==
[2025-01-07 09:09] VITALS: BP 128/72; PULSE 78; O2SAT 98; BMI 38.8
--- NOTE | 2025-01-07 09:09 | MHC.PC.OV ---
Vital Signs 01/07/25 09:09 Height 5 ft 7 in Weight 248 lb BMI 38.8 BP 128/72 Blood Pressure Location Lt brachial Position Sitting Pulse 78 Pulse Source Pulse Oximeter Pulse Oximetry (%) 98 Oxygen Delivery Method Room Air Intake Visit Reasons: Abdomen Pain Allergies No Known Allergies Allergy (Verified 01/07/25 09:09) Medication List - Last Reconciled 01/07/25 by Gabriela rAce MD albuterol sulfate 90 mcg/actuation (ProAir HFA) 2 puffs inhalation QID PRN amitriptyline 5 mg (1/2 x 10 mg) PO BEDTIME cetirizine (All Day Allergy (cetirizine)) 10 mg PO DAILY PRN cyclobenzaprine 5 mg PO BEDTIME PRN gabapentin mg PO DAILY ibuprofen mg PO 3XD sennosides-docusate sodium 8.6-50 mg (Senna Plus) 2 tab-caps (2 x 8.6-50 mg) PO BEDTIME triamcinolone acetonide 0.5% 1 appl topical BID Tobacco use date assessed: 09/02/24 Dental Screening Dental Screen Date: 09/02/24 HPI Abdomen Pain HPI Details r FLANK TO R mid abdomen pain- 6-7 months. Review of the notes patient has had extensive workup on the gallbladder being ultrasound was done hepatobiliary scan done which all revealed negative results. Did see a CAT scan that was done in 2022 with a left flank pain and did see constipation has a problem and the patient does admit to having constipation problem. No rebound on examination of the abdomen but there is direct tenderness on palpation on the right upper quadrant with no guarding. [facility] Medical History Frequency of micturition Chronic constipation Hx of chest pain Hearing difficulty of right ear Prolapsed hemorrhoids Thrombosed external hemorrhoid Nephrolithiasis Allergic rhinitis Thyroid nodule Obesity (BMI 30-39.9) Vitamin D deficiency Generalized anxiety disorder GERD (gastroesophageal reflux disease) Migraine Asthma COVID-19 Surgical History S/P foot surgery, right History of esophagogastroduodenoscopy (EGD) History of hemorrhoidectomy History of colonoscopy H/O LEEP History of 2 sections Family History Maternal Grandmother Myocardial infarct Father Kidney carcinoma Social History Household Members: Family Housing: Apartment Are you a primary healthcare translator to a significant other at home: No Do you presently have visiting nurse or other home services: No Alcohol intake: current Comment: once a month Patient Tobacco Use Status: Never used Tobacco Tobacco use type: Cigarette e-Cigarette/Vaping Use: Never Used Second Hand Smoke Exposure: No service: No Current occupational status: employed Current occupation: [employer] Cognitive needs: No Hearing needs: No Vision needs: Yes (Glasses) Questionnaire PHQ-9 Over the last 2 weeks, how often have you been bothered by any of the following problems? 1. Little interest or pleasure in doing things: not at all 2. Feeling down, depressed, or hopeless: not at all 3. Trouble falling or staying asleep, or sleeping too much: not at all 4. Feeling tired or having little energy: nearly every day 5. Poor appetite or overeating: nearly every day 6. Feeling bad about yourself - or that you are a failure or have let yourself or your family down: not at all 7. Trouble concentrating on things, such as reading the newspaper or watching television: nearly every day 8. Moving or speaking so slowly that other people could have noticed. Or the opposite - being so fidgety or restless that you have been moving around a lot more than usual: several days Depression Screening Interpretation: Positive Depression Screening Done: Yes Source: Developed by Drs. Bon Hernandez, Gilma Alvarado, Daren Thakur and colleagues, with an educational alfredo from [employer]. Thrive Questionnaire Date Thrive assessed: 09/02/24 POLLO-7 AMB Questionnaire POLLO-7 Date POLLO - 7 assessed: 09/02/24 Source: Developed by Drs. Bon Hernandez, Gilma Alvarado, Daren Thakur and colleagues, with an educational alfredo from [employer]. Physical exam (Primary Care) Vital Signs: Last Vital Signs Pulse 78 01/07/25 09:09 BP 128/72 01/07/25 09:09 Pulse Ox 98 01/07/25 09:09 Oxygen Delivery Method Room Air 01/07/25 09:09 BMI result Body Mass Index 38.8 Tobacco/Smoking Status: Tobacco use Status Tobacco use date assessed 09/02/24 01/07/25 09:14 Patient Tobacco Use Status Never used Tobacco 01/07/25 09:14 Tobacco use type Cigarette 01/07/25 09:14 e-Cigarette/Vaping Use Never Used 01/07/25 09:14 Depression Screening Interpretation: Positive Thrive Assessment: Date of Thrive Assessment Date Thrive assessed 09/02/24 01/07/25 09:14 Const General: alert; No acute distress Eyes Conjunctivae: conjunctivae normal Resp Auscultation: clear to auscultation bilaterally Cardio Rate: regular rate Rhythm: regular rhythm GI Other: Soft tender on the right upper quadrant with no guarding no rebound. As for the flank negative. Extrem General: Yes normal to inspection and No edema Results AMB Urinalysis, Automated UA Leukoctes 0 Christian/uL Last Edit by Macey Hartmann CMA on 01/07/25 11:09 UA Nitrite Negative Last Edit by Macey Hartmann CMA on 01/07/25 11:09 UA Urobilinogen 0.2 mg/dL Last Edit by Macey Hartmann CMA on 01/07/25 11:09 UA Protein 0 mg/dL Last Edit by Macey Hartmann CMA on 01/07/25 11:09 UA pH 6.0 Last Edit by Macey Hartmann CMA on 01/07/25 11:09 UA Blood 0 Daniel/uL Last Edit by Macey Hartmann [facility] on 01/07/25 11:09 UA Specific [place] 1.015 Last Edit by Macey Hartmann CMA on 01/07/25 11:09 UA Ketone Negative Last Edit by Macey Hartmann CMA on 01/07/25 11:09 UA Bilirubin 0 mg/dL Last Edit by Macey Hartmann CMA on 01/07/25 11:09 UA Glucose 0 mg/dL Last Edit by Macey Hartmann CMA on 01/07/25 11:09 Results Reviewed Results Reviewed: Laboratory Last Values Urine pH (Auto) 6.0 01/07/25 11:06 Specific [place] (Auto) 1.015 01/07/25 11:06 Urine Protein (Auto) 0 mg/dL 01/07/25 11:06 Glucose (UA)(Auto) 0 mg/dL 01/07/25 11:06 Urine Ketones (Auto) Negative 01/07/25 11:06 Urine Blood (Auto) 0 Daniel/uL 01/07/25 11:06 Urine Nitrite (Auto) Negative 01/07/25 11:06 Urine Bilirubin (Auto) 0 mg/dL 01/07/25 11:06 Urine Urobilinogen (Auto) 0.2 mg/dL 01/07/25 11:06 Leukocyte Esterase (Auto) 0 Christian/uL 01/07/25 11:06 Coding Level of Care Code Est Pt Level 4 (46463) Diagnoses Constipation K59.00 Gastroesophageal reflux disease without esophagitis K21.9 Esophagitis presence: without esophagitis Obesity (BMI 30-39.9) E66.9 Assessment & Plan Assessment & Plan (1) Constipation: Code(s): K59.00 - Constipation, unspecified Category: Medical Plan: Three rules for constipation 1. Diet need to have a high fiber diet less of meat 2. Increase oral fluids 3. Exercise (2) GERD (gastroesophageal reflux disease): Code(s): K21.9 - Gastro-esophageal reflux disease without esophagitis Category: Medical Qualifiers: Esophagitis presence: without esophagitis Qualified Code(s): K21.9 - Gastro-esophageal reflux disease without esophagitis Plan: Avoid the foods that causes that usually spicy foods, tomato products, juices, coffee, soda and foods that your sensitive to. After eating do not lie down, allow 3-4 hours before in lie down. And keep the head of bed above 30 degrees to avoid the acid from going up. (3) Obesity (BMI 30-39.9): Code(s): E66.9 - Obesity, unspecified Category: Medical Plan: Diet and exercise Plan History of Present Illness The patient is a 39-year-old female presenting with constipation and related gastrointestinal complaints. The patient has a past medical history notable for generalized anxiety disorder, right knee patellofemoral arthritis, hypercholesterolemia, and asthma. The current constipation has been persistent, with bowel movements characterized by hard, small stools. Treatment with green tea extract and probiotics has been attempted, and her hydration is adequate. Previous assessments ruled out urinary tract obstructions and gallstones, focusing on the large intestine, with recommendations for a modified regimen involving Senna. Her comprehensive water intake includes five to six 16-ounce bottles of water daily, in which she mixes a powdered probiotic. Despite significant hydration efforts, the bowel movement issues continue. Further investigation through a CAT scan is planned to elucidate the source of her persistent constipation symptoms. Health Maintenance - Regular hydration with adequate intake of water is encouraged. - Ongoing management of hypercholesterolemia. - Continued management and monitoring of asthma with appropriate inhalers. - Encouragement of a healthy diet and lifestyle to address obesity. Social History - Reports consuming significant water daily, approximately five to six 16-ounce bottles. - Utilizes powdered probiotics mixed with water. - Engages in dietary supplementation with green tea extract. - Implied challenges with completely eliminating sugar from diet. Review of Systems - Gastrointestinal: Reports persistent constipation, difficulty with bowel movements. - Genitourinary: Denies problems with urinary function. - Musculoskeletal: Existing patellofemoral arthritis in the right knee. - Psychological: Generalized anxiety disorder history. - Respiratory: History of asthma. Physical Exam Results - Planned CAT scan with oral and IV contrast for further evaluation of gastrointestinal issues. Plan The patient will begin a regimen of Senna at bedtime to address constipation, while continuing her hydration efforts. A CAT scan with oral and IV contrast is planned to check for any underlying gastrointestinal abnormalities. The patient will maintain her current use of probiotics and green tea extract, adjusting as necessary based on the upcoming scan results and bowel pattern changes. Patient was informed and verbally consented to the use of an ambient scribe for clinic note documentation during this visit. Discussion Notes I discussed the likely diagnosis of constipation due to stool backup with the patient, exploring management options including modifications to her bowel regimen with Senna. We reviewed the possible need for further diagnostic imaging, namely a CAT scan with oral and IV contrast, to ensure no other abnormalities. The patient and I reviewed her current regimen and possible modifications, including the risks and benefits of continuing her current hydration routine with added probiotics. We agreed on close monitoring and follow-up after the scan results, with ongoing assessment of her bowel habits and any changes in symptoms. Patient Instructions - Take Senna at bedtime to improve bowel movements. - Continue to drink five to six 16-ounce bottles of water daily. - Keep using the powdered probiotics in water as instructed. - Monitor bowel movements and note any changes. - Await further instructions after the CAT scan results. - Contact the office if symptoms worsen or if new symptoms develop. Orders: Orders Creatinine Today R10.9 - Unspecified abdominal pain AMB Urinalysis Automated Today Z13.9 - Encounter for screening, unspecified CT abdomen pelvis w IV con Today R10.9 - Unspecified abdominal pain Blood Urea Nitrogen Today R10.9 - Unspecified abdominal pain Medications: New sennosides-docusate sodium 8.6-50 mg (Senna Plus) 2 tab-caps (2 x 8.6-50 mg) PO BEDTIME 60 tabs 0RF K59.00 - Constipation, unspecified Discontinued docusate sodium Discontinued Reason: Doctor's Order 100 mg PO DAILY 30 caps 3RF K59.00 - Constipation, unspecified
== END 2025-01-07 10:08 | disposition home or self-care (01) ==
LOC: HO.HMCH 09:07
PROVIDERS: PCP Internal Medicine; Visit Provider Internal Medicine
DX: K59.00 Constipation, unspecified (principal); K21.9 Gastro-esophageal reflux disease without esophagitis; E66.9 Obesity, unspecified; Z68.38 Body mass index [BMI] 38.0-38.9, adult; R10.9 Unspecified abdominal pain

== ENCOUNTER → 2025-01-07 09:06 | Outpatient (BNVA) | payer MEDICARE, MEDICAID, SELFPAY | PROVIDERS: PCP Internal Medicine; Visit Provider Internal Medicine | DX: K59.00 Constipation, unspecified (principal); K21.9 Gastro-esophageal reflux disease without esophagitis; E66.9 Obesity, unspecified; Z68.38 Body mass index [BMI] 38.0-38.9, adult; Z71.3 Dietary counseling and surveillance | CPT/HCPCS: 81003; 99212 ==

== ENCOUNTER 2025-03-04 11:54 | Outpatient (AMB) | payer MEDICARE, MEDICAID, SELFPAY ==
--- NOTE | 2025-03-04 11:54 | MHC.PC.OV ---
Intake Visit Reasons: Abdominal Pain Set Up Technician Required: No Reformatory Attendant: Not Required per policy Accompanied by: Self / Same As Patient Allergies No Known Allergies Allergy (Verified 03/04/25 11:55) Medication List - Last Reconciled 03/04/25 by Gabriela Arce MD albuterol sulfate 90 mcg/actuation (ProAir HFA) 2 puffs inhalation QID PRN barium sulfate 2%(w/v) (Readi-Cat 2) 450 mL orally; take one bottle [address] and the 2nd bottle one hour prior to CT cetirizine (All Day Allergy (cetirizine)) 10 mg PO DAILY PRN gabapentin mg PO DAILY ibuprofen mg PO 3XD sennosides-docusate sodium 8.6-50 mg (Senna Plus) 2 tab-caps (2 x 8.6-50 mg) PO BEDTIME triamcinolone acetonide 0.5% 1 appl topical BID Tobacco use date assessed: 03/04/25 Dental Screening Dental Screen Date: 09/02/24 HPI Abdominal Pain HPI Details on eating epigastric pain, having constipation 2 weeks , and having constipation. [facility] Medical History Frequency of micturition Chronic constipation Hx of chest pain Hearing difficulty of right ear Prolapsed hemorrhoids Thrombosed external hemorrhoid Nephrolithiasis Allergic rhinitis Thyroid nodule Obesity (BMI 30-39.9) Vitamin D deficiency Generalized anxiety disorder GERD (gastroesophageal reflux disease) Migraine Asthma COVID-19 Surgical History S/P foot surgery, right History of esophagogastroduodenoscopy (EGD) History of hemorrhoidectomy History of colonoscopy H/O LEEP History of 2 sections Family History Maternal Grandmother Myocardial infarct Father Kidney carcinoma Social History Household Members: Family Housing: Apartment Are you a primary care asst to a significant other at home: No Do you presently have visiting nurse or other home services: No Alcohol intake: current Comment: once a month Patient Tobacco Use Status: Never used Tobacco Tobacco use type: Cigarette e-Cigarette/Vaping Use: Never Used Second Hand Smoke Exposure: No service: No Current occupational status: employed 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 How often do you have six or more drinks on one occasion?: Never Total Score: 0 POLLO-7 AMB Questionnaire POLLO-7 Date POLLO - 7 assessed: 09/02/24 Source: Developed by Drs. Bon Hernandez, Gilma Alvarado, Daren Thakur and colleagues, with an educational alfredo from [employer]. Physical exam (Primary Care) Tobacco/Smoking Status: Tobacco use Status Tobacco use date assessed 03/04/25 03/04/25 11:56 Patient Tobacco Use Status Never used Tobacco 03/04/25 11:56 Tobacco use type Cigarette 03/04/25 11:56 e-Cigarette/Vaping Use Never Used 03/04/25 11:56 Thrive Assessment: Date of Thrive Assessment Date Thrive assessed 09/02/24 03/04/25 11:56 Telehealth Telehealth Telehealth Platform: Telephone Location of patient: address on file Patient Identification confirmed using: Name, : Yes Telehealth method: voice only Patient verbally consented to treatment: Yes Patient verbally consented to billing insurance company: Yes Patient informed of any privacy concerns related to visit: Yes Minutes spent on Phone/Video with Pt.: 15 Coding Level of Care Code Tele Est Pt Level 3 (18785) Diagnoses Epigastric pain R10.13 Constipation K59.00 Assessment & Plan Assessment & Plan (1) Epigastric pain: Code(s): R10.13 - Epigastric pain Category: Medical Plan: Discussed about using omeprazole which she has at home once a day. Avoid the foods that causes that usually spicy foods, tomato products, juices, coffee, soda and foods that your sensitive to. After eating do not lie down, allow 3-4 hours before in lie down. And keep the head of bed above 30 degrees to avoid the acid from going up. (2) Constipation: Code(s): K59.00 - Constipation, unspecified Category: Medical Plan: Three rules for constipation 1. Diet need to have a high fiber diet less of meat 2. Increase oral fluids 3. Exercise Plan History of Present Illness The patient is a 40-year-old female presenting with constipation and abdominal pain. She describes experiencing pain in the epigastric region after consuming solid foods, which has persisted for about two weeks. The patient reports alternating between constipation and diarrhea, with difficulty passing stools, and when she does, it is primarily liquid. She occasionally uses MiraLAX for relief but desires regular bowel movements without medication reliance. The patient has a history of generalized anxiety disorder, GERD, hypercholesterolemia, and asthma. She has been prescribed amitriptyline, recently switched to nortriptyline, but has not started the new medication due to morning drowsiness. She uses an inhaler as needed for asthma and has been prescribed Zyrtec, which she has not taken recently. Review of Systems - Gastrointestinal: Reports epigastric pain after eating solid foods, alternating constipation and diarrhea. - Respiratory: Denies current respiratory symptoms, uses inhaler as needed. - Neurological: Reports difficulty waking up in the morning when taking amitriptyline. Plan The patient was advised to initiate omeprazole therapy to alleviate epigastric pain, potentially linked to GERD or gastritis. Incorporating dietary fiber, either through food or psyllium supplements, was recommended to promote regular bowel movements. Adequate hydration was emphasized to support gastrointestinal function. The patient was reassured that the treatment plan aims to address the root cause of her symptoms rather than merely masking them. Patient was informed and verbally consented to the use of an ambient scribe for clinic note documentation during this visit. Discussion Notes I discussed with the patient the potential causes of her epigastric pain, including GERD and gastritis, and recommended starting omeprazole. We talked about the importance of dietary fiber and hydration in managing her constipation and the use of psyllium as a supplement. The patient was concerned about using medications to mask symptoms, and I reassured her that our goal is to treat the underlying issues. Patient Instructions - Start taking omeprazole as directed to help with stomach pain. - Add more fiber to your diet through food or psyllium supplements. - Drink plenty of water every day to help with bowel movements. - Contact the office if symptoms persist or worsen.
--- OUTSIDE RECORDS SUMMARY | 2025-03-04 11:57 | XMS_ITS | Clinical Summary ---
Author Organization [employer] [facility] Address [address] [place] [address] Phone Care Team Providers Care Makeup Sales Consultant Name Role Phone Gabriela Arce MD Primary Care Provider [phone] Allergies Active Allergy Reactions Criticality Noted Date Comments Pollen Extracts 11/20/2021 Medications fluticasone propionate (FLONASE) 50 mcg/actuation nasal spray as needed. 2 Active Medication-Free Text Super Enzymes - 1 tablet daily with a meal Active ketoconazole 2 % cream Apply topically 2 (two) times a day. 4 Active fluconazole (DIFLUCAN) 200 MG tablet Take 200 mg by mouth every 14 (fourteen) days. 2 Active minoxidiL (LONITEN) 2.5 MG tablet Take 2.5 mg by mouth daily. 4 Active tirzepatide, weight loss, (ZEPBOUND) 2.5 mg/0.5 mL subcutaneous penIndications:Cl ass 2 obesity without serious comorbidity with body mass index (BMI) of 37.0 to 37.9 in adult, unspecified obesity type Inject 0.5 mL (2.5 mg total) under the skin every 7 days. 2 mL 3 5 Active Active Problems Problem Noted Date Diagnosed Date Class 2 obesity without seri ous comorbidity with body mass index (BMI) of 37.0 to 37.9 in adult 11/20/2021 Assessment & Plan (10/13/2024 10:35 AM EST): Insurance refused to pay for Mounjaro and then I prescribed weight loss version of this medication which is but apparently they do not cover weight loss medications. She is currently on Medicare. So the only option I can give her since I do not cover weight loss medications possibly using phentermine and topiramate. These 2 medications is not as effective as GLP-1 agonists. She states that she has [employer] and she spoke with somebody and they told her that they will cover Mounjaro. So this Medicare Medicare covers Mounjaro. But they do not cover is still weight loss medication Zepbound. So hopefully Zepbound will be covered by [employer]. I did inform her the Mounjaro and Zepbound of the same medication just different names 1 is for diabetes and 1 is for obesity management. I prescribe Zepbound 2.5 mg again. This will have to go through [facility] and if she needs a prior authorization for this then we will have to request it. I asked her to check with the pharmacy and see if this is required. If so she needs to get back to me and let me know. We also had a discussion about using phentermine and topiramate. The phentermine can cause tachycardia topiramate can cause kidney stones. Combination can cause confusion. So she was not keen on trying this type of weight loss medication. She states that she is going to continue researching and seeing if she can obtain the medication from another source. Assessment & Plan (02/09/2024 10:01 AM EDT): Unfortunately has gained weight due to stopping Mounjaro. She was to restart at a lower dose. Will prescribe Mounjaro 2.5 mg weekly. Assessment & Plan (02/05/2023 2:27 PM EDT): The patient lost another 2 pounds but now she is beginning to have adverse effects with the medication which she did not have before so I am decreasing the dose from 10 mg to 7.5 mg and I gave her enough medications for a period of 6 months so she will follow-up in 6 months Assessment & Plan (10/01/2022 10:31 AM EST): The patient is having difficulty with the higher dose 12.5 mg getting heat sensation burning sensation welting of the skin and hopefully she has not developed an allergic reaction. She has decided to just decrease the dose to 10 mg. I have gave her the 90-day prescription. She does have the 15 mg which I suppose she is probably not going to use but she may not get the new 10 mg dose until the time has for the 15 mg doses. So at this point I will see her in 6 months I hope she continues to tolerate the lower dose 10 mg like she did in the past. Assessment & Plan (06/25/2022 10:55 AM EST): Excellent weight loss with the use of Mounjaro since she is tolerating the medication I will now prescribe the 10 mg, 12.5 and 15 mg. The 7.5 mg has already been prescribed previously. Assessment & Plan (05/02/2022 3:21 PM EDT): Patient is going to stop phentermine and topiramate she is going to try Mounjaro 2.5 mg and I will prescribe the 5 mg dose. Patient received sample of Mounjaro lot number [id number], expiration 09/16/2023. Assessment & Plan (02/20/2022 11:16 AM EDT): The patient is gaining weight she complains of fatigue I will repeat thyroid function studies and obtain screening cortisol level that has to be done fasting first thing in the morning in the meantime I am prescribing phentermine 8 mg and topiramate 50 mg to be taken daily. If she tolerates the medication we can increase the dose further. Assessment & Plan (11/20/2021 11:12 AM EDT): The patient does not appear to have any endocrine etiologies for obesity but she is diet and exercise and unable to lose weight. She has no history of pancreatitis or medullary thyroid carcinoma and Jody is on formulary for her healthcare insurance. This medication is quite good for weight loss. So I will prescribe 0.25 mg weekly. Assuming she tolerates the medication we can increase the dose to 0.5 mg after 4 weeks. The dose is increased every 4 weeks as long as she is tolerating the medication. The adverse effects include nausea, vomiting, diarrhea, constipation. She will know if she can tolerate the medication until she tries it and this is why we start out with the smallest dose so that she can become accustomed to it without adverse effects. The medication works by acting as a neurotransmitter on the hypothalamus to suppress appetite it also decreases gastric emptying so the patient feels full and eats less. The medication also works to improve glycemic control stimulates insulin secretion in a glucose dependent manner only when the patient eats. It also decreases glucagon thereby inhibiting hepatic gluconeogenesis. As far as I know the patient is not diabetic but she should not develop hypoglycemia. Nontoxic multinodular goiter 11/20/2021 Assessment & Plan (05/02/2022 3:18 PM EDT): Patient has subcentimeter nodules that colloid cyst she does not require any further imaging or biopsy because it is subcentimeter in size. Would not work this up further. Assessment & Plan (02/20/2022 11:16 AM EDT): She has not done her ultrasound I requested it again. She must schedule a follow-up visit because if she does not schedule follow-up visit this study can be deleted. The meantime I did give her the phone number to contact radiology to schedule the study. Assessment & Plan (11/20/2021 11:10 AM EDT): Patient has an enlarged thyroid gland though thyroid is actually long for her height because she does not appear to be very tall. The width of the right lobe is enlarged there is 2 subcentimeter nodules that colloid cystic nodules these are benign. Radiology recommended repeating ultrasound in 6 months and I would not not necessarily recommended this but at this point I will request ultrasound of the thyroid gland for monitoring. Family History Medical History Relation Comments Cancer Father Arthritis Mother Relation Status Comments Father Alive Mother Alive Social History Tobacco Use Types Packs/Day Years Used Date Smoking Tobacco: Never Smokeless Tobacco: Never Alcohol Use Standard Drinks/Week Comments Not Currently 0 (1 standard drink = 0.6 oz pur e alcohol) Education Answer Date Recorded Are you interested in more education? Not on chica e 12/07/2022 Are you concerned about learning? Not on file 12/07/2022 No 12/07/2022 No 12/07/2022 Digital Access Answer Date Recorded No 01/07/2023 No 01/07/2023 Reliable internet access at home? Not on file 01/07/2023 Device with a working camera? Not on file Comments Unknown Sex and Gender Information Value Date Recorded Sex Assigned at Not on file Legal Sex Female 2:31 PM EST Gender Identity Not on file Sexual Orientation Not on file Last Filed Vital Signs Vital Sign Reading Time Taken Comments Blood Pressure 126/82 10/13/2024 9:53 AM EST Pulse 81 10/13/2024 9:53 AM EST Temperature 36.3 C (97.3 F) 11/20/2021 10:43 AM EDT Respiratory Rate 16 11/20/2021 10:4 3 AM EDT Oxygen Saturation 99% 10/13/2024 9:53 AM EST Inhaled Oxygen Concentration - - Weight 110.8 kg (244 lb 3.2 oz) 10/13/2024 9:53 AM EST Height 170.8 cm (5' 7.25 ) 10/13/2024 9:53 AM ES T Body Mass Index 37.96 10/13/2024 9:53 AM EST Plan of Treatment Health Maintenance Due Date Last Done Comments DEPRESSION SCREENING 1995 HEPATITIS C SCREENING 2001 HIV ONE-TIME SCREENING (18-6 5 YEARS) 2001 PAP SMEAR 02/28/2004 SCREENING FOR DIABETES 2018 MAMMOGRAM 2023 COVID-19 VACCINE ( - 2023-2 5 season) 2024 Adult Td,Tdap Booster 08/18/2024 08/18/2014 , 09/17/2012, 06/24/2012 SMOKING STATUS SCREENING (On ce After 26 Yrs) Completed 02/09/2024 HEPATITIS A VACCINES Aged Out No long er eligible based on patient's age to complete this topic HIB VACCINES Aged Out No longer eligi ble based on patient's age to complete this topic MENINGOCOCCAL VACCINES (ACWY) Aged Out No longer eligible based on patient's age to complete this topic MENINGOCOCCAL VACCINES (B) Aged Out N o longer eligible based on patient's age to complete this topic PNEUMOCOCCAL VACCINES (0-49 years) Aged Out No longer eligible b ased on patient's age to complete this topic Medical Devices Not on file Insurance [address] [place] [address] [place] PART A & [place] [address] [place] [address] [place] [employer] [place] [address] [place] [address] [place] [address] [place] [address] [place] [address] [place] [address] [place] [employer] [place] & [place] [address] [place] [id number] [place] [address] [place] [address] [facility] MEDICARE PART A & B [address] [place] [id number] [place] [address]HEALTH MEDICARE PART A & B [address] [place] [address] [place] [employer] PART A & B Care Teams Makeup Sales Consultant Relationship Specialty Start Date End Date Gabriela Arce MD [address] [place] [address] [place] [phone] PCP - General Internal Medicine 08/15/21 Additional Source Comments The information contained in this document represents components of the legal health record. It is not the complete legal health record.[facility]
== END 2025-03-04 14:59 | disposition home or self-care (01) ==
LOC: HO.HMCH 11:54
PROVIDERS: PCP Internal Medicine; Visit Provider Internal Medicine
DX: R10.13 Epigastric pain (principal); K59.00 Constipation, unspecified

== ENCOUNTER 2025-03-08 08:43 | Outpatient (REF) | payer MEDICARE, MEDICAID, SELFPAY ==
--- NOTE | ~2025-03-08 | CT_ITS ---
EXAMINATION: CT ABDOMEN AND PELVIS WITH CONTRAST CLINICAL INFORMATION: R10.9 - Unspecified abdominal pain COMPARISON: November 26, 2022 CT and ultrasound on August 17, 2024 TECHNIQUE: Multidetector volumetric images were obtained from the superior aspect of the liver through the pubic symphysis following administration 85 mL of Omnipaque 350 intravenous contrast. Sagittal and coronal reformatted images were obtained on the technologist's workstation. Oral contrast: Yes This CT examination was performed using dose optimization techniques as appropriate, variously including the following: *Automated exposure control *Adjustment of mA and/or kV according to patient size (this includes techniques or standardized protocols for targeted exams where dose is matched to indication/reason for exam; i.e. extremities or head) *Use of iterative reconstruction technique DLP: 667 mGY*cm FINDINGS: LUNG BASES: Clear LIVER, GALLBLADDER, AND BILIARY TREE: Mild diffuse fatty changes are present in the liver. Focal low attenuating lesion in the right hepatic lobe was present on the prior examination. It probably represents a small simple hepatic cyst. The gallbladder is unremarkable with no evidence of radiopaque gallstones, gallbladder wall thickening, or obvious pericholecystic inflammatory changes. PANCREAS: Unremarkable. SPLEEN: Unremarkable. ADRENAL GLANDS: Unremarkable. KIDNEYS AND URETERS: The kidneys are normal in size, shape, and attenuation. No hydronephrosis, hydroureter, or calculi seen. No perinephric stranding. BLADDER: Unremarkable. GASTROINTESTINAL TRACT: The small and large bowel are unremarkable. The appendix is unremarkable. ABDOMINAL WALL: No significant hernia is appreciated. LYMPH NODES: Normal. VASCULAR: Unremarkable. PELVIC VISCERA: There is a mass in the uterine fundus measuring 8.5 x 6.9 x 8.2 cm, previously 7.6 x 6.1 x 7.2 cm, likely representing uterine leiomyoma. There are bilateral ovarian cysts measuring less than 3 cm long axis. OSSEOUS STRUCTURES: Moderate degenerative changes present in the pubic symphysis joint with osteophytes, sclerosis, and minimal degenerative cystic change. CT/CT abdomen pelvis w IV con IMPRESSION: No acute abnormality. Fatty liver. Enlarging uterine leiomyoma previously measuring 7.6 cm long axis, now 8.5 cm. Bilateral ovarian cysts measuring less than 3 cm long axis. Fleischner guidelines were followed. Electronically signed by: Gavin Castro MD 03/08/2025 10:24 AM EDT
--- OUTSIDE RECORDS SUMMARY | 2025-03-08 09:00 | XMS_ITS | Clinical Summary ---
Author Organization [employer] [facility] Address [address] [place] [address] Phone Care Team Providers Care Cross Enterprise Integrator Name Role Phone Gabriela Arce MD Primary Care Provider [phone] Allergies Active Allergy Reactions Criticality Noted Date [...] GLP-1 agonists. She states that she has [employer] and she spoke with somebody and they told her that they will cover Mounjaro. So this Medicare Medicare covers Mounjaro. But they do not cover is still weight loss medication Zepbound. So hopefully Zepbound will be covered by [employer]. I did inform her the Mounjaro and Zepbound of the same medication just different names 1 is for diabetes and 1 is for obesity management. I prescribe Zepbound 2.5 mg again. This will have to go through [facility] and if she needs a prior authorization [...] Patient received sample of Mounjaro lot number [id number], expiration 09/16/2023. Assessment & Plan (02/20/2022 11:16 [...] Devices Not on file Insurance [address] [place] [address] [place] [employer] PART A & B [address] [place] [address] [place] [employer] PART [place] & [place] [address] [place] [address] [place] [address] [place] [address] [place] [address] [place] [address] [place] [employer] [place] A & [place] [address] [place] [place] [id number] [place] [address] [place] [address] [facility] MEDICARE PART A & B [address] [place], [place] [id number] [place], [place] [address]HEALTH MEDICARE PART A & B [address] [place] [address] [place] [employer] PART A & B Care Teams Cross Enterprise Integrator Relationship Specialty Start Date End Date Gabriela Arce MD [address] [place] [address] [place] [phone] PCP - General Internal Medicine 08/15/21 Additional Source Comments The information contained in this document represents components of the legal health record. It is not the complete legal health record.[facility]
[2025-03-08] MEDS: iohexoL 350 MG/ML 100 ML INFUS..BTL 85 ML IV (10:10)
== END 2025-03-08 08:44 | disposition home or self-care (01) ==
LOC: HO.CT 08:43
PROVIDERS: PCP Internal Medicine; Visit Provider Internal Medicine
DX: R10.9 Unspecified abdominal pain (principal)
CPT/HCPCS: 74177; Q9967

== ENCOUNTER → 2025-03-08 08:44 | Outpatient (BNV) | payer MEDICARE, MEDICAID, SELFPAY | PROVIDERS: PCP Internal Medicine; Visit Provider Radiology Diagnostic Radiology | DX: K76.0 Fatty (change of) liver, not elsewhere classified (principal) | CPT/HCPCS: 74177 ==

== ENCOUNTER 2025-05-17 09:05 | Outpatient (AMB) | payer MEDICARE, MEDICAID, SELFPAY ==
[2025-05-17 09:07] VITALS: BP 110/80; PULSE 90; TEMP 36.2; O2SAT 98; BMI 38.7
--- NOTE | 2025-05-17 09:07 | MHC.PC.OV ---
Vital Signs 05/17/25 09:07 Height 5 ft 7 in Weight 247 lb 6 oz BMI 38.7 BP 110/80 Blood Pressure Location Lt brachial Position Sitting Pulse 90 Pulse Source Pulse Oximeter Temp 97.1 F Temp Source Temporal Artery Scan Pulse Oximetry (%) 98 Oxygen Delivery Method Room Air Intake Visit Reasons: annual exam Allergies No Known Allergies Allergy (Verified 05/17/25 09:13) Medication List - Last Reconciled 05/17/25 by Jazmin De Anda PA-C albuterol sulfate 90 mcg/actuation (ProAir HFA) 2 puffs inhalation QID PRN cetirizine (All Day Allergy (cetirizine)) 10 mg PO DAILY PRN gabapentin mg PO DAILY ibuprofen mg PO 3XD nortriptyline 25 mg PO BEDTIME sennosides-docusate sodium 8.6-50 mg (Senna Plus) 2 tab-caps (2 x 8.6-50 mg) PO BEDTIME triamcinolone acetonide 0.5% 1 appl topical BID Tobacco use date assessed: 05/17/25 Dental Screening Dental Screen Date: 05/17/25 Did you have a dental visit in the last 12 months?: Yes Did you have a dental problem in the last 6 months where you did not have access to dental care?: No Was dental information given to patient?: Patient has dentist HPI annual exam HPI Details 40 year old female with past medical history of POLLO, GERD, hypercholesterolemia, anemia, constipation, migraine, asthma, and hepatic steatosis last seen 02/[address] Arce coming in for annual exam. Presenting with an annual wellness visit and management of chronic conditions including migraines and weight management. Migraine Managed with nortriptyline, prescribed by a neurologist, with ongoing symptoms despite treatment. Physical therapy attempted with limited success in alleviating symptoms associated with migraines. Persistent fatigue and forgetfulness affecting daily life, with no clear resolution associated with the migraines. Previous weight loss of 80 pounds regained, with difficulty maintaining weight, possibly linked to thyroid issues. Goiter Noted by a physician in [place], with visible thyroid enlargement. She has had US of the thyroid with no follow up recommended. Large cyst present in the groin area causing discomfort, with surgical evaluation planned. mammogram: overdue order placed today pap smear: overdue - following with [facility] colonoscopy: 2019 vaccines: UTD, declining flu PFSH Medical History Frequency of micturition Chronic constipation Hx of chest pain Hearing difficulty of right ear Prolapsed hemorrhoids Thrombosed external hemorrhoid Nephrolithiasis Allergic rhinitis Thyroid nodule Obesity (BMI 30-39.9) Vitamin D deficiency Generalized anxiety disorder GERD (gastroesophageal reflux disease) Migraine Asthma COVID-19 Surgical History S/P foot surgery, right History of esophagogastroduodenoscopy (EGD) History of hemorrhoidectomy History of colonoscopy H/O LEEP History of 2 sections Family History Maternal Grandmother Myocardial infarct Father Kidney carcinoma Social History Household Members: Family Housing: Apartment Are you a primary health careers instructor to a significant other at home: No Do you presently have visiting nurse or other home services: No Alcohol intake: current Comment: once a month Patient Tobacco Use Status: Never used Tobacco Tobacco use type: Cigarette e-Cigarette/Vaping Use: Never Used Second Hand Smoke Exposure: No service: No Current occupational status: employed 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 1. Little interest or pleasure in doing things: not at all 2. Feeling down, depressed, or hopeless: not at all 3. Trouble falling or staying asleep, or sleeping too much: not at all 4. Feeling tired or having little energy: nearly every day 5. Poor appetite or overeating: nearly every day 6. Feeling bad about yourself - or that you are a failure or have let yourself or your family down: not at all 7. Trouble concentrating on things, such as reading the newspaper or watching television: nearly every day 8. Moving or speaking so slowly that other people could have noticed. Or the opposite - being so fidgety or restless that you have been moving around a lot more than usual: several days 9. Thoughts that you would be better off or of hurting yourself in some way: not at all Total score: 10 Depression Screening Interpretation: Positive Depression Screening Follow-up: Existing condition and In treatment Depression Screening Done: Yes Source: Developed by Drs. Bon Hernandez, Gilma Alvarado, Daren Thakur and colleagues, with an educational alfredo from [employer]. Thrive Questionnaire Date Thrive assessed: 05/10/25 I am a: Patient What is your living situation today?: I have a steady place to live Within the past 12 months, did the food you bought not last and you didn't have the money to get more?: Often true Within the past 12 months, did you worry whether your food would run out before you got money to buy more?: Often true Do you have trouble paying for medicines?: I choose not to answer this question Do you have trouble getting transportation to medical appointments?: I choose not to answer this question Do you have trouble paying your heating and electricity bill?: Yes Do you have trouble taking care of your child, family member or friend?: Yes Do you have trouble with day-to-day activities such as bathing, preparing meals, shopping, managing finances, etc.?: Yes Are you currently unemployed and looking for a job?: No Are you interested in more education?: I choose not to answer this question Please select the resources that you would like help with: None THRIVE Score: 3 AUDIT C Alcohol Use Questionnaire (AUDIT-C) 1. How often do you have a drink containing alcohol?: Never 3. How often do you have six or more drinks on one occasion?: Never Total Score: 0 POLLO-7 AMB Questionnaire POLLO-7 Date POLLO - 7 assessed: 09/02/24 Feeling nervous, anxious, or on edge: 3 = Nearly every day Not being able to stop or control worryin = Nearly every day Worrying too much about different things: 3 = Nearly every day Trouble relaxin = Nearly every day Being so restless that it is hard to sit still: 1 = Several days Becoming easily annoyed or irritable: 3 = Nearly every day Feeling afraid as if something awful might happen: 3 = Nearly every day Total POLLO-7 score (0-4 normal; 5-9 mild; 10-14 moderate; 15-21 severe): 19 Source: Developed by Drs. Bon Hernandez, Gilma Alvarado, Daren Thakur and colleagues, with an educational alfredo from [employer]. POLLO-7 Assessment Billing POLLO-7 Assessment Tool: POLLO-7 Assessment 96921 Review of Systems Const Denies body aches, Denies fatigue, Denies fever(s), Denies frequent falls, Reports headache(s) and Denies weakness Eyes Reports no additional complaints and Denies change in vision ENT Reports dysphagia, Denies dizziness, Denies facial pain, Reports headache(s) and Denies odynophagia Card Denies chest pain, Denies syncope, Denies irregular heart rhythm, Denies leg edema, Denies lightheadedness and Denies dyspnea Resp Denies dyspnea GI Reports abdominal pain, Reports constipation, Reports dysphagia, Denies dyspepsia, Denies diarrhea, Denies nausea, Denies odynophagia and Denies vomiting Denies urinary frequency, Denies dysuria, Denies urinary hesitancy and Denies urinary urgency Musc Denies back pain and Denies myalgias Skin/Breast Reports system reviewed and no additional complaints, except as documented Neuro Denies dizziness, Denies syncope, Denies frequent falls, Reports headache(s) and Denies weakness Psych Reports no additional complaints Endo Denies fatigue Physical exam (Primary Care) Vital Signs: Last Vital Signs Temp 97.1 F 05/17/25 09:07 Pulse 90 05/17/25 09:07 BP 110/80 05/17/25 09:07 Pulse Ox 98 05/17/25 09:07 Oxygen Delivery Method Room Air 05/17/25 09:07 BMI result Body Mass Index 38.7 Tobacco/Smoking Status: Tobacco use Status Tobacco use date assessed 05/17/25 05/17/25 09:11 Patient Tobacco Use Status Never used Tobacco 05/17/25 09:11 Tobacco use type Cigarette 05/17/25 09:11 e-Cigarette/Vaping Use Never Used 05/17/25 09:11 PHQ-9: PHQ-9 Score PHQ-9: Total score 10 05/17/25 09:19 Depression Screening Interpretation: Positive Depression Screening Follow-up: Existing condition and In treatment Thrive Assessment: Date of Thrive Assessment Date Thrive assessed 05/10/25 05/17/25 09:11 Const General: cooperative, healthy appearing, comfortable and no acute distress Orientation/consciousness: patient oriented x3 HENNV Head: Yes normocephalic Ears: hearing grossly normal bilaterally, external ears normal, TM's normal bilaterally and EAC's normal General nose exam: Normal external nose present Face and sinus: Yes normal facial exam and Yes sinuses nontender Mouth: Normal oral and palatal mucosa present and tongue normal Throat: Yes posterior oropharynx normal Eyes General: appearance normal, both eyes and all related structures Conjunctivae: conjunctivae normal Pupils: Equal, round and reactive pupils present EOM: EOMs intact bilaterally and No Nystagmus present Neck Neck: Yes normal visual inspection, Yes full ROM and Yes no lymphadenopathy Chest Chest palpation & inspection: normal inspection of the chest Resp Effort & Inspection: normal respiratory effort Auscultation: clear to auscultation bilaterally, no crackles, no rales, no rhonchi, no wheezes and breath sounds present Cardio Rate: regular rate Rhythm: regular rhythm Peripheral pulses: radial pulses present and dorsalis pedis present GI Inspection: Yes normal to inspection and No Abdominal wall edema Palpation (GI): Soft to palpation, not firm and nontender Auscultation: normal bowel sounds Rectal Exam - Female: deferred General: Yes no CVA tenderness Female genitals images:  1. soft, tender, mobile mass Back/Spine/Pelvis Back: no CVA tenderness Skin General skin exam: no rashes or lesions noted Neuro General: patient oriented x3 Cranial nerves: Yes Equal, round and reactive pupils present, Yes Midline tongue present, Yes Ability to bilaterally elevate shoulders present and No Nystagmus present Gait exam (Neuro): Normal gait present Extrem General: Yes normal to inspection, Yes full ROM, No no pedal edema and No edema Psych Speech and movement: Normal speech and movement present Affect: normal affect Insight: Good insight present (Psych) Judgement: Good judgement present (Psych) Coding Level of Care Code Est Pt Prev Care 40-64y(96911) Diagnoses Annual physical exam Z00.00 Generalized anxiety disorder F41.1 Hypercholesterolemia E78.00 Obesity (BMI 30-39.9) E66.9 Gastroesophageal reflux disease without esophagitis K21.9 Esophagitis presence: without esophagitis Hepatic steatosis K76.0 Chronic constipation K59.09 Migraine G43.909 Asthma J45.909 Memory impairment R41.3 Groin mass in female R19.09 Additional Codes POLLO-7 Assessment Billing - POLLO-7 Assessment Tool: POLLO-7 Assessment 10766 ([id number]) Assessment & Plan Assessment & Plan (1) Annual physical exam: Code(s): Z00.00 - Encounter for general adult medical examination without abnormal findings Category: Medical Plan: PAtient is overdue for several routine screenings. I recommend her follow up with [facility] to schedule pap smear and mammogram order was placed today. She was advised to obtain the results of her last colonoscopy as she may be due. I did also order for updated blood work to be completed before her next visit. Healthy diet and regular exercise is encouraged. (2) Generalized anxiety disorder: Comment: Counseling Code(s): F41.1 - Generalized anxiety disorder Category: Medical Plan: Following with counselor and declining medical management today. (3) Hypercholesterolemia: Code(s): E78.00 - Pure hypercholesterolemia, unspecified Category: Medical Plan: Avoid foods that are high in cholesterol such as red meat, fried foods, eggs and baked goods. Triglyceride goal of less than 150 and LDL goal of less than 130. ordered for repeat blood work. (4) Obesity (BMI 30-39.9): Code(s): E66.9 - Obesity, unspecified Category: Medical Plan: Healthy diet and regular exercise is encouraged. (5) GERD (gastroesophageal reflux disease): Code(s): K21.9 - Gastro-esophageal reflux disease without esophagitis Category: Medical Qualifiers: Esophagitis presence: without esophagitis Qualified Code(s): K21.9 - Gastro-esophageal reflux disease without esophagitis Plan: Avoid trigger foods such as citrus, tomato products, soda, caffeine, spicy foods and other foods that may be irritating to your stomach. Avoid laying flat 3-4 hours after eating and elevate the head of the bed 30 degrees to prevent acid from moving into the esophagus. (6) Hepatic steatosis: Comment: February 2025No acute abnormality. Fatty liver. Enlarging uterine leiomyoma previously measuring 7.6 cm long axis, now 8.5 cm. Bilateral ovarian cysts measuring less than 3 cm long axis. Code(s): K76.0 - Fatty (change of) liver, not elsewhere classified Category: Medical Plan: Healthy diet and regular exercise is encouraged. (7) Chronic constipation: Code(s): K59.09 - Other constipation Category: Medical Plan: Continue to follow with GI. Reminded about three rules of constipation; drink water, increase fiber intake and exercise as tolerated. Continue on current medication. (8) Migraine: Comment: [facility] Code(s): G43.909 - Migraine, unspecified, not intractable, without status migrainosus Category: Medical Plan: Recently started on Nortriptyline by her neurologist as the Amitriptyline was causing grogginess. She will continue to follow with neurology at this time. Next appointment has not yet been scheduled. (9) Asthma: Code(s): J45.909 - Unspecified asthma, uncomplicated Category: Medical Plan: Asthma currently controlled on present medications. Continue on albuterol as needed.? Avoid triggers such as allergies. (10) Memory impairment: Code(s): R41.3 - Other amnesia Category: Medical Plan: Potentially linked to migraines and depression. Recommend patient follow with Neurology and is looking to establish care with a different neurologist as her [facility] neurologist has been difficult to schedule with. Referral was placed to [facility]. (11) Groin mass in female: Code(s): R19.09 - Other intra-abdominal and pelvic swelling, mass and lump Category: Medical Plan: She does have a tender mass in the left groin suggestive of cyst today. Referral was placed to general surgery today for consultation. Plan This note was constructed using voice recognition software. While every effort has been made to ensure accuracy and public relations senior associate, still areas may have been included sometimes these areas may affect the content or meeting of the given symptoms. Total time spent caring for the patient today was 30 minutes. This includes time spent before the visit reviewing the chart, time spent during the visit, and time spent after the visit and documentation. Patient was informed and verbally consented to the use of an ambient scribe for clinic note documentation during this visit. Orders: Orders MM tomosynthesis screening BI Today Z12.31 - Encounter for screening mammogram for malignant neoplasm of breast Vitamin D 25-OH Total Today Z13.21 - Encounter for screening for nutritional disorder Lipid Panel Today E78.00 - Pure hypercholesterolemia, unspecified Follicle Stimulating Hormone Today R41.3 - Other amnesia Lutenizing Hormone Today R41.3 - Other amnesia Estrogen Today R41.3 - Other amnesia Complete Blood Count Auto Diff Today D64.9 - Anemia, unspecified, Z13.0 - Encounter for screening for diseases of the blood and blood-forming organs and certain disorders involving the immune mechanism TSH reflex Free T4 Today Z13.29 - Encounter for screening for other suspected endocrine disorder Vitamin B12 and Folate Today Z13.21 - Encounter for screening for nutritional disorder Comprehensive Met. Panel Today K76.0 - Fatty (change of) liver, not elsewhere classified, Z00.00 - Encounter for general adult medical examination without abnormal findings Referrals Neurology Referral G43.909 - Migraine, unspecified, not intractable, without status migrainosus General Surgery Referral R19.09 - Other intra-abdominal and pelvic swelling, mass and lump
--- OUTSIDE RECORDS SUMMARY | 2025-05-17 10:00 | XMS_ITS | Clinical Summary ---
Author Organization [facility] Address [address] [place] [address] Phone Care Team Providers Care Director Call Center Sales Name Role Phone Gabriela Arce MD Primary Care Provider [phone] Allergies Active Allergy Reactions Criticality Noted Date [...] GLP-1 agonists. She states that she has [employer] and she spoke with somebody and they told her that they will cover Mounjaro. So this Medicare Medicare covers Mounjaro. But they do not cover is still weight loss medication Zepbound. So hopefully Zepbound will be covered by [employer]. I did inform her the Mounjaro and Zepbound of the same medication just different names 1 is for diabetes and 1 is for obesity management. I prescribe Zepbound 2.5 mg again. This will have to go through [facility] and if she needs a prior [...] Patient received sample of Mounjaro lot number [id number], expiration 09/16/2023. Assessment & Plan (02/20/2022 11:16 [...] VACCINE (#1) 2025 4, 04/24/2012 COVID-19 VACCINE (2024-2 6 season) 2025 SMOKING STATUS SCREENING (On ce [...] Devices Not on file Insurance [address] [place] [address] [facility] PART A & B [address] [place] [address] [facility]IC[facility] PART A & B [address] [place] [address] [place] [address] [place] [address] [place] [address] [place] [address] [place] PART A & B Member Subscriber Plan / Payer (Ef fective 2022-Present) Name:Marylu Bauer Member ID:[id number] Relation to Subscriber:Self Name:Marylu Bauer Subscriber ID:[id number] Payer ID:[id number] Group ID:Not on file Type:Medicare Address: [facility] [address] [place] [id number] [address] [place] [address] [facility] [address] [place] [address] [facility] MEDICARE PART A & B [address] [place] [id number] [place] [address]HEALTH MEDICARE PART A & B [address] [place] [address] [place] MEDICARE PART A & B Care Teams Director Call Center Sales Relationship Specialty Start Date End Date Gabriela Arce MD [address] [place] [address] [address] [place] [phone] PCP - General Internal Medicine 08/15/21 Additional Source Comments The information contained in this document represents components of the legal health record. It is not the complete legal health record.[facility]
--- OUTSIDE RECORDS SUMMARY | 2025-05-17 10:00 | XMS_ITS | Encounter Summary ---
Author Organization [facility] Address [address] [place] [address] Care Team Providers Care Welfare Investigator Name Role Phone Gabriela Arce MD Primary Care Provider [phone] Reason for Visit * Reason Onset Date Comments FMLA paperwork 05/06/2025 Encounter Details Date Type Department Care Team ([facility] st Contact Info) Description 05/06/2025 Telephone Orthopedic Surgery - [place] [address] [phone] Marcelo Bingham, DPM [address] [phone] Social History Tobacco Use Types [...] AM EST documented as of this encounter Functional Status * Calculated C-SSRS Risk Score (Lifetime/Recent) Answer Date of Assessment Author No Risk Indicated 05/10/2025 9:15 AM EDT Jorge Emmanuel, RN * [place] Suicide Severity Rating Scale (Screener/Recent Self-Report) Question Answer Date of Assessment Author 1. Wish to be (Past 1 Month) No 025 9:15 AM EDT Jorge Emmanuel, KATLYN 2. Non-Specific Active Suici helga Thoughts (Past 1 Month) No 05/10/2025 9:15 AM EDT Jim Emmanuel, KATLYN 6. Suicidal Behavior (Lifetime) No 9:15 AM EDT Jorge Emmanuel, RN documented as of this encounter Progress Notes * Marie Ohara - 05/12/2025 8:59 AM EDT Patient is calling again on the paperwork she needs for the [employer] She States it is now past due,and she needs in order to keep her job. She is requesting a call back with an update @ [phone] . Thanks. * Belen Degroot - 05/10/2025 8:55 AM EDT Pt calling again to check status of amended paperwork (see previous messages) Deadline is today to submit paperwork * Belen Degroot - 05/06/2025 11:49 AM EDT Pt called to make sure the [facility] request for clarification regarding [employer] paperwork will be addressed. There is a blank copy the of paperwork in [facility] for corrections/clarification documented in this encounter Plan of Treatment Not on file documented as of this encounter Visit Diagnoses Not on filedocumented in this encounter Care Teams Welfare Investigator Relationship Specialty Start Date End Date Gabriela Arce MD [address] [place] [phone] PCP - General Internal Medicine 05/10/25 documented as of this encounter
--- OUTSIDE RECORDS SUMMARY | 2025-05-17 10:00 | XMS_ITS | Clinical Summary ---
Author Organization [facility] Address [address] [place] [address] Phone Care Team Providers Care It Professional Name Role Phone Gabriela Arce MD Primary Care Provider [phone] Allergies No known active allergies Medications albuterol [...] for 5 days. 15 each 01/07/2025 Active cyclobenzaprine (FLEXERIL) 10 mg tablet Take 1 tablet (10 mg total) by mouth 3 (three) times a day if needed for muscle spasms for up to 7 days. 20 tablet 05/10/2025 Active ibuprofen (ADVIL,MOTRIN) 600 mg tablet Take 1 tablet (600 mg total) by mouth every 6 (six) hours if needed for mild pain for up to 7 days. 28 tablet 05/10/2025 Active Active Problems Problem Noted Date Diagnosed [...] Encounters Date Type Department Care Team Description 05/10/2025 9:16 AM EDT - 05/10/2025 10:46 AM EDT Emergency [facility] Emergency [address] [place] [address] Acute low back pain with bilateral sciatica, unspecified back pain laterality (Primary Dx) Discharge Disposition: Home or Self Care 05/06/2025 Telephone Orthopedic Surgery [place] [address] [phone] Marcelo Bingham DPM 03/10/2025 Telephone Orthopedic Surgery [place] [address] [phone] Marcelo Bingham DPM 03/03/2025 10:30 AM EDT Office Visit Orthopedic [place] [phone] [phone] Marcelo Bingham DPM Complex regional pain syndrome type 2 [...] Sign Reading Time Taken Comments Blood Pressure 107/70 05/10/2025 9:15 AM EDT Pulse 97 05/10/2025 9:15 AM EDT Temperature 36.6 C (97.8 F) 05/10/2025 9:15 AM EDT Respiratory Rate 18 05/10/2025 9:15 AM EDT Oxygen Saturation 98% 05/10/2025 9:15 AM EDT Inhaled Oxygen Concentration - - Weight 113 kg (250 lb) 05/10/2025 9:15 AM EDT Height 170.2 cm (5' 7 ) 05/10/2025 9:15 AM EDT Body Mass Index 39.16 05/10/2025 9:15 AM EDT Plan of Treatment Health Maintenance Due Date Last Done Comments Breast Cancer Screening 1983 Hepatitis B Vaccines (1 of 3 - 19+ 3-dose series) 2002 Pneumococcal Vaccine: Pediatrics (0 to 5 Years) and At-Risk Patients (6 to 49 Years) (1 of 2 - PCV) 2002 Cervical Cancer Screening: Pap Smear 02/28/2004 HPV Vaccines (1 - 3-dose SCDM series) 2010 Cholesterol Screening (Lipid Panel) 05/24/2024 HIV Screening [...] Procedure Name Priority Date/Time Associated Diagnosis Comments PRESSLEY URINE CULTURE TUBE STAT 05/10/2025 9:58 AM EDT URINALYSIS WITH REFLEX MICROSCOPIC AND CULTURE STAT 05/10/2025 9:58 AM EDT URINALYSIS WITH REFLEX MICROSCOPIC AND CULTURE STAT 05/10/2025 9:58 AM EDT XR FOOT 3+ VIEWS RIGHT Routine 03/03/2025 10:53 AM EDT Follow-up exam INJECTION TENDON OR LIGAMENT Routine 03/03/2025 10:30 AM EDT Joint stiffness from Last 3 Months Results * (ABNORMAL) Urinalysis with reflex microscopic and culture (05/10/2025 9:58 AM EDT) Specific [place] Urine 1.031(H) 1.003 - 1.030 LAB URINALYSIS - AUTOMATED METHOD 05/10/2025 10:26 AM EDT [facility] pH, Urine 6.0 5.0 - 8.0 pH LAB URINALYSIS - AUTOMATED METHOD 05/10/2025 10:26 AM [facility] Leukocytes, Urine Negative Negative LAB URINALYSIS - AUTOMATED METHOD 05/10/2025 10:26 AM [facility] Nitrite, Urine Negative Negative LAB URINALYSIS - AUTOMATED METHOD 05/10/2025 10:26 AM [facility] Protein, Urine Negative <=Trace mg/dL LAB URINALYSIS - AUTOMATED METHOD 05/10/2025 10:26 AM [facility] Glucose, Urine Negative Negative mg/dL LAB URINALYSIS - AUTOMATED METHOD 05/10/2025 10:26 AM [facility] Ketones, Urine Negative Negative mg/dL LAB URINALYSIS - AUTOMATED METHOD 05/10/2025 10:26 AM [facility] Urobilinogen, Urine 0.2 0.2 - 1.0 mg/dL LAB URINALYSIS - AUTOMATED METHOD 05/10/2025 10:26 AM [facility] Bilirubin, Urine Negative Negative LAB URINALYSIS - AUTOMATED METHOD 05/10/2025 10:26 AM [facility] Blood, Urine Negative Negative LAB URINALYSIS - AUTOMATED METHOD 05/10/2025 10:26 AM [facility] Urine Urine specimen obtained by clean catch procedure / Unknown Non-blood Collection / Unknown 05/10/2025 9:58 AM EDT 05/10/2025 10:22 AM EDT us Mary Beth ADAMS LAB URINE ORDERABLES Fin al Result [facility] [address] [place] [address], * Pressley urine culture tube (05/10/2025 9:58 AM EDT) Extra Tube Hold for add-ons. 05/10/2025 12:01 PM EDT [facility] Comment:Auto resulted. Urine Urine specimen obtained by clean catch procedure / Unknown Non-blood Collection / Unknown 05/10/2025 9:58 AM EDT 05/10/2025 10:22 AM EDT Mary Beth ADAMS LAB URINE ORDERABLES Fin al Result [facility] [address] [place] [address], * XR Foot 3+ Views Right (03/03/2025 [...] MEDICARE MEDICARE MEDICAID - [place] Care Teams It Professional Relationship Specialty Start Date End Date Gabriela Arce MD [address] [place] [phone] PCP - General Internal Medicine 05/10/25
--- OUTSIDE RECORDS SUMMARY | 2025-05-17 10:00 | XMS_ITS | Clinical Summary ---
Author Organization [facility] Address [address] [place] [address] Phone Care Team Providers Care Belt Maker Name Role Phone Unavailable Primary Care Provider Unavailabl e Encounters Date Type Department Care Team Description 04/08/2025 Orders Only [facility] [address] [place] [address] Alicia Mcgovern, [facility] Family history of carrier of genetic disease [...] Health Maintenance Due Date Last Done Comments Chlamydia and Gonorrhea Screening 1983 HIV Screening 1983 MMR Vaccines (1 of [...] GENETICS ORDERABLES F inal Result [facility] [address] [place] [address], [place] [phone] from Last 3 Months
== END 2025-05-17 09:53 | disposition home or self-care (01) ==
LOC: HO.HMCH 09:06
PROVIDERS: PCP Internal Medicine
DX: Z00.00 Encounter for general adult medical examination without abnormal findings (principal); E66.9 Obesity, unspecified; Z68.38 Body mass index [BMI] 38.0-38.9, adult; F41.1 Generalized anxiety disorder; E78.00 Pure hypercholesterolemia, unspecified; K21.9 Gastro-esophageal reflux disease without esophagitis; K76.0 Fatty (change of) liver, not elsewhere classified; K59.09 Other constipation; G43.909 Migraine, unspecified, not intractable, without status migrainosus; J45.909 Unspecified asthma, uncomplicated; R41.3 Other amnesia; R19.09 Other intra-abdominal and pelvic swelling, mass and lump

== ENCOUNTER → 2025-05-17 09:05 | Outpatient (BNVA) | payer MEDICARE, MEDICAID, SELFPAY | PROVIDERS: PCP Internal Medicine | DX: Z00.00 Encounter for general adult medical examination without abnormal findings (principal); K21.9 Gastro-esophageal reflux disease without esophagitis; E78.00 Pure hypercholesterolemia, unspecified; J45.909 Unspecified asthma, uncomplicated; K59.00 Constipation, unspecified; L72.9 Follicular cyst of the skin and subcutaneous tissue, unspecified; F41.1 Generalized anxiety disorder; E66.9 Obesity, unspecified; K76.0 Fatty (change of) liver, not elsewhere classified; K59.09 Other constipation; G43.909 Migraine, unspecified, not intractable, without status migrainosus; R41.3 Other amnesia; R19.09 Other intra-abdominal and pelvic swelling, mass and lump; Z68.38 Body mass index [BMI] 38.0-38.9, adult | CPT/HCPCS: 96127; 99396 ==

== ENCOUNTER 2025-05-17 11:03 | Outpatient (REF) | payer MEDICARE, MEDICAID, SELFPAY ==
[2025-05-17 14:11] LABS: MANUAL DIFF FLAG NO
[2025-05-17 14:45] LABS: Hematocrit 35.9 % (37.0-47.0); Hemoglobin 11.8 g/dl (12.0-16.0); Imm Gran Abs Auto 0.01 X10*3/uL (0.00-0.03); Imm Gran Pct Auto 0.2 % (0.0-0.4); Lymphocytes Absolute Auto 1.4 X10*3/uL (1.2-4.9); Mean Corpuscular HGB Conc 32.9 g/dl (31.0-35.0); Mean Corpuscular Hemoglobin 26.9 pg (27.0-33.0); Mean Corpuscular Volume 81.8 fL (80.0-98.0); NRBC Abs Auto 0.000 X10*3/uL (0.0-0.012); NRBC Pct Auto 0.0 /100WBC (0.0-0.2); Platelet Count 184 X10*3/uL (160-400); Red Blood Count 4.39 X10*6/uL (4.20-5.50); White Blood Count 5.4 X10*3/uL (4.8-10.8)
[2025-05-17 14:54] LABS: Alanine Aminotransferase 18 U/L (0-31); Albumin Level 4.5 g/dL (3.5-5.0); Alkaline Phosphatase 84 U/L (39-117); Anion Gap 11 (12-20); Aspartate Amino Transferase 21 U/L (5-31); Blood Urea Nitrogen 11 mg/dL (9-16); Calcium 8.6 mg/dL (8.4-10.2); Carbon Dioxide 23 mmol/L (22-29); Chloride 109 mmol/L (96-108); Cholesterol 216 mg/dL (<200); Estimated Glomerular Filt Rate > 60; HDL Cholesterol 53 mg/dL (>40); Potassium 3.9 mmol/L (3.3-5.1); Sodium 139 mmol/L (135-145); Total Protein 7.8 g/dL (6.5-8.0); Triglycerides 127 mg/dL (<150)
[2025-05-17 15:17] LABS: Folate 11.9 ng/mL (> or = 4.0); Vitamin B12 373 pg/mL (200-900)
[2025-05-18 03:28] LABS: Follicle Stimulating Hormone 2.3 mIU/mL
== END 2025-05-17 11:04 | disposition home or self-care (01) ==
LOC: HO.CHCLDS 11:03
PROVIDERS: PCP Internal Medicine
DX: Z00.00 Encounter for general adult medical examination without abnormal findings (principal); D64.9 Anemia, unspecified; K76.0 Fatty (change of) liver, not elsewhere classified; R41.3 Other amnesia; E78.00 Pure hypercholesterolemia, unspecified; Z13.21 Encounter for screening for nutritional disorder; Z13.29 Encounter for screening for other suspected endocrine disorder; Z13.0 Encounter for screening for diseases of the blood and blood-forming organs and certain disorders involving the immune mechanism
CPT/HCPCS: 36415; 80053; 80061; 82306; 82607; 82672; 82746; 83001; 83002; 84443; 85025

== ENCOUNTER 2025-05-18 14:10 | Outpatient (REF) | payer MEDICARE, MEDICAID, SELFPAY ==
[2025-05-18 18:38] LABS: Reticulocytes Absolute 0.044 X10*6/uL (0.026-0.095)
[2025-05-18 18:57] LABS: Iron 43 mcg/dL (30-160); Percent Iron Saturation 12 % (15-50); Total Iron Binding Capacity 357 mcg/dL (228-428); Unsaturated Iron Binding 314 ug/dL
[2025-05-18 19:13] LABS: Ferritin 19 ng/mL (10-250)
== END 2025-05-18 14:11 | disposition home or self-care (01) ==
LOC: HO.CHCLDS 14:10
DX: D64.9 Anemia, unspecified (principal)
CPT/HCPCS: 36415; 82728; 83540; 85045

== ENCOUNTER 2025-05-25 11:50 | Outpatient (AMB) | payer MEDICARE, MEDICAID, SELFPAY ==
--- NOTE | 2025-05-25 12:28 | MHC.AMNUTRGE ---
VS Expanded 05/25/25 12:29 Height 5 ft 7 in Weight 247 lb 5.738 oz BMI 38.7 Intake Visit Reasons: Pure hypercholesterolemia, unspecified Allergies No Known Allergies Allergy (Verified 05/17/25 09:13) Nutrition Presentation Details: Pt presents for MNT for hyperlipidemia food frequency fruits: 0-1/d vegetables : 3x/wk beans: 5-6x/wk dairy: choosing dairy alternatives lower in fat fish: 0/wk fried foods: using air fryer Has a child with autism with restrictive eating behaviors physical activity: ADL BS Monitoring Most Recent Diabetes Results: Cholesterol, (<200) 216 mg/dL H 05/17/25 HDL Cholesterol, (>40) 53 mg/dL 05/17/25 Triglycerides, (<150) 127 mg/dL 05/17/25 Creatinine, (0.5-1.4) 0.67 mg/dL 05/17/25 BUN, (9-16) 11 mg/dL 05/17/25 Sodium, (135-145) 139 mmol/L 05/17/25 Potassium, (3.3-5.1) 3.9 mmol/L 05/17/25 Chloride, (96-108) 109 mmol/L H 05/17/25 Carbon Dioxide, (22-29) 23 mmol/L 05/17/25 Calcium, (8.4-10.2) 8.6 mg/dL 05/17/25 AST, (5-31) 21 U/L 05/17/25 ALT, (0-31) 18 U/L 05/17/25 Total Protein, (6.5-8.0) 7.8 g/dL 05/17/25 Albumin, (3.5-5.0) 4.5 g/dL 05/17/25 VHW-Ofktvjn-Gy.Jeor Equation Height: 5 ft 7 in Weight: 247 lb Resting Metabolic Rate: 1815.24 Calculated Activity Level: Sedentary Calories Needed to Maintain Weight: 2178.29 Diagnosis Nutrition problem #1: altered nutrition labs As related to (etiology) #1: diagnosis As evidenced by (sign/symptom) #1: abnormal serum lipids Monitoring/Goals Nutrition problem monitoring: level of knowledge/skill Learning/Education Readiness to learn: good Stages of change: pre-contemplation Educational materials provided: Yes (low fat food concepts/healthy plate method/omega 3 sources, physical activi) [facility] Medical History Frequency of micturition Chronic constipation Hx of chest pain Hearing difficulty of right ear Prolapsed hemorrhoids Thrombosed external hemorrhoid Nephrolithiasis Allergic rhinitis Thyroid nodule Obesity (BMI 30-39.9) Vitamin D deficiency Generalized anxiety disorder GERD (gastroesophageal reflux disease) Migraine Asthma COVID-19 Surgical History S/P foot surgery, right History of esophagogastroduodenoscopy (EGD) History of hemorrhoidectomy History of colonoscopy H/O LEEP History of 2 sections Family History Maternal Grandmother Myocardial infarct Father Kidney carcinoma Social History Household Members: Family Housing: Apartment Are you a primary pediatric critical care nurse to a significant other at home: No Do you presently have visiting nurse or other home services: No Alcohol intake: current Comment: once a month Patient Tobacco Use Status: Never used Tobacco Tobacco use type: Cigarette e-Cigarette/Vaping Use: Never Used Second Hand Smoke Exposure: No service: No Current occupational status: employed 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 Recommended total amount of carbohydrates per meals and snack. Differences between simple carbohydrates and complex carbohydrates R, : Lean protein foods including vegan , vegetarian sources of protein. Benefits of protein (including but not limited to healing, nutritional value , benefits in weight loss, glucose control R, V, N/A: Fats : Source of fats, benefits of fats. Difference between saturated and unsaturated fats. Saturated fats and its contribution to inflammation R, : Fiber: food sources and role of fiber in the diet (including but not limited to its role as a prebiotic, benefits in constipation, role in IBS , role in glucose control and cholesterol level) R, V, N/A: Hydration: role of hydration and prevention of dehydration or over hydration. Foods and water content. R, V, N/A: Vitamins and Minerals in foods and supplements R, V, N/A: Interpreting food labels, including serving size, macronutrients, vitamins, minerals, allergens, ingredient list , % daily value Patient Instructions: Include fish at lunch 2 times a week (tuna with olive oil, lettuce/tomato on whole wheat bread) reducing on highly processed meats Coding Level of Care Code Nutr Indiv Intake (48884) Diagnoses Hypercholesterolemia E78.00 Time Spent (min) 30
[2025-05-25 12:29] VITALS: BMI 38.7
--- OUTSIDE RECORDS SUMMARY | 2025-05-25 15:03 | XMS_ITS | Clinical Summary ---
Author Organization [facility] sp[facility] Address [address] [place] [address] Phone Care Team Providers Care Assistant In Nursing Name Role Phone Unavailable Primary Care Provider Unavailabl e Encounters Date Type Department Care Team Description 04/08/2025 Orders Only [facility] [address] [place] [address] Alicia Mcgovern, [facility] Family [...] inal Result [facility] [address] [place] [address], [place] [phone] from Last 3 Months
--- OUTSIDE RECORDS SUMMARY | 2025-05-25 15:03 | XMS_ITS | Clinical Summary ---
Author Organization [facility] Address [address] [place] [phone] Phone Care Team Providers Care Floor Coverer Name Role Phone Gabriela Arce MD Primary Care Provider [phone] Allergies Active Allergy Reactions Criticality Noted Date [...] GLP-1 agonists. She states that she has [employer] and she spoke with somebody and they told her that they will cover Mounjaro. So this Medicare Medicare covers Mounjaro. But they do not cover is still weight loss medication Zepbound. So hopefully Zepbound will be covered by [employer]. I did inform her the Mounjaro and Zepbound of the same medication just different names 1 is for diabetes and 1 is for obesity management. I prescribe Zepbound 2.5 mg again. This will have to go through [facility] and if she needs a prior [...] Patient received sample of Mounjaro lot number [id number], expiration 09/16/2023. Assessment & Plan (02/20/2022 11:16 [...] Devices Not on file Insurance [address] [place] [address] [facility] PART A & B [address] [place] [address] [facility] PART A & B [address] [place] [address] [place] [address] [place] [address] [place] [address] [place] [address] [place]ICARE PART A & B [address] [place] [address] [facility] [address] [place] [address] [facility] MEDICARE PART A & B [address] [place] [id number] [place] [address]HEALTH MEDICARE PART A & B [address] [place] [address] [place] MEDICARE PART A & B Care Teams Floor Coverer Relationship Specialty Start Date End Date Gabriela Arce MD [address] [place] [address] [address] [place] [phone] PCP - General Internal Medicine 08/15/21 Additional Source Comments The information contained in this document represents components of the legal health record. It is not the complete legal health record.[facility]
--- OUTSIDE RECORDS SUMMARY | 2025-05-25 15:03 | XMS_ITS | Clinical Summary ---
Author Organization [facility] Address [address] [place] [address] Phone Care Team Providers Care Longwall Shearer Operator Name Role Phone Gabriela Arce MD Primary Care Provider [phone] Allergies No known active allergies Medications albuterol [...] times a day. 90 each 5 11/29/2024 05/28/20 25 Active baclofen (LIORESAL) 10 mg tablet Take [...] up to 7 days. 28 tablet 05/10/2025 05/17/20 25 Active Problems Problem Noted Date Diagnosed [...] Encounters Date Type Department Care Team Description 05/19/2025 3:30 PM EDT Office Visit Orthopedic Surgery [place] [phone] [phone] Marcelo Bingham DPM Complex regional pain syndrome type 2 of right lower extremity (Primary Dx); Neuritis; Joint stiffness 05/10/2025 9:16 AM EDT - 05/10/2025 10:46 AM EDT Emergency [facility] Emergency [address] [place] [address] Acute low back pain with bilateral sciatica, unspecified back pain laterality (Primary Dx) Discharge Disposition: Home or Self Care 05/06/2025 Telephone Orthopedic [place] [address] [phone] Marcelo Bingham DPM 03/10/2025 Telephone Orthopedic [facility] [address] [phone] Marcelo Bingham DPM 03/03/2025 10:30 AM EDT Office Visit Orthopedic [facility] [address] [phone] Marcelo Bingham DPM Complex regional pain syndrome type 2 of right lower extremity (Primary Dx); Follow-up exam; Neuritis; Joint stiffness; Metatarsalgia of right foot 03/03/2025 Nurse Triage Orthopedic [facility] [place] [address] [phone] Marcelo Bingham DPM from Last 3 Months Surgical History Surgery [...] 05/24/2024 Depression Screening 08/11/2024 COVID-19 Vaccine ( season) 2025 Influenza Vaccine (#1) 2025 05/17/2014, [...] and culture (05/10/2025 9:58 AM EDT) Specific [place] Urine 1.031(H) 1.003 - 1.030 LAB URINALYSIS - AUTOMATED METHOD 05/10/2025 10:26 AM [facility] pH, Urine 6.0 5.0 - 8.0 pH LAB URINALYSIS - AUTOMATED METHOD 05/10/2025 10:26 AM [facility] Leukocytes, Urine Negative Negative LAB URINALYSIS - AUTOMATED METHOD 05/10/2025 10:26 AM [facility] Nitrite, Urine Negative Negative LAB URINALYSIS - AUTOMATED METHOD 05/10/2025 10:26 AM [facility] Protein, Urine Negative <=Trace mg/dL LAB URINALYSIS - AUTOMATED METHOD 05/10/2025 10:26 AM [facility] Glucose, Urine Negative Negative mg/dL LAB URINALYSIS - AUTOMATED METHOD 05/10/2025 10:26 AM [facility] Ketones, Urine Negative Negative mg/dL LAB URINALYSIS - AUTOMATED METHOD 05/10/2025 10:26 AM [facility] Urobilinogen, Urine 0.2 0.2 - 1.0 mg/dL LAB URINALYSIS - AUTOMATED METHOD 05/10/2025 10:26 AM [facility] Bilirubin, Urine Negative Negative LAB URINALYSIS - AUTOMATED METHOD 05/10/2025 10:26 AM [facility] Blood, Urine Negative Negative LAB URINALYSIS - AUTOMATED METHOD 05/10/2025 10:26 AM [facility] Urine Urine specimen obtained by clean catch procedure / Unknown Non-blood Collection / Unknown 05/10/2025 9:58 AM EDT 05/10/2025 10:22 AM EDT Mary Beth ADAMS LAB URINE ORDERABLES Fin al Result Performing Organization Address [facility] de Phone Number [facility] [address] [place] [address], [place] [phone] * [place] urine culture tube (05/10/2025 9:58 AM EDT) Extra Tube Hold for add-ons. 05/10/2025 12:01 PM EDT [facility] Comment:Auto resulted. Urine Urine specimen obtained by clean catch procedure / Unknown Non-blood Collection / Unknown 05/10/2025 9:58 AM EDT 05/10/2025 10:22 AM EDT Mary Beth ADAMS LAB URINE ORDERABLES Fin al Result Performing Organization Address [facility] de Phone Number [facility] [address] [place] [address], [place] [phone] * XR Foot 3+ Views Right (03/03/2025 10:53 AM EDT) Anatomical Region Laterality Modality Lower Extremities, Foot Right Computed Radiography Narrative 03/03/2025 12:49 PM EDT Right foot 3 views Stable postoperative changes bunion deformity correction maintained no acute findings Marcelo Bingham DPM IMG XR PROCEDURES Final R esult * Injection tendon or ligament (03/03/2025 10:30 AM EDT) Marcelo Figueroa DPM - 03/03/2025 10:30 AM EDT Marcelo Bingham DPM 03/03/2025 12:24 PM Injection tendon or ligament Indications: pain Details: 25 G needle Medications: 0.5 mL lidocaine (PF) 1 %; 20 mg triamcinolone acetonide 40 mg/mL Informed Consent: Site: Foot ligament tendon Christopher M Bingham DPM IN CLINIC/BEDSIDE ORDERAB LES Final Result from Last 3 Months Insurance [place] MED[place]ARE MEDICARE [place] - [place] Care Teams Longwall Shearer Operator Relationship Specialty Start Date End Date Gabriela Arce MD [address] [place] [address] PCP - General Internal Medicine 05/10/25
[2025-05-30 21:50] VITALS: BMI 38.7
== END 2025-05-25 13:20 | disposition home or self-care (01) ==
LOC: HO.ENCR 11:50
PROVIDERS: PCP Internal Medicine; Visit Provider Dietitian, Registered
DX: E78.00 Pure hypercholesterolemia, unspecified (principal)

== ENCOUNTER → 2025-05-25 11:50 | Outpatient (BNVA) | payer MEDICARE, MEDICAID, SELFPAY | PROVIDERS: PCP Internal Medicine; Visit Provider Dietitian, Registered | DX: E78.00 Pure hypercholesterolemia, unspecified (principal); Z71.3 Dietary counseling and surveillance | CPT/HCPCS: 97802 ==

== ENCOUNTER 2025-06-02 07:53 | Day surgery (SDC) | payer MEDICARE, MEDICAID, SELFPAY ==
--- OUTSIDE RECORDS SUMMARY | 2025-05-09 07:41 | XMS_ITS | Clinical Summary ---
Author Organization [facility] Address [address] [place] [address] Phone Care Team Providers Care Bank Worker Name Role Phone Unavailable Primary Care Provider Unavailabl e Encounters Date Type Department Care Team Description 04/08/2025 Orders Only [facility] [address] [place] [address] Aliica Mcgovern, [facility] Family history of carrier of genetic disease from Last 3 Months Social History Tobacco Use Types Packs/Day Years Used Date Smoking Tobacco: Never Assessed Comments Unknown Sex and Gender Information Value Date Recorded Sex Assigned at Not on file Legal Sex Female 10:38 AM EST Gender Identity Not on file Sexual Orientation Not on file Plan of Treatment Health Maintenance Due Date Last Done Comments HIV Screening 1983 MMR Vaccines (1 of 1 - Stand alicia series) 02/28/1984 DTaP/Tdap/Td Vaccines (1 - Tdap) 1990 Anemia Screening 1995 Varicella Vaccines (1 of 2 - 13+ 2-dose series) 02/28/1996 Hepatitis C Screening 2001 Hepatitis B Vaccines (1 of 3 - 19+ 3-dose series) 2002 Influenza Vaccine (#1) 2025 HIB Vaccines Aged Out No longer eligi ble based on patient's age to complete this topic HPV Vaccines (No Doses Required) Completed Hepatitis A Vaccines Aged Out No long er eligible based on patient's age to complete this topic IPV Vaccines Aged Out No longer eligi ble based on patient's age to complete this topic Meningococcal B Vaccine Aged Out No l onger eligible based on patient's age to complete this topic Meningococcal Vaccine Aged Out No aliyah evelia eligible based on patient's age to complete this topic Pneumococcal Vaccine: Pediat rics (0 to 5 Years) and At-Risk Patients (6 to 49 Years) Aged Out No longer eligible b ased on patient's age to complete this topic Rotavirus Vaccines Aged Out No longer eligible based on patient's age to complete this topic Procedures Procedure Name Priority Date/Time Associated Diagnosis Comments EXOME SEQUENCING, PARENT/FAMILY MEMBER SAMPLE, OP, 561D Routine 04/08/2025 1:18 PM EDT Family history of carrier of genetic disease EXOME/GENOME SEQUENCING, PARENT/FAMILY MEMBER SAMPLE Routine 04/08/2025 1:18 PM EDT Family history of carrier of genetic disease from Last 3 Months Results * Exome Sequencing, Parent/Family Member Sample (04/08/2025 1:18 PM EDT) Remote Swab 04/08/2025 1:18 PM EDT 04/08/2025 1:18 PM EDT us Sussy Doyle MD LAB GENETICS ORDERABLES F inal Result [facility] [address] [facility] [place] [address], [place] [phone] from Last 3 Months
--- OUTSIDE RECORDS SUMMARY | 2025-05-09 07:41 | XMS_ITS | Encounter Summary ---
Author Organization [facility] Address [address] [place] [address] Care Team Providers Care Dye Box Operator Name Role Phone Physician, No Pcp Primary Care Provider Unavaila ble Encounter Details Date Type Department Care Team ([facility] st Contact Info) Description 05/06/2025 Telephone Orthopedic Surgery - [place] [address] [phone] Marcelo Bingham, DPM [address] [phone] Social History Tobacco Use Types Packs/Day Years Used Date Smoking Tobacco: Never Smokeless Tobacco: Never Alcohol Use Standard Drinks/Week Comments Never 0 (1 standard drink = 0.6 oz pur e alcohol) Comments No Sex and Gender Information Value Date Recorded Sex Assigned at Female 09/17/2024 11:01 AM EST Legal Sex Female 11:38 AM EDT Gender Identity Female 09/17/2024 11:01 AM EST Sexual Orientation Straight 09/17/2024 11 :01 AM EST documented as of this encounter Progress Notes * Belen Degroot - 05/06/2025 11:49 AM EDT Pt called to make sure the [facility] request for clarification regarding [facility] [employer] paperwork will be addressed. There is a blank copy the of paperwork in [facility] for corrections/clarification documented in this encounter Plan of Treatment Not on file documented as of this encounter Visit Diagnoses Not on filedocumented in this encounter Care Teams Dye Box Operator Relationship Specialty Start Date End Date Physician, No Pcp PCP - General 01/07/25 documented as of this encounter
--- OUTSIDE RECORDS SUMMARY | 2025-05-09 07:41 | XMS_ITS | Clinical Summary ---
Author Organization [facility] Address [address] [place] [address] Phone Care Team Providers Care Vault Keeper Name Role Phone Physician, No Pcp Primary Care Provider Unavaila ble Allergies No known active allergies Medications albuterol [...] (two) times a day. 60 each 09/30/2024 Active gabapentin (Neurontin) 400 mg capsule Take 1 capsule (400 mg total) by mouth 3 (three) times a day. 90 each 5 11/29/2024 Active baclofen (LIORESAL) 10 mg tablet Take 1 tablet (10 mg total) by mouth 3 (three) times a day for 5 days. 15 each 01/07/2025 Active Active Problems Problem Noted Date Diagnosed [...] Encounters Date Type Department Care Team Description 05/06/2025 Telephone Orthopedic Surgery [place] [address] [phone] Marcelo Bingham DPM 03/10/2025 Telephone Orthopedic Surgery [place] [address] [phone] Marcelo Bingham DPM 03/03/2025 10:30 AM EDT Office Visit Orthopedic Surgery [place] [address] [phone] Marcelo Bingham, DPM Complex regional pain syndrome type 2 of right lower extremity (Primary Dx); Follow-up exam; Neuritis; Joint stiffness; Metatarsalgia of right foot from Last 3 Months Surgical History Surgery Date Site/Laterality Comments SECTION, LOW TRANSVERSE X 2 CERVICAL BIOPSY W/ LOOP ELEC TRODE EXCISION HEMORRHOID SURGERY 08/11/2022 - 08/10/2023 Medical History Medical History Date Comments Asthma Social History Tobacco Use Types Packs/Day Years Used Date Smoking Tobacco: Never Smokeless Tobacco: Never Tobacco Cessation:Counseling Given: No Alcohol Use Standard Drinks/Week Comments Never 0 [...] Sign Reading Time Taken Comments Blood Pressure 109/73 01/07/2025 7:53 PM EDT Pulse 85 01/07/2025 7:53 PM EDT Temperature 37.1 C (98.8 F) 01/07/2025 7:53 PM EDT Respiratory Rate 15 01/07/2025 7:53 PM EDT Oxygen Saturation 97% 01/07/2025 7:55 PM EDT Inhaled Oxygen Concentration - - Weight 109 kg (240 lb) 03/03/2025 10:55 AM EDT Height 170.2 cm (5' 7.01 ) 03/03/2025 10:55 AM E DT Body Mass Index 37.58 03/03/2025 10:55 AM EDT Plan of Treatment Health Maintenance Due Date Last Done Comments Breast Cancer Screening 1983 Hepatitis B Vaccines (1 of 3 - 19+ 3-dose series) 2002 Pneumococcal Vaccine: Pediatrics (0 to 5 Years) and At-Risk Patients (6 to 49 Years) (1 of 2 - PCV) 2002 Cervical Cancer Screening: Pap Smear 02/28/2004 Cholesterol Screening (Lipid Panel) 05/24/2024 HIV Screening 05/24/2024 Hepatitis C Screening 05/24/2024 Medicare Annual Wellness Visit 05/24/2024 Social Influencers of Health Screening 05/24/2024 Depression Screening 08/11/2024 COVID-19 Vaccine ( - season) 2025 Influenza Vaccine (#1) 2025 05/17/2014, 2011 DTaP,Tdap,and Td Vaccines (5 - Td or Tdap) 02/05/2034 02/06/2024, 08/18/2014, 09/17/2012, Additional history exists RSV Immunization Adult Patients (1 - 1-dose 75+ series) 2058 HIB Vaccines Aged Out No longer eligi [...] Comments XR FOOT 3+ VIEWS RIGHT Routine 03/03/2025 10:53 AM EDT Follow-up exam INJECTION TENDON OR LIGAMENT Routine 03/03/2025 10:30 AM EDT Joint stiffness from Last 3 Months Results * XR Foot 3+ Views Right (03/03/2025 10:53 AM EDT) Anatomical Region Laterality Modality Lower Extremities, Foot Right Computed Radiography Narrative 03/03/2025 12:49 PM EDT Right foot 3 views Stable postoperative changes bunion deformity correction maintained no acute findings Marcelo Bingham DPM IMG XR PROCEDURES Final R esult * Injection tendon or ligament (03/03/2025 10:30 AM EDT) Narrative Marcelo Bingham DPM - 03/03/2025 10:30 AM EDT Marcelo Bingham DPM 03/03/2025 12:24 PM Injection tendon or ligament Indications: pain Details: 25 G needle Medications: 0.5 mL lidocaine (PF) 1 %; 20 mg triamcinolone acetonide 40 mg/mL Informed Consent: Site: Foot ligament tendon Marcelo Bingham DPM IN CLINIC/BEDSIDE ORDERAB LES Final Result from Last 3 Months Insurance [place] MEDICARE [place] - [place] Care Teams Vault Keeper Relationship Specialty Start Date End Date Physician, No Pcp PCP - General 01/07/25
--- OUTSIDE RECORDS SUMMARY | 2025-05-09 07:41 | XMS_ITS | Clinical Summary ---
Author Organization [facility] Address [address] [place] [address] Phone Care Team Providers Care Machine Repairer Maintenance Name Role Phone Gabriela Arce MD Primary Care Provider [phone] Allergies Active Allergy Reactions Criticality Noted Date [...] GLP-1 agonists. She states that she has [employer] and she spoke with somebody and they told her that they will cover Mounjaro. So this Medicare Medicare covers Mounjaro. But they do not cover is still weight loss medication Zepbound. So hopefully Zepbound will be covered by [employer]. I did inform her the Mounjaro and Zepbound of the same medication just different names 1 is for diabetes and 1 is for obesity management. I prescribe Zepbound 2.5 mg again. This will have to go through [facility] and if she needs a prior [...] Patient received sample of Mounjaro lot number [id number], expiration 09/16/2023. Assessment & Plan (02/20/2022 11:16 [...] 02/28/2004 SCREENING FOR DIABETES 2018 MAMMOGRAM 2023 Adult Td,Tdap Booster 08/18/2024 08/18/2014 , 09/17/2012, 06/24/2012 INFLUENZA VACCINE (#1) 2025 4, 04/24/2012 COVID-19 VACCINE (2023-2 5 season) 2025 SMOKING STATUS SCREENING (On ce After 26 [...] Devices Not on file Insurance [address] [place] [address] [facility] [address] [place] [address] [facility] & B [address] [place] [address] [place] [address] [place] [address] [place] [address] [place] [address] [place] PART [place] & B [address] [place] [address] [facility] [address] [place] [address] [facility] MEDICARE PART A & B [address] [place] [id number] [place] [address]HEALTH MEDICARE PART A & B [address] [place] [address] [place] MED[place] PART A & B Care Teams Machine Repairer Maintenance Relationship Specialty Start Date End Date Gabriela Arce MD [address] [place] [address] [address] [place] [address] [phone] PCP - General Internal Medicine 08/15/21 Additional Source Comments The information contained in this document represents components of the legal health record. It is not the complete legal health record.[facility]
[2025-05-31 12:21] VITALS: BMI 38.7
[2025-06-02 08:49] VITALS: BMI 38.6
--- NOTE | 2025-06-02 08:52 | MHC.SHP ---
Pre-Procedural Eval Section A - 24 Hr Update-Section A only Date of Service: 06/02/25 Section B - Complete if H&P > 30 days Chief Complaint: Dysphagia, unspecified Details of Present Illness: Frequency of micturition Chronic constipation Hx of chest pain Hearing difficulty of right ear Prolapsed hemorrhoids Thrombosed external hemorrhoid Nephrolithiasis Allergic rhinitis Thyroid nodule Obesity (BMI 30-39.9) Vitamin D deficiency Generalized anxiety disorder GERD (gastroesophageal reflux disease) Migraine Asthma COVID-19 Surgical History S/P foot surgery, right History of esophagogastroduodenoscopy (EGD) History of hemorrhoidectomy History of colonoscopy H/O LEEP History of 2 sections Present Medications: see Short Stay Collaborative assessment Allergies: Allergies Allergy/AdvReac Type Severity Reaction Status Date / Time No Known Allergies Allergy Verified 05/17/25 09:13 Review of Systems Review of Systems Comment: 10 point ROS negative Exam Exam Comment: Gen appear: No acute distress HEENT: no icterus Chest: No overt resp distress Abd: soft, nontender, nondistended Psych: Stable affect, answering questions appropriately Neuro: A/Ox3 noted to move all extremities spontaneously Ext: no peripheral edema Plan Diagnosis/Plan: Unchanged I have reviewed the history and physical and performed a pertinent physical examination on my patient. No changes have occurred unless specified. Time Spent With Patient Time: Total time managing care of this patient today ____ minutes.
[2025-06-02 08:57] VITALS: BP 106/82; PULSE 89; RESP 16; TEMP 36.1; O2SAT 99
[2025-06-02 09:02] LABS: UPreg QC Valid YES
--- NOTE | 2025-06-02 09:05 | P.CONAN_ITS ---
Documented by User: Yuliana Rm NP 05/31/25 13:30 HPI - Anesthesia Eval Consult details Narrative: 40 yr old female for upper endoscopy PMF Active Problems Active Problems: All Active Problems Groin mass in female (Acute) Memory impairment (Acute) Hepatic steatosis (Acute) Uterine fibroid (Acute) Epigastric pain (Acute) Constipation (Acute) Right sided abdominal pain (Acute) Bumps on skin (Acute) Chest pain (Acute) Right upper quadrant abdominal pain (Acute) Melena (Acute) URI, acute (Acute) Right leg pain (Acute) Tension headache (Acute) Suprapubic pain (Acute) Incontinence (Acute) Proteinuria (Acute) Right shoulder pain (Acute) Bunion (Acute) Dysphagia (Acute) Nasal congestion (Acute) Dysuria (Acute) Upper respiratory tract infection (Acute) Abdominal pain (Acute) Annual physical exam (Acute) Patellofemoral arthritis of right knee (Acute) Abnormal stress test (Acute) SOB (shortness of breath) (Acute) Ejection fraction < 50% (Acute) Prolapsed hemorrhoids (Acute) Low back pain (Acute) Osteoarthritis of right knee (Acute) Right knee pain (Acute) Intermittent chest pain (Acute) RUQ abdominal pain (Acute) Hoarseness (Acute) Upper respiratory tract infection (Acute) Fibroid (Acute) Infected abrasion (Acute) Menorrhagia (Acute) Hypersomnia (Acute) Breast asymmetry (Acute) Breast cancer screening by mammogram (Acute) Thrombosed external hemorrhoid (Acute) Hemorrhoid (Acute) Hypercholesterolemia (Acute) Anemia (Acute) Constipation (Acute) Annual physical exam (Acute) COVID-19 (Acute) Confusion (Acute) Migraine (Acute) Asthma (Acute) Chronic constipation (Acute) Frequency of micturition (Acute) Hearing difficulty of right ear (Acute) GERD (gastroesophageal reflux disease) (Acute) Generalized anxiety disorder (Acute) Obesity (BMI 30-39.9) (Acute) Thyroid nodule (Acute) Past Medical History Medical History (Updated 05/31/25 @ 12:13 by Amy High RN) Anxiety Osteoarthritis Frequency of micturition Chronic constipation Hx of chest pain Hearing difficulty of right ear Nephrolithiasis Allergic rhinitis Thyroid nodule Obesity (BMI 30-39.9) Vitamin D deficiency Generalized anxiety disorder GERD (gastroesophageal reflux disease) Migraine Asthma Family History Family History Maternal Grandmother Myocardial infarct Father Kidney carcinoma Family history of problems with anesthesia: No Surgical History Surgical History S/P foot surgery, right History of esophagogastroduodenoscopy (EGD) History of hemorrhoidectomy History of colonoscopy H/O LEEP History of 2 sections History of Problems with Anesthesia: No Social History Social History Household Members: Family Housing: Apartment Are you a primary health care analyst to a significant other at home: No Do you presently have visiting nurse or other home services: No Alcohol intake: current Alcohol intake frequency: does not drink Comment: once a month Patient Tobacco Use Status: Never used Tobacco Tobacco use type: Cigarette e-Cigarette/Vaping Use: Never Used Second Hand Smoke Exposure: No Use of substances other than those prescribed or required for medical reasons: No Are you DNR?: No Advance Directives: No Advance Directives Information Provided: Yes : No Poor oral hygiene: No service: No Current occupational status: employed Current occupation: [employer] Cognitive needs: No Hearing needs: No Vision needs: Yes (Glasses) Meds Allergies Allergy/AdvReac Type Severity Reaction Status Date / Time No Known Allergies Allergy Verified 05/17/25 09:13 Home Medications ?Medication ?Instructions ?Recorded ?Confirmed ?Last Taken ?Type gabapentin 400 mg capsule 400 mg PO TID 10/12/2405/31 Unknown History ibuprofen 800 mg tablet 800 mg PO 3XD PRN Pain 10/1205/31/25 Unknown History nortriptyline 25 mg capsule 25 mg PO BEDTIME 05/17/25 05/31/25 Unknown History albuterol sulfate 90 mcg/actuation 2 puff inhalation Q ID PRN wheezing 05/31/25 05/31/25 Unknown History aerosol inhaler Exam Height,Weight and Vital Signs: Height 5 ft 7 in Weight 112.037 kg Assessment and Plan Final Anesthetic Review Family History of Problems with Anesthesia: No History of Problems with Anesthesia: No Documented by User: Leslie Denny DO 06/02/25 09:06 [facility] Past Medical History Medical History (Updated 05/31/25 @ 12:13 by Amy High RN) Anxiety Osteoarthritis Frequency of micturition Chronic constipation Hx of chest pain Hearing difficulty of right ear Nephrolithiasis Allergic rhinitis Thyroid nodule Obesity (BMI 30-39.9) Vitamin D deficiency Generalized anxiety disorder GERD (gastroesophageal reflux disease) Migraine Asthma Family History Family History Maternal Grandmother Myocardial infarct Father Kidney carcinoma Family history of problems with anesthesia: No Surgical History Surgical History S/P foot surgery, right History of esophagogastroduodenoscopy (EGD) History of hemorrhoidectomy History of colonoscopy H/O LEEP History of 2 sections History of Problems with Anesthesia: No Social History Social History Household Members: Family Housing: Apartment Are you a primary health care analyst to a significant other at home: No Do you presently have visiting nurse or other home services: No Alcohol intake: current Alcohol intake frequency: does not drink Comment: once a month Patient Tobacco Use Status: Never used Tobacco Tobacco use type: Cigarette e-Cigarette/Vaping Use: Never Used Second Hand Smoke Exposure: No Use of substances other than those prescribed or required for medical reasons: No Are you DNR?: No Advance Directives: No Advance Directives Information Provided: Yes : No Poor oral hygiene: No service: No Current occupational status: employed 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 Cognitive needs: No Hearing needs: No Vision needs: Yes (Glasses) Meds Allergies Allergy/AdvReac Type Severity Reaction Status Date / Time No Known Allergies Allergy Verified 05/17/25 09:13 Home Medications ?Medication ?Instructions ?Recorded ?Confirmed ?Last Taken ?Type gabapentin 400 mg capsule 400 mg PO TID 10/12/2405/31 Unknown History ibuprofen 800 mg tablet 800 mg PO 3XD PRN Pain 03/04 /25 10/21/25 Unknown History nortriptyline 25 mg capsule 25 mg PO BEDTIME 05/17/25 05/31/25 Unknown History albuterol sulfate 90 mcg/actuation 2 puff inhalation Q ID PRN wheezing 05/31/25 05/31/25 Unknown History aerosol inhaler Exam Exam Date and Time: 06/02/25 09 Height,Weight and Vital Signs: Height 5 ft 7 in Weight 112.037 kg Vital Signs Temperature 96.9 F 06/02/25 08:57 Pulse Rate 89 06/02/25 08:57 Respiratory Rate 16 06/02/25 08:57 Blood Pressure 106/82 06/02/25 08:57 Pulse Oximetry 99 06/02/25 08:57 Oxygen Delivery Method Room Air 06/02/25 08:57 Temperature 96.9 F 06/02/25 08:57 Pulse Rate 89 06/02/25 08:57 Respiratory Rate 16 06/02/25 08:57 Blood Pressure 106/82 06/02/25 08:57 Pulse Oximetry 99 06/02/25 08:57 Oxygen Delivery Method Room Air 06/02/25 08:57 Airway Mallampati Class: I TM Dist: >3cm Neck ROM: Full Loose/Missing/Broken Teeth: Yes (several missing molars but no loose or broken teeth) Heart: S1S2 Lungs: CTAB Assessment and Plan Assessment Anesthesia Assessment: Anesthesia Plan Discussed and Chart Reviewed Final Anesthetic Review Family History of Problems with Anesthesia: No History of Problems with Anesthesia: No NPO: Yes ASA Class: II Final Preanesthetic Review: No Changes in Pt Med Stat, Meds/Allgs Chart Reviewed, Consent Obtained/Reviewed and Anes Risks/Benef Reviewed Patient Risk: Low Procedure Risk: Low Anesthetic Plan Anesthetic Plan: MAC: and Agree w/ Assess. and Plan Disposition: Standard PACU
[2025-06-02] MEDS: Lactated Ringers 1,000 ML 100 ML IVCONT (09:15)
--- NOTE | 2025-06-02 09:46 | P.OP_ITS ---
Operative Note Operative Note Date of Service: 06/02/25 Narrative: Procedure: Esophagogastroduodenoscopy Endoscopist: Nette Pedraza MD Indication: Dysphagia Anesthesia Provider: Dr Leslie Denny Anesthesia Type: MAC ?? EGD Procedure:?? The procedure, indications, preparation and potential complications were reviewed with the patient, who indicated understanding and gave written informed consent to proceed. A physical exam was performed. The endoscope was introduced through the mouth, and advanced to the second part of duodenum. The mucosa was carefully examined on slow withdrawal of the endoscope. The patient tolerated the procedure well. There were no immediate complications.? ? EGD Findings:? * Esophagus:? A focal patch of heterotopic gastric mucosa was noted in the upper esophagus. Whitish exudates suspicious for chantel esophagitis noted in upper third of the esophagus. The Z line was at 39 cm. Middle and lower esophagus forceps biopsies were obtained to rule out eosinophilic esophagitis. * Stomach:? Erythema and erosions noted in the antrum. Retroflexion was performed in the cardia. Random cold forceps biopsies were taken from the stomach. * Duodenum:? Normal mucosa was noted in the whole of the examined duodenum. Additional intervention: Soft tipped Savary wire was introduced through the biopsy channel of the gastroscope and advanced to the antrum. ?The gastroscope was then backed out. ?Savary Kai bougie was advanced over the guidewire and the esophagus was dilated to 19 mm with resistance felt. ?On relook, small superficial tear was noted confirming successful dilation. ? EGD Impressions:? * Inlet patch * Cricopharyngeal stenosis (dilation) * r/o chantel esophagus (biopsy) * Gastritis (biopsy) * Normal duodenum ?? Recommendations:?? * Follow biopsy results. Our office will call or send a letter with results within 7-10 days. * Start PPI therapy. * Start fluconazole 200 mg once daily x 14 days. Can be stopped if biopsies are negative. * If H pylori +, patient will be prescribed eradication therapy followed by test of cure. * Avoid NSAIDs. Above has been reviewed with the patient.
[2025-06-02 09:49] VITALS: BP 97/62; PULSE 84; RESP 14; TEMP 36.5; O2SAT 96
[2025-06-02 10:04] VITALS: BP 104/69; PULSE 76; RESP 16; TEMP 36.1; O2SAT 98
== END 2025-06-02 10:22 | disposition home or self-care (01) ==
PROVIDERS: Nurse Practitioner; PCP Internal Medicine; Visit Provider Internal Medicine
PROC: 0DJ08ZZ Inspection of Upper Intestinal Tract, Via Natural or Artificial Opening Endoscopic (ICD-10-PCS; CPT 43235; principal; 2025-06-02 10:00)
DX: R13.19 Other dysphagia (principal); R10.13 Epigastric pain; K59.09 Other constipation; K29.70 Gastritis, unspecified, without bleeding; K31.89 Other diseases of stomach and duodenum; J39.2 Other diseases of pharynx
CPT/HCPCS: 43239; 43248; 81025; 88305; 88313; 88342; C1769; J2003; J2704

== ENCOUNTER → 2025-06-02 07:53 | Outpatient (BNV) | payer MEDICARE, MEDICAID, SELFPAY | PROVIDERS: PCP Internal Medicine; Visit Provider Internal Medicine | DX: R13.10 Dysphagia, unspecified (principal); K22.89 Other specified disease of esophagus; K29.70 Gastritis, unspecified, without bleeding | CPT/HCPCS: 43239; 43248 ==

== ENCOUNTER 2025-06-07 12:43 | Outpatient (AMB) | payer MEDICARE, MEDICAID, SELFPAY ==
--- NOTE | 2025-06-07 13:11 | MHC.OFFVIS ---
Vital Signs 06/07/25 13:15 Height 5 ft 7 in Weight 246 lb BMI 38.5 BP 110/62 Blood Pressure Location Rt brachial Position Sitting Pulse 74 Pulse Source Pulse Oximeter Pulse Oximetry (%) 98 Oxygen Delivery Method Room Air Intake Visit Reasons: (approved by gene) Intake Note: ESTABLISHED PATIENT for mgmt of constipation, epigastric pain, rectal bleeding. S/P double. Chief Complaint; C.O. severe sore throat and dysphagia despite current therapies. Pt states her sx have been significantly worse s/p EGD than originally anticipated. 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 Patient will be sent for upper endoscopy as well. Message sent to surgical schedulers. If acid reflux and identified will send script for PPI. For now patient will avoid dietary triggers and weight night snacking. Staying up for minimal 3 hours after meals discussed with patient. Discussed with patient will FODMAP diet. Patient was recommended to follow list that was given to her last visit. Call the office if any more questions. Patient will follow-up in 3 months, sooner on as needed basis. She is agreeable to this plan and verbalizes understanding of instructions. She was given the opportunity to ask questions and all questions answered. ? Thank you for allowing me to participate in her care Orders [place] barium swallow 10/18/24 R13.10 UPPER ENDOSCOPY EGD Findings:? Esophagus:? A focal patch of heterotopic gastric mucosa was noted in the upper esophagus. Whitish exudates suspicious for chantel esophagitis noted in upper third of the esophagus. The Z line was at 39 cm. Middle and lower esophagus forceps biopsies were obtained to rule out eosinophilic esophagitis. Stomach:? Erythema and erosions noted in the antrum. Retroflexion was performed in the cardia. Random cold forceps biopsies were taken from the stomach. Duodenum:? Normal mucosa was noted in the whole of the examined duodenum. Additional intervention: Soft tipped Savary wire was introduced through the biopsy channel of the gastroscope and advanced to the antrum. ?The gastroscope was then backed out. ?Savary Kai bougie was advanced over the guidewire and the esophagus was dilated to 19 mm with resistance felt. ?On relook, small superficial tear was noted confirming successful dilation. ? EGD Impressions:? Inlet patch Cricopharyngeal stenosis (dilation) r/o chantel esophagus (biopsy) Gastritis (biopsy) Normal duodenum ?? Recommendations:?? Follow biopsy results. Our office will call or send a letter with results within 7-10 days. Start PPI therapy. Start fluconazole 200 mg once daily x 14 days. Can be stopped if biopsies are negative. If H pylori +, patient will be prescribed eradication therapy followed by test of cure. Avoid NSAIDs. PATHOLOGY RESULTS Diagnosis A. Stomach, random, biopsy: Gastric antral and body mucosa with mild reactive changes and minimal chronic inactive gastritis; negative for H. pylori, intestinal metaplasia and dysplasia. B. Esophagus, lower, biopsy: Squamous mucosa with mild spongiosis and focal increased intraepithelial lymphocytes; no evidence of eosinophilic esophagitis (see comment). C. Esophagus, middle, biopsy: Squamous mucosa with minimal spongiosis and focal minimal intraepithelial lymphocytes, non-specific; no evidence of eosinophilic esophagitis. Comment: (B): Appearances raise the possibility of lymphocytic esophagitis, a non-specific reaction pattern of which the etiology is uncertain. TODAY'S VISIT Patient is here today for follow-up and to discuss upper endoscopy and colonoscopy. Patient requested to be seen sooner as she is still having trouble swallowing and burning as she swallowing. Patient was having worse symptoms right after the procedure, currently she is getting little better, sees some improvement. Patient is taking omeprazole as recommended by Dr. Pedraza. She also is taking fluconazole for Chantel in esophagus, although biopsy has not specified that, possibility of lymphocytic esophagitis found on biopsy. Patient denies any nausea or vomiting. Reports dysphagia without odynophagia. Denies any dyspepsia. As mentioned above patient had cricopharyngeal stenosis dilation was performed. Reports that she is moving her bowels without any issues. Denies any melena, hematochezia. Denies any nausea or vomiting. Patient is scheduled for barium swallow not until September. [facility] Medical History Anxiety Osteoarthritis Frequency of micturition Chronic constipation Hx of chest pain Hearing difficulty of right ear Nephrolithiasis Allergic rhinitis Thyroid nodule Obesity (BMI 30-39.9) Vitamin D deficiency Generalized anxiety disorder GERD (gastroesophageal reflux disease) Migraine Asthma Surgical History S/P foot surgery, right History of esophagogastroduodenoscopy (EGD) History of hemorrhoidectomy History of colonoscopy H/O LEEP History of 2 sections Family History Maternal Grandmother Myocardial infarct Father Kidney carcinoma Social History Household Members: Family Housing: Apartment Are you a primary care management coordinator to a significant other at home: No Do you presently have visiting nurse or other home services: No Alcohol intake: current Alcohol intake frequency: does not drink Comment: once a month Patient Tobacco Use Status: Never used Tobacco Tobacco use type: Cigarette e-Cigarette/Vaping Use: Never Used Second Hand Smoke Exposure: No service: No Current occupational status: employed 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 Cognitive needs: No Hearing needs: No Vision needs: Yes (Glasses) Review of Systems Const Denies weight gain and Denies weight loss ENT Reports no additional complaints, Reports dysphagia and Denies odynophagia Card Reports no additional complaints Resp Reports no additional complaints GI Denies abdominal pain, Denies belching, Denies melena, Denies bloating, Denies hematochezia, Denies change in bowel habits, Denies constipation, Reports dysphagia, Denies excessive flatus, Denies dyspepsia, Reports heartburn, Denies diarrhea, Denies loose stools, Denies nausea, Denies odynophagia and Denies vomiting Reports no additional complaints Musc Reports no additional complaints Neuro Reports no additional complaints Psych Reports no additional complaints Endo Reports no additional complaints Physical Exam Vital Signs: Last Vital Signs Pulse 74 06/07/25 13:15 BP 110/62 06/07/25 13:15 Pulse Ox 98 06/07/25 13:15 Oxygen Delivery Method Room Air 06/07/25 13:15 BMI result Body Mass Index 38.5 Const General: healthy appearing and no acute distress Nutritional Appearance: obese Orientation/consciousness: patient oriented x3 Resp Effort & Inspection: normal respiratory effort, able to speak in complete sentences, no tracheal deviation and symmetric chest movement Auscultation: clear to auscultation bilaterally Cardio Rate: regular rate GI Inspection: Yes normal to inspection, No distended and Yes obesity Palpation (GI): Soft to palpation, not firm, nontender and No hepatosplenomegaly present Auscultation: normal bowel sounds Rectal Exam - Female: normal sphincter tone and No fecal impaction (Hard stool noted in the rectum, patient had a bowel movement this morning) General: Yes no CVA tenderness Back/Spine/Pelvis Back: no CVA tenderness Skin General skin exam: elasticity normal, turgor normal and dry skin Neuro General: patient oriented x3 Psych Appearance: grossly normal Mental Status: mental status grossly normal Assessment & Plan Assessment & Plan (1) GERD (gastroesophageal reflux disease): Code(s): K21.9 - Gastro-esophageal reflux disease without esophagitis Category: Medical Qualifiers: Esophagitis presence: without esophagitis Qualified Code(s): K21.9 - Gastro-esophageal reflux disease without esophagitis (2) Dysphagia: Code(s): R13.10 - Dysphagia, unspecified Category: Medical Qualifiers: Dysphagia type: esophageal phase Qualified Code(s): R13.19 - Other dysphagia (3) RUQ abdominal pain: Code(s): R10.11 - Right upper quadrant pain Category: Medical (4) Epigastric pain: Code(s): R10.13 - Epigastric pain Category: Medical Plan Continue PPI. Continue fluconazole. Patient was encouraged to avoid dietary triggers and late night snacking. She was encouraged to eat small meals and more often. Patient may take sucralfate at bedtime. Continue taking senna to help with constipation. Encouraged to increase fluid intake and activity to promote bowel motility. Patient will follow-up in our office in 3 months. She will call us if she will have any GI concerning symptoms. Patient is agreeable to this plan and verbalizes understanding of instructions. She was given the opportunity to ask questions and all questions answered. Thank you for allowing me to participate in her care Coding Level of Care Code Est Pt Level 4 (82928) Complex EM visit Add On G2211 Diagnoses Gastroesophageal reflux disease without esophagitis K21.9 Esophagitis presence: without esophagitis Esophageal dysphagia R13.19 Dysphagia type: esophageal phase RUQ abdominal pain R10.11 Epigastric pain R10.13 Time Spent (min) 40 Comment 25 minutes spent with patient and additional 15 minutes spent reviewing her records
[2025-06-07 13:15] VITALS: BP 110/62; PULSE 74; O2SAT 98; BMI 38.5
--- OUTSIDE RECORDS SUMMARY | 2025-06-07 15:58 | XMS_ITS | Clinical Summary ---
Author Organization [facility] Address [address] [place] [id number] Phone Care Team Providers Care Epic Professional Name Role Phone Gabriela Arce MD Primary Care Provider [phone] Allergies Active Allergy Reactions Criticality Noted Date [...] GLP-1 agonists. She states that she has [employer] and she spoke with somebody and they told her that they will cover Mounjaro. So this Medicare Medicare covers Mounjaro. But they do not cover is still weight loss medication Zepbound. So hopefully Zepbound will be covered by [employer]. I did inform her the Mounjaro and Zepbound of the same medication just different names 1 is for diabetes and 1 is for obesity management. I prescribe Zepbound 2.5 mg again. This will have to go through [facility] and if she needs a [...] Patient received sample of Mounjaro lot number [id number], expiration 09/16/2023. Assessment & Plan (02/20/2022 11:16 [...] Devices Not on file Insurance [address] [place] [address] [facility] A & B [address] [place] [address] [facility] & B [address] [place] [address] [place] [address] [place] [address] [place] [address] [place] [address] [place] PART A & [address] [place] [address] [facility] [address] [place] [address] [facility] MEDICARE PART A & B [address] [place], [place] [id number] [place], [place] [address]HEALTH MEDICARE PART A & B [address] [place] [address] [place] MEDICARE PART A & B Care Teams Epic Professional Relationship Specialty Start Date End Date Gabriela Arce MD [address] [place] [address] [address] [place] [id number] PCP - General Internal Medicine 08/15/21 Additional Source Comments The information contained in this document represents components of the legal health record. It is not the complete legal health record.[facility]
--- OUTSIDE RECORDS SUMMARY | 2025-06-07 15:58 | XMS_ITS | Encounter Summary ---
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 Name Role Phone Gabriela Arce MD Primary Care Provider [phone] Reason for Visit * Reason Onset Date Comments FMLA paperwork 05/06/2025 Encounter Details Date Type Department Care Team ([facility] st Contact Info) Description 05/06/2025 Telephone Orthopedic Surgery [facility] [address] [address] Marcelo Bingham, DPM [address] [place] [address] Social History Tobacco Use Types Packs/Day Years [...] Author No Risk Indicated 05/10/2025 9:15 AM Jorge Wilson, RN * [place] Suicide Severity Rating Scale (Screener/Recent Self-Report) Question Answer Date of Assessment Author 1. Wish to be (Past 1 Month) No 025 9:15 AM EDT Jorge Emmanuel, KATLYN 2. Non-Specific Active Suici helga Thoughts (Past 1 Month) No 05/10/2025 9:15 AM EDT Jim Emmanuel RN 6. Suicidal Behavior (Lifetime) No 9:15 AM EDT Jorge Emmanuel, RN documented as of this encounter Progress Notes * Marie Ohara - 06/07/2025 10:56 AM EDT Images from the original note were not included. Please see patient's New My Chart Message , please see attached request form per the [employer]. Attachment Thanks. * Coco Randle - 05/19/2025 11:08 AM EDT Paperwork completed and faxed on 04/28/2025. Patient questions were addressed. * Marie Ohara - 05/12/2025 8:59 AM EDT Patient is calling again on the paperwork she needs for the [employer] She States it is now past due,and she needs in order to keep her job. She is requesting a call back with an update @ [phone] . Thanks. * Belen Degroot - 05/10/2025 8:55 AM EDT Pt calling again to check status of amended paperwork (see previous messages) Deadline is today to submit paperwork * Belen Degroot - 05/06/2025 11:49 AM EDT Pt called to make sure the [facility] request for clarification regarding The [employer] paperwork will be addressed. There is a blank copy the of paperwork in [facility] for corrections/clarification documented in this encounter Plan of Treatment Not on file documented as of this encounter Visit Diagnoses Not on filedocumented in this encounter Care Teams Slat Basket Maker Helper Relationship Specialty Start Date End Date Gabriela Arce MD [address] [place] [address] PCP - General Internal Medicine 05/10/25 documented as of this encounter
--- OUTSIDE RECORDS SUMMARY | 2025-06-07 15:58 | XMS_ITS | Clinical Summary ---
Author Organization [facility] Address [address] [place] [address] Phone Care Team Providers Care Stone Lathe Operator Name Role Phone Gabriela Arce MD Primary Care Provider [phone] Allergies No known active allergies Medications albuterol [...] 3:30 PM EDT Office Visit Orthopedic Surgery [place] [address] [phone] Marcelo Bingham DPM Complex regional pain syndrome type 2 of right lower extremity (Primary Dx); Neuritis; Joint stiffness 05/10/2025 9:16 AM EDT - 05/10/2025 10:46 AM EDT Emergency [facility] Emergency [address] [place] [phone] Acute low back pain with bilateral sciatica, unspecified back pain laterality (Primary Dx) Discharge Disposition: Home or Self Care 05/06/2025 Telephone Orthopedic Surgery [place] [address] [phone] Marcelo Bingham DPM 03/10/2025 Telephone Orthopedic [place] [address] [phone] Marcelo Bingham DPM from Last 3 Months [...] AND CULTURE STAT 05/10/2025 9:58 AM EDT from Last 3 Months Results * (ABNORMAL) Urinalysis with reflex microscopic and culture (05/10/2025 9:58 AM EDT) Specific [place] Urine 1.031(H) 1.003 - 1.030 LAB URINALYSIS - AUTOMATED METHOD [facility] pH, Urine 6.0 5.0 - 8.0 pH LAB URINALYSIS - AUTOMATED METHOD 05/10/2025 10:26 AM [facility] Leukocytes, Urine Negative Negative LAB URINALYSIS - AUTOMATED METHOD 05/10/2025 10:26 AM [facility] Nitrite, Urine Negative Negative LAB URINALYSIS - AUTOMATED METHOD 05/10/2025 10:26 AM EDT [facility] Protein, Urine Negative <=Trace mg/dL LAB URINALYSIS - AUTOMATED METHOD 05/10/2025 10:26 AM [facility] Glucose, Urine Negative Negative mg/dL LAB URINALYSIS - AUTOMATED METHOD 05/10/2025 10:26 AM [facility] Ketones, Urine Negative Negative mg/dL LAB URINALYSIS - AUTOMATED METHOD 05/10/2025 10:26 AM [facility] Urobilinogen, Urine 0.2 0.2 - 1.0 mg/dL LAB URINALYSIS - AUTOMATED METHOD 05/10/2025 10:26 AM [facility] Bilirubin, Urine Negative Negative LAB URINALYSIS - AUTOMATED METHOD 05/10/2025 10:26 AM [facility] Blood, Urine Negative Negative LAB URINALYSIS - AUTOMATED METHOD 05/10/2025 10:26 AM [facility] Urine Urine specimen obtained by clean catch procedure / Unknown Non-blood Collection / Unknown 05/10/2025 9:58 AM EDT 05/10/2025 10:22 AM EDT Mary Beth ADAMS LAB URINE ORDERABLES Fin al Result [facility] [address] [place] [address], * [place] urine culture tube (05/10/2025 9:58 AM EDT) Extra Tube Hold for add-ons. 05/10/2025 12:01 PM EDT [facility] Comment:Auto resulted. Urine Urine specimen obtained by clean catch procedure / Unknown Non-blood Collection / Unknown 05/10/2025 9:58 AM EDT 05/10/2025 10:22 AM EDT us Mary Beth ADMAS LAB URINE ORDERABLES Fin al [facility] [address] [place] [address], [place] [phone] from Last 3 Months Insurance [place] - [place] MED[place]ARE [place] - [place] Care Teams Stone Lathe Operator Relationship Specialty Start Date End Date Gabriela Arce MD [address] [place] [address] PCP - General Internal Medicine 05/10/25
--- OUTSIDE RECORDS SUMMARY | 2025-06-07 15:58 | XMS_ITS | Clinical Summary ---
Author Organization [facility] Address [address] [place] [address] Phone Care Team Providers Care Lacemaker Name Role Phone Unavailable Primary Care Provider Unavailabl e Encounters Date Type Department Care Team Description 04/08/2025 Orders Only [facility] [address] [place] [address] Alicia Mcgovern, [facility] Family history of carrier of genetic disease [...] inal Result [facility] [address] [place] [address], [place] [phone] from Last 3 Months
== END 2025-06-07 14:24 | disposition home or self-care (01) ==
PROVIDERS: PCP Internal Medicine; Visit Provider Nurse Practitioner Family
DX: K21.9 Gastro-esophageal reflux disease without esophagitis (principal); R13.19 Other dysphagia; R10.11 Right upper quadrant pain; R10.13 Epigastric pain
CPT/HCPCS: 99214; G2211

== ENCOUNTER → 2025-06-07 12:43 | Outpatient (BNVA) | payer MEDICARE, MEDICAID, SELFPAY | PROVIDERS: PCP Internal Medicine; Visit Provider Nurse Practitioner Family | DX: K21.9 Gastro-esophageal reflux disease without esophagitis (principal); Z87.891 Personal history of nicotine dependence; R13.10 Dysphagia, unspecified; K59.09 Other constipation; R10.11 Right upper quadrant pain; R10.13 Epigastric pain | CPT/HCPCS: 99212 ==

== ENCOUNTER 2025-06-08 09:01 | Outpatient (REF) | payer MEDICARE, MEDICAID, SELFPAY ==
--- OUTSIDE RECORDS SUMMARY | 2025-06-08 10:06 | XMS_ITS | Encounter Summary ---
Author Organization [facility] Address [address] [place] [address] Care Team Providers Care Donor Recruitment Manager Name Role Phone Gabriela Arce MD Primary Care Provider [phone] Reason for Visit * Reason Onset Date Comments FMLA paperwork 05/06/2025 Encounter Details Date Type Department Care Team ([facility] st Contact Info) Description 05/06/2025 Telephone Orthopedic Surgery [facility] [address] [phone] Marcelo Bingham, DPM [address] [place] [address] Social History Tobacco Use Types [...] 05/10/2025 9:15 AM Jorge Wilson, RN * [place] Suicide Severity Rating Scale (Screener/Recent Self-Report) Question [...] please see attached request form per the [employer]. Attachment Thanks. * Coco Randle - 05/19/2025 11:08 AM EDT Paperwork completed and faxed on 04/28/2025. Patient questions were addressed. * Marie Ohara - 05/12/2025 8:59 AM EDT Patient is calling again on the paperwork she needs for the [employer] [facility] She States it is now past due,and she needs in order to keep her job. She is requesting a call back with an update @ [phone] . Thanks. * Bleen Degroot - 05/10/2025 8:55 AM EDT Pt calling again to check status of amended paperwork (see previous messages) Deadline is today to submit paperwork * Belen Degroot - 05/06/2025 11:49 AM EDT Pt called to make sure the [facility] request for clarification regarding [employer] [facility] paperwork will be addressed. There is a blank copy the of paperwork in [facility] for corrections/clarification documented in this encounter Plan of Treatment Not on file documented as of this encounter Visit Diagnoses Not on filedocumented in this encounter Care Teams Donor Recruitment Manager Relationship Specialty Start Date End Date Gabriela Arce MD [address] [place] [address] PCP - General Internal Medicine 05/10/25 documented as of this encounter
--- OUTSIDE RECORDS SUMMARY | 2025-06-08 10:06 | XMS_ITS | Clinical Summary ---
Author Organization [facility] Address [address] [place] [address] Phone Care Team Providers Care Technology Administrator Name Role Phone Gabriela Arce MD Primary Care Provider [phone] Allergies No known active allergies Medications albuterol [...] 3:30 PM EDT Office Visit Orthopedic Surgery [place] [address] [phone] Marcelo Bingham DPM Complex regional pain syndrome type 2 of right lower extremity (Primary Dx); Neuritis; Joint stiffness 05/10/2025 9:16 AM EDT - 05/10/2025 10:46 AM EDT Emergency [facility] Emergency [address] [place] [phone] Acute low back pain with bilateral sciatica, unspecified back pain laterality (Primary Dx) Discharge Disposition: Home or Self Care 05/06/2025 Telephone Orthopedic Surgery [place] [address] [phone] Marcelo Bingham DPM 03/10/2025 Telephone Orthopedic [place] [address] [phone] Marcelo Bingham DPM from Last 3 Months [...] and culture (05/10/2025 9:58 AM EDT) Specific [place] Urine 1.031(H) 1.003 - 1.030 LAB URINALYSIS - AUTOMATED METHOD 05/10/2025 10:[facility] pH, Urine 6.0 5.0 - 8.0 pH LAB URINALYSIS - AUTOMATED METHOD 05/10/2025 10:26 AM [facility] Leukocytes, Urine Negative Negative LAB URINALYSIS - AUTOMATED METHOD 05/10/2025 10:26 AM [facility] Nitrite, Urine Negative Negative LAB URINALYSIS - AUTOMATED METHOD 05/10/2025 10:26 AM EDT [facility] Protein, Urine Negative <=Trace mg/dL LAB URINALYSIS - AUTOMATED METHOD 05/10/2025 10:26 AM [facility] Glucose, Urine Negative Negative mg/dL LAB URINALYSIS - AUTOMATED METHOD 05/10/2025 10:26 AM [facility] Ketones, Urine Negative Negative mg/dL LAB URINALYSIS - AUTOMATED METHOD 05/10/2025 10:26 AM [facility] Urobilinogen, Urine 0.2 0.2 - 1.0 mg/dL LAB URINALYSIS - AUTOMATED METHOD 05/10/2025 10:26 AM [facility] Bilirubin, Urine Negative Negative LAB URINALYSIS - AUTOMATED METHOD 05/10/2025 10:26 AM [facility] Blood, Urine Negative Negative LAB URINALYSIS - AUTOMATED METHOD 05/10/2025 10:26 AM [facility] Urine Urine specimen obtained by clean catch procedure / Unknown Non-blood Collection / Unknown 05/10/2025 9:58 AM EDT 05/10/2025 10:22 AM EDT Mary Beth ADAMS LAB URINE ORDERABLES Fin al Result [facility] [address] [place] [address], * [place] urine culture tube (05/10/2025 9:58 AM EDT) Extra Tube Hold for add-ons. 05/10/2025 12:01 PM EDT [facility] Comment:Auto resulted. Urine Urine specimen obtained by clean catch procedure / Unknown Non-blood Collection / Unknown 05/10/2025 9:58 AM EDT 05/10/2025 10:22 AM EDT us Mary Beth ADAMS LAB URINE ORDERABLES Fin al [facility] [address] [place] [address], [place] [phone] from Last 3 Months Insurance [place] - [place] MED[place]ARE [place] - [place] Care Teams Technology Administrator Relationship Specialty Start Date End Date Gabriela Arce MD [address] [place] [address] PCP - General Internal Medicine 05/10/25
--- OUTSIDE RECORDS SUMMARY | 2025-06-08 10:06 | XMS_ITS | Clinical Summary ---
Author Organization [facility] Address [address] [place] [address] Phone Care Team Providers Care Director Maternal Child Name Role Phone Gabriela Arce MD Primary Care Provider [phone] Allergies Active Allergy Reactions Criticality Noted Date [...] GLP-1 agonists. She states that she has [employer] and she spoke with somebody and they told her that they will cover Mounjaro. So this Medicare Medicare covers Mounjaro. But they do not cover is still weight loss medication Zepbound. So hopefully Zepbound will be covered by [employer]. I did inform her the Mounjaro and Zepbound of the same medication just different names 1 is for diabetes and 1 is for obesity management. I prescribe Zepbound 2.5 mg again. This will have to go through [facility] and if she needs a prior [...] Patient received sample of Mounjaro lot number [id number], expiration 09/16/2023. Assessment & Plan (02/20/2022 11:16 [...] Devices Not on file Insurance [address] [place] [address] [facility] [address] [place] [address] [facility] [address] [place] [address] [place] [address] [place] [address] [place] [address] [place] [address] [place]ICARE PART A & B [address] [place] [address] [facility] [address] [place] [address] [facility] MEDICARE PART A & B [address] [place], [place] [id number] [place], [place] [address]HEALTH MEDICARE PART A & B [address] [place] [address] [place] MEDICARE PART A & B Care Teams Director Maternal Child Relationship Specialty Start Date End Date Gabriela Arce MD [address] [place] [address] [address] [place] [phone] PCP - General Internal Medicine 08/15/21 Additional Source Comments The information contained in this document represents components of the legal health record. It is not the complete legal health record.[facility]
--- OUTSIDE RECORDS SUMMARY | 2025-06-08 10:06 | XMS_ITS | Clinical Summary ---
Author Organization [facility] Address [address] [place] [address] Phone Care Team Providers Care Sliding Joint Maker Name Role Phone Unavailable Primary Care Provider Unavailabl e Encounters Date Type Department Care Team Description 04/08/2025 Orders Only [facility] [address] [place] [address] Alicia Mcgovern, [facility] Family history of carrier of genetic disease [...] inal Result [facility] [address] [place] [address], [place] [phone] from Last 3 Months
[2025-06-10 03:18] LABS: Class Almond 0; Class Brazil Nut 0; Class Cashew 0; Class Codfish 0; Class Cow's Milk 0; Class Egg white 0; Class Hazelnut 0; Class Macadamia Nut 0; Class Peanut 0; Class Salmon 0; Class Scallop 0; Class Sesame Seed 0; Class Shrimp 0; Class Soybean 0; Class Tuna 0; Class Walnut 0; Class Wheat 0; F345-IgE Macadmia Nut <0.10 kU/L
== END 2025-06-08 09:02 | disposition home or self-care (01) ==
LOC: HO.CHCLDS 09:01
PROVIDERS: Visit Provider Nurse Practitioner Family
DX: K59.09 Other constipation (principal); R10.13 Epigastric pain; R13.10 Dysphagia, unspecified; K21.9 Gastro-esophageal reflux disease without esophagitis
CPT/HCPCS: 36415; 86003

== ENCOUNTER 2025-06-14 08:11 | Outpatient (AMB) | payer MEDICARE, MEDICAID, SELFPAY ==
--- NOTE | 2025-06-14 08:16 | A.OFFVIS_ITS ---
Vital Signs 06/14/25 08:21 Height 5 ft 7 in Weight 243 lb 2 oz BMI 38.1 BP 165/71 H Blood Pressure Location Lt brachial Position Sitting Pulse 93 Pulse Source Pulse Oximeter Pulse Oximetry (%) 100 Oxygen Delivery Method Room Air Intake Visit Reasons: CRPS Intake Note: Pain today 01/18 Yarn Preparation Supervisor Required: No Accompanied by: Self / Same As Patient Allergies No Known Allergies Allergy (Verified 06/14/25 08:20) HPI Comments Details: The patient is a 40-year-old female presenting with Complex Regional Pain Syndrome (CRPS) related pain in the right lower extremity. The pain began following right foot surgery, specifically Garza bunionectomy by Dr. Bingham on September 16, 2024. Post-surgery, she completed physical therapy at [facility] in November and December, but continues to experience significant pain, especially with weight bearing. The patient describes the pain as shooting and stabbing, exacerbated by walking and relieved by non-weightbearing activities. She reports ongoing stiffness and swelling in the right foot, particularly when standing for extended periods. The pain radiates from the bottom of the foot upwards, and she experiences soreness and swelling with prolonged standing or walking. She can only tolerate short periods of driving, for extended trips she relies on her for driving. The patient has a history of anxiety, osteoarthritis, nephrolithiasis, obesity, and migraines, which may complicate her current condition. She has been taking gabapentin without significant relief and has a history of an endoscopy revealing medication restrictions. 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 - Onset: Post-surgical, following right foot surgery on September 16, 2024 - Quality: Shooting, stabbing, aching, burning, tingling, tightness, stiffness, pain - Location: Right foot, radiating upwards - Exacerbating factors: Walking, standing for extended periods - Relieving factors: Non-weightbearing activities, not walking - Interference: Affects ability to stand, walk, and perform daily activities - Affect: The pain impacts her ability to work and perform daily activities, contributing to anxiety. - Analgesia: Currently taking gabapentin with no significant relief. - Adverse Effects: No significant adverse effects from gabapentin reported. - Activities of Daily Living: Pain limits her ability to stand, walk, and work, requiring frequent rest periods. - Aberrant Drug Related Behaviors: No aberrant behaviors reported. [facility] Medical History Anxiety Osteoarthritis Frequency of micturition Chronic constipation Hx of chest pain Hearing difficulty of right ear Nephrolithiasis Allergic rhinitis Thyroid nodule Obesity (BMI 30-39.9) Vitamin D deficiency Generalized anxiety disorder GERD (gastroesophageal reflux disease) Migraine Asthma Surgical History S/P foot surgery, right History of esophagogastroduodenoscopy (EGD) History of hemorrhoidectomy History of colonoscopy H/O LEEP History of 2 sections Family History Maternal Grandmother Myocardial infarct Father Kidney carcinoma Social History Household Members: Family Housing: Apartment Are you a primary nonfarm animal caretaker to a significant other at home: No Do you presently have visiting nurse or other home services: No Alcohol intake: current Alcohol intake frequency: does not drink Comment: once a month Patient Tobacco Use Status: Never used Tobacco Tobacco use type: Cigarette e-Cigarette/Vaping Use: Never Used Second Hand Smoke Exposure: No service: No Current occupational status: employed 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 - Neurological: Reports burning, tingling, and sharp impulses in right foot. - Integumentary: Denies color or temperature changes in the right foot. - General: Reports obesity. - Psychiatric: Reports anxiety, denies depression. All systems reviewed & are unremarkable except as noted in HPI and below Physical Exam Vital Signs: Last Vital Signs Pulse 93 06/14/25 08:21 BP 165/71 H 06/14/25 08:21 Pulse Ox 100 06/14/25 08:21 Oxygen Delivery Method Room Air 06/14/25 08:21 BMI result Body Mass Index 38.1 General: Appears afebrile. Alert and oriented. Mood and affect appropriate. Follows and participates in conversation appropriately. Respiratory effort is unlabored. No cough. Able to transition from sit to stand unassisted. Ambulates with bilaterally normal heel strike and toe off, right foot pain increase with weightbearing. Back/Spine/Pelvis Cervical Spine: normal cervical lordosis, cervical ROM normal and No Cervical spine tenderness Thoracic/Lumbar Spine: thoracic and lumbar spine normal to inspection, No Thoracic/lumbar spine scar(s), Lasegue's sign negative, straight leg raise negative bilaterally, pain with thoraco-lumbar ROM, paraspinal muscle tenderness, thoraco-lumbar ROM limited, No thoracic spinal tenderness and lumbar spinal tenderness at L4 and at L5 Sacroiliac joints: bilaterally nontender Extrem General: Yes capillary refill normal, Yes no clubbing, cyanosis or edema and Yes no calf tenderness Right lower extremity: foot (+allodynia, decreased ROM, decreased strength with dorsiflexion) Details: normal capillary refill, tenderness Location: of the great toe, of the medial foot and of the mid foot Location: medially, no edema and other (no skin color changes; well healed incision line); no unusual warmth, no ecchymosis and no crepitus Assessment & Plan Assessment & Plan (1) Low back pain: Code(s): M54.50 - Low back pain, unspecified Category: Medical (2) CRPS (complex regional pain syndrome), lower limb: Code(s): G90.529 - Complex regional pain syndrome I of unspecified lower limb Category: Medical (3) Neuralgia of right lower extremity: Code(s): M79.2 - Neuralgia and neuritis, unspecified Category: Medical (4) Low back pain: Code(s): M54.50 - Low back pain, unspecified Category: Medical (5) CRPS (complex regional pain syndrome), lower limb: Code(s): G90.529 - Complex regional pain syndrome I of unspecified lower limb Category: Medical (6) Neuralgia of right lower extremity: Code(s): M79.2 - Neuralgia and neuritis, unspecified Category: Medical (7) History of bunionectomy of right great toe: Code(s): Z98.890 - Other specified postprocedural states Category: Surgical Plan The plan includes conducting an EMG and neurodiagnostic studies to assess neuropathy vs radiculopathy which may be contributing to the patient's symptoms. A back x-ray is also planned to evaluate any potential spinal issues that could be affecting the patient's condition. If the EMG indicates neuropathy, a peripheral nerve stimulator may be considered. We also discussed sympathetic nerve blocks and SCS trial and implant to potentially alleviate CRPS symptoms for a longer term pain relief. The patient is to remain off work under [place] at this time due to ongoing foot pain and difficulty with weight bearing. All questions and concerns have been answered and patient agreed with the treatment plan. Follow up for EMG/xray results and sooner as needed. Patient was informed and verbally consented to the use of an ambient scribe for clinic note documentation during this visit. Orders: Orders XR lumbar spine 4V min Today M54.50 - Low back pain, unspecified NE electromyogram (EMG) Today G90.529 - Complex regional pain syndrome I of unspecified lower limb, M54.50 - Low back pain, unspecified, M79.2 - Neuralgia and neuritis, unspecified NE nerve conduction velocity Today G90.529 - Complex regional pain syndrome I of unspecified lower limb, M54.50 - Low back pain, unspecified, M79.2 - Neuralgia and neuritis, unspecified Coding Level of Care Code New Pt Level 4 (14595) Diagnoses Low back pain M54.50 CRPS (complex regional pain syndrome), lower limb G90.529 Neuralgia of right lower extremity M79.2 History of bunionectomy of right great toe Z98.890
[2025-06-14 08:21] VITALS: BP 165/71; PULSE 93; O2SAT 100; BMI 38.1
== END 2025-06-14 09:24 | disposition home or self-care (01) ==
LOC: HO.PMC 08:11
PROVIDERS: PCP Internal Medicine; Visit Provider Nurse Practitioner Family
DX: M54.50 Low back pain, unspecified (principal); G90.529 Complex regional pain syndrome I of unspecified lower limb; M79.2 Neuralgia and neuritis, unspecified; Z98.890 Other specified postprocedural states
CPT/HCPCS: 99204

== ENCOUNTER → 2025-06-14 08:11 | Outpatient (BNVA) | payer MEDICARE, MEDICAID, SELFPAY | PROVIDERS: PCP Internal Medicine; Visit Provider Nurse Practitioner Family | DX: M54.50 Low back pain, unspecified (principal); G90.521 Complex regional pain syndrome I of right lower limb; G90.522 Complex regional pain syndrome I of left lower limb; M79.2 Neuralgia and neuritis, unspecified | CPT/HCPCS: 99202 ==

== ENCOUNTER 2025-07-28 09:54 | Outpatient (REF) | payer MEDICARE, MEDICAID, SELFPAY ==
--- NOTE | ~2025-07-28 | XR_ITS ---
EXAMINATION: XR LUMBOSACRAL SPINE CLINICAL INFORMATION: M54.50 - Low back pain, unspecified COMPARISON: None available. Correlation made with CT abdomen and pelvis 03/08/2025. TECHNIQUE: 5 views of the lumbar spine, inclusive of bilateral oblique views, were obtained. FINDINGS: There is no significant scoliosis. There is a normal lumbar lordosis. There is no subluxation. There are no compression deformity, fracture, or suspicious bone lesion present. Minimal disc degenerative changes are present throughout, although disc spaces are largely preserved. Facets are normally aligned. There are no significant facet arthritic changes nor pars defects. The sacrum is intact. The SI joints appear normal. Soft tissues demonstrate no abnormalities. XR/XR lumbar spine 4V min IMPRESSION: 1. No acute bony or soft tissue abnormality of the lumbar spine. 2. Minimal disc degenerative changes present. Electronically signed by: Chilo Carreno MD 07/28/2025 10:31 AM [place]
--- OUTSIDE RECORDS SUMMARY | 2025-07-28 12:11 | XMS_ITS | Clinical Summary ---
Author Organization [facility] Address [address] [place] [address] Phone Care Team Providers Care News Internship Name Role Phone Gabriela Arce MD Primary Care Provider Allergies Active Allergy Reactions Criticality Noted Date [...] GLP-1 agonists. She states that she has [employer] and she spoke with somebody and they told her that they will cover Mounjaro. So this Medicare Medicare covers Mounjaro. But they do not cover is still weight loss medication Zepbound. So hopefully Zepbound will be covered by [employer]. I did inform her the Mounjaro and Zepbound of the same medication just different names 1 is for diabetes and 1 is for obesity management. I prescribe Zepbound 2.5 mg again. This will have to go through [facility] and if she needs a prior [...] Patient received sample of Mounjaro lot number [id number], expiration 09/16/2023. Assessment & Plan (02/20/2022 11:16 [...] Devices Not on file Insurance [address] [place] [address] [facility] PART A & B [address] [place] [address] [facility] PART A & B [address] [place] [address] [place] [address] [place] [address] [place] [address] [place] [address] [place] MEDICARE PART A & B [address] [place] [address] [facility] [address] [place] [address] [facility] MEDIC[facility] PART A & B [address] [place] [id number] [place] [address]HEALTH MEDICARE PART A & B [address] [place] [address] [place] MEDICARE PART A & B Care Teams News Internship Relationship Specialty Start Date End Date Gabriela Arce MD [address] [place] [address] [address] [place] [phone] PCP - General Internal Medicine 08/15/21 Additional Source Comments The information contained in this document represents components of the legal health record. It is not the complete legal health record.[facility]
--- OUTSIDE RECORDS SUMMARY | 2025-07-28 12:11 | XMS_ITS | Clinical Summary ---
Author Organization [facility] Address [address] [place] [address] Phone Care Team Providers Care Refresh Technician Name Role Phone Gabriela Arce MD Primary Care Provider [phone] Allergies No known active allergies Medications albuterol [...] to 7 days. 20 tablet 05/10/2025 Active Active Problems Problem Noted [...] Encounters Date Type Department Care Team Description 06/22/2025 Telephone Orthopedic Surgery [place] [address] [phone] Marcelo Bingham DPM 05/19/2025 3:30 PM EDT Office Visit Orthopedic Surgery [facility] [address] [phone] Marcelo Bingham DPM Complex regional pain syndrome type 2 of right lower extremity (Primary Dx); Neuritis; Joint stiffness 05/10/2025 9:16 AM EDT - 05/10/2025 10:46 AM EDT Emergency [facility] Emergency [address] [place] [phone] Acute low back pain with bilateral sciatica, unspecified back pain laterality (Primary Dx) Discharge Disposition: Home or Self Care 05/06/2025 Telephone Orthopedic Surgery [facility] [address] [phone] Marcelo Bingham DPM from Last 3 Months [...] Orientation Straight 09/17/2024 11 :01 AM EST Last Filed Vital Signs Vital Sign Reading [...] and culture (05/10/2025 9:58 AM EDT) Specific [place] Urine 1.031(H) 1.003 - 1.030 LAB URINALYSIS - AUTOMATED METHOD 05/10/2025 10:26 AM [facility] pH, Urine 6.0 5.0 - 8.0 pH LAB URINALYSIS - AUTOMATED METHOD 05/10/2025 10:26 AM [facility] Leukocytes, Urine Negative Negative LAB URINALYSIS - AUTOMATED METHOD 05/10/2025 10:26 AM [facility] Nitrite, Urine Negative Negative LAB URINALYSIS - AUTOMATED METHOD 05/10/2025 10:26 AM [facility] Protein, Urine Negative <=Trace mg/dL LAB URINALYSIS - AUTOMATED METHOD 05/10/2025 10:26 AM EDT [facility] Glucose, Urine Negative Negative mg/dL LAB URINALYSIS - AUTOMATED METHOD 05/10/2025 10:26 AM EDT [facility] Ketones, Urine Negative Negative mg/dL LAB URINALYSIS - AUTOMATED METHOD 05/10/2025 10:26 AM EDT [facility] Urobilinogen, Urine 0.2 0.2 - 1.0 mg/dL LAB URINALYSIS - AUTOMATED METHOD 05/10/2025 10:26 AM EDT [facility] Bilirubin, Urine Negative Negative LAB URINALYSIS - AUTOMATED METHOD 05/10/2025 10:26 AM EDT [facility] Blood, Urine Negative Negative LAB URINALYSIS - AUTOMATED METHOD 05/10/2025 10:26 AM T [facility] Urine Urine specimen obtained by clean catch procedure / Unknown Non-blood Collection / Unknown 05/10/2025 9:58 AM EDT 05/10/2025 10:22 AM EDT Mary Beth ADAMS LAB URINE ORDERABLES Fin al Result Performing Organization Address [facility]/ZIP Co de Phone Number [facility] [address] [place] [address], [place] [phone] * [place] urine culture tube (05/10/2025 9:58 AM EDT) Extra Tube Hold for add-ons. 05/10/2025 12:01 PM EDT [facility] Comment:Auto resulted. Urine Urine specimen obtained by clean catch procedure / Unknown Non-blood Collection / Unknown 05/10/2025 9:58 AM EDT 05/10/2025 10:22 AM EDT Mary Beth ADAMS LAB URINE ORDERABLES Fin al Result Performing Organization Address City/[facility]/ZIP Co de Phone Number [facility] [address] [place] [address], from Last 3 Months Insurance [place] - [place] MEDICARE MEDICARE [place] - [place] Care Teams Refresh Technician Relationship Specialty Start Date End Date Gabriela Arce MD [address] [place] [address] PCP - General Internal Medicine 05/10/25
--- OUTSIDE RECORDS SUMMARY | 2025-07-28 12:11 | XMS_ITS | Clinical Summary ---
Author Organization [facility] Address [address] [place] [address] Phone Care Team Providers Care Mud Analysis Well Logging Operator Name Role Phone Unavailable Primary Care Provider Unavailabl e Social History Tobacco Use Types Packs/Day Years Used Date Smoking Tobacco: Never Assessed Comments Unknown Sex and Gender Information Value Date Recorded Sex Assigned at Not on file Legal Sex Female 10:38 AM EST Gender Identity Not on file Sexual Orientation Not on file Plan of Treatment Not on file
== END 2025-07-28 09:55 | disposition home or self-care (01) ==
LOC: HO.XRAY 09:54
PROVIDERS: PCP Internal Medicine; Visit Provider Nurse Practitioner Family
DX: M54.50 Low back pain, unspecified (principal)
CPT/HCPCS: 72110

== ENCOUNTER → 2025-07-28 10:00 | Outpatient (BNV) | payer MEDICARE, MEDICAID, SELFPAY | PROVIDERS: PCP Internal Medicine; Visit Provider Radiology Diagnostic Radiology | DX: M54.50 Low back pain, unspecified (principal) | CPT/HCPCS: 72110 ==

== ENCOUNTER → 2025-07-29 09:00 | Outpatient (BNV) | payer MEDICARE, MEDICAID, SELFPAY | PROVIDERS: PCP Internal Medicine; Visit Provider Internal Medicine | DX: Z12.31 Encounter for screening mammogram for malignant neoplasm of breast (principal) | CPT/HCPCS: 77063; 77067 ==

== ENCOUNTER 2025-07-29 09:05 | Outpatient (REF) | payer MEDICARE, MEDICAID, SELFPAY ==
--- OUTSIDE RECORDS SUMMARY | 2025-07-29 09:33 | XMS_ITS | Clinical Summary ---
Author Organization [facility] Address [address] [place] [address] Phone Care Team Providers Care Registered Veterinary Technician Name Role Phone Gabriela Arce MD Primary Care Provider [phone] Allergies No known active allergies Medications albuterol [...] Care Team Description 06/22/2025 Telephone Orthopedic Surgery [place] [address] [phone] Marcelo Bingham DPM 05/19/2025 3:30 PM EDT Office Visit Orthopedic Surgery [facility] [address] [phone] Marcelo Bingham DPM Complex regional pain syndrome type 2 of right lower extremity (Primary Dx); Neuritis; Joint stiffness 05/10/2025 9:16 AM EDT - 05/10/2025 10:46 AM EDT Emergency [facility] Emergency [address] [place] [phone] Acute low back pain with bilateral sciatica, unspecified back pain laterality (Primary Dx) Discharge Disposition: Home or Self Care 05/06/2025 Telephone Orthopedic Surgery [facility] [address] [phone] Marcelo Bingham DPM from Last 3 Months [...] and culture (05/10/2025 9:58 AM EDT) Specific [place] Urine 1.031(H) 1.003 - 1.030 LAB URINALYSIS - AUTOMATED METHOD 05/10/2025 10:26 AM [facility] pH, Urine 6.0 5.0 - 8.0 pH LAB URINALYSIS - AUTOMATED METHOD 05/10/2025 10:26 AM [facility] Leukocytes, Urine Negative Negative LAB URINALYSIS - AUTOMATED METHOD 05/10/2025 10:26 AM [facility] Nitrite, Urine Negative Negative LAB URINALYSIS - AUTOMATED METHOD 05/10/2025 10:26 AM [facility] Protein, Urine Negative <=Trace mg/dL LAB URINALYSIS - AUTOMATED METHOD 05/10/2025 10:26 AM EDT [facility] Glucose, Urine Negative Negative mg/dL LAB URINALYSIS - AUTOMATED METHOD 05/10/2025 10:26 AM EDT [facility] Ketones, Urine Negative Negative mg/dL LAB URINALYSIS - AUTOMATED METHOD 05/10/2025 10:26 AM EDT [facility] Urobilinogen, Urine 0.2 0.2 - 1.0 mg/dL LAB URINALYSIS - AUTOMATED METHOD 05/10/2025 10:26 AM EDT [facility] Bilirubin, Urine Negative Negative LAB URINALYSIS - AUTOMATED METHOD 05/10/2025 10:26 AM EDT [facility] Blood, Urine Negative Negative LAB URINALYSIS - AUTOMATED METHOD 05/10/2025 10:26 AM T [facility] Urine Urine specimen obtained by clean catch procedure / Unknown Non-blood Collection / Unknown 05/10/2025 9:58 AM EDT 05/10/2025 10:22 AM EDT Mary Beth ADAMS LAB URINE ORDERABLES Fin al Result Performing Organization Address [facility]/ZIP Co de Phone Number [facility] [address] [place] [address], [place] [phone] * [place] urine culture tube (05/10/2025 9:58 AM EDT) Extra Tube Hold for add-ons. 05/10/2025 12:01 PM EDT [facility] Comment:Auto resulted. Urine Urine specimen obtained by clean catch procedure / Unknown Non-blood Collection / Unknown 05/10/2025 9:58 AM EDT 05/10/2025 10:22 AM EDT Mary Beth ADAMS LAB URINE ORDERABLES Fin al Result Performing Organization Address City/[facility]/ZIP Co de Phone Number [facility] [address] [place] [address], from Last 3 Months Insurance [place] - [place] MED[place] MED[place]ARE [place] - [place] Care Teams Registered Veterinary Technician Relationship Specialty Start Date End Date Gabriela Arce MD [address] [place] [address] PCP - General Internal Medicine 05/10/25
--- OUTSIDE RECORDS SUMMARY | 2025-07-29 09:33 | XMS_ITS | Clinical Summary ---
Author Organization [employer] [facility] Address [address] [place] [phone] Phone Care Team Providers Care Track Liner Operator Name Role Phone Gabriela Arce MD Primary Care Provider [phone] Allergies Active Allergy Reactions Criticality Noted Date [...] GLP-1 agonists. She states that she has [employer] and she spoke with somebody and they told her that they will cover Mounjaro. So this Medicare Medicare covers Mounjaro. But they do not cover is still weight loss medication Zepbound. So hopefully Zepbound will be covered by [employer]. I did inform her the Mounjaro and Zepbound of the same medication just different names 1 is for diabetes and 1 is for obesity management. I prescribe Zepbound 2.5 mg again. This will have to go through [facility] and if she needs a prior [...] Patient received sample of Mounjaro lot number [id number], expiration 09/16/2023. Assessment & Plan (02/20/2022 11:16 [...] Devices Not on file Insurance [address] [place] [address] [facility] & B [address] [place] [address] [facility] & B [address] [place] [address] [place] [address] [place] [address] [place] [address] [place] [address] [place] PART A & [address] [place] [address] [facility] [address] [place] [address] [facility] MEDICARE PART A & B [address] [place] [id number] [place] [address]HEALTH MEDICARE PART A & B [address] [place] [address] [place] MED[place] PART A & B Care Teams Track Liner Operator Relationship Specialty Start Date End Date Gabriela Arce MD [address] [place] [address] [address] [place] [phone] PCP - General Internal Medicine 08/15/21 Additional Source Comments The information contained in this document represents components of the legal health record. It is not the complete legal health record.[facility]
--- OUTSIDE RECORDS SUMMARY | 2025-07-29 09:33 | XMS_ITS | Clinical Summary ---
Author Organization [facility] Address [address] [place] [address] Phone Care Team Providers Care Turf Farm Worker Name Role Phone Unavailable Primary Care [...]
== END 2025-07-29 09:06 | disposition home or self-care (01) ==
LOC: HO.MAMMO 09:05
PROVIDERS: PCP Internal Medicine
DX: Z12.31 Encounter for screening mammogram for malignant neoplasm of breast (principal)
CPT/HCPCS: 77063; 77067

== ENCOUNTER 2025-08-08 16:07 | Outpatient (AMB) | payer MEDICARE, MEDICAID, SELFPAY ==
--- NOTE | 2025-08-08 16:08 | A.OFFPC_ITS ---
Intake Visit Reasons: Discuss possible DM Allergies No Known Allergies Allergy (Verified 08/08/25 16:08) Medication List - Last Reconciled 08/08/25 by Gabriela Arce MD albuterol sulfate 90 mcg/actuation 2 puffs inhalation QID PRN cetirizine (All Day Allergy (cetirizine)) 10 mg PO DAILY PRN cholecalciferol (vitamin D3) 25 mcg PO DAILY gabapentin 400 mg PO TID nortriptyline 25 mg PO BEDTIME pantoprazole 20 mg PO DAILY sennosides-docusate sodium 8.6-50 mg (Senna Plus) 2 tab-caps (2 x 8.6-50 mg) PO BEDTIME sucralfate 1 g PO BEDTIME tirzepatide (weight loss) (Zepbound) 2.5 mg (0.5 mL) subcut QWEEK triamcinolone acetonide 0.5% 1 appl topical BID Tobacco use date assessed: 05/17/25 Dental Screening Dental Screen Date: 05/17/25 HPI HPI Comments History of Present Illness Details History of Present Illness The patient is a 40-year-old female presenting via telehealth for follow-up on a prediabetes diagnosis and to address new onset flu-like symptoms. She reports currently feeling unwell with headache, nasal symptoms, and myalgia. Regarding her prediabetes, a recent hemoglobin A1c was 5.7, placing her on the borderline. Her previous fasting blood sugars have been in the 80s. She reports anecdotally that she experiences dizziness and nausea after consuming carbohydrates or sweet foods. The patient has a history of severe obesity and has struggled with weight loss for a long time. She has tried multiple diets, including Herbalife, Atkins, and Weight Watchers, without sustained success. She was previously prescribed Mounjaro by an arch support maker and successfully lost 80 pounds, but she discontinued the medication due to side effects of constipation and kidney pain. Since stopping, she feels she has regained the weight and is now larger than she was before starting the medication. Her past medical history is also significant for gastroesophageal reflux disease, generalized anxiety disorder, asthma, migraine, anemia, hypercholesterolemia, and hepatic steatosis. [facility] Medical History Anxiety Osteoarthritis Frequency of micturition Chronic constipation Hx of chest pain Hearing difficulty of right ear Nephrolithiasis Allergic rhinitis Thyroid nodule Obesity (BMI 30-39.9) Vitamin D deficiency Generalized anxiety disorder GERD (gastroesophageal reflux disease) Migraine Asthma Surgical History S/P foot surgery, right History of esophagogastroduodenoscopy (EGD) History of hemorrhoidectomy History of colonoscopy H/O LEEP History of 2 sections Family History Maternal Grandmother Myocardial infarct Father Kidney carcinoma Social History Household Members: Family Housing: Apartment Are you a primary home health caregiver to a significant other at home: No Do you presently have visiting nurse or other home services: No Alcohol intake: current Alcohol intake frequency: does not drink Comment: once a month Patient Tobacco Use Status: Never used Tobacco Tobacco use type: Cigarette e-Cigarette/Vaping Use: Never Used Second Hand Smoke Exposure: No service: No Current occupational status: employed 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 Bon Hernandez, Gilma Alvarado, Daren Thakur and colleagues, with an educational alfredo from [employer]. Review of Systems Narrative Review of Systems - General: Reports malaise and feeling unwell ( feel like crap ). - HEENT: Reports headache and nasal symptoms. - Gastrointestinal: Reports dizziness and nausea after eating carbohydrates or sweet foods. - Musculoskeletal: Reports diffuse body aches. Physical exam (Primary Care) Tobacco/Smoking Status: Tobacco use Status Tobacco use date assessed 05/17/25 08/08/25 16:09 Patient Tobacco Use Status Never used Tobacco 08/08/25 16:09 Tobacco use type Cigarette 08/08/25 16:09 e-Cigarette/Vaping Use Never Used 08/08/25 16:09 Thrive Assessment: Date of Thrive Assessment Date Thrive assessed 05/10/25 08/08/25 16:09 Telehealth Telehealth Telehealth Platform: Telephone Location of provider rendering services: practice address Location of patient: address on file Patient Identification confirmed using: Name, : Yes Telehealth method: voice only Patient verbally consented to treatment: Yes Patient verbally consented to billing insurance company: Yes Patient informed of any privacy concerns related to visit: Yes Minutes spent on Phone/Video with Pt.: 25 Coding Level of Care Code Tele Est Pt Level 4 (60224) Diagnoses Impaired glucose tolerance R73.02 Obesity (BMI 30-39.9) E66.9 Myalgia M79.10 Assessment & Plan Assessment & Plan (1) Impaired glucose tolerance: Code(s): R73.02 - Impaired glucose tolerance (oral) Category: Medical Plan: Decrease the amount of carbohydrate intake, pasta, bread, rice and potatoes are all sugar and that is aside from all the sweet stuff, remember that fruits are good but they are Sweet also. (2) Obesity (BMI 30-39.9): Code(s): E66.9 - Obesity, unspecified Category: Medical Plan: Diet and exercise. Pateint states has done multiple diets before with no response, multiple other med with no resnponse also. would need to try mounjaro (3) Myalgia: Code(s): M79.10 - Myalgia, unspecified site Category: Medical Plan: With her having muscle aches and cough and congestion we will test for viral infections. Plan Plan Patient was informed and verbally consented to the use of an ambient scribe for clinic note documentation during this visit. 1. Influenza-Like Illness The patient presented with acute onset of headache, nasal symptoms, and myalgia. To differentiate between influenza and COVID-19 for targeted antiviral therapy, the patient has been advised to go to the hospital for testing. Treatment will be initiated based on the test results. 2. Prediabetes The patient's recent hemoglobin A1c of 5.7 confirms a diagnosis of prediabetes. Medication is not indicated at this time. The primary management strategy will be lifestyle modification, including diet and exercise. Counseled the patient to reduce her intake of carbohydrates such as pasta, bread, rice, and potatoes, as well as other sweets. 3. Obesity The patient has a long history of obesity and has been unsuccessful with multiple diet attempts. She had significant weight loss with Mounjaro previously but stopped due to side effects. Will attempt to restart Mounjaro for weight management. A prescription will be sent, and a detailed prior authorization will be submitted, including her history of failed diets (e.g., Herbalife, Atkins, Weight Watchers) and prior success with Mounjaro, to argue medical necessity. The patient will provide a list of all weight loss methods she has tried to support the prior authorization process. Discussion Notes I discussed the patient's acute flu-like symptoms and explained the rationale for testing for both influenza and COVID-19 to determine the appropriate antiviral treatment. I instructed her to proceed to the hospital for testing and informed her I would follow up with the results to initiate treatment. We reviewed her recent hemoglobin A1c of 5.7, confirming a diagnosis of prediabetes. I explained that this is a borderline result and that medication is not needed at this time, emphasizing that management will focus on diet modification and exercise. I specifically advised her to reduce intake of carbohydrates and sweets. We had an extensive discussion regarding her chronic struggle with obesity. We reviewed her past success with Mounjaro, which led to an 80-pound weight loss, and her reasons for stopping (side effects). Given her significant weight regain, we agreed to attempt restarting Mounjaro. I informed her that I will submit a prescription and a detailed prior authorization, noting her extensive history of failed diet attempts (including Herbalife, Atkins, and Weight Watchers) to justify medical necessity. She agreed to provide a comprehensive list of all weight loss methods she has tried to support this process. Patient Instructions - Go to the hospital to get tested for the flu and COVID-19. - I will contact you with the test results to discuss the appropriate medication. - To manage your prediabetes, focus on diet and exercise. - Reduce your intake of sugary foods and carbohydrates like pasta, bread, rice, and potatoes. - I will be sending a prescription for Mounjaro to your pharmacy to help with weight loss. - We need to get approval from your insurance company before you can pickling solution maker this medication. - Please send me a message listing all the diets, vitamins, and [id number] products you have tried for weight loss so I can include this information for your insurance. Orders: Orders SARS-CoV2/FLU/RSV Today M79.10 - Myalgia, unspecified site Medications: New tirzepatide (weight loss) (Zepbound) for 4 weeks 2.5 mg (0.5 mL) subcut QWEEK 2 mL 0RF E66.9 - Obesity, unspecified
--- OUTSIDE RECORDS SUMMARY | 2025-08-08 17:55 | XMS_ITS | Clinical Summary ---
Author Organization [facility] Address [address] [place] [address] Phone Care Team Providers Care Web Operations Administrator Name Role Phone Unavailable Primary Care Provider [...]
--- OUTSIDE RECORDS SUMMARY | 2025-08-08 17:55 | XMS_ITS | Clinical Summary ---
Author Organization [employer] [facility] Address [address] [place] [address] Phone Care Team Providers Care Loss Mitigation Specialist Name Role Phone Gabriela Arce MD Primary Care Provider [phone] Allergies Active Allergy Reactions Criticality Noted Date [...] GLP-1 agonists. She states that she has [employer] and she spoke with somebody and they told her that they will cover Mounjaro. So this Medicare Medicare covers Mounjaro. But they do not cover is still weight loss medication Zepbound. So hopefully Zepbound will be covered by [employer]. I did inform her the Mounjaro and Zepbound of the same medication just different names 1 is for diabetes and 1 is for obesity management. I prescribe Zepbound 2.5 mg again. This will have to go through [facility] and if she needs a prior authorization [...] Patient received sample of Mounjaro lot number [id number], expiration 09/16/2023. Assessment & Plan (02/20/2022 11:16 [...] Devices Not on file Insurance [address] [place] [address] [facility] B [address] [place] [address] [facility] & [place] [address] [place] [address] [place] [address] [place] [address] [place] [address] [place] [address] [place]ICARE PART A & [address] [place] [address] [facility] [address] [place] [address] [facility] MEDICARE PART A & B [address] [place] [id number] [place] [address]HEALTH MEDICARE PART A & B [address] [place] [address] [place] MED[place]ARE PART A & B Care Teams Loss Mitigation Specialist Relationship Specialty Start Date End Date Gabriela Arce MD [address] [place] [address] Drive [address] [place] [phone] PCP - General Internal Medicine 08/15/21 Additional Source Comments The information contained in this document represents components of the legal health record. It is not the complete legal health record.[facility]
--- OUTSIDE RECORDS SUMMARY | 2025-08-08 17:55 | XMS_ITS | Clinical Summary ---
Author Organization [facility] Address [address] [place] [address] Phone Care Team Providers Care Mail Clerks Supervisor Name Role Phone Gabriela Arce MD Primary Care Provider [phone] Allergies No known active allergies Medications albuterol [...] Care Team Description 06/22/2025 Telephone Orthopedic Surgery [place] [address] [phone] Marcelo Bingham DPM 05/19/2025 3:30 PM EDT Office Visit Orthopedic Surgery [facility] [address] [phone] Marcelo Bingham DPM Complex regional pain syndrome type 2 of right lower extremity (Primary Dx); Neuritis; Joint stiffness 05/10/2025 9:16 AM EDT - 05/10/2025 10:46 AM EDT Emergency [facility] [address] [place] [phone] Acute low back pain with bilateral sciatica, unspecified back pain laterality (Primary Dx) Discharge Disposition: Home or Self Care from Last 3 Months Surgical History Surgery [...] and culture (05/10/2025 9:58 AM EDT) Specific [place] Urine 1.031(H) 1.003 - 1.030 LAB URINALYSIS [...] - AUTOMATED METHOD 05/10/2025 10:26 AM EDT [facility] Ketones, Urine Negative Negative mg/dL LAB URINALYSIS - AUTOMATED METHOD 05/10/2025 10:26 AM EDT [facility] Urobilinogen, Urine 0.2 0.2 - 1.0 mg/dL LAB URINALYSIS - AUTOMATED METHOD 05/10/2025 10:26 AM EDT [facility] Bilirubin, Urine Negative Negative LAB URINALYSIS - AUTOMATED METHOD 05/10/2025 10:26 AM EDT [facility] Blood, Urine Negative Negative LAB URINALYSIS - AUTOMATED METHOD 05/10/2025 10:26 AM EDT [facility] Urine Urine specimen obtained by clean catch procedure / Unknown Non-blood Collection / Unknown 05/10/2025 9:58 AM EDT 05/10/2025 10:22 AM EDT [facility] URINE ORDERABLES Fin al Result Performing Organization Address [facility]/ZIP Co de Phone Number [facility] [address] [place] [address], [place] [phone] * [place] urine culture tube (05/10/2025 9:58 AM EDT) Extra Tube Hold for add-ons. 05/10/2025 12:01 PM EDT [facility] Comment:Auto resulted. Urine Urine specimen obtained by clean catch procedure / Unknown Non-blood Collection / Unknown 05/10/2025 9:58 AM EDT 05/10/2025 10:22 AM EDT [facility] LAB URINE ORDERABLES Fin al Result Performing Organization Address [facility]/ZIP Co de Phone Number [facility] [address] [place] [address], [place] [phone] from Last 3 Months Insurance [place]ICA[place] - [place] MEDICARE Member Subscriber Plan / Payer (Ef fective 2022-) Name:BENY HEATON Member ID:[id number] Relation to Subscriber:Self Name:Beny Heaton Subscriber ID:[id number] Payer ID:Not on file Group ID:Not on file Type:Medicare Address: [address] MEDICARE MED[place] - [place] Care Teams Mail Clerks Supervisor Relationship Specialty Start Date End Date Gabriela Arec MD [address] [place] [address] PCP - General Internal Medicine 05/10/25
== END 2025-08-08 17:27 | disposition home or self-care (01) ==
LOC: HO.HMCH 16:07
PROVIDERS: PCP Internal Medicine; Visit Provider Internal Medicine
DX: R73.02 Impaired glucose tolerance (oral) (principal); E66.9 Obesity, unspecified; M79.10 Myalgia, unspecified site